=== PATIENT | male | born 1955 | race Caucasian/White ===

== ENCOUNTER 2020-07-19 15:23 | Inpatient (IN) | payer MEDICARE, MEDICAID, SELFPAY ==
[2020-07-19 15:28] VITALS: BMI 19.9
--- NOTE | 2020-07-19 16:00 | XR_ITS ---
WS: [id number] XR chest 1V portable [id number] REASON FOR EXAM: dyspnea/cough FINDINGS: The chest is unchanged compared to previous examination of 10/26/2018. Moderate tortuosity of the thoracic aorta with normal heart size. No active pulmonary parenchymal or pleural disease. Changes of degenerative spondylosis, moderate, in the mid and lower thoracic spine. XR/XR chest 1V portable [id number] IMPRESSION: No acute chest abnormality.
--- NOTE | 2020-07-19 16:00 | CTR_ITS ---
PROCEDURE INFORMATION: Exam: CT Head Without Contrast Exam date and time: 07/19/2020 5:49 PM Age: 65 years old Clinical indication: Injury or trauma; Laceration; Consciousness not specified; Without residual foreign body; Scalp; Patient HX: Unwitnessed fall - found on floor w lac to back of head - HX of untreated schizophrenia; Additional info: Fall head injury TECHNIQUE: Imaging protocol: Computed tomography of the head without contrast. Sagittal and coronal reformatted images were created and reviewed. Radiation optimization: All CT scans at this facility use at least one of these dose optimization techniques: automated exposure control; mA and/or kV adjustment per patient size (includes targeted exams where dose is matched to clinical indication); or iterative reconstruction. COMPARISON: CT head wo con* [id number] 10/26/2018 10:52 AM RADIATION DOSE METRICS: Total DLP (mGy-cm): 917.6 FINDINGS: Brain: No acute intracranial hemorrhage. No acute infarct. No intra-axial or extra-axial masses. Avilez-white matter differentiation is preserved. No cerebral edema. No extra-axial fluid collections. No midline shift. No evidence for Chiari 1 malformation. Stable moderate atrophy of the brain parenchyma. Stable mildly decreased attenuation in the deep white matter, consistent with mild chronic microangiopathic change. Cerebral ventricles: No hydrocephalus. Incidental note of a cavum septum pellucidum. Bones/joints: Mild deviation of the nasal septum both to the right posteriorly and to the left anteriorly. A partially visualized cystic focus in the anterior maxilla just to the right of midline is unchanged. This may represent a residual cyst. Paranasal sinuses: Near complete opacification of the right maxillary sinus. Other paranasal sinuses are clear. Mastoid air cells: Mastoid air cells are clear bilaterally. Auditory system: Soft tissue density in the right external auditory canal, presumably representing cerumen. Orbital cavity: Globes and lenses, extraocular muscles, and optic nerves are intact bilaterally. No acute intraorbital abnormality. Vasculature: Atherosclerotic changes in the visualized arteries. Soft tissues: No acute abnormality of the extracranial soft tissues. CT/CT head wo con* [id number] IMPRESSION: 1. No acute abnormality of the brain. 2. Stable moderate atrophy of the brain parenchyma. 3. 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 4. Incidental/nonacute findings are listed in the report. Radiation Dose CTDIVOL = (mGy): DLP = 917.6 (mGy-cm)
--- NOTE | 2020-07-19 16:01 | ED_ITS ---
Documented by User: Kamlesh Ibrhaim DO 07/22/20 06:34 HPI - Head Injury General: Chief complaint: Head Injury Stated complaint: FALL/ HEAD LAC Time Seen by Provider: 07/19/20 15:34 History of Present Illness: HPI Narrative: 65-year-old male who has a history of schizophrenia he is untreated. He lives with a family member and [place] they came home to find him down on the floor and a large amount of blood with the cut on the back of his head. He is able to follow simple commands will acknowledge that he fell and was hurt but cannot really provide much more history than that due to his mental health illness there is no other family members present at this time. He is in no respiratory distress. Complaint: head injury Onset (ago): minute(s) Mechanism of Injury: fall Place: home Loss of Consciousness: unsure Location of injury: occipital Severity: mild Associated symptoms: Reports confusion (Chronic near his baseline mental health illnesses); Deny nausea or vomiting Review of Systems Const: Denies: fever(s), chills, body aches, change in appetite, fatigue or malaise ENMT: Denies: throat pain, ear or mastoid pain, nasal discharge or nasal congestion Card: Denies: chest pain, edema, dyspnea on exertion or orthopnea Resp: Denies: dyspnea, productive cough or non-productive cough GI: Denies: abdominal pain, nausea, vomiting, hematemesis, coffee ground emesis, diarrhea, constipation, bloating, hematochezia or melena : Denies: flank pain, dysuria, urinary frequency or urinary urgency Skin/Breast: Denies: rash or pruritus Neuro: Reports: confusion (Chronic near his baseline mental health illnesses) PFS ED PFSH: Medical History (Updated 07/21/20 @ 16:07 by Matthias Puente MD) COPD (chronic obstructive pulmonary disease) CVA (cerebral vascular accident) HLD (hyperlipidemia) HTN (hypertension) Schizophrenia Surgical History Stented coronary artery Family History Other Cancer Hyperlipidemia Hypertension Social History Smoking and tobacco status: former smoker Alcohol intake: former Former alcohol use details: Reports some alcohol in the past? No report of abuse in past documentation. Substance/Drug Use: never Lives independently: No Household members: family and other Details: Reports daughter and grandchildren, sister? Reports also has a son who does not live with them. Current occupational status: disabled Physical Exam Const: COMMON NORMALS: no acute distress GENERAL APPEARANCE: cooperative and comfortable ORIENTATION/CONSCIOUSNESS: Yes awake HENMT: COMMON NORMALS: normocephalic HEAD & SCALP: normocephalic OTHER: Patient is severely unkemp hair and wilde examination. There is blood and food caked in his wilde and hair. In order to find the laceration nurse was forced to shave his head and wilde base the occiput on the left there is a small laceration this was closed with a single staple. Eye: COMMON NORMALS: Equal, round and reactive pupils present, EOMs intact bilaterally, conjunctivae normal and no scleral icterus CONJUNCTIVA: Yes conjunctivae normal PUPIL: Yes Equal, round and reactive pupils present Neck/C-Spine: COMMON NORMALS: full ROM, no lymphadenopathy, supple and no JVD Lymph: LYMPHATIC: no lymphadenopathy noted and no lymphedema noted Resp: COMMON NORMALS: normal respiratory effort, No retractions, No use of accessory muscles and clear to auscultation bilaterally AUSCULTATION: clear to auscultation bilaterally Cardio: COMMON NORMALS: no JVD, regular rate, regular rhythm and No murmurs present (Cardio) RATE: regular rate RHYTHM: regular rhythm GI: COMMON NORMALS: Soft to palpation and No hepatosplenomegaly present AUSCULTATION: Yes normoactive bowel sounds PALPATION: Yes Soft to palpation, No Tenderness to palpation present (GI), No Guarding due to palpation present (GI) and Yes No hepatosplenomegaly present Extremity: COMMON NORMALS: normal to inspection, capillary refill normal, no clubbing, cyanosis or edema, no calf tenderness and no pedal edema Skin: COMMON NORMALS: no rashes or lesions noted GENERAL SKIN EXAM: no rashes or lesions noted Procedures Laceration Laceration 1: Site: scalp (Posterior occiput on the left) Size (cm): 1 Description: linear Pre-repair: irrigated extensively Skin layer closed with: other (Single staple) Course Vital Signs: Vital signs: Vital Signs Temperature 99.0 F 07/22/20 04:00 Pulse Rate 94 07/22/20 04:00 Respiratory Rate 18 07/22/20 04:00 Blood Pressure 146/64 07/22/20 04:00 Pulse Oximetry 95 07/22/20 04:00 MDM - Head Injury MDM Narrative: Medical decision making narrative: 07/19/2020. Patient signed off to Dr. Pastrana 07/20/2020. Return to a.m. shift patient signed back to me from Dr. Pastrana where still working on placement see Dr. Pastrana's note. 07/20/2020 6 PM. At change of shift we are still attempting to find placement for this patient he has been placed on a 96-hour hold nursing staff continues to call facilities for placement care turned back over to Dr. Pastrana Lab Data: Labs: Lab Results 07/19/20 07/19/20 07/19/20 Range/Units 17:35 17:35 17:35 WBC 8.9 (4.0-10.0) 10^3/ uL RBC 4.20 (4.1-5.3) 10^6/u L Hgb 12.5 (11.7-16.6) g/dL Hct 40.6 L (42.0-52.0) % MCV 96.7 H (80-94) fL MCH 29.8 (28.0-34.0) pg MCHC 30.8 (30.0-36.0) g/dL RDW 14.8 (12.1-15.1) % Plt Count 221 (130-400) 10^3/c mm MPV 9.7 (7.4-10.4) fL Neut % (Auto) 70.5 % Lymph % (Auto) 21.0 % [place] % (Auto) 7.1 % Eos % (Auto) 0.7 % Baso % (Auto) 0.4 % Neut # (Auto) 6.29 (1.8-7.7) 10^3/u L Lymph # (Auto) 1.9 (0.8-4.8) 10^3/u L [place] # (Auto) 0.6 (0.2-0.9) 10^3/u L Eos # (Auto) 0.1 (0.0-0.8) 10^3/u L Baso # (Auto) 0.0 (0.0-0.1) 10^3/u L Nucleated RBC % (a uto) 0 % Nucleated RBCs # 0.0 /100WBC Sodium 136 (136-145) mmol/L Potassium 3.8 (3.5-5.1) mmol/L Chloride 98 (98-107) mmol/L Carbon Dioxide 30 H (22-29) mmol/L Anion Gap 11.8 (5-19) BUN 13 (8-23) mg/dL Creatinine 0.5 L (0.7-1.2) mg/dL GFR Calculation 166.4 H (90-130) mL/min Glucose 99 (65-115) mg/dL Calculated Osmolal ity 282 L (285-295) mOsm/k g Calcium 9.1 (8.5-10.5) mg/dL Phosphorus (2.5-4.5) mg/dL Magnesium (1.7-2.3) mg/dL Total Bilirubin 0.3 (0.15-1.2) mg/dL AST 16 (0-40) U/L ALT 13 (0-41) U/L Alkaline Phosphata se 113 (40-130) IU/L Creatine Kinase 90 (39-308) U/L Troponin T Baselin e 16 H (0-15) ng/L Total Protein 6.9 (6.6-8.7) g/dL Albumin 3.9 (3.5-5.2) g/dL Globulin 3.0 (1.3-4.6) g/dL Vitamin B12 (232-1245) pg/mL Folate (4.5-32.2) ng/mL TSH (0.27-4.20) uIU/ mL Urine Color (Yellow) Urine Appearance (CLEAR) Urine pH (5-7) Ur Specific Gravit y (1.005-1.030) Urine Protein (Negative) Urine Glucose (UA) (Normal) Urine Ketones (Negative) Urine Blood (Negative) Urine Nitrate (Negative) Urine Bilirubin (Negative) Urine Urobilinogen (Negative) mg/dL Ur Leukocyte Britney ase (Negative) Urine RBC (0-2) /hpf Urine WBC (0-5) /hpf Ur Squamous Epith Cells (0-5) /hpf Amorphous Sediment Urine Bacteria (NONE) /hpf Urine Mucus /hpf Salicylates (3-10) mg/dL Urine Opiates Scre en (Negative) ng/mL Acetaminophen (10-30) ug/mL Ur Barbiturates Sc reen (Negative) ng/mL Ur Phencyclidine S crn (Negative) ng/mL Ur Amphetamines Sc reen (Negative) ng/mL U Benzodiazepines Scrn (Negative) ng/mL Urine Cocaine Scre en (Negative) ng/mL U Marijuana (THC) Screen (Negative) ng/mL Ethyl Alcohol (0-10) mg/dL Serum Ketones Negative (Negative) SARS-CoV-2 Ag (Rap id) (Negative) 07/19/20 07/19/20 07/19/20 Range/Units 17:35 17:35 17:35 WBC (4.0-10.0) 10^3/ uL RBC (4.1-5.3) 10^6/u L Hgb (11.7-16.6) g/dL Hct (42.0-52.0) % MCV (80-94) fL MCH (28.0-34.0) pg MCHC (30.0-36.0) g/dL RDW (12.1-15.1) % Plt Count (130-400) 10^3/c mm MPV (7.4-10.4) fL Neut % (Auto) % Lymph % (Auto) % [place] % (Auto) % Eos % (Auto) % Baso % (Auto) % Neut # (Auto) (1.8-7.7) 10^3/u L Lymph # (Auto) (0.8-4.8) 10^3/u L [place] # (Auto) (0.2-0.9) 10^3/u L Eos # (Auto) (0.0-0.8) 10^3/u L Baso # (Auto) (0.0-0.1) 10^3/u L Nucleated RBC % (a uto) % Nucleated RBCs # /100WBC Sodium (136-145) mmol/L Potassium (3.5-5.1) mmol/L Chloride (98-107) mmol/L Carbon Dioxide (22-29) mmol/L Anion Gap (5-19) BUN (8-23) mg/dL Creatinine (0.7-1.2) mg/dL GFR Calculation (90-130) mL/min Glucose (65-115) mg/dL Calculated Osmolal ity (285-295) mOsm/k g Calcium (8.5-10.5) mg/dL Phosphorus 2.8 (2.5-4.5) mg/dL Magnesium 1.8 (1.7-2.3) mg/dL Total Bilirubin (0.15-1.2) mg/dL AST (0-40) U/L ALT (0-41) U/L Alkaline Phosphata se (40-130) IU/L Creatine Kinase (39-308) U/L Troponin T Baselin e (0-15) ng/L Total Protein (6.6-8.7) g/dL Albumin (3.5-5.2) g/dL Globulin (1.3-4.6) g/dL Vitamin B12 590 (232-1245) pg/mL Folate 6.8 (4.5-32.2) ng/mL TSH 1.19 (0.27-4.20) uIU/ mL Urine Color (Yellow) Urine Appearance (CLEAR) Urine pH (5-7) Ur Specific Gravit y (1.005-1.030) Urine Protein (Negative) Urine Glucose (UA) (Normal) Urine Ketones (Negative) Urine Blood (Negative) Urine Nitrate (Negative) Urine Bilirubin (Negative) Urine Urobilinogen (Negative) mg/dL Ur Leukocyte Britney ase (Negative) Urine RBC (0-2) /hpf Urine WBC (0-5) /hpf Ur Squamous Epith Cells (0-5) /hpf Amorphous Sediment Urine Bacteria (NONE) /hpf Urine Mucus /hpf Salicylates < 0.3 L (3-10) mg/dL Urine Opiates Scre en (Negative) ng/mL Acetaminophen < 5.0 L (10-30) ug/mL Ur Barbiturates Sc reen (Negative) ng/mL Ur Phencyclidine S crn (Negative) ng/mL Ur Amphetamines Sc reen (Negative) ng/mL U Benzodiazepines Scrn (Negative) ng/mL Urine Cocaine Scre en (Negative) ng/mL U Marijuana (THC) Screen (Negative) ng/mL Ethyl Alcohol < 10 (0-10) mg/dL Serum Ketones (Negative) SARS-CoV-2 Ag (Rap id) (Negative) 07/19/20 07/19/20 07/19/20 Range/Units 17:52 17:52 23:25 WBC (4.0-10.0) 10^3/ uL RBC (4.1-5.3) 10^6/u L Hgb (11.7-16.6) g/dL Hct (42.0-52.0) % MCV (80-94) fL MCH (28.0-34.0) pg MCHC (30.0-36.0) g/dL RDW (12.1-15.1) % Plt Count (130-400) 10^3/c mm MPV (7.4-10.4) fL Neut % (Auto) % Lymph % (Auto) % [place] % (Auto) % Eos % (Auto) % Baso % (Auto) % Neut # (Auto) (1.8-7.7) 10^3/u L Lymph # (Auto) (0.8-4.8) 10^3/u L [place] # (Auto) (0.2-0.9) 10^3/u L Eos # (Auto) (0.0-0.8) 10^3/u L Baso # (Auto) (0.0-0.1) 10^3/u L Nucleated RBC % (a uto) % Nucleated RBCs # /100WBC Sodium (136-145) mmol/L Potassium (3.5-5.1) mmol/L Chloride (98-107) mmol/L Carbon Dioxide (22-29) mmol/L Anion Gap (5-19) BUN (8-23) mg/dL Creatinine (0.7-1.2) mg/dL GFR Calculation (90-130) mL/min Glucose (65-115) mg/dL Calculated Osmolal ity (285-295) mOsm/k g Calcium (8.5-10.5) mg/dL Phosphorus (2.5-4.5) mg/dL Magnesium (1.7-2.3) mg/dL Total Bilirubin (0.15-1.2) mg/dL AST (0-40) U/L ALT (0-41) U/L Alkaline Phosphata se (40-130) IU/L Creatine Kinase (39-308) U/L Troponin T Baselin e (0-15) ng/L Total Protein (6.6-8.7) g/dL Albumin (3.5-5.2) g/dL Globulin (1.3-4.6) g/dL Vitamin B12 (232-1245) pg/mL Folate (4.5-32.2) ng/mL TSH (0.27-4.20) uIU/ mL Urine Color Yellow (Yellow) Urine Appearance Sl hazy (CLEAR) Urine pH 7 (5-7) Ur Specific Gravit y 1.015 (1.005-1.030) Urine Protein Neg (Negative) Urine Glucose (UA) Norm (Normal) Urine Ketones Negative (Negative) Urine Blood 3+ H (Negative) Urine Nitrate Negative (Negative) Urine Bilirubin Neg (Negative) Urine Urobilinogen Neg (Negative) mg/dL Ur Leukocyte Britney ase Negative (Negative) Urine RBC 0-4 H (0-2) /hpf Urine WBC None (0-5) /hpf Ur Squamous Epith Cells None (0-5) /hpf Amorphous Sediment Not Reportable Urine Bacteria Trace (NONE) /hpf Urine Mucus 1+ /hpf Salicylates (3-10) mg/dL Urine Opiates Scre en Negative (Negative) ng/mL Acetaminophen (10-30) ug/mL Ur Barbiturates Sc reen Negative (Negative) ng/mL Ur Phencyclidine S crn Negative (Negative) ng/mL Ur Amphetamines Sc reen Negative (Negative) ng/mL U Benzodiazepines Scrn Negative (Negative) ng/mL Urine Cocaine Scre en Negative (Negative) ng/mL U Marijuana (THC) Screen Negative (Negative) ng/mL Ethyl Alcohol (0-10) mg/dL Serum Ketones (Negative) SARS-CoV-2 Ag (Rap id) Negative (Negative) Discharge Plan Discharge Patient Disposition: Admitted As Inpatient Admit Provider: Matthias Puente Clinical Impression: Schizophrenia, Generalized weakness Dementia Qualifiers: Dementia type: unspecified type Dementia behavioral disturbance: with behavioral disturbance Qualified Code(s): F03.91 - Unspecified dementia with behavioral disturbance Condition: Stable Sign Out Sign Out Data: Patient Sign Out occurred on 07/20/20 at 07:07. Patient's care was discussed, and care was transferred from to Kamlesh Ibrahim DO. Patient Sign Out occurred on 07/20/20 at 18:17. Patient's care was discussed, and care was transferred from to Nikki Garrison. Coding Level of Care Code ED Electronic Prepress Operator for Chg Fwd Exam Comprehensive Documented by User: David Moyer DO 07/20/20 00:46 HPI - Head Injury General: Chief complaint: Head Injury Stated complaint: FALL/ HEAD LAC Time Seen by Provider: 07/19/20 15:34 PFSH ED PFSH: Medical History (Updated 07/21/20 @ 16:07 by Matthias Puente MD) COPD (chronic obstructive pulmonary disease) CVA (cerebral vascular accident) HLD (hyperlipidemia) HTN (hypertension) Schizophrenia Surgical History Stented coronary artery Family History Other Cancer Hyperlipidemia Hypertension Social History Smoking and tobacco status: former smoker Alcohol intake: former Former alcohol use details: Reports some alcohol in the past? No report of abuse in past documentation. Substance/Drug Use: never Lives independently: No Household members: family and other Details: Reports daughter and grandchildren, sister? Reports also has a son who does not live with them. Current occupational status: disabled Course Vital Signs: Vital signs: Vital Signs Temperature 99.0 F 07/22/20 04:00 Pulse Rate 94 07/22/20 04:00 Respiratory Rate 18 07/22/20 04:00 Blood Pressure 146/64 07/22/20 04:00 Pulse Oximetry 95 07/22/20 04:00 MDM - Head Injury MDM Narrative: Medical decision making narrative: 65-year-old male came to the ER as a head injury. He had fallen at home evidently, and had a laceration. This was repaired. He had blood, and food caked in his wilde and hair. He had to be shaved to find the laceration. He also had urine and feces soiled pants, and was quite disheveled. This gentleman comes in by ambulance, his daughter, who evidently is his beam house inspector is not answering her phone. This patient is essentially a one-on-one patient. He is severe dementia. if left alone, he is certainly a danger to himself. He has been medically screened, and found that no medical conditions account for his problem. He would be best served evaluated by a geriatric psychiatrist, and his dementia treated appropriately prior to more computer terminal operator placement. Lab Data: Labs: Lab Results 07/19/20 07/19/20 07/19/20 Range/Units 17:35 17:35 17:35 WBC 8.9 (4.0-10.0) 10^3/ uL RBC 4.20 (4.1-5.3) 10^6/u L Hgb 12.5 (11.7-16.6) g/dL Hct 40.6 L (42.0-52.0) % MCV 96.7 H (80-94) fL MCH 29.8 (28.0-34.0) pg MCHC 30.8 (30.0-36.0) g/dL RDW 14.8 (12.1-15.1) % Plt Count 221 (130-400) 10^3/c mm MPV 9.7 (7.4-10.4) fL Neut % (Auto) 70.5 % Lymph % (Auto) 21.0 % [place] % (Auto) 7.1 % Eos % (Auto) 0.7 % Baso % (Auto) 0.4 % Neut # (Auto) 6.29 (1.8-7.7) 10^3/u L Lymph # (Auto) 1.9 (0.8-4.8) 10^3/u L [place] # (Auto) 0.6 (0.2-0.9) 10^3/u L Eos # (Auto) 0.1 (0.0-0.8) 10^3/u L Baso # (Auto) 0.0 (0.0-0.1) 10^3/u L Nucleated RBC % (a uto) 0 % Nucleated RBCs # 0.0 /100WBC Sodium 136 (136-145) mmol/L Potassium 3.8 (3.5-5.1) mmol/L Chloride 98 (98-107) mmol/L Carbon Dioxide 30 H (22-29) mmol/L Anion Gap 11.8 (5-19) BUN 13 (8-23) mg/dL Creatinine 0.5 L (0.7-1.2) mg/dL GFR Calculation 166.4 H (90-130) mL/min Glucose 99 (65-115) mg/dL Calculated Osmolal ity 282 L (285-295) mOsm/k g Calcium 9.1 (8.5-10.5) mg/dL Phosphorus (2.5-4.5) mg/dL Magnesium (1.7-2.3) mg/dL Total Bilirubin 0.3 (0.15-1.2) mg/dL AST 16 (0-40) U/L ALT 13 (0-41) U/L Alkaline Phosphata se 113 (40-130) IU/L Creatine Kinase 90 (39-308) U/L Troponin T Baselin e 16 H (0-15) ng/L Total Protein 6.9 (6.6-8.7) g/dL Albumin 3.9 (3.5-5.2) g/dL Globulin 3.0 (1.3-4.6) g/dL Vitamin B12 (232-1245) pg/mL Folate (4.5-32.2) ng/mL TSH (0.27-4.20) uIU/ mL Urine Color (Yellow) Urine Appearance (CLEAR) Urine pH (5-7) Ur Specific Gravit y (1.005-1.030) Urine Protein (Negative) Urine Glucose (UA) (Normal) Urine Ketones (Negative) Urine Blood (Negative) Urine Nitrate (Negative) Urine Bilirubin (Negative) Urine Urobilinogen (Negative) mg/dL Ur Leukocyte Britney ase (Negative) Urine RBC (0-2) /hpf Urine WBC (0-5) /hpf Ur Squamous Epith Cells (0-5) /hpf Amorphous Sediment Urine Bacteria (NONE) /hpf Urine Mucus /hpf Salicylates (3-10) mg/dL Urine Opiates Scre en (Negative) ng/mL Acetaminophen (10-30) ug/mL Ur Barbiturates Sc reen (Negative) ng/mL Ur Phencyclidine S crn (Negative) ng/mL Ur Amphetamines Sc reen (Negative) ng/mL U Benzodiazepines Scrn (Negative) ng/mL Urine Cocaine Scre en (Negative) ng/mL U Marijuana (THC) Screen (Negative) ng/mL Ethyl Alcohol (0-10) mg/dL Serum Ketones Negative (Negative) SARS-CoV-2 Ag (Rap id) (Negative) 07/19/20 07/19/20 07/19/20 Range/Units 17:35 17:35 17:35 WBC (4.0-10.0) 10^3/ uL RBC (4.1-5.3) 10^6/u L Hgb (11.7-16.6) g/dL Hct (42.0-52.0) % MCV (80-94) fL MCH (28.0-34.0) pg MCHC (30.0-36.0) g/dL RDW (12.1-15.1) % Plt Count (130-400) 10^3/c mm MPV (7.4-10.4) fL Neut % (Auto) % Lymph % (Auto) % [place] % (Auto) % Eos % (Auto) % Baso % (Auto) % Neut # (Auto) (1.8-7.7) 10^3/u L Lymph # (Auto) (0.8-4.8) 10^3/u L [place] # (Auto) (0.2-0.9) 10^3/u L Eos # (Auto) (0.0-0.8) 10^3/u L Baso # (Auto) (0.0-0.1) 10^3/u L Nucleated RBC % (a uto) % Nucleated RBCs # /100WBC Sodium (136-145) mmol/L Potassium (3.5-5.1) mmol/L Chloride (98-107) mmol/L Carbon Dioxide (22-29) mmol/L Anion Gap (5-19) BUN (8-23) mg/dL Creatinine (0.7-1.2) mg/dL GFR Calculation (90-130) mL/min Glucose (65-115) mg/dL Calculated Osmolal ity (285-295) mOsm/k g Calcium (8.5-10.5) mg/dL Phosphorus 2.8 (2.5-4.5) mg/dL Magnesium 1.8 (1.7-2.3) mg/dL Total Bilirubin (0.15-1.2) mg/dL AST (0-40) U/L ALT (0-41) U/L Alkaline Phosphata se (40-130) IU/L Creatine Kinase (39-308) U/L Troponin T Baselin e (0-15) ng/L Total Protein (6.6-8.7) g/dL Albumin (3.5-5.2) g/dL Globulin (1.3-4.6) g/dL Vitamin B12 590 (232-1245) pg/mL Folate 6.8 (4.5-32.2) ng/mL TSH 1.19 (0.27-4.20) uIU/ mL Urine Color (Yellow) Urine Appearance (CLEAR) Urine pH (5-7) Ur Specific Gravit y (1.005-1.030) Urine Protein (Negative) Urine Glucose (UA) (Normal) Urine Ketones (Negative) Urine Blood (Negative) Urine Nitrate (Negative) Urine Bilirubin (Negative) Urine Urobilinogen (Negative) mg/dL Ur Leukocyte Britney ase (Negative) Urine RBC (0-2) /hpf Urine WBC (0-5) /hpf Ur Squamous Epith Cells (0-5) /hpf Amorphous Sediment Urine Bacteria (NONE) /hpf Urine Mucus /hpf Salicylates < 0.3 L (3-10) mg/dL Urine Opiates Scre en (Negative) ng/mL Acetaminophen < 5.0 L (10-30) ug/mL Ur Barbiturates Sc reen (Negative) ng/mL Ur Phencyclidine S crn (Negative) ng/mL Ur Amphetamines Sc reen (Negative) ng/mL U Benzodiazepines Scrn (Negative) ng/mL Urine Cocaine Scre en (Negative) ng/mL U Marijuana (THC) Screen (Negative) ng/mL Ethyl Alcohol < 10 (0-10) mg/dL Serum Ketones (Negative) SARS-CoV-2 Ag (Rap id) (Negative) 07/19/20 07/19/20 07/19/20 Range/Units 17:52 17:52 23:25 WBC (4.0-10.0) 10^3/ uL RBC (4.1-5.3) 10^6/u L Hgb (11.7-16.6) g/dL Hct (42.0-52.0) % MCV (80-94) fL MCH (28.0-34.0) pg MCHC (30.0-36.0) g/dL RDW (12.1-15.1) % Plt Count (130-400) 10^3/c mm MPV (7.4-10.4) fL Neut % (Auto) % Lymph % (Auto) % [place] % (Auto) % Eos % (Auto) % Baso % (Auto) % Neut # (Auto) (1.8-7.7) 10^3/u L Lymph # (Auto) (0.8-4.8) 10^3/u L [place] # (Auto) (0.2-0.9) 10^3/u L Eos # (Auto) (0.0-0.8) 10^3/u L Baso # (Auto) (0.0-0.1) 10^3/u L Nucleated RBC % (a uto) % Nucleated RBCs # /100WBC Sodium (136-145) mmol/L Potassium (3.5-5.1) mmol/L Chloride (98-107) mmol/L Carbon Dioxide (22-29) mmol/L Anion Gap (5-19) BUN (8-23) mg/dL Creatinine (0.7-1.2) mg/dL GFR Calculation (90-130) mL/min Glucose (65-115) mg/dL Calculated Osmolal ity (285-295) mOsm/k g Calcium (8.5-10.5) mg/dL Phosphorus (2.5-4.5) mg/dL Magnesium (1.7-2.3) mg/dL Total Bilirubin (0.15-1.2) mg/dL AST (0-40) U/L ALT (0-41) U/L Alkaline Phosphata se (40-130) IU/L Creatine Kinase (39-308) U/L Troponin T Baselin e (0-15) ng/L Total Protein (6.6-8.7) g/dL Albumin (3.5-5.2) g/dL Globulin (1.3-4.6) g/dL Vitamin B12 (232-1245) pg/mL Folate (4.5-32.2) ng/mL TSH (0.27-4.20) uIU/ mL Urine Color Yellow (Yellow) Urine Appearance Sl hazy (CLEAR) Urine pH 7 (5-7) Ur Specific Gravit y 1.015 (1.005-1.030) Urine Protein Neg (Negative) Urine Glucose (UA) Norm (Normal) Urine Ketones Negative (Negative) Urine Blood 3+ H (Negative) Urine Nitrate Negative (Negative) Urine Bilirubin Neg (Negative) Urine Urobilinogen Neg (Negative) mg/dL Ur Leukocyte Britney ase Negative (Negative) Urine RBC 0-4 H (0-2) /hpf Urine WBC None (0-5) /hpf Ur Squamous Epith Cells None (0-5) /hpf Amorphous Sediment Not Reportable Urine Bacteria Trace (NONE) /hpf Urine Mucus 1+ /hpf Salicylates (3-10) mg/dL Urine Opiates Scre en Negative (Negative) ng/mL Acetaminophen (10-30) ug/mL Ur Barbiturates Sc reen Negative (Negative) ng/mL Ur Phencyclidine S crn Negative (Negative) ng/mL Ur Amphetamines Sc reen Negative (Negative) ng/mL U Benzodiazepines Scrn Negative (Negative) ng/mL Urine Cocaine Scre en Negative (Negative) ng/mL U Marijuana (THC) Screen Negative (Negative) ng/mL Ethyl Alcohol (0-10) mg/dL Serum Ketones (Negative) SARS-CoV-2 Ag (Rap id) Negative (Negative) Discharge Plan Discharge Patient Disposition: Admitted As Inpatient Admit Provider: Matthias Puente Clinical Impression: Schizophrenia, Generalized weakness Dementia Qualifiers: Dementia type: unspecified type Dementia behavioral disturbance: with behavioral disturbance Qualified Code(s): F03.91 - Unspecified dementia with behavioral disturbance Condition: Stable Sign Out Sign Out Data: Patient Sign Out occurred on 07/20/20 at 07:07. Patient's care was discussed, and care was transferred from to Kamlesh Ibrahim DO. Patient Sign Out occurred on 07/20/20 at 18:17. Patient's care was discussed, and care was transferred from to Nikki Garrison. Coding Level of Care Code ED Electronic Prepress Operator for Chg Fwd Exam Comprehensive Documented by User: Dorene Cash MD 07/21/20 14:22 HPI - Head Injury General: Chief complaint: Head Injury Stated complaint: FALL/ HEAD LAC Time Seen by Provider: 07/19/20 15:34 PFSH ED PFSH: Medical History (Updated 07/21/20 @ 16:07 by Matthias Puente MD) COPD (chronic obstructive pulmonary disease) CVA (cerebral vascular accident) HLD (hyperlipidemia) HTN (hypertension) Schizophrenia Surgical History Stented coronary artery Family History Other Cancer Hyperlipidemia Hypertension Social History Smoking and tobacco status: former smoker Alcohol intake: former Former alcohol use details: Reports some alcohol in the past? No report of abuse in past documentation. Substance/Drug Use: never Lives independently: No Household members: family and other Details: Reports daughter and grandchildren, sister? Reports also has a son who does not live with them. Current occupational status: disabled Course Vital Signs: Vital signs: Vital Signs Temperature 99.0 F 07/22/20 04:00 Pulse Rate 94 07/22/20 04:00 Respiratory Rate 18 07/22/20 04:00 Blood Pressure 146/64 07/22/20 04:00 Pulse Oximetry 95 07/22/20 04:00 MDM - Head Injury MDM Narrative: Medical decision making narrative: Andre presents here with generalized weakness along with history of dementia and schizophrenia. I had Dr. Segura come and evaluate him and he felt like he is malnourished and did not meet the requirements to be admitted in the [facility] at this time. I spoke to Dr. Halytsky and will admit as patient does have weakness and is quite confused. Dr. Segura was consulted as well. Lab Data: Labs: Lab Results 07/19/20 07/19/20 07/19/20 Range/Units 17:35 17:35 17:35 WBC 8.9 (4.0-10.0) 10^3/ uL RBC 4.20 (4.1-5.3) 10^6/u L Hgb 12.5 (11.7-16.6) g/dL Hct 40.6 L (42.0-52.0) % MCV 96.7 H (80-94) fL MCH 29.8 (28.0-34.0) pg MCHC 30.8 (30.0-36.0) g/dL RDW 14.8 (12.1-15.1) % Plt Count 221 (130-400) 10^3/c mm MPV 9.7 (7.4-10.4) fL Neut % (Auto) 70.5 % Lymph % (Auto) 21.0 % [place] % (Auto) 7.1 % Eos % (Auto) 0.7 % Baso % (Auto) 0.4 % Neut # (Auto) 6.29 (1.8-7.7) 10^3/u L Lymph # (Auto) 1.9 (0.8-4.8) 10^3/u L [place] # (Auto) 0.6 (0.2-0.9) 10^3/u L Eos # (Auto) 0.1 (0.0-0.8) 10^3/u L Baso # (Auto) 0.0 (0.0-0.1) 10^3/u L Nucleated RBC % (a uto) 0 % Nucleated RBCs # 0.0 /100WBC Sodium 136 (136-145) mmol/L Potassium 3.8 (3.5-5.1) mmol/L Chloride 98 (98-107) mmol/L Carbon Dioxide 30 H (22-29) mmol/L Anion Gap 11.8 (5-19) BUN 13 (8-23) mg/dL Creatinine 0.5 L (0.7-1.2) mg/dL GFR Calculation 166.4 H (90-130) mL/min Glucose 99 (65-115) mg/dL Calculated Osmolal ity 282 L (285-295) mOsm/k g Calcium 9.1 (8.5-10.5) mg/dL Phosphorus (2.5-4.5) mg/dL Magnesium (1.7-2.3) mg/dL Total Bilirubin 0.3 (0.15-1.2) mg/dL AST 16 (0-40) U/L ALT 13 (0-41) U/L Alkaline Phosphata se 113 (40-130) IU/L Creatine Kinase 90 (39-308) U/L Troponin T Baselin e 16 H (0-15) ng/L Total Protein 6.9 (6.6-8.7) g/dL Albumin 3.9 (3.5-5.2) g/dL Globulin 3.0 (1.3-4.6) g/dL Vitamin B12 (232-1245) pg/mL Folate (4.5-32.2) ng/mL TSH (0.27-4.20) uIU/ mL Urine Color (Yellow) Urine Appearance (CLEAR) Urine pH (5-7) Ur Specific Gravit y (1.005-1.030) Urine Protein (Negative) Urine Glucose (UA) (Normal) Urine Ketones (Negative) Urine Blood (Negative) Urine Nitrate (Negative) Urine Bilirubin (Negative) Urine Urobilinogen (Negative) mg/dL Ur Leukocyte Britney ase (Negative) Urine RBC (0-2) /hpf Urine WBC (0-5) /hpf Ur Squamous Epith Cells (0-5) /hpf Amorphous Sediment Urine Bacteria (NONE) /hpf Urine Mucus /hpf Salicylates (3-10) mg/dL Urine Opiates Scre en (Negative) ng/mL Acetaminophen (10-30) ug/mL Ur Barbiturates Sc reen (Negative) ng/mL Ur Phencyclidine S crn (Negative) ng/mL Ur Amphetamines Sc reen (Negative) ng/mL U Benzodiazepines Scrn (Negative) ng/mL Urine Cocaine Scre en (Negative) ng/mL U Marijuana (THC) Screen (Negative) ng/mL Ethyl Alcohol (0-10) mg/dL Serum Ketones Negative (Negative) SARS-CoV-2 Ag (Rap id) (Negative) 07/19/20 07/19/20 07/19/20 Range/Units 17:35 17:35 17:35 WBC (4.0-10.0) 10^3/ uL RBC (4.1-5.3) 10^6/u L Hgb (11.7-16.6) g/dL Hct (42.0-52.0) % MCV (80-94) fL MCH (28.0-34.0) pg MCHC (30.0-36.0) g/dL RDW (12.1-15.1) % Plt Count (130-400) 10^3/c mm MPV (7.4-10.4) fL Neut % (Auto) % Lymph % (Auto) % [place] % (Auto) % Eos % (Auto) % Baso % (Auto) % Neut # (Auto) (1.8-7.7) 10^3/u L Lymph # (Auto) (0.8-4.8) 10^3/u L [place] # (Auto) (0.2-0.9) 10^3/u L Eos # (Auto) (0.0-0.8) 10^3/u L Baso # (Auto) (0.0-0.1) 10^3/u L Nucleated RBC % (a uto) % Nucleated RBCs # /100WBC Sodium (136-145) mmol/L Potassium (3.5-5.1) mmol/L Chloride (98-107) mmol/L Carbon Dioxide (22-29) mmol/L Anion Gap (5-19) BUN (8-23) mg/dL Creatinine (0.7-1.2) mg/dL GFR Calculation (90-130) mL/min Glucose (65-115) mg/dL Calculated Osmolal ity (285-295) mOsm/k g Calcium (8.5-10.5) mg/dL Phosphorus 2.8 (2.5-4.5) mg/dL Magnesium 1.8 (1.7-2.3) mg/dL Total Bilirubin (0.15-1.2) mg/dL AST (0-40) U/L ALT (0-41) U/L Alkaline Phosphata se (40-130) IU/L Creatine Kinase (39-308) U/L Troponin T Baselin e (0-15) ng/L Total Protein (6.6-8.7) g/dL Albumin (3.5-5.2) g/dL Globulin (1.3-4.6) g/dL Vitamin B12 590 (232-1245) pg/mL Folate 6.8 (4.5-32.2) ng/mL TSH 1.19 (0.27-4.20) uIU/ mL Urine Color (Yellow) Urine Appearance (CLEAR) Urine pH (5-7) Ur Specific Gravit y (1.005-1.030) Urine Protein (Negative) Urine Glucose (UA) (Normal) Urine Ketones (Negative) Urine Blood (Negative) Urine Nitrate (Negative) Urine Bilirubin (Negative) Urine Urobilinogen (Negative) mg/dL Ur Leukocyte Britney ase (Negative) Urine RBC (0-2) /hpf Urine WBC (0-5) /hpf Ur Squamous Epith Cells (0-5) /hpf Amorphous Sediment Urine Bacteria (NONE) /hpf Urine Mucus /hpf Salicylates < 0.3 L (3-10) mg/dL Urine Opiates Scre en (Negative) ng/mL Acetaminophen < 5.0 L (10-30) ug/mL Ur Barbiturates Sc reen (Negative) ng/mL Ur Phencyclidine S crn (Negative) ng/mL Ur Amphetamines Sc reen (Negative) ng/mL U Benzodiazepines Scrn (Negative) ng/mL Urine Cocaine Scre en (Negative) ng/mL U Marijuana (THC) Screen (Negative) ng/mL Ethyl Alcohol < 10 (0-10) mg/dL Serum Ketones (Negative) SARS-CoV-2 Ag (Rap id) (Negative) 07/19/20 07/19/20 07/19/20 Range/Units 17:52 17:52 23:25 WBC (4.0-10.0) 10^3/ uL RBC (4.1-5.3) 10^6/u L Hgb (11.7-16.6) g/dL Hct (42.0-52.0) % MCV (80-94) fL MCH (28.0-34.0) pg MCHC (30.0-36.0) g/dL RDW (12.1-15.1) % Plt Count (130-400) 10^3/c mm MPV (7.4-10.4) fL Neut % (Auto) % Lymph % (Auto) % [place] % (Auto) % Eos % (Auto) % Baso % (Auto) % Neut # (Auto) (1.8-7.7) 10^3/u L Lymph # (Auto) (0.8-4.8) 10^3/u L [place] # (Auto) (0.2-0.9) 10^3/u L Eos # (Auto) (0.0-0.8) 10^3/u L Baso # (Auto) (0.0-0.1) 10^3/u L Nucleated RBC % (a uto) % Nucleated RBCs # /100WBC Sodium (136-145) mmol/L Potassium (3.5-5.1) mmol/L Chloride (98-107) mmol/L Carbon Dioxide (22-29) mmol/L Anion Gap (5-19) BUN (8-23) mg/dL Creatinine (0.7-1.2) mg/dL GFR Calculation (90-130) mL/min Glucose (65-115) mg/dL Calculated Osmolal ity (285-295) mOsm/k g Calcium (8.5-10.5) mg/dL Phosphorus (2.5-4.5) mg/dL Magnesium (1.7-2.3) mg/dL Total Bilirubin (0.15-1.2) mg/dL AST (0-40) U/L ALT (0-41) U/L Alkaline Phosphata se (40-130) IU/L Creatine Kinase (39-308) U/L Troponin T Baselin e (0-15) ng/L Total Protein (6.6-8.7) g/dL Albumin (3.5-5.2) g/dL Globulin (1.3-4.6) g/dL Vitamin B12 (232-1245) pg/mL Folate (4.5-32.2) ng/mL TSH (0.27-4.20) uIU/ mL Urine Color Yellow (Yellow) Urine Appearance Sl hazy (CLEAR) Urine pH 7 (5-7) Ur Specific Gravit y 1.015 (1.005-1.030) Urine Protein Neg (Negative) Urine Glucose (UA) Norm (Normal) Urine Ketones Negative (Negative) Urine Blood 3+ H (Negative) Urine Nitrate Negative (Negative) Urine Bilirubin Neg (Negative) Urine Urobilinogen Neg (Negative) mg/dL Ur Leukocyte Britney ase Negative (Negative) Urine RBC 0-4 H (0-2) /hpf Urine WBC None (0-5) /hpf Ur Squamous Epith Cells None (0-5) /hpf Amorphous Sediment Not Reportable Urine Bacteria Trace (NONE) /hpf Urine Mucus 1+ /hpf Salicylates (3-10) mg/dL Urine Opiates Scre en Negative (Negative) ng/mL Acetaminophen (10-30) ug/mL Ur Barbiturates Sc reen Negative (Negative) ng/mL Ur Phencyclidine S crn Negative (Negative) ng/mL Ur Amphetamines Sc reen Negative (Negative) ng/mL U Benzodiazepines Scrn Negative (Negative) ng/mL Urine Cocaine Scre en Negative (Negative) ng/mL U Marijuana (THC) Screen Negative (Negative) ng/mL Ethyl Alcohol (0-10) mg/dL Serum Ketones (Negative) SARS-CoV-2 Ag (Rap id) Negative (Negative) Discharge Plan Discharge Patient Disposition: Admitted As Inpatient Admit Provider: Matthias Puente Clinical Impression: Schizophrenia, Generalized weakness Dementia Qualifiers: Dementia type: unspecified type Dementia behavioral disturbance: with behavioral disturbance Qualified Code(s): F03.91 - Unspecified dementia with behavioral disturbance Condition: Stable Sign Out Sign Out Data: Patient Sign Out occurred on 07/20/20 at 07:07. Patient's care was discussed, and care was transferred from to Kamlesh Ibrahim DO. Patient Sign Out occurred on 07/20/20 at 18:17. Patient's care was discussed, and care was transferred from to Nikki Garrison. Coding Level of Care Code ED Electronic Prepress Operator for Chg Fwd Exam Comprehensive
--- NOTE | 2020-07-19 16:02 | XRR_ITS ---
PROCEDURE INFORMATION: Exam: XR Cervical Spine, 2 or 3 Views Exam date and time: 07/19/2020 4:03 PM Age: 65 years old Clinical indication: Injury or trauma; Fall; Blunt trauma TECHNIQUE: Imaging protocol: XR of the cervical spine, 2 or 3 views. COMPARISON: [facility] Head/Neck [id number] 10/26/2018 10:59 AM FINDINGS: Bones/joints: Vertebral body height is maintained. No subluxation. Normal bone mineralization. Stable multilevel degenerative changes of varying severity in the visualized spine. No acute fracture. Soft tissues: No prevertebral soft tissue swelling. No radiopaque foreign body. Lungs: Visualized lungs are clear. Vasculature: Vascular calcifications in the aorta. XR/XR cervical spine 3V* [id number] IMPRESSION: 1. No acute fracture of the cervical spine. CT scan would be recommended if there is continuing clinical concern for fracture. 2. Stable multilevel degenerative changes of varying severity in the visualized spine. 3. Incidental/nonacute findings are listed in the report.
[2020-07-19 17:42] LABS: Basophils % 0.4 %; Eosinophils # 0.1 10^3/uL (0.0-0.8); Eosinophils % 0.7 %; Hematocrit 40.6 % (42.0-52.0); Hemoglobin 12.5 g/dL (11.7-16.6); Lymphocytes # 1.9 10^3/uL (0.8-4.8); Mean Corpuscular HGB Conc 30.8 g/dL (30.0-36.0); Mean Corpuscular Hemoglobin 29.8 pg (28.0-34.0); Mean Corpuscular Volume 96.7 fL (80-94); Mean Platelet Volume 9.7 fL (7.4-10.4); Monocytes # 0.6 10^3/uL (0.2-0.9); Monocytes % 7.1 %; Neutrophils # 6.29 10^3/uL (1.8-7.7); Neutrophils % 70.5 %; Nucleated Red Blood Cells % 0 %; Platelet Count 221 10^3/cmm (130-400); Red Cell Distribution Width 14.8 % (12.1-15.1); White Blood Count 8.9 10^3/uL (4.0-10.0)
[2020-07-19] MEDS: LORazepam 2 mg/mL INJ 1 mL IVP (17:56)
[2020-07-19 18:12] LABS: Ketone (Acetest) Serum Negative (Negative)
[2020-07-19 18:15] LABS: Alanine Aminotransferase 13 U/L (0-41); Albumin Level 3.9 g/dL (3.5-5.2); Alkaline Phosphatase 113 IU/L (40-130); Anion Gap 11.8 (5-19); Aspartate Amino Transferase 16 U/L (0-40); Blood Urea Nitrogen 13 mg/dL (8-23); Calcium 9.1 mg/dL (8.5-10.5); Carbon Dioxide 30 mmol/L (22-29); Chloride 98 mmol/L (98-107); Creatine Phosphokinase 90 U/L (39-308); Glomerular Filtration Rate 166.4 mL/min (90-130); Glucose 99 mg/dL (65-115); Osmolality Calculated 282 mOsm/kg (285-295); Potassium 3.8 mmol/L (3.5-5.1); Sodium 136 mmol/L (136-145); Total Bilirubin 0.3 mg/dL (0.15-1.2); Total Protein 6.9 g/dL (6.6-8.7)
[2020-07-19 18:19] LABS: Urine Appearance SL Hazy (CLEAR); Urine Color Yellow (Yellow)
[2020-07-19 18:19] LABS: Troponin(5th) Baseline 16 ng/L (0-15)
[2020-07-19 18:20] LABS: Add Urine Microscopic? YES; Bilirubin Urine Neg (Negative); Blood Urine 3+ (Negative); Glucose Urine UA Norm (Normal); Ketones Urine Negative (Negative); Leukocyte Esterase Urine Negative (Negative); Nitrate Urine Negative (Negative); Protein Urine Neg (Negative); Specific Gravity, Urine 1.015 (1.005-1.030); Urobilinogen Urine Neg (Negative); pH Urine 7 (5-7)
[2020-07-19 18:21] LABS: Add Urine Culture? No; Bacteria Urine TRACE /hpf; Mucus Urine 1+ /hpf; RBC Urine 0-4 /hpf (0-2)
[2020-07-19 18:29] VITALS: BP 190/120; PULSE 75; RESP 18; O2SAT 97
[2020-07-19 19:00] VITALS: RESP 18
[2020-07-19] MEDS: haloperidol inj 5 mg/mL INJ 1 mL IM (19:49)
[2020-07-19 21:00] VITALS: RESP 18
[2020-07-19 22:00] VITALS: RESP 18
--- NOTE | 2020-07-19 22:00 | ECG_ITS ---
[facility] Test Date: 2020-07-19 Pat Name: Andre Dumont Department: Room: Gender: Male [employer]: : 1955 Requested By: Kamlesh Olivera Order Number: [id number] Reading MD: TITO HUA Measurements Intervals [place] Rate: 70 P: 78 GA: 142 QRS: 62 QRSD: 96 T: 53 QT: 383 QTc: 413 Interpretive Statements SINUS RHYTHM POSSIBLE RIGHT ATRIAL ENLARGEMENT [0.25mV P WAVE] LEFT ATRIAL ENLARGEMENT [-0.15mV P WAVE IN V1/V2] SEPTAL MYOCARDIAL INFARCTION , OF INDETERMINATE AGE [40+ ms Q WAVE IN V1/V2] Compared to ECG 06/09/2018 10:53:21 Atrial abnormality now present Myocardial infarct finding now present Electronically Signed On 07-19-2020 19:31:23 DRAMA CRITIC by TITO HUA [id number]
[2020-07-19] MEDS: OLANZapine 10 mg ODT PO (23:23)
[2020-07-19] MEDS: amlodipine 10 mg Tablet PO (23:23)
[2020-07-19] MEDS: nitroglycerin 1 gm/inch oint Pkt 1.5 INCH TOPICAL (23:23)
--- NOTE | 2020-07-19 23:34 | PC.NURSE ---
REPORT RECEIVED FROM CHANTAL ROMERO AND CARE TRANSFERRED TO NICK CASTAÑEDA
[2020-07-19 23:49] VITALS: BP 175/130; RESP 17
[2020-07-19 23:54] LABS: SARS Covid-2 Antigen Negative (Negative)
[2020-07-20] VITALS (13 sets, daily range): BP systolic 130–165; BP diastolic 88–115; PULSE 72–127; RESP 14–18; O2SAT 95–100
--- NOTE | 2020-07-20 02:11 | PC.NURSE ---
patient bedding changed, patient diaper changed, patient readjusted in bed for comfort.
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
--- NOTE | 2020-07-20 05:51 | PC.NURSE ---
patient given warm blanket for comfort
--- NOTE | 2020-07-20 06:13 | PC.NURSE ---
patient bedding changed and patient diaper changed for cleanliness and comfort. patient given warm blankets.
--- NOTE | 2020-07-20 16:12 | PC.NURSE ---
[place], [place] contacted for pt placement. Informed that there is male priscila psych beds available at this time. Faxed information to [phone]. Contacted [facility] in [place], [place] for pt placement. Advised that there are no available male priscila psych beds for non-COVID pts at this time.
--- NOTE | 2020-07-20 16:15 | PC.NURSE ---
[facility] in [place], [place] contacted for pt placement. Advised that no male priscila psych beds are available at this time.
--- NOTE | 2020-07-20 16:21 | PC.NURSE ---
Contacted [facility] in [place], [place] for pt placement. Advised that the facility does have male priscila psych beds available at this time. Information Faxed to [phone].
--- NOTE | 2020-07-20 16:25 | PC.NURSE ---
Contacted [facility] in [place], [place] for pt placement. Advised that they would need the pt to be placed on a hold and they are [place].
--- NOTE | 2020-07-20 18:05 | PC.NURSE ---
[facility] in [place], [place] advised that they received incomplete paperwork. Re-sent paperwork to the facility.
[2020-07-20 20:23] LABS: Amphetamines Screen Urine Negative (Negative); Barbiturates Screen Urine Negative (Negative); Benzodiazepines Screen Urine Negative (Negative); Cocaine Screen Urine Negative (Negative); Opiate Screen Urine Negative (Negative); PCP Screen Urine Negative (Negative); THC Screen Urine Negative (Negative)
[2020-07-20 20:39] LABS: Acetaminophen < 5.0 ug/mL (10-30); Alcohol Level < 10 mg/dL (0-10); Salicylate < 0.3 mg/dL (3-10)
--- NOTE | 2020-07-20 21:15 | PC.SOCIAL ---
[facility] in [place] is currently on diversion. [facility] requested a urine drug screen and copy of 96 hour hold be sent. This was faxed.
--- NOTE | 2020-07-20 22:04 | PC.SOCIAL ---
[facility] reports that Dr. Goel wants to review the information in person and will not do so until the morning. [facility] in [facility] is on diversion [facility] in [place] is considering, information was faxed to them.
--- NOTE | 2020-07-20 22:54 | PC.SOCIAL ---
Addendum entered by AFUA Lambert 07/21/20 02:37: [facility] in [place] currently has their priscila psych unit closed. Would review information for adult unit if patient could do his own ADL's. Patient not appropriate for this. Original Note: [facility] declines based on elevated troponin and EKG appearing to show an WI. Discussed with Dr. Garrison. He reports that these results are normal for him and he is not having a WI.
[2020-07-21] VITALS (11 sets, daily range): BP systolic 126–187; BP diastolic 87–104; PULSE 78–120; RESP 16–96; TEMP 36.2–36.7; O2SAT 95–100
--- NOTE | 2020-07-21 02:04 | PC.NURSE ---
given sandwich -lunch bag denies c/o
[2020-07-21] MEDS: acetaminophen 500 mg Tablet 1000 MG PO (03:36)
--- NOTE | 2020-07-21 03:50 | PC.NURSE ---
0330 c/o pain in fingers- elbows
--- NOTE | 2020-07-21 05:54 | PC.NURSE ---
diaper changed rosa care done patient stood at bedside with assist unable to maintain balance without support- linen changed
--- NOTE | 2020-07-21 08:01 | PC.NURSE ---
Eating breakfast , sitter at bedside
--- NOTE | 2020-07-21 09:03 | PC.NURSE ---
Gave jello, pudding, and apple sauce. Watching TV. No acute distress. Sitter at bedside
--- NOTE | 2020-07-21 11:21 | PC.NURSE ---
Lunch tray served Sitter at bedside. No acute distress or outburst.
--- NOTE | 2020-07-21 13:13 | PC.NURSE ---
No acute distress. Sitter at bedside.
--- NOTE | 2020-07-21 13:14 | PC.NURSE ---
Sitter at bedside. Watching TV.
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
[2020-07-21] MEDS: heparin 5,000 unit/mL INJ 1 mL 5000 UNIT SUBCUT (16:37)
[2020-07-21 16:40] LABS: Magnesium 1.8 mg/dL (1.7-2.3); Phosphorus 2.8 mg/dL (2.5-4.5); Thyroid Stimulating Hormone 1.19 uIU/mL (0.27-4.20); Vitamin B12 590 pg/mL (232-1245)
[2020-07-21 16:42] LABS: Folate Level 6.8 ng/mL (4.5-32.2)
[2020-07-21] MEDS: quetiapine 100 mg Tablet 50 MG PO (16:59)
[2020-07-22] VITALS (7 sets, daily range): BP systolic 90–150; BP diastolic 64–107; PULSE 76–95; RESP 16–18; TEMP 35.8–37.2; O2SAT 95–99; BMI 19.9
[2020-07-22] MEDS: heparin 5,000 unit/mL INJ 1 mL 5000 UNIT SUBCUT ×3 (00:58→17:00)
[2020-07-22] MEDS: lisinopril 10 mg Tablet PO ×2 (01:02→10:55)
[2020-07-22 05:06] LABS: Basophils % 0.6 %; Eosinophils # 0.1 10^3/uL (0.0-0.8); Eosinophils % 1.7 %; Lymphocytes # 1.9 10^3/uL (0.8-4.8); Lymphocytes % 26.5 %; Mean Corpuscular HGB Conc 31.7 g/dL (30.0-36.0); Mean Corpuscular Hemoglobin 29.9 pg (28.0-34.0); Mean Corpuscular Volume 94.3 fL (80-94); Mean Platelet Volume 9.6 fL (7.4-10.4); Monocytes # 0.7 10^3/uL (0.2-0.9); Monocytes % 9.4 %; Neutrophils # 4.28 10^3/uL (1.8-7.7); Neutrophils % 61.2 %; Nucleated Red Blood Cells % 0 %; Platelet Count 238 10^3/cmm (130-400); Red Blood Count 4.35 10^6/uL (4.1-5.3); Red Cell Distribution Width 14.7 % (12.1-15.1)
[2020-07-22 05:53] LABS: Blood Urea Nitrogen 21 mg/dL (8-23); Calcium 8.5 mg/dL (8.5-10.5); Carbon Dioxide 29 mmol/L (22-29); Chloride 103 mmol/L (98-107); Glomerular Filtration Rate 84.4 mL/min (90-130); Glucose 90 mg/dL (65-115); Osmolality Calculated 289 mOsm/kg (285-295); Sodium 138 mmol/L (136-145)
--- NOTE | 2020-07-22 09:08 | PC.CHAP ---
Pastoral Care Encounter/Spiritual Assessment Type of Contact [] Declined mercerizing range controller visit [] Patient/Family/Request visit [] Outpatient visit [] Follow-up visit [] Physician referral [] Code/Alert [] Routine visit [] Staff referral [] Actively dying [x] Patient sleeping [] Family support [] [] Out of room [] Palliative care [] [] Receiving care in room [] Pre-surgical visit [] Trauma [] Long length of stay [] ICU visit [] Other: Relational/Emotional Strength [] Patient feels connected with others/family/visitors/staff [] Distress [] Loneliness/isolation [] Abandonment Spirituality of Patient [] Person of Aga [] Attends Presybeterian of their Aga [] Believes in Prayer [] Reads Bible or Baptist materials [] There are Spiritual issues to be addressed Business Partner Interventions [] Prayer [] Active listening [] Non-anxious presence [] Spiritual/emotional support [] Crisis/trauma care [] Spiritual counseling [] Bereavement support [] Provided bereavement packet [] Provided Bible/devotional materials [] Provided toy/stuffed animal, coloring book to patient or family member [] Provided Communion [] Anointing/[place] [] Salvation [] Completed spiritual assessment [] Other: Impact on Illness or Injury [] Angry [] Fearful [] Anxious [] Often cries [] Exhaustion [] Unable to work [] Unable to attend mormonism [] Unable to walk/stand [] Unable to read [] Unable to drive [] Unable to eat/drink [] Unable to sleep [] Unable to be with family [] Patient intubated [] Other: Summary Time spent with patient
[2020-07-22] MEDS: atorvastatin 40 mg Tablet 20 MG PO (10:55)
[2020-07-22] MEDS: quetiapine 100 mg Tablet 50 MG PO ×2 (10:55→18:05)
[2020-07-22] MEDS: clopidogrel 75 mg Tablet PO (10:55)
[2020-07-22] MEDS: aspirin 81 mg EC Tablet PO (10:56)
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
--- NOTE | 2020-07-22 17:50 | PC.NURSE ---
the son Flip Dumont called and was wanting to know if placement was found for his father, communications writer told him it didn't look like a decision has been made. he said he had called [facility] and they told him they would take his father. communications writer messaged the ma production control planner but hes gone for the day. Flip Dumont said he is wanting his father to be close to home so they can visit.
--- NOTE | 2020-07-22 17:56 | PC.RESP ---
Pulmonary Rehab information sent to patient.
--- NOTE | 2020-07-22 18:56 | P.CONIM_ITS ---
Providers/Reason for Consult Consulting Physican/Specialty*: Nadir Segrua MD. Psychiatry. Reason for Consult*: Evaluation for treatment. Attending Physician: Gillian Domínguez MD Primary Care Provider: Hima Klein Jr, MD Psych Consult HPI History of Present Illness Andre Dumont is a 65 year old male who presented to the emergency department with the following report: Chief complaint: Head Injury Stated complaint: FALL/ HEAD LAC Time Seen by Provider: 07/19/20 15:34 History of Present Illness: HPI Narrative: 65-year-old male who has a history of schizophrenia he is untreated. He lives with a family member and Louann they came home to find him down on the floor and a large amount of blood with the cut on the back of his head. He is able to follow simple commands will acknowledge that he fell and was hurt but cannot really provide much more history than that due to his mental health illness there is no other family members present at this time. He is in no respiratory distress. Complaint: head injury Onset (ago): minute(s) Mechanism of Injury: fall Place: home Loss of Consciousness: unsure Location of injury: occipital Severity: mild Associated symptoms: Reports confusion (Chronic near his baseline mental health illnesses); Deny nausea or vomiting. He was ultimately admitted to the [facility] unit for definitive treatment of the above-stated issues. A psychiatric consult was initiated for concerns of whether he is stable to go home. Unfortunately at this time there was limited resources with patient and he is a very poor historian. We were able to ascertain as he is living in an apartment that is in some way shape or form close to a family member likely sister and that she had been checking in on him possibly. He is unable to give us a true sense of when he stopped taking medication or if he was ever really taking medication before. He does report having previous psychiatric services. But is unclear due to his limited language the exact history of those circumstances. Did find a fairly informative evaluation from October 2018 which will be included below for context. He agreed that we could try to reach out to contact family to find out what type of decompensation or level of independence he has had since then. Per his evaluation on the medical unit in 2019: History of Present Illness Date of Service: Oct 26, 2018 Copies to: Keri Sage ; Chief Complaint: Fall, altered mental status, weakness, unable to speak HPI: 63 y/o male with PMHx of HTN, Hyperlipidemia, multiple prior CVA, Schizophrenia, Dementia presents from home via ambulance after been found on the floor for an unknown period of time. History obtained from family as patient is currently non-verbal and unable to consistently follow commands in addition to review of medical record and ED report. Patient presented as a code stroke reportedly could not move his extremities on the right or the left and was nonverbal. Per his daughter whom he lives with he went to bed around 10 or 10:30 last night and was acting like his normal self. She left to go to work around 0500 and then received a phone call around 10:30 stating that patient had been found on the floor and was en route to the hospital. Patient's granddaughter found him on the floor awake but nonverbal and not really interactive and she called for the ambulance. Per the family this has not happened in the past though with his baseline dementia he has intermittent episodes of confusion. Daughter does mention that on Wednesday morning he had trouble making coffee which is something that is typically able to do independently. He has also had some intermittent episodes of bizarre behavior potentially attributable to his history of schizophrenia. Daughter states that while she is away at work during the day patient is independent with his ADLs. They are aware that he will require 24/7 supervision. He typically ambulates with a cane and has a walker which she does not use otherwise has to hold onto furniture to get around the house. Has had no recent falls otherwise. Over the past couple of weeks daughter mentions that he has had to wear an adult diaper due to urinary incontinence. They deny any history of alcohol or substance abuse and patient quit smoking about 5-6 months ago. Patient was evaluated in the ER by Dr. Alegria and had CT of the head which was negative as well as a CT A of the head and neck which was also negative. As he presented outside the window, he did not receive tPA. Still very high suspicion for stroke as he continues to have left-sided hemiparesis and aphasia. Difficult to gauge rest of neurological status as patient is unable to consistently follow commands. Rest of workup is negative other than mild anemia with a hemoglobin of 12.4, leukocytosis with a white count of 17.2. He received a dose of Ativan and Morphine in the ER. Allergies: Coded Allergies: NO KNOWN ALLERGIES (Unverified , 09/02/15) Home Meds: Confirmed by me at bedside: Zestril Tab (Lisinopril) 20 Mg Tablet 20 Mg PO DAILY Lipitor (Atorvastatin Calcium) 20 Mg Tablet 20 Mg PO HS Aspirin EC (Aspirin) 81 Mg Tablet.dr 81 Mg PO DAILY Past Medical History Medical History: Reports: Hypertension, COPD, CVA (multiple prior strokes), Psychiatric Problems (schizophrenia), Other (hyperlipidemia) Surgical History: Denies: Coronary Stent Family Medical History: Reports: Hypertension, Cancer, Other (hyperlipidemia) Smoke: Reports: Former (quit 5-6 months ago) Occupation: Reports: Disabled Alcohol: Reports: None Drugs: Reports: Never Marital Status: Reports: Single Lives: Reports: With Family (lives with his daughter) Meds Current Medications: Current Medications Generic Name Dose Route Start Last Admin Trade Name Freq PRN Reason Stop Dose Admin Aspirin 81 mg 07/22/20 09:00 07/22/20 10:56 Aspirin Ec PO 81 mg DAILY MADHURI Administration Atorvastatin Calci um 20 mg 07/22/20 09:00 07/22/20 10:55 Lipitor PO 20 mg DAILY MADHURI Administration Clopidogrel Bisulf ate 75 mg 07/22/20 09:00 07/22/20 10:55 Plavix PO 75 mg DAILY MADHURI Administration Heparin Sodium (Be ef Lung) 5,000 unit 07/21/20 16:00 07/23/20 00:21 Heparin SUBCUT 5,000 unit Q8H MADHURI Administration Lisinopril 10 mg 07/22/20 00:45 07/23/20 00:22 Prinivil PO 10 mg Q12H MADHURI Administration Quetiapine Fumarat e 50 mg 07/21/20 18:00 07/22/20 18:05 Seroquel PO 50 mg BID MADHURI Administration PFSH NPU PFSH: Medical History (Updated 07/21/20 @ 16:07 by Matthias Puente MD) COPD (chronic obstructive pulmonary disease) CVA (cerebral vascular accident) HLD (hyperlipidemia) HTN (hypertension) Schizophrenia Surgical History Stented coronary artery Family History Other Cancer Hyperlipidemia Hypertension Social History Smoking and tobacco status: former smoker Alcohol intake: former Former alcohol use details: Reports some alcohol in the past? No report of abuse in past documentation. Substance/Drug Use: never Lives independently: No Household members: family and other Details: Reports daughter and grandchildren, sister? Reports also has a son who does not live with them. Current occupational status: disabled Mental Status Exam MSE Comments: This is a cachectic white male with limited dress, grooming and eye contact. No abnormal movements except for psychomotor retardation. Cooperative with exam and no acute distress. Speech was limited and decreased rate and volume with significant dysarthria. Mood described as okay, affect 3. Also has linear. Thought content: Patient denied suicidal ideation or homicidal ideation, there were no delusions reported or noted, he denied any auditory visual hallucinations. Attention and concentration were limited and memory was unreliable but none were formally tested. He is alert and oriented times person and place. Insight and judgment are impaired, pulse control is impaired, intellectual ability is likely impaired but certainly possible. Vitals/I&O/Wt Last Vital Signs Temp 98.4 F 07/22/20 20:00 Pulse 88 07/22/20 20:00 Resp 17 07/22/20 20:00 BP 103/74 07/22/20 20:00 Pulse Ox 96 07/22/20 20:00 07/22/20 22:59 Intake Total 240 / 480 Balance 240 / 480 Weight last 48 hrs Weight 48.081 kg Weight 61.235 kg A&P Assessment and plan (1) Failure to thrive: Status: Acute (2) Malnutrition: Status: Acute (3) Dementia: Status: Acute Qualifiers: Dementia behavioral disturbance: with behavioral disturbance Dementia type: unspecified type Qualified Code(s): F03.91 - Unspecified dementia with behavioral disturbance (4) Generalized weakness: Status: Acute (5) Schizophrenia: Status: Acute Additional A&P Information This is a 65-year-old white male who appears quite undernourished and has little verbal response to with significant dysarthria making it difficult to understand the information he is giving who presented to the hospital days ago confused and under nourished with limited history. 1. Continue current medication. Attempt to get collateral information about medications he should be but is not taking or previous medications that were successful in treating his mental health or medical conditions. 2. Unclear if there is a history of intellectual ability on top of the reported schizophrenia and dementia, and unclear what baseline looks like hopefully will get some collateral information so we can determine whether a likely geriatric psychiatric inpatient stay should be pursued. At this point that would seem like the most likely appropriate intervention. 3. We will continue to follow. Attestations NPU Medical Necessity Statement*: N/A. Please see primary team note for medical necessity. However currently leaning towards inpatient geriatric psychiatric services if we can find a bed. His level of functioning with the bad there specialized services versus a general unit. Coding Level of Care Code Acute Laboratory Administrative Director for [facility] Fwd Diagnoses Failure to thrive Malnutrition E46 Dementia F03.91 Dementia behavioral disturbance: with behavioral disturbance Dementia type: unspecified type Generalized weakness R53.1 Schizophrenia F20.9
[2020-07-23] VITALS: BP 115/79; PULSE 69; RESP 18; TEMP 36.8; O2SAT 96
[2020-07-23] MEDS: heparin 5,000 unit/mL INJ 1 mL 5000 UNIT SUBCUT ×3 (00:21→17:04)
[2020-07-23] MEDS: lisinopril 10 mg Tablet PO ×2 (00:22→13:00)
[2020-07-23 04:00] VITALS: BP 127/87; PULSE 68; RESP 18; TEMP 37.1; O2SAT 98
[2020-07-23 07:36] VITALS: BP 114/81; PULSE 75; RESP 18; TEMP 36.5; O2SAT 96
[2020-07-23] MEDS: atorvastatin 40 mg Tablet 20 MG PO (09:09)
[2020-07-23] MEDS: aspirin 81 mg EC Tablet PO (09:10)
[2020-07-23] MEDS: quetiapine 100 mg Tablet 50 MG PO ×2 (09:10→17:10)
[2020-07-23] MEDS: clopidogrel 75 mg Tablet PO (09:10)
[2020-07-23] MEDS: acetaminophen 325 mg Tablet 650 MG PO ×3 (10:26→22:48)
[2020-07-23 11:17] VITALS: BP 138/82; PULSE 122; RESP 17; TEMP 36.4; O2SAT 96
[2020-07-23 14:55] VITALS: BP 107/72; PULSE 113; RESP 16; TEMP 36.7; O2SAT 98
--- NOTE | 2020-07-23 15:46 | ECG_ITS ---
[facility] Test Date: 2020-07-23 Pat Name: Andre Dumont Department: Room: 264 Gender: Male Budget Assistant: : 1955 Requested By: Gillian Domínguez Order Number: [id number] Marck MD: Nicole Hernandez M.D. Measurements Intervals [place] Rate: 118 P: 36 [place]: 120 QRS: 12 QRSD: 81 T: 33 QT: 307 QTc: 430 Interpretive Statements SINUS TACHYCARDIA PROBABLE SEPTAL MYOCARDIAL INFARCTION [35 ms Q WAVE IN V1/V2], PROBABLY OLD Compared to ECG 07/19/2020 16:50:32 Sinus rhythm no longer present Atrial abnormality no longer present Myocardial infarct finding still present Electronically Signed On 07-23-2020 19:28:36 MOLD SANDER by Nicole Hernandez M.D. [id number] nirmala
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
--- NOTE | 2020-07-23 18:12 | P.PN_ITS ---
Subjective NPU Subjective: Interval history: Andre presented today unchanged and continuing to have significant limitations in communication but seeming to have a better sense of understanding. He was eating independently when observed and understood the plan for him being evaluated at a [facility]. Mental Status Exam MSE Comments: This is a cachectic white male with limited dress, grooming and eye contact. No abnormal movements except for psychomotor retardation. Cooperative with exam and no acute distress. Speech was limited,but more responsive and decreased rate and volume with significant dysarthria. Mood described as okay, affect congruent. Thought process appeared linear. Thought content: Patient denied suicidal ideation or homicidal ideation, there were no delusions reported or noted, he denied any auditory visual hallucinations. Attention and concentration were limited and memory was unreliable but none were formally tested. He is alert and oriented times person and place. Insight and judgment are impaired, impulse control is impaired, intellectual ability is likely impaired but dementing process versus previous stroke or CVA certainly possible. Vitals/I&O/Wt Last Vital Signs Temp 98.5 F 07/23/20 20:00 Pulse 114 H 07/23/20 20:00 Resp 16 07/23/20 20:00 BP 104/72 07/23/20 20:00 Pulse Ox 95 07/23/20 20:00 07/23/20 22:59 Intake Total 240 / 960 Balance 240 / 960 Weight last 48 hrs Weight 49.623 kg Weight 48.081 kg Data NPU : 07/22/20 04:40 07/22/20 04:40 A&P Additional A&P Information (1) Failure to thrive: (2) Malnutrition: (3) Dementia: (4) Generalized weakness: (5) Schizophrenia: This is a 65-year-old white male who appears quite undernourished and has little verbal response to with significant dysarthria making it difficult to understand the information he is giving who presented to the hospital days ago confused and under nourished with limited history. 1. Continue current medication. Attempt to get collateral information about medications he should be but is not taking or previous medications that were successful in treating his mental health or medical conditions. 2. Unclear if there is a history of intellectual ability on top of the reported schizophrenia and dementia, and unclear what baseline looks like hopefully will get some collateral information, but a geriatric psychiatric inpatient stay should be pursued. At this point that would seem like the most likely appropriate intervention. 3. We will continue to follow. Attestations NPU Medical Necessity Statement*: N/A. Please see primary team note for medical necessity. However currently would explore inpatient geriatric psychiatric services if we can find a bed. His level of functioning would best be addressed by their specialized services versus a general unit. Coding Level of Care Code Acute Machine Tool Mechanic for [facility]
[2020-07-23 20:00] VITALS: BP 104/72; PULSE 114; RESP 16; TEMP 36.9; O2SAT 95
[2020-07-24] VITALS: BP 104/71; PULSE 80; RESP 18; TEMP 37.1; O2SAT 98
[2020-07-24] MEDS: heparin 5,000 unit/mL INJ 1 mL 5000 UNIT SUBCUT ×2 (00:23→08:54)
[2020-07-24] MEDS: lisinopril 10 mg Tablet PO ×2 (00:24→13:19)
[2020-07-24 04:00] VITALS: BP 114/81; PULSE 72; RESP 18; TEMP 36.6; O2SAT 97
[2020-07-24 06:00] VITALS: BMI 16.1
[2020-07-24 07:39] VITALS: BP 132/74; PULSE 96; RESP 18; TEMP 36.7; O2SAT 92
[2020-07-24] MEDS: aspirin 81 mg EC Tablet PO (08:54)
[2020-07-24] MEDS: quetiapine 100 mg Tablet 50 MG PO (08:54)
[2020-07-24] MEDS: multivitamin therapeutic Tablet 1 TAB PO (08:55)
[2020-07-24] MEDS: atorvastatin 40 mg Tablet 20 MG PO (08:55)
[2020-07-24] MEDS: clopidogrel 75 mg Tablet PO (08:55)
--- NOTE | 2020-07-24 10:35 | DCPLANNER ---
IMM completed on 07/24/2020 @ 3535. Copy of rights given to pt.
[2020-07-24 11:54] VITALS: BP 105/70; PULSE 91; RESP 17; TEMP 36.6; O2SAT 96
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
--- NOTE | 2020-07-24 13:48 | P.PN_ITS ---
Subjective NPU Subjective: Interval history: Andre presents today reporting that he understands that he is going to a facility. And the facility has requested that he have an MMSE. Sectional scores are as follows 2/5 missing month date and year stating it as 2020, 1 only being able to name the state as he really did not know where he was thinking this was [place], 3/3 with some prashanth culation issues, 0/5 as he could spell world forwards but could not conceptualize spelling it backwards, 0/3 as he could not recall the items and was recalling questions he was asked earlier,2 ,09/13, 3, 09/13, 0/ as he could not write a sentence he kept holding the pen and looking at the paper, 0/ his representation was 2 objects but certainly without both sides but they did intersect. So his total score was 13/30. Mental Status Exam MSE Comments: This is a cachectic white male with limited dress, grooming and eye contact. No abnormal movements except for psychomotor retardation. Cooperative with exam and no acute distress. Speech was limited,but more responsive and decreased rate and volume with significant dysarthria. Mood described as good, affect congruent. Thought process appeared linear. Thought content: Patient denied suicidal ideation or homicidal ideation, there were no delusions reported or noted, he denied any auditory visual hallucinations. Attention and concentration were limited and memory was unreliable but none were formally tested. He is alert and oriented times person and place. Insight and judgment are impaired, impulse control is impaired, intellectual ability is likely impaired but dementing process versus previous stroke or CVA certainly possible. Vitals/I&O/Wt Last Vital Signs Temp 97.9 F 07/24/20 11:54 Pulse 91 07/24/20 11:54 Resp 17 07/24/20 11:54 BP 105/70 07/24/20 11:54 Pulse Ox 96 07/24/20 11:54 07/23/20 07/24/20 07/24/20 22:59 06:59 14:59 Intake Total 240 / 960 200 / 1160 720 / 720 Balance 240 / 960 200 / 1160 720 / 720 Weight last 48 hrs Weight 49.623 kg Weight 48.081 kg Data NPU : 07/22/20 04:40 07/22/20 04:40 A&P Additional A&P Information (1) Failure to thrive: (2) Malnutrition: (3) Dementia: (4) Generalized weakness: (5) Schizophrenia: This is a 65-year-old white male who appears quite undernourished and has little verbal response to with significant dysarthria making it difficult to understand the information he is giving who presented to the hospital days ago confused and under nourished with limited history. 1. Continue current medication. Attempt to get collateral information about medications he should be but is not taking or previous medications that were successful in treating his mental health or medical conditions. 2. Unclear if there is a history of intellectual ability on top of the reported schizophrenia and dementia, and unclear what baseline looks like hopefully will get some collateral information, but a geriatric psychiatric inpatient stay should be pursued. At this point that would seem like the most likely appropriate intervention. 3. We will continue to follow. 4. MMSE Attestations NPU Medical Necessity Statement*: N/A. Please see primary team note for medical necessity. However currently would explore inpatient geriatric psychiatric services or a half-way if we can find a bed. His level of functioning would best be addressed by their specialized services versus a general unit. Coding Level of Care Code Acute Security Sales Consultant for Haim Dean
--- NOTE | 2020-07-24 13:51 | P.DS_ITS ---
Discharge Providers Date of Admission: 07/21/20 13:34 Date of Discharge: July 24, 2020 Attending Provider at Admission: Matthias Puente Attending Provider at Discharge: Gillian Domínguez MD Primary Care Provider: Hima Klein Jr, MD Diagnoses at Discharge Discharge Diagnosis (1) Scalp laceration: Status: Acute (2) Failure to thrive: Status: Acute (3) Declining functional status: Status: Acute (4) Malnutrition: Status: Acute (5) Generalized weakness: Status: Acute (6) Schizophrenia: Status: Acute (7) Dementia: Status: Acute Qualifiers: Dementia behavioral disturbance: with behavioral disturbance Dementia type: unspecified type Qualified Code(s): F03.91 - Unspecified dementia with behavioral disturbance (8) CVA (cerebral vascular accident): Status: Acute (9) HTN (hypertension): Status: Acute (10) HLD (hyperlipidemia): Status: Acute (11) COPD (chronic obstructive pulmonary disease): Status: Acute Reason for Visit Reason for Visit: FALL/ HEAD LAC Hospital Course Hospital Course Andre Dumont is a 65 year old gentleman who was brought in emergently to ER on 07/19, after being found down on the floor by family member with a large amount of blood with a cut on the back of his head which has been repaired. Patient has a history of schizophrenia, CVA, aphasia, poor functional capacity at baseline. It is somewhat difficult to obtain history from him. he had stated he did not want to return home because he gets his medications taken away there and gets fed dog food. He is extremely weak in ER, and is unable to get up from bed on his own. He appears thin and malnourished. He is quite disheveled. Per report in addition to blood and food in his hair and wilde which had to be shaved off per ER note urine and feces soiled pants. With dry monitor long untrimmed fingernails. Multiple small healed ulcerations or bites on his lower legs. In the ER he underwent a detailed assessment to look for any reversible causes of encephalopathy. No causes to suggest reversible mental status change were identified with unremarkable CBC, CMP, normal CK, normal UA, normal urine toxicology screen, normal rapid COVID-19 antigen test normal chest x-ray. CT head with no acute abnormality, stable moderate atrophy of brain parenchyma, stable mild chronic white matter microangiopathic change. X-ray C-spine without acute fracture. Stable multilevel degenerative changes of variable severity. TSH,B12 and folate were additionally within range. Psych assessment was done, please see Dr. Segura note for further details. Hewas deemed unsafe to be discharged to his present home and tehrefore alternate placement has been sought and obtained at [facility]. Patient is being discharged in medically stable condition. Physical Exam Narrative: EXAM NARRATIVE: GEN: Awake, alert and oriented, no acute distress, chronically malnourished man CVS: S1S2 N RS: CTA B/L Abd: Soft, nt/nd , bs+ PIPE BLANKS CUT OFF SAW OPERATOR: no focal neuro deficits Discharge Data Data Completed and Pending: Completed Studies During Hospitalization Category Date Time Status CT head wo con* 7 0450 Stat Cat Scan 07/19/20 16:00 Completed XR cervical spine 3V* 69520 Stat Exams 07/19/20 16:02 Completed XR chest 1V rhea ble 13163 Stat Exams 07/19/20 16:00 Completed Vitals: Last Vital Signs Temp 97.9 F 07/24/20 11:54 Pulse 91 07/24/20 11:54 Resp 17 07/24/20 11:54 BP 105/70 07/24/20 11:54 Pulse Ox 96 07/24/20 11:54 Discharge Plan Discharge Patient Disposition: er SNF Condition: Stable Prescriptions: Continued atorvastatin 20 mg Tablet 20 mg PO DAILY RF: 0 lisinopril 20 mg Tablet 20 mg PO DAILY RF: 0 clopidogrel 75 mg Tablet 75 mg PO DAILY RF: 0 Aspirin Low Dose 81 mg Tablet,Delayed Release (Dr/Ec) 81 mg PO DAILY RF: 0 quetiapine 50 mg Tablet 50 mg PO BID RF: 0 Discharge Orders: Discharge Order (Routine); Ordered 07/24/20 Ordered By: Gillian Domínguez Referrals: Hima Klein Jr, MD [Primary Care Provider] - Discharge Diet: Cardiac and Soft Mechanical Discharge Activity: Resume usual activity and As per PT/OT instructions Discharge Attestations Time Spent in Discharge Care*: greater than 30 min Quality Metrics Clinical Quality Measures During this hospital stay, did patient experience: None Coding Level of Care Code Acute Etcher Apprentice Photoengraving for Chg Fwd Diagnoses Scalp laceration S01.01XA Failure to thrive Declining functional status R53.81 Malnutrition E46 Generalized weakness R53.1 Schizophrenia F20.9 Dementia F03.91 Dementia behavioral disturbance: with behavioral disturbance Dementia type: unspecified type CVA (cerebral vascular accident) I63.9 HTN (hypertension) I10 HLD (hyperlipidemia) E78.5 COPD (chronic obstructive pulmonary disease) J44.9
[2020-07-24 14:54] VITALS: BP 89/65; PULSE 90; RESP 18; TEMP 36.7; O2SAT 97
[2020-07-24 16:55] VITALS: BP 89/65; PULSE 90; RESP 18; TEMP 36.7; O2SAT 97
== END 2020-07-24 16:58 | disposition skilled nursing facility (03) | DRG 641 ==
LOC: ER 07-21 06:05 → MEDSURG 07-21 13:58
PROVIDERS: Emergency Medicine; Family Medicine; Admitting Provider Internal Medicine; Emergency Provider Emergency Medicine; PCP Family Medicine; Visit Provider Student in an Organized Health Care Education/Training Program
DX: R62.7 Adult failure to thrive (principal); Z68.1 Body mass index [BMI] 19.9 or less, adult; E44.0 Moderate protein-calorie malnutrition; F20.9 Schizophrenia, unspecified; W19.XXXA Unspecified fall, initial encounter; I69.920 Aphasia following unspecified cerebrovascular disease; I69.922 Dysarthria following unspecified cerebrovascular disease; Z87.891 Personal history of nicotine dependence; F03.90 Unspecified dementia, unspecified severity, without behavioral disturbance, psychotic disturbance, mood disturbance, and anxiety; J44.9 Chronic obstructive pulmonary disease, unspecified; E78.5 Hyperlipidemia, unspecified; I10 Essential (primary) hypertension; I25.10 Atherosclerotic heart disease of native coronary artery without angina pectoris; Z95.5 Presence of coronary angioplasty implant and graft; S01.01XA Laceration without foreign body of scalp, initial encounter; M62.50 Muscle wasting and atrophy, not elsewhere classified, unspecified site; D64.9 Anemia, unspecified; R00.0 Tachycardia, unspecified; Z79.82 Long term (current) use of aspirin; Z79.02 Long term (current) use of antithrombotics/antiplatelets
CPT/HCPCS: 12345; 36415; 70450; 71045; 72040; 80048; 80053; 80306; 80307; 81001; 82009; 82550; 82607; 82746; 83735; 84100; 84443; 84484; 85025; 87426; 93005; 96372; 97116; 97161; 97166; 97530; 97535; 99284; J1630; J1644; J2060

== ENCOUNTER 2025-03-26 13:15 | Emergency (ER) | payer MEDICARE, MEDICAID, SELFPAY ==
--- NOTE | 2025-03-26 13:16 | CT_ITS ---
WS: [id number] CT HEAD TECHNIQUE: Noncontrast CT of the head obtained from the skullbase to the vertex. CLINICAL INFORMATION: Symptoms of acute stroke COMPARISON: 07/19/2020 DLP: [address] scans at [facility] use at least one of these dose optimization techniques: automated exposure control; mA and/or kV adjustment per patient size (includes targeted exams where dose is matched to clinical indication); or iterative reconstruction. FINDINGS: No evidence of intracranial hemorrhage or mass effect. Ventricular system and basal cisterns are patent. Moderate small vessel changes with moderate parenchymal volume loss. No extra-axial fluid collections. No evidence of mass or mass effect. Vascular calcification. Advanced atrophy involving the vermis and cerebellum. Paranasal sinuses and mastoid air cells are well aerated. .Normal visualized soft tissues. CT/CT head thrombolytic 77117 IMPRESSION: 1. No evidence of intracranial hemorrhage or mass effect. 2. No acute intracranial findings. Notified Dorene Cash MD at 03/26/2025 1:27 PM.
--- NOTE | 2025-03-26 13:37 | ECG_ITS ---
[facility]25[facility] Pat Name: Andre Dumont Department: Room: Gender: Male Mystery Shopper: : 1955 Requested By: Dorene Cash Order Number: [id number] Marck MD: Nicole Hernandez M.D. Measurements Intervals [place] Rate: 103 P: 59 VA: 149 QRS: 2 QRSD: 77 T: 53 QT: 325 QTc: 426 Interpretive Statements SINUS TACHYCARDIA NONSPECIFIC T-WAVE ABNORMALITY ABNORMAL RHYTHM ECG Compared to ECG 07/23/2020 17:55:18 T-wave abnormality now present Myocardial infarct finding no longer present Electronically Signed On 03-27-2025 09:51:56 CDT by Nicole Hernandez M.D. [email or web address]
--- NOTE | 2025-03-26 13:39 | W.ED.NEUROSD ---
HPI - Neuro Symptoms/Deficit General: Chief Complaint: Neuro Symptoms/Deficit Stated Complaint: stroke alert Time Seen by Provider: 03/26/25 13:15 Source: EMS Mode of arrival: EMS Limitations: altered mental status History of Present Illness: 69-year-old male who presents here with possible stroke. Patient here from residential had a previous stroke they state he typically is able to move all extremities and is talkative they state that his last known well was at 11 today. He now has right sided facial droop is not responding has right sided weakness. Related Data Home Medications ?Medication ?Instructions ?Recorded ?Confirmed clopidogrel 75 mg tablet (Plavix) 75 mg PO DAILY 07/19/20 03/26/25 lisinopril 20 mg tablet 20 mg PO DAILY 07/19/20 03/26/25 quetiapine 50 mg tablet (Seroquel) 50 mg PO BID 07/19/20 03/26/25 acetaminophen 325 mg capsule 650 mg PO QID PRN Fever Or Pain 03/26/25 03/26/25 atorvastatin 20 mg tablet (Lipitor) 20 mg PO QPM 03/26/25 03/26/25 bisacodyl 10 mg rectal suppository 10 mg NV DAILY PRN Constipation 03/26/25 03/26/25 bisacodyl 5 mg tablet,delayed 5 mg PO DAILY PRN Constipation 03/26/25 03/26/25 release loperamide 2 mg capsule (Imodium 2 mg PO Q4H PRN Loose Stool 03/26/25 03/26/25 A-D) loratadine 10 mg tablet (Claritin) 10 mg PO DAILY PRN Allergy Symptoms 03/26/25 03/26/25 magnesium hydroxide 400 mg/5 mL 30 ml PO DAILY PRN constipation 03/26/25 03/26/25 oral suspension (Milk of Magnesia) polyethylene glycol 3350 17 4 g PO DAILY PRN Constipation 03/26/25 03/26/25 gram/dose oral powder sennosides 8.6 mg-docusate sodium 1 tab-cap PO DAILY PRN Constipation 03/26/25 03/26/25 50 mg tablet (Stool Softener-Laxative) sodium phosphates 19 gram-7 118 ml NV DAILY PRN Constipation 03/26/25 03/26/25 gram/118 mL enema (Enema) Allergies Allergy/AdvReac Type Severity Reaction Status Date / Time No Known Allergies Allergy Verified 07/19/20 15:35 Review of Systems General: Reports: ROS unobtainable due to mental status PFSH ED PFSH: Medical History (Updated 03/26/25 @ 15:22 by Dorene Cash MD) HLD (hyperlipidemia) CVA (cerebral vascular accident) COPD (chronic obstructive pulmonary disease) HTN (hypertension) Schizophrenia Surgical History Stented coronary artery Family History Other Cancer Hyperlipidemia Hypertension Social History Smoking and tobacco/nicotine status: former use of tobacco/nicotine Alcohol intake: former Former alcohol use details: Reports some alcohol in the past? No report of abuse in past documentation. Substance/Drug Use: never Lives independently: No Household members: family and other Details: Reports daughter and grandchildren, sister? Reports also has a son who does not live with them. Current occupational status: disabled NIH stroke score NIHSS: Level Of Consciousness - 1a: 0 Level Of Consciousness Questions - 1b: Neither Correct Level Of Consciousness Commands - 1c: Neither Correct Best Gaze - 2: Normal Visual Jc - 3: No Visual Loss Facial Palsy - 4: Partial Paralysis Motor Arm Right - 5: Drift Motor Arm Left - 5: No Drift Motor Leg Right - 6: No Drift Motor Leg Left - 6: No Drift Limb Ataxia - 7: Absent Sensory - 8: Normal Best Language - 9: Mute; Global Aphasia Dysarthia - 10: Normal Extinction And Inattention - 11: 0 Score: Total Score: 10 Physical Exam Const: COMMON NORMALS: negative for patient oriented x3 EXAM LIMITATIONS: altered mental status HENMT: COMMON NORMALS: normocephalic and atraumatic HEAD & SCALP: normocephalic and atraumatic Eye: COMMON NORMALS: conjunctivae normal CONJUNCTIVA: Yes conjunctivae normal Neck/C-Spine: COMMON NORMALS: full ROM and supple Chest: COMMONS NORMALS: normal inspection of the chest Resp: COMMON NORMALS: normal respiratory effort, No retractions, No use of accessory muscles and clear to auscultation bilaterally AUSCULTATION: clear to auscultation bilaterally Cardio: COMMON NORMALS: regular rate, regular rhythm and No murmurs present (Cardio) RATE: regular rate RHYTHM: regular rhythm GI: COMMON NORMALS: Normal to inspection, nondistended, normoactive bowel sounds present, Soft to palpation, non-tender and no masses PALPATION: Yes Soft to palpation Extremity: COMMON NORMALS: normal to inspection and full ROM Neuro: COMMON NORMALS: negative for patient oriented x3 OTHER: Right sided facial droop noted right sided weakness Psych: COMMON NORMALS: Normal thought process present and cooperative THOUGHT PROCESS: Normal thought process present Skin: COMMON NORMALS: no rashes or lesions noted and no wounds GENERAL SKIN EXAM: no rashes or lesions noted Course Reevaluation(s): Reevaluation #1: Talk to the family doctor also neurologist talked with him as well he states that his symptoms are improving I did go over his CTA with him as well Dr. Lopez does not believe he is a good candidate for lytics. Will speak to neurologist at [facility] for possible thrombectomy candidate Time: 14:50 Vital Signs: Vital signs: Vital Signs Temperature 97.6 F 03/26/25 14:43 MDM - Neuro Symptoms/Deficit Medical Decision Making Patient presents here with strokelike symptoms. is here his symptoms had improved he had been seen by the neurologist Dr. Lopez I do not believe he is a good candidate for lytics. His CTA did show a possible filling defect in M2 at spoke to family states that symptoms had improved he still had some facial droop along with aphasia Dr. Lopez recommended reaching out to [facility] to see if he is a thrombectomy candidate I did speak to Dr. Hopper at [facility] who is excepting at this time will transfer ER to ER. Medical Records I reviewed the patient's medical records. Lab Data I reviewed the patient's lab results. 03/26/25 13:31 03/26/25 13:[address] 03/26/25 13:16 IMPRESSION: 1. No evidence of intracranial hemorrhage or mass effect. 2. No acute intracranial findings. Notified Dorene Cash MD at 03/26/2025 1:27 PM. Head/Neck CTA 03/26/25 13:51 IMPRESSION: 1. Early branching LEFT MCA. Short segment of high-grade stenosis in the LEFT proximal M2 branch anterior division. Stenosis was present in 2019 in this area but has progressed. 2. A few filling defects in the LEFT insular branches. Distal MCA vessels appear patent. 3. No significant cervical ICA stenosis. 4. Mild intracranial atheromatous disease. 5. No other acute findings. Notified Dorene Cash MD at 03/26/2025 2:33 PM. Laboratory Results WBC 8.50 10^3/uL (3.29-11.43) 03/26/25 13:31 RBC 4.94 10^6/uL (3.85-5.65) 03/26/25 13:31 Hgb 14.40 g/dL (11.27-16.99) 03/26/25 13:31 Hct 45.2 % (37-53) 03/26/25 13:31 MCV 91.5 fl (82-101) 03/26/25 13:31 MCH 29.1 pg (27-33) 03/26/25 13:31 MCHC 31.9 g/dL (30-55) 03/26/25 13:31 RDW 14.3 % (12.1-15.1) 03/26/25 13:31 Plt Count 233 10^3/cmm (157-399) 03/26/25 13:31 MPV 9.9 fL (7.4-10.4) 03/26/25 13:31 Neut % (Auto) 67.0 % 03/26/25 13:31 Lymph % (Auto) 24.2 % 03/26/25 13:31 [place] % (Auto) 6.9 % 03/26/25 13:31 Eos % (Auto) 1.1 % 03/26/25 13:31 Baso % (Auto) 0.4 % 03/26/25 13:31 Neut # (Auto) 5.70 10^3/uL (1.8-7.7) 03/26/25 13:31 Lymph # (Auto) 2.1 10^3/uL (0.8-4.8) 03/26/25 13:31 [place]verse # (Auto) 0.6 10^3/uL (0.2-0.9) 03/26/25 13:31 Eos # (Auto) 0.1 10^3/uL (0.0-0.8) 03/26/25 13:31 Baso # (Auto) 0.0 10^3/uL (0.0-0.1) 03/26/25 13:31 Nucleated RBC % (auto) 0 % 03/26/25 13:31 Nucleated RBCs # 0.0 /100WBC 03/26/25 13:31 PT 13.00 SECONDS (12.1-14.9) 03/26/25 13:31 INR 0.91 (0.8-1.2) 03/26/25 13:31 APTT 24.7 SECONDS (23.9-36.7) 03/26/25 13:31 Sodium 143 mmol/L (136-145) 03/26/25 13:31 Potassium 4.1 mmol/L (3.5-5.1) 03/26/25 13:31 Chloride 105 mmol/L (98-107) 03/26/25 13:31 Carbon Dioxide 27 mmol/L (22-29) 03/26/25 13:31 Anion Gap 15.1 (5-19) 03/26/25 13:31 BUN 15 mg/dL (8-23) 03/26/25 13:31 Creatinine 0.8 mg/dL (0.7-1.2) 03/26/25 13:31 GFR Calculation 95.6 mL/min (90-130) 03/26/25 13:31 Glucose 149 mg/dL (65-115) H 03/26/25 13:31 POC Glucose 141 mg/dL (70-110) H 03/26/25 13:27 Calculated Osmolality 300 mOsm/kg (285-295) H 03/26/25 13:31 Calcium 9.4 mg/dL (8.5-10.5) 03/26/25 13:31 Total Bilirubin 0.3 mg/dL (0.15-1.2) 03/26/25 13:31 AST 21 U/L (0-40) 03/26/25 13:31 ALT 31 U/L (0-41) 03/26/25 13:31 Alkaline Phosphatase 156 U/L (40-130) H 03/26/25 13:31 Total Protein 7.1 g/dL (6.6-8.7) 03/26/25 13:31 Albumin 3.8 g/dL (3.5-5.2) 03/26/25 13:31 Globulin 3.3 g/dL (1.3-4.6) 03/26/25 13:31 Urine Color Yellow (Yellow) 03/26/25 14:39 Urine Appearance Clear (CLEAR) 03/26/25 14:39 Urine pH 6.0 (5-7) 03/26/25 14:39 Ur Specific [place] 1.048 (1.005-1.030) H 03/26/25 14:39 Urine Protein Negative (Negative) 03/26/25 14:39 Urine Glucose (UA) Negative (Normal) 03/26/25 14:39 Urine Ketones Negative (Negative) 03/26/25 14:39 Urine Blood Negative (Negative) 03/26/25 14:39 Urine Nitrate Negative (Negative) 03/26/25 14:39 Urine Bilirubin Negative (Negative) 03/26/25 14:39 Urine Urobilinogen 1.0 mg/dL (Negative) 03/26/25 14:39 Ur Leukocyte Esterase Negative (Negative) 03/26/25 14:39 Urine RBC 0-2 /hpf (0-2) 03/26/25 14:39 Urine WBC 0-5 /hpf (0-5) 03/26/25 14:39 Ur Squamous Epith Cells 0-5 /hpf (0-5) 03/26/25 14:39 Amorphous Sediment Not Reportable 03/26/25 14:39 Urine Bacteria None seen /hpf (NONE) 03/26/25 14:39 Hyaline Casts 0-4 /lpf H 03/26/25 14:39 Urine Opiates Screen Negative ng/mL (Negative) 03/26/25 14:39 Ur Barbiturates Screen Negative ng/mL (Negative) 03/26/25 14:39 Ur Phencyclidine Scrn Negative ng/mL (Negative) 03/26/25 14:39 Ur Amphetamines Screen Negative ng/mL (Negative) 03/26/25 14:39 U Benzodiazepines Scrn Negative ng/mL (Negative) 03/26/25 14:39 Urine Cocaine Screen Negative ng/mL (Negative) 03/26/25 14:39 U Marijuana (THC) Screen Negative ng/mL (Negative) 03/26/25 14:39 All radiology interpretation(s) finalized by discharge EKG Data EKG 1: I personally reviewed and interpreted this EKG as follows: EKG interpretation date: 03/26/25 EKG interpretation time: 13:37 Interpretation: sinus tach hr [address] elevation qrs 77 qtc 384 Discharge Plan Discharge Patient Disposition: Xfer Short-Term Hosp Clinical Impression: CVA (cerebral vascular accident) Condition: Stable Referrals: Tao Evans DO [Primary Care Provider, Internal Medicine] Print Language: Guamanian Coding Level of Care Code ED Synthetic Resin Operator for Chg Jermaine
[2025-03-26 13:43] LABS: Hematocrit 45.2 % (37-53); Hemoglobin 14.40 g/dL (11.27-16.99); Mean Corpuscular HGB Conc 31.9 g/dL (30-55); Mean Corpuscular Hemoglobin 29.1 pg (27-33); Mean Corpuscular Volume 91.5 fl (82-101); Nucleated Red Blood Cells % 0 %; Platelet Count 233 10^3/cmm (157-399); Red Blood Count 4.94 10^6/uL (3.85-5.65); White Blood Count 8.50 10^3/uL (3.29-11.43)
--- NOTE | 2025-03-26 13:51 | CT_ITS ---
WS: [id number] CTA HEAD AND NECK TECHNIQUE: Contrast enhanced CTA of the head and neck with coronal and sagittal reformatted images and maximum intensity projection (MIP) images. NASCET criteria utilized. CLINICAL INFORMATION: cva COMPARISON: CTA 2019 DLP: 369.[address] scans at [facility] use at least one of these dose optimization techniques: automated exposure control; mA and/or kV adjustment per patient size (includes targeted exams where dose is matched to clinical indication); or iterative reconstruction. FINDINGS: RIGHT: RIGHT common carotid artery is patent. No significant RIGHT ICA stenosis. RIGHT ICA is patent to the skull base. Tortuous RIGHT cervical ICA at the skull base. LEFT: LEFT common carotid artery is patent. No significant LEFT ICA stenosis. LEFT ICA is patent to the skull base. INTRACRANIAL CTA: RIGHT dominant vertebral artery. Smaller but patent LEFT vertebral artery. Intracranial RIGHT vertebral artery calcification. Basilar artery is patent. Normal vascularity to the DOOR HANGER territories bilaterally. Early branching of the LEFT MCA. Short segment of high-grade stenosis with near occlusion in the LEFT proximal M2 segment anterior division appears progressed since 2019. Decreased flow involving a few of the posterior sylvian branches with a few filling defects. Distal vessels appear patent. Normal vascularity to the RIGHT MCA territory. Aortic arch calcification. Advanced emphysematous changes in the lung apices. CT/CT angio headneck* [id number] IMPRESSION: 1. Early branching LEFT MCA. Short segment of high-grade stenosis in the LEFT proximal M2 branch anterior division. Stenosis was present in 2019 in this area but has progressed. 2. A few filling defects in the LEFT insular branches. Distal MCA vessels appe ar patent. 3. No significant cervical ICA stenosis. 4. Mild intracranial atheromatous disease. 5. No other acute findings. Notified Dorene Cash MD at 03/26/2025 2:33 PM.
[2025-03-26 13:59] LABS: INR 0.91 (0.8-1.2); Prothrombin Time 13.00 SECONDS (12.1-14.9)
--- NOTE | 2025-03-26 13:59 | P.CONIM_ITS ---
Providers/Reason For Consult 2 Consulting Physician/Specialty*: Partha Lopez MD neurology and epilepsy Reason for Consult*: Stroke alert/acute care emergency department room #6 Primary Care Provider: Tao Evans DO History of Present Illness History of Present Illness Andre Dumont is a 69 year old male with a history of dementia, chronic obstructive pulmonary disease, schizophrenia, CVA, aphasia, poor functional capacity at baseline. The patient resides in a longterm. According to the nurse caring for the patient in the [facility] emergency department, the longterm staff informed her that the patient has decreased verbal output at baseline but was able to speak very slowly. On 03/26/2025 patient's last known well was reported to be 11 AM on 03/26/2025. Patient was found slumped over in his wheelchair and was drooling with right arm weakness. Stroke alert was initiated at 1:13 PM reporting ETA 5 minutes out from [facility] emergency department. NIH stroke score =10 (secondary to patient being nonverbal =3, right upper extremity weakness with drift, not hitting the bed =1, patient did not follow commands =2, patient did not answer questions =2 but patient is nonverbal and not cooperative), right lower facial weakness =2). Point of contact glucose Accu-Chek 141 Stat thrombolytic noncontrast head CT Impression: Moderate small vessel changes with moderate parenchymal volume loss. No extra- axial fluid collections. No evidence of mass or mass effect. Vascular calcification. Advanced atrophy involving the vermis and cerebellum. No acute findings. CT angiogram of the head and neck 03/26/2025 pending at the time of this dictation Note: Since the patient has a history of schizophrenia, aphasia, and poor functional capacity at baseline, it was difficult to determine the patient true NIH stroke score. Will plan to obtain CT angiogram of the head and neck to assess for any large vessel occlusion. Note: Due to the above findings on clinical examination and patient's poor neurological functioning capacity at baseline, I was concerned about potential bleeding risks associated with intravenous thrombolytics and therefore no intravenous thrombolytics were administered. Awaiting CT angiogram of the head and neck to assess for any large vessel occlusion to determine if patient is a candidate for thrombectomy or intra-arterial thrombolysis. Drug allergies: No known drug allergies Current medications: Lipitor 20 mg p.o. daily Aspirin 81 mg p.o. daily Plavix 75 mg p.o. daily Lisinopril 20 mg p.o. daily Seroquel 50 mg p.o. twice daily Past medical history: Remote stroke 2019 Schizophrenia History of declined functional status/dementia requiring longterm placement Chronic obstructive pulmonary disease Generalized weakness Hypertension Habits: Unknown Social history: The patient resides in a nursing care facility Review of Systems 2 General: Reports: ROS unobtainable due to medical condition Medications/Allergies Home Medications ?Medication ?Instructions ?Recorded ?Confirmed ?Last Taken ?Type aspirin 81 mg tablet,delayed 81 mg PO DAILY 07/19/20 1 09/18/19 07/18/20 History release (Christine Low Dose Aspirin) atorvastatin 20 mg tablet 20 mg PO DAILY 07/19/2003/0207/18/20 History clopidogrel 75 mg tablet 75 mg PO DAILY 07/19/2003/0207/18/20 History lisinopril 20 mg tablet 20 mg PO DAILY 07/19/2003/0207/18/20 History quetiapine 50 mg tablet 50 mg PO BID 07/19/2007/18/20 History Allergies Allergy/AdvReac Type Severity Reaction Status Date / Time No Known Allergies Allergy Verified 07/19/20 15:35 PFSH Acute 2 PFSH: Medical History (Updated 03/26/25 @ 14:14 by Partha Lopez MD) HLD (hyperlipidemia) CVA (cerebral vascular accident) COPD (chronic obstructive pulmonary disease) HTN (hypertension) Schizophrenia Surgical History Stented coronary artery Family History Other Cancer Hyperlipidemia Hypertension Social History Smoking and tobacco/nicotine status: former use of tobacco/nicotine Alcohol intake: former Former alcohol use details: Reports some alcohol in the past? No report of abuse in past documentation. Substance/Drug Use: never Lives independently: No Household members: family and other Details: Reports daughter and grandchildren, sister? Reports also has a son who does not live with them. Current occupational status: disabled Vitals/I&O/Wt Weight last 48 hrs Weight 149 lb 11.2 oz Physical Exam 2 Narrative: NIH stroke score =10 (secondary to patient being nonverbal =3, right upper extremity weakness with drift, not hitting the bed =1, patient did not follow commands =2, patient did not answer questions =2 but patient is nonverbal and not cooperative), right lower facial weakness =2). Point of contact glucose Accu-Chek 141 Stat thrombolytic noncontrast head CT Impression: Moderate small vessel changes with moderate parenchymal volume loss. No extra- axial fluid collections. No evidence of mass or mass effect. Vascular calcification. Advanced atrophy involving the vermis and cerebellum. No acute findings. CT angiogram of the head and neck 03/26/2025 pending at the time of this dictation Note: Since the patient has a history of schizophrenia, aphasia, and poor functional capacity at baseline, it was difficult to determine the patient true NIH stroke score. Will plan to obtain CT angiogram of the head and neck to assess for any large vessel occlusion. Note: Due to the above findings on clinical examination and patient's poor neurological functioning capacity at baseline, I was concerned about potential bleeding risks associated with intravenous thrombolytics and therefore no intravenous thrombolytics were administered. Awaiting CT angiogram of the head and neck to assess for any large vessel occlusion to determine if patient is a candidate for thrombectomy or intra-arterial thrombolysis. The patient is alert but he is uncooperative. He is funneling with the EKG telemetry wires. Patient is nonverbal he will not follow commands. Pupils 3 mm round reactive to light and accommodation. Extraocular movements intact. The patient will track when I move from 1 side of the gurney to the other side. He does not appear to be in any acute distress. Cranial nerves II through XII revealed right lower facial weakness. Other cranial nerves appear to be intact. Motor testing was difficult to assess but patient was able to lift both upper extremities against gravity and he was able to put his Back on his head using his right hand. Patient displayed lower extremity withdrawal bilaterally to tactile stimuli. It was difficult to assess lower extremity strength secondary to lack of patient cooperation. Deep tendon reflex revealed plantar responses bilaterally. There was no clonus. Throat clear. Lungs clear. Heart reveals sinus tachycardia heart rate 103. Extremities were negative for cyanosis. Data 03/26/25 13:31 03/26/25 13:31 A&P Assessment and plan 1. Acute CVA (cerebrovascular accident): Impression: 1. Clinical examination suggestive of acute left cerebral infarction manifested as nonverbal speech, right lower facial weakness and questionable right upper extremity weakness. Note: Although the patient's last known well was reported to be 11 AM on 03/26/2025 and stroke alert was initiated at 1:13 PM reporting ETA 5 minutes from [facility] emergency department and NIH stroke score =10, due to the patient's history of dementia, remote stroke in 2019, and difficulty term determining the patient's actual baseline neurological condition prior to the stroke that occurred on 03/26/2025, and abnormal head CT scan 03/26/2025 revealing Moderate small vessel changes with moderate parenchymal volume loss. No extra-axial fluid collections. No evidence of mass or mass effect. Vascular calcification. Advanced atrophy involving the vermis and cerebellum, the patient was at increased risk for hemorrhage with intravenous thrombolytics and therefore no intravenous thrombolytics were administered. Patient has been scheduled for CT angiogram of the head and neck to assess for large vessel occlusion to determine if patient is a candidate for thrombectomy or intra- arterial thrombolysis. Plan: 1. CT angiogram of the head and neck to assess for large vessel occlusion to determine if patient is a candidate for thrombectomy or intra-arterial thrombolysis 2. Keep head of bed elevated 30 degrees as tolerated 3. Continue Plavix, aspirin, and Lipitor 4. Neurochecks and vital signs per NIH stroke protocol 5. Occupational Therapy, physical therapy and speech therapy consults 6. Recommend obtaining noncontrast head MRI to further assess for left hemisphere stroke since noncontrast head CT did not report any acute findings 7. IV Pepcid 20 mg daily for GI protection 8. Monitor bowel and urine function 9. Stroke education for patient and family 10. Recommend obtaining fasting lipid profile PDMP PDMP Reviewed: Not Reviewed Consult Attestations 2 Medical Necessity Statement: Patient was evaluated by neurology for stroke alert/acute care emergency department room #6 Coding Level of Care Code Acute Code for Chg Fwd Diagnoses Acute CVA (cerebrovascular accident) I63.9
[2025-03-26 14:00] VITALS: BP 125/100; PULSE 101; O2SAT 95
[2025-03-26 14:00] LABS: Partial Thromboplastin Time 24.7 SECONDS (23.9-36.7)
[2025-03-26] MEDS: iohexol 350 mg/mL 500 mL Btl (per mL) IV (14:01)
[2025-03-26 14:11] LABS: Alanine Aminotransferase 31 U/L (0-41); Albumin Level 3.8 g/dL (3.5-5.2); Alkaline Phosphatase 156 U/L (40-130); Anion Gap 15.1 (5-19); Aspartate Amino Transferase 21 U/L (0-40); Blood Urea Nitrogen 15 mg/dL (8-23); Calcium 9.4 mg/dL (8.5-10.5); Carbon Dioxide 27 mmol/L (22-29); Chloride 105 mmol/L (98-107); Creatinine Clr Calc Pharmacy 84.5605; Globulin 3.3 g/dL (1.3-4.6); Glucose 149 mg/dL (65-115); Osmolality Calculated 300 mOsm/kg (285-295); Potassium 4.1 mmol/L (3.5-5.1); Sodium 143 mmol/L (136-145); Total Protein 7.1 g/dL (6.6-8.7)
--- NOTE | 2025-03-26 14:25 | PC.PHAR ---
patient from [facility] . Medication updated off [facility]'s list.
[2025-03-26 14:43] VITALS: TEMP 36.4
[2025-03-26 14:45] VITALS: BP 177/100; PULSE 92; O2SAT 97
[2025-03-26 15:01] LABS: Glucose Urine UA Negative (Normal); Nitrate Urine Negative (Negative)
[2025-03-26 15:06] LABS: Add Urine Microscopic? YES
[2025-03-26 15:08] LABS: PCP Screen Urine Negative (Negative)
[2025-03-26 15:10] LABS: Specific Gravity, Urine 1.048 (1.005-1.030)
--- NOTE | 2025-03-26 15:27 | DCPLANNER ---
AIR EVAC DECLINED FLIGHT TO [facility] ED DUE TO STORMS EN ROUTE
[2025-03-26 15:51] VITALS: BP 150/114; PULSE 53; O2SAT 94
[2025-03-26 15:58] VITALS: BP 150/114; PULSE 96; O2SAT 94
== END 2025-03-26 16:21 | disposition short-term general hospital (02) ==
PROVIDERS: Emergency Provider Emergency Medicine; PCP Internal Medicine
DX: I63.9 Cerebral infarction, unspecified (principal); Z87.891 Personal history of nicotine dependence; E78.5 Hyperlipidemia, unspecified; J44.9 Chronic obstructive pulmonary disease, unspecified; Z86.73 Personal history of transient ischemic attack (TIA), and cerebral infarction without residual deficits
CPT/HCPCS: 36416; 70450; 70496; 70498; 80053; 80306; 81001; 82962; 85025; 85610; 85730; 93005; 99291; 99292; J7030

== ENCOUNTER → 2025-04-03 10:57 | Outpatient (BNVA) | payer MEDICARE, MEDICAID, SELFPAY | PROVIDERS: PCP Internal Medicine; Visit Provider Surgery | DX: E46 Unspecified protein-calorie malnutrition (principal) | CPT/HCPCS: 99204 ==

== ENCOUNTER 2025-04-05 10:27 | Day surgery (SDC) | payer MEDICARE, MEDICAID, SELFPAY ==
[2025-04-05 10:58] VITALS: BP 134/94; PULSE 88; RESP 16; TEMP 36.4; O2SAT 95
[2025-04-05 11:10] VITALS: BMI 20.7
--- NOTE | 2025-04-05 11:35 | W.PM.OPSUD ---
Surgery/Procedure H&P Update DATE OF PROCEDURE: April 05, 2025 DATE H&P PERFORMED: 04/03/25 H&P UPDATE INFORMATION: I have reviewed H&P completed within last 30 days, I have examined patient prior to procedure, No changes to prior documentation, Changes to prior documentation as noted here and Risks and benefits of the procedure reviewed PLANNED PROCEDURE: Operation Date: 04/05/25 12:10 Proposed Procedures p PEG Tube Placement 69233 E46(Not Applicable) - Nate Stone MD
--- NOTE | 2025-04-05 11:39 | ANES.PREANE2 ---
Pre-Anesthetic Assessment Height/Weight: Height 1.75 m Weight 63.503 kg Temp Pulse Resp BP Pulse Ox O2 Del Method 97.5 F L 88 16 134/94 95 Room Air 04/05/25 10:58 04/05/25 10:58 04/05/25 10:58 04/05/25 10:58 04/05/25 10:58 04/05/25 10:58 Operation Date: 04/05/25 12:10 Proposed Procedures p PEG Tube Placement 90436 E46(Not Applicable) - Nate Stone MD Familial anesthetic complications: denies Was Beta [place] taken within 24 hours: N/A Was Clonidine taken within 24 hours: N/A Last intake: Intake Last Liquid Date 04/04/25 Social No alcohol and No tobacco Exam unable to communicate. recent CVA and schizophrenia Airway Submandibular: within normal limits Cervical ROM: within normal limits and Other (unable to assess) Comments: Comments: edentulous History/ROS No significant history except as noted Pulmonary Chronic Obstructive Pulmonary Disease CV/HEM Coronary Artery Disease and Hypertension None reported Hepatic None reported GI unable to eat due to CVA Metabolic None reported Musc/skel None reported conractured Neuropsych Cerebrovascular Accident and Dementia recent Anesthetic Plan ASA status: 4 Anesthesia: MAC Risk of > 500 ml blood loss (7ml/kg in children): No Medications/Allergies Home Medications ?Medication ?Instructions ?Recorded ?Confirmed ?Last Taken ?Type clopidogrel 75 mg tablet (Plavix) 75 mg PO DAILY 07/19/20 04/05/25 1 Week Ago History ~03/28/25 lisinopril 20 mg tablet 20 mg PO DAILY 07/19/20 04/05/25 1 Week Ago History ~03/28/25 quetiapine 50 mg tablet (Seroquel) 50 mg PO BID 07/19/20 04/05/25 1 Week Ago History ~03/28/25 acetaminophen 325 mg capsule 650 mg PO Q4H PRN Fever Or Pain 03/26/25 04/05/25 1 Week Ago History ~03/28/25 bisacodyl 10 mg rectal suppository 10 mg CO DAILY PRN Constipation 03/26/25 04/05/25 1 Week Ago History ~03/28/25 bisacodyl 5 mg tablet,delayed 10 mg PO DAILY PRN Constipation 03/26/25 04/05/25 1 Week Ago History release ~03/28/25 loperamide 2 mg capsule (Imodium 2 mg PO Q4H PRN Loose Stool 03/26/25 04/05/25 1 Week Ago History A-D) ~03/28/25 loratadine 10 mg tablet (Claritin) 10 mg PO DAILY PRN Allergy Symptoms 03/26/25 04/05/25 1 Week Ago History ~03/28/25 magnesium hydroxide 400 mg/5 mL 30 ml PO DAILY PRN constipation 03/26/25 04/05/25 1 Week Ago History oral suspension (Milk of Magnesia) ~03/28/25 polyethylene glycol 3350 17 4 g PO DAILY PRN Constipation 03/26/25 04/05/25 1 Week Ago History gram/dose oral powder ~03/28/25 sennosides 8.6 mg-docusate sodium 1 tab-cap PO DAILY PRN Constipation 03/26/25 04/05/25 1 Week Ago History 50 mg tablet (Stool ~03/28/25 Softener-Laxative) sodium phosphates 19 gram-7 118 ml CO DAILY PRN Constipation 03/26/25 04/05/25 1 Week Ago History gram/118 mL enema (Enema) ~03/28/25 amlodipine 10 mg tablet 10 mg PO DAILY 04/04/25 04/05/25 1 Week Ago History ~03/28/25 aspirin 81 mg tablet,delayed 81 mg PO DAILY 04/04/25 04/05/25 1 Week Ago History release ~03/28/25 atorvastatin 80 mg tablet 80 mg PO BEDTIME 04/04/25 04/05/25 1 Week Ago History ~03/28/25 Allergies Allergy/AdvReac Type Severity Reaction Status Date / Time No Known Allergies Allergy Verified 04/05/25 10:50 Current Medications Generic Name Dose Route Start Last Admin Trade Name Freq PRN Reason Stop Dose Admin Sodium Chloride 1,000 mls @ 15 mls/hr 04/05/25 10:49 04/05/25 11:09 Sodium Chloride 0.9% IV 04/06/25 10:48 15 mls/hr .Q24H PRN Administration COLONOSCOPY FLUIDS PFSH Anesthesia Medical History HLD (hyperlipidemia) CVA (cerebral vascular accident) COPD (chronic obstructive pulmonary disease) HTN (hypertension) Schizophrenia Surgical History Stented coronary artery Family History Other Cancer Hyperlipidemia Hypertension Social History Smoking and tobacco/nicotine status: never used tobacco/nicotine Alcohol intake: former Former alcohol use details: Reports some alcohol in the past? No report of abuse in past documentation. Substance/Drug Use: never Lives independently: No Household members: family and other Details: Reports daughter and grandchildren, sister? Reports also has a son who does not live with them. Current occupational status: disabled
[2025-04-05 12:16] VITALS: BP 161/110; PULSE 80; RESP 10; TEMP 36.1; O2SAT 94
[2025-04-05 12:24] VITALS: BP 153/105; PULSE 75; RESP 16; O2SAT 96
[2025-04-05 12:35] VITALS: BP 151/108; PULSE 77; RESP 16; O2SAT 96
== END 2025-04-05 13:15 | disposition home or self-care (01) ==
PROVIDERS: PCP Internal Medicine; Visit Provider Surgery
PROC: 0DH63UZ Insertion of Feeding Device into Stomach, Percutaneous Approach (ICD-10-PCS; CPT 43246; principal; 2025-04-05 12:10)
DX: E46 Unspecified protein-calorie malnutrition (principal); R62.7 Adult failure to thrive; J44.9 Chronic obstructive pulmonary disease, unspecified; I25.10 Atherosclerotic heart disease of native coronary artery without angina pectoris; F03.90 Unspecified dementia, unspecified severity, without behavioral disturbance, psychotic disturbance, mood disturbance, and anxiety; F20.9 Schizophrenia, unspecified; I10 Essential (primary) hypertension; E78.5 Hyperlipidemia, unspecified; Z95.5 Presence of coronary angioplasty implant and graft; K29.70 Gastritis, unspecified, without bleeding; Z68.20 Body mass index [BMI] 20.0-20.9, adult; I69.991 Dysphagia following unspecified cerebrovascular disease; R13.10 Dysphagia, unspecified
CPT/HCPCS: 43246; J2704; J3010; J3490; J7030

== ENCOUNTER 2025-04-07 08:41 | Emergency (ER) | payer MEDICARE, MEDICAID, SELFPAY ==
--- OUTSIDE RECORDS SUMMARY | 2025-03-26 17:38 | XMS_ITS | Encounter Summary ---
Author Organization My1login [facility] Address [address] [place] [address] Care Team Providers Care Kick Press Operator Name Role Phone Unavailable Primary Care Provider Unavailabl e Reason for Referral * Eval and Treat (5-7 Days) - Authorized Specialty Diagnoses / Procedures Referred By Noah polanco Referred To Contact Neurology Diagnoses Cerebrovascular accident (CVA) due to stenosis of left middle cerebral artery (CMS/HCC) Procedures MA OFFICE/OUTPATIENT ESTABLISHED MOD MDM 30 MIN MA OFFICE/OUTPATIENT NEW MODERATE MDM 45 MINUTES Mandi Bishop MD [facility] [place] [address] Phone: tel: fax: [facility] Neurology [facility] [address] [place] [address] Phone: tel: fax: Referral ID Status Reason Start Date Expiration Date Visits Requested Visits Authorized [id number] Authorized Performing Department to Schedule 03/30/2025 03/30/2026 1 1 * Eval and Treat (2-4 Days) - Closed Specialty Diagnoses / Procedures Referred By Contneyda t Referred To Contact Diagnoses Cerebrovascular accident (CVA) due to stenosis of left middle cerebral artery (CMS/HCC) Procedures MA OFFICE/OUTPATIENT ESTABLISHED MOD MDM 30 MIN MA OFFICE/OUTPATIENT NEW MODERATE MDM 45 MINUTES Mandi Bishop MD [address] [place] [address] Phone: tel: fax: Referral ID Status Reason Start Date Expiration Date Visits Re quested Visits Authorized [id number] Closed 03/30/2025 03/30/2026 1 1 Reason for Visit * Reason Comments Extremity Weakness Aphasia * Auth/Cert (Routine) Specialty Diagnoses / Procedures Referred By Noah t Referred To Contact Neurology Jasmin Hopkins MD [address] [place] [address] Phone: tel: fax: [address] Neurology [address] [place] [phone] Phone: tel: fax: Referral ID Status Reason Start Date Expiration Date Visits Re quested Visits Authorized [id number] 1 1 Encounter Details Date Type Department Care Team (Latest Contact Info) Description 03/26/2025 5:38 PM CDT - 03/30/2025 10:25 PM CDT Hospital Encounter [facility] [address] Neurology [address] [place] [phone] Evelio Marrero MD [address] [place] [address] Jasmin Hopkins MD [address] [place] [address] Mandi Bishop MD [address] [place] [address] Cerebrovascular accident (CVA) due to stenosis of left middle cerebral artery (CMS/HCC) Discharge Disposition: [facility](SNF) with Medicare Certification in Anticipation of Skilled Care Social History Tobacco Use Types Packs/Day Years Used Date Smoking Tobacco: Unknown Tobacco Cessation:Counseling Given: Not Answered Sex and Gender Information Value Date Recorded Sex Assigned at Not on file Legal Sex Male 3:19 PM CDT Gender Identity Not on file Sexual Orientation Not on file documented as of this encounter Last Filed Vital Signs Vital Sign Reading Time Taken Comments Blood Pressure 133/69 03/30/2025 7:32 PM CDT Pulse 114 03/30/2025 7:32 PM CDT rn informed Temperature 36.4 C (97.5 F) 03/30/2025 7:32 PM CDT Respiratory Rate 20 03/30/2025 7:32 PM CDT Oxygen Saturation 94% 03/30/2025 7:3 2 PM CDT Inhaled Oxygen Concentration - - Weight 64.9 kg (143 lb 1.3 oz) 03/29/20 25 3:00 AM CDT Height 170.2 cm (5' 7 ) 03/26/2025 9:56 PM CDT Body Mass Index 22.41 03/26/2025 9:56 PM CDT documented in this encounter Discharge Summaries * Mandi Bishop MD - 03/30/2025 3:08 PM CDT [facility]ist- Discharge Summary Andre Arevalo 69 y.o. male 1955 CSN: [id number] Date of Admission: 03/26/2025 Date of Discharge: 03/30/2025 LOS: 4 days Discharging Physician: Mandi Bishop MD PCP: No primary care provider on file. Code Status at Discharge: NO CPR (In Event of Cardiopulmonary Arrest) Dispo: SNF Labs and studies from this hospitalization needing follow up: None Abnormal Imaging: US DOPPLER VENOUS ARM LEFT Final Result MRI BRAIN WO CONTRAST Final Result IMPRESSION: Small acute infarcts in the left periventricular white matter. MACRO: None CT STROKE ACTIVATION Final Result IMPRESSION: CT Head: 1. No CT evidence of an acute intracranial process. CT Perfusion: 1. Multifocal areas of ischemia in the left supratentorial brain and right cerebellum. Chronic infarct right temporal lobe. Recommend brain MRI. CTA Head: 1. High-grade stenosis of the left M1 with with multifocal severe short segment stenoses versus occlusions involving the left MCA bifurcation and left M2 insular branches and inferior left M3 branch, with the distal vessel reconstitution. Other findings as above. 2. Severe short segment stenosis versus occlusion left P2/P3 segments and right P2P segment, with distal vascular calcification. CTA Neck: 1. No evidence of hemodynamically significant stenosis within the cervical internal carotid arteries based on NASCET criteria. 2. Patent vertebrobasilar systems. Follow up with PCP: Follow-up: You must follow up with No primary care provider on file. in 3-5 days Follow up with Consultants: With neurology in 2-4 weeks. Discharge Condition: stable Primary Discharge Diagnosis: Cerebrovascular accident (CVA) due to stenosis of left middle cerebral artery (CMS/HCC) Other Active medical issues also addressed during this admission: Active Hospital Problems Diagnosis Protein-calorie malnutrition, severe Stroke-like symptoms History of CVA (cerebrovascular accident) Dementia (CMS/HCC) Cerebrovascular accident (CVA) due to stenosis of left middle cerebral artery (CMS/HCC) Resolved Hospital Problems No resolved problems to display. HOSPITAL COURSE: Please see H and P for full details on admission, symptoms and initial care. Andre Arevalo, a 69 y.o. male, shelter resident with PMH of schizophrenia, prior stroke, dementia, functional decline who is admitted for further management of strokelike symptoms. Patient was noted to have aphasia with right- sided weakness at 11 AM on day of admission. Patient was initially taken to [facility], was noted to be outside window for TNK. Symptoms had almost resolved, however recurred. CT head on admission without any acute findings. CT perfusion showed multifocal areas of ischemia in left supratentorial brain and right cerebellum, chronic infarct in right temporal parietal. CTA head showed left M2 occlusion with penumbra. Patient was evaluated by neurology and neurosurgery recommended that patient was not a candidate for mechanical thrombectomy due to poor baseline functional and neurologic status. Patient admitted under hospitalist service for further stroke workup. 03/27: Patient is awake, follows simple commands intermittently, nonverbal. MRI brain and TTE pending. Continued on aspirin, Plavix and statin. Pending PT/OT eval. Speech recommending [facility]. Son updatedvia phone. 03/28: Patient is awake alert, able to speak few words. MRI pending. PT/OT recommending SNF 03/29: MRI showing small acute infarcts in left periventricular white matter. Continued on DAPT and statin. Outpatient follow-up with neurology. Pending SNF placement. 03/30: Noted to have swelling at the IV access site on left arm, US venous Doppler negative for DVT,showing superficial venous thrombosis. Stable to be discharged to SNF on DAPT and statin and f/u o/p with neurology and PCP. PCP COMMUNICATION : No primary care provider on file. via Epic communication MEDICATION CHANGES (significant): Start amlodipine 10mg daily Aspirin 81 mg daily Plavix 75 mg daily Atorvastatin 80 mg daily MEDICATION RECONCILIATION: Current and discharge medications reviewed and reconciled: Yes Consultants: IP CONSULT TO BORING MACHINE SET UP OPERATOR JIG IP CONSULT TO STROKE EDUCATION IP CONSULT TO PHYSICAL MEDICINE REHAB IP CONSULT TO PASTORAL SERVICES IP CONSULT TO NUTRITION SERVICES IP CONSULT TO CASE MANAGEMENT IP CONSULT TO IV TEAM Procedures performed: 03/30 1256 Note By: Gill Lyons, RVT 03/30 808 Note By: Neela Mariee, COMMANDING OFFICER TRAFFIC DIVISION MEDICATIONS: Medication List START taking these medications amLODIPine 10 mg tablet Commonly known as: NORVASC Take 1 Tablet (10 mg) by mouth daily. Start taking on: March 31, 2025 Signed by: Dr. Luis Bishop Refills: 0 aspirin 81 mg Tablet, Chewable Commonly known as: JAREK CHEWABLE Take 1 Tablet (81 mg) by mouth daily. Start taking on: March 31, 2025 Signed by: Dr. Luis Bishop Refills: 0 atorvastatin 80 mg tablet Commonly known as: LIPITOR Take 1 Tablet (80 mg) by mouth daily. Start taking on: March 31, 2025 Signed by: Dr. Luis Bishop Refills: 0 clopidogreL 75 mg Tablet Commonly known as: PLAVIX Take 1 Tablet (75 mg) by mouth daily. Start taking on: March 31, 2025 Signed by: Dr. Luis Bishop Refills: 0 Where to Get Your Medications Information about where to get these medications is not yet available Ask your nurse or doctor about these medications amLODIPine 10 mg tablet aspirin 81 mg Tablet, Chewable atorvastatin 80 mg tablet clopidogreL 75 mg Tablet No future appointments. Activity level: up as tolerated Diet: DIET GENERAL Level 0 Thin,; Pureed, Effective Now DIET SUPPLEMENT GEN ADULT TID; Complete Oral Supplement, Wound Care: Not Applicable DISCHARGE EXAM: BP (!) 137/99 (BP Location: Right arm, Patient Position (BP): Sitting) Pulse (!) 114 Temp 97.4 ??F (36.3 ??C) (Temporal) Resp 20 Ht 5' 7 (1.702 m) Wt 64.9 kg (143 lb 1.3 oz) SpO2 93% BMI 22.41 kg/m?? Last documented weight: Weight: 64.9 kg (143 lb 1.3 oz) (03/29/25 0300) General: alert, in no distress Neurologic: aphasic HEENT: atraumatic, Normocephalic, without obvious abnormality Lungs: clear to auscultation bilaterally, normal respiratory effort Heart: normal rate, regular rhythm, normal S1, S2, no murmurs, rubs, clicks or gallops Abdomen: Soft, non-tender. Bowel sounds normal. No masses, no organomegaly. Extremities: extremities normal, atraumatic, no cyanosis or edema, intact distal pulses, moves all extremities equally, no edema, redness or tenderness in the calves or thighs, normal strength, normal tone Skin: negative Home Healthcare Is this patient being discharged with Home Health? No Total time spent on discharge services today including examining and educating the patient and available family members, writing prescriptions and reviewing the discharge medication list, documentingthis discharge summary and coordinating outpatient care and follow up required >30 minutes. documented in this encounter Discharge Instructions * Discharge Instructions* Ruby Perez RN - 03/26/2025 10:35 PM CDT ISCHEMIC STROKE/TIA DISCHARGE RECORD Symptoms/Diagnosis: Cerebrovascular accident (CVA) due to stenosis of left middle cerebral artery (CMS/HCC) Length of Stay: LOS: 4 days TNK (Tenecteplase) administered this visit? no Procedures Performed, if any: PLEASE NOTIFY YOUR PCP OF YOUR RECENT HOSPITALIZATION. PLEASE CALL [phone] TO SCHEDULE YOUR CLINIC FOLLOW UP. No future appointments. You are being evaluated for the possibility of having a TIA (Transient Ischemic Attack) or an Ischemic Stroke during this hospitalization. A stroke occurs when the blood supply to part of your brain is interrupted or reduced, preventing brain tissue from getting oxygen. Ischemic stroke is usually the result of a small blood clot or hardening of the arteries. A TIA occurs when the blood flow to the brain is disrupted for a short period of time. Symptoms may clear up after a few minutes or hours.Symptoms are like those of a stroke, but they don't last long or cause lasting damage. A TIA is a warning that you may have a stroke in the future. Symptoms from a stroke often improve with therapy and time. YOUR DISCHARGE PLAN IS FOLLOWS: Discharge Arrangements Plan Discharge To: [facility] Facility (03/27/251135) Plan Discharge To - Alternate: Intermediate care facility/assisted living (03/27/251135) Your physician, No primary care provider on file., has been notified of this hospitalization, and afollow up appointment has been arranged (refer to appointment section of this visit summary). You are currently restricted from driving, working and attending school until your primary care provider releases you. At your follow up appointment, your physician will determine when you are able to safely return to those practices. They will also perform a medication review and develop a plan of care to ensure you are receiving the best possible therapy during your recovery. This visit should include a discussion on stroke prevention, diabetic monitoring/instruction (when appropriate), and restarting of any medications that may have been held during your hospitalization. Bennett keep a daily record of your blood pressure and heart rate, and bring it with you to your follow up appointment. DIET: DIET GENERAL Level 0 Thin,; Pureed, Effective Now DIET SUPPLEMENT GEN ADULT TID; Complete Oral Supplement, Activity level: bed rest SUMMARY OF FINDINGS AND TEST RESULTS: Your most recent labs were as follows: Lab Results Component Value Date/Time GLUCPOC 108 (H) 03/30/2025 06:02 AM GLUCOSE 98 03/30/2025 03:40 AM INR 1.1 03/26/2025 06:09 PM CREAT 0.93 03/30/2025 03:40 AM LDLCALC 75 03/26/2025 11:44 PM HGBA1C 5.8 (H) 03/26/2025 08:10 PM Your Medical History, prior and current: Patient Active Problem List Diagnosis Code Stroke-like symptoms R29.90 History of CVA (cerebrovascular accident) Z86.73 Dementia ([facility]) F03.90 Cerebrovascular accident (CVA) due to stenosis of left middle cerebral artery ([facility]) I63.512 Protein-calorie malnutrition, severe E43 Your individual risk factors include: We cannot change our family history. It is important to modify controllable risk factors to reduce your risk of vascular (blood vessel) disease. High Blood Pressure - (yes) Hyperlipidemia (elevated cholesterol/triglycerides) - (no) Tobacco use - (no) Heart disease (Includes CAD, CHF, Valve Disease) - (no) Carotid Artery Disease - (no) Sedentary Lifestyle/Inactivity - (yes) Obesity - (no) Atrial Fibrillation/Flutter - (no). If Yes, was anticoagulant prescribed? N/A History of TIA/Stroke - (yes) Diabetes - (no). If Yes, a) was medication prescribed for glycemic control? N/A, b) was 1 week follow up appointment made with PCP? Yes . BMI is >= 25 - no. If yes, was patient provided with education on increased physical activity and dietary changes to help with weight loss? N/A . Daily goal(s) met during this hospitalization: Patient's Individualized Goal: unable to voice. (03/26/252155) Patient's Individualized Goal: safety (03/28/25 1900) POST HOSPITALIZATION: It is important to understand the signs and symptom of STROKE: SEEK IMMEDIATE MEDICAL ATTENTION (CALL 911 OR ACTIVATE YOUR LOCAL EMERGENCY MEDICAL SYSTEM) IF YOU ARE HAVING ONE OR MORE OF THE FOLLOWING SIGNS OR SYMPTOMS: Sudden weakness or numbness in the arm, leg or face on one side of the body Sudden dimness or loss of vision, especially in one eye Loss of speech or difficulty speaking or understanding speech Sudden severe headache without reason Unexplained dizziness, unsteadiness or falls, especially if they occur with the symptoms above STROKE WARNING SIGNS: BEFASST! Balance: Does the person complain of sudden unsteadiness, dizziness, or difficulty walking? Eyes: Does the person complain of blurred vision, double vision, or loss of vision in one or both eyes? Face: Ask the person to smile. Does the face look uneven? Arm: Ask the person to raise both arms. Does one arm drift down? Speech: Ask the person to repeat a simple phrase. Does their speech sound strange? Time: Don't waste time. Act fast and call 911. *STOP SMOKING AND /OR DO NOT ALLOW ANYONE TO SMOKE IN YOUR HOUSE OR CAR. IF YOU NEED HELP TO STOP SMOKING, CALL [phone] OR THE HEALTH INFORMATION TEAM AT [phone] OR [phone]. DISCHARGE MEDICATION INSTRUCTIONS: Were new medications prescribed? (yes) Please review the enclosed medication information sheets, paying special attention to any NEW medications prescribed. Please take medications as directed, and do not stop medications unless advised by your doctor. We appreciate your trust in [facility] to address your health care needs. Our goal is to provide ???Excellent care and service. You may receive a random survey in the mail about the care and service you received at [facility]. We appreciate you taking the time to share your health care experience with us, and value your comments. If you have any questions or concerns you can contact the [employer] at the phone number at the top of your discharge paperwork. By signing below, the patient or responsible libertarian acknowledges that a copy of the Discharge Instructions has been provided and the plan of care is understood. RN Checklist: I certify that the patient has been provided verbal and written education on the following stroke topics: Diagnosis/Event Risk Factors Tests/Procedures Therapy Participation Medication Education/Compliance Warning S&S ([facility]ASST / EMS) Post Hospital Follow-up Stroke Support Group [facility] Discharge Instructions Discharge & Transfer patient to: Name of Facility: [place] Transfer [facility] to [facility] Provider at [facility] Symptoms/Diagnosis: Cerebrovascular accident (CVA) due to stenosis of left middle cerebral artery (CMS/HCC) Procedures Performed, if any: 03/30 1256 Note By: Gill Lyons RVT 03/30 0808 Note By: Neela Mariee, RN Labs and studies from this hospitalization needing follow up: Follow up PCP Please schedule follow up appointment with facility physician or PCP/ No primary care provider on file., Please schedule follow up appointment in one week. Follow up consultants If the office does not reach you to make a follow up appointment, please call [phone]. Additional problems: Active Hospital Problems Diagnosis Protein-calorie malnutrition, severe Stroke-like symptoms History of CVA (cerebrovascular accident) Dementia (CMS/HCC) Cerebrovascular accident (CVA) due to stenosis of left middle cerebral artery (CMS/HCC) Resolved Hospital Problems No resolved problems to display. Level of Care: [x] Skilled [] Maintenance [] Rehab Rehab potential: good Code Status: DNR Labs: Recent Labs 03/28/25 0440 03/29/25 0338 03/30/25 0340 WBC 12.6* 10.7 10.3 HGB 13.8* 14.7 14.7 HCT 41.4 44.6 44.0 PLT 236 209 219 Recent Labs 03/28/25 0441 03/29/25 0338 03/30/25 0340 NA 135* 135* 134* K 3.7 3.9 4.0 CL 102 103 102 CO2 22 21* 21* CA 8.9 8.8 8.8 BUN 8 6* 8 CREAT 0.87 0.93 0.93 GLUCOSE 128* 104* 98 No results for input(s): TOTALPROTEIN , ALBUMIN , BILITOTAL , ALKPHOS , AST , ALT in the last 72 hours. No results for input(s): INR , PT in the last 72 hours. Invalid input(s): PTT Finger stick blood glucose: Activity level: bed rest Clinical Care/Ancillary services: Physical therapy evaluate and treat: Yes Occupational therapy evaluate and treat: Yes Speech therapy evaluate and treat: Yes Respiratory Treatment/Oxygen: Not Applicable DIET: DIET GENERAL Level 0 Thin,; Pureed, Effective Now DIET SUPPLEMENT GEN ADULT TID; Complete Oral Supplement, Wound Care: Not Applicable Communicable Disease: [] MRSA [] C. Difficile [] VRE [] TB [] Other: Other Comments: Follow up in the Emergency Room For any recurrence or worsening of admission concerns, chest pain, palpitations, shortness of breath, coughing blood, nausea, vomiting, diarrhea, pain, fever, chills, bleeding, bloody or tarry stools, change to urine or bowel output, Contact hospitalist office [phone] for questions if patients are discharged by [facility]ist[facility]. Contact [facility] Transfer Hub at [phone] if patient needs a direct admission. Tell us about the patient and how we can help them. If we can provide the service that is needed, we will do the rest of the work. * Attachments The following attachments cannot be sent through Care Everywhere. * Ischemic Stroke: General Info (Austrian) * Statins (Austrian) * Stroke (Austrian) * Stroke: Risk Factors: General Info (Austrian) * Stroke: Secondary Prevention: General Info (Austrian) * Stroke: Symptoms: General Info (Austrian) * Aspirin (Austrian) * Atorvastatin (Austrian) * Antiplatelets After Ischemic Stroke: General Info (Austrian) * Clopidogrel (Austrian) documented in this encounter Medications at Time of Discharge amLODIPine (NORVASC) 10 mg tablet Take 1 Tablet (10 mg) by mouth daily. 03/31/2025 06/29/2025 aspirin (JAREK CHEWABLE) 81 mg Tablet, Chewable Take 1 Tablet (81 mg) by mouth daily. 03/31/2025 06/29/2025 atorvastatin (LIPITOR) 80 mg tablet Take 1 Tablet (80 mg) by mouth daily. 03/31/2025 06/29/2025 clopidogreL (PLAVIX) 75 mg Tablet Take 1 Tablet (75 mg) by mouth daily. 03/31/2025 06/29/2025 documented as of this encounter Progress Notes * Mandi Bishop MD - 03/30/2025 1:15 PM CDT Images from the original note were not included. Your life is our life's work [facility] Hospitalist/Hospital Medicine Progress Note LOS: 4 days Room/Bed: 6202/01 Patient name: Andre Arevalo Date of : 1955 HOSPITAL COURSE SUMMARY: Andre Arevalo, a 69 y.o. male, shelter resident with PMH of schizophrenia, prior stroke, dementia, functional decline who is admitted for further management of strokelike symptoms. Patient was noted to have aphasia with right- sided weakness at 11 AM on day of admission. Patient was initially taken to [facility], was noted to be outside window for TNK. Symptoms had almost resolved, however recurred. CT head on admission without any acute findings. CT perfusion showed multifocal areas of ischemia in left supratentorial brain and right cerebellum, chronic infarct in right temporal parietal. CTA head showed left M2 occlusion with penumbra. Patient was evaluated by neurology and neurosurgery recommended that patient was not a candidate for mechanical thrombectomy due to poor baseline functional and neurologic status. Patient admitted under hospitalist service for further stroke workup. 03/28: Patient is awake, follows simple commands intermittently, nonverbal. MRI brain and TTE pending. Continued on aspirin, Plavix and statin. Pending PT/OT eval. Speech recommending [facility]. Son updatedvia phone. 03/29: Patient is awake alert, able to speak few words. MRI pending. PT/OT recommending SNF 03/30: MRI showing small acute infarcts in left periventricular white matter. Continued on DAPT and statin. Outpatient follow-up with neurology. Pending SNF placement. 03/31: Noted to have swelling at the IV access site on left arm, US venous Doppler negative for DVT,showing superficial venous thrombosis. Pending SNF placement Consultants: IP CONSULT TO BORING MACHINE SET UP OPERATOR JIG IP CONSULT TO STROKE EDUCATION IP CONSULT TO PHYSICAL MEDICINE REHAB IP CONSULT TO PASTORAL SERVICES IP CONSULT TO NUTRITION SERVICES IP CONSULT TO CASE MANAGEMENT IP CONSULT TO IV TEAM SUBJECTIVE: Patient seen at bedside, no new events OBJECTIVE: Temp (24hrs), Av.2 ??F (36.8 ??C), Min:97.4 ??F (36.3 ??C), Max:99.3 ??F (37.4 ??C) BP (!) 137/99 (BP Location: Right arm, Patient Position (BP): Sitting) Pulse (!) 114 Temp 97.4 ??F (36.3 ??C) (Temporal) Resp 20 Ht 5' 7 (1.702 m) Wt 64.9 kg (143 lb 1.3 oz) SpO2 93% BMI 22.41 kg/m?? No intake or output data in the 24 hours ending 03/30/25 1315 Last documented weight: Weight: 64.9 kg (143 lb 1.3 oz) (03/29/25 0300) EXAM: General: in no distress Neurologic: Alert, awake, aphasic, follows simple commands intermittently HEENT: atraumatic, Normocephalic, without obvious abnormality Lungs: clear to auscultation bilaterally, normal respiratory effort Heart: normal rate, regular rhythm, normal S1, S2, no murmurs, rubs, clicks or gallops Abdomen: Soft, non-tender. Bowel sounds normal. No masses, no organomegaly. Extremities: extremities normal, atraumatic, no cyanosis or edema, intact distal pulses, moves all extremities equally, no edema, redness or tenderness in the calves or thighs, normal strength, normal tone Skin: negative LABORATORY: Recent Labs 03/28/250 03/29/25 0338 03/30/25 0340 WBC 12.6* 10.7 10.3 HGB 13.8* 14.7 14.7 HCT 41.4 44.6 44.0 PLT 236 209 219 Recent Labs 03/28/25 04403/29/25 0338 03/30/25 0340 NA 135* 135* 134* K 3.7 3.9 4.0 CL 102 103 102 CO2 22 21* 21* CA 8.9 8.8 8.8 BUN 8 6* 8 CREAT 0.87 0.93 0.93 GLUCOSE 128* 104* 98 No results for input(s): TOTALPROTEIN , ALBUMIN , BILITOTAL , ALKPHOS , AST , ALT in the last 72 hours. No results for input(s): INR , PT in the last 72 hours. Invalid input(s): PTT No results for input(s): BASETROP , 2HRTROP , DELTA , 6HRTROP in the last 72 hours. Diagnostic testing reviewed by me: Medications were reviewed by me. Current Facility-Administered Medications: amLODIPine (NORVASC) tablet 10 mg, 10 mg, Oral, daily, Mandi Bishop MD, 10 mg at 03/30/25 1100 clopidogreL (PLAVIX) tablet 75 mg, 75 mg, Oral, daily, Jasmin Hopkins MD, 75 mg at 03/30/25 1100 sodium chloride flush injection 10 mL, 10 mL, IV, every 12 hours (2 times daily), Chriss Hopkins MD, 10 mL at 03/30/25 1100 sodium chloride flush injection 10 mL, 10 mL, IV, see admin instructions, Jasmin Hopkins MD sodium chloride 0.9 % flush bag 25 mL, 25 mL, IV, see admin instructions, Jasmin Hopkins MD dextrose 5 % in water 250 mL flush bag 25 mL, 25 mL, IV, see admin instructions, Jasmin Hopkins MD naloxone (NARCAN) 0.4 mg/mL injection 0.1-0.4 mg, 0.1-0.4 mg, IV, see admin instructions, Jasmin Hopkins MD acetaminophen (TYLENOL) tablet 650 mg, 650 mg, Oral, every 6 hours PRN, Jasmin Hopkins MD aspirin (JAREK CHEWABLE) chewable tablet 81 mg, 81 mg, Oral, daily, Jasmin Hopkins MD, 81 mg at 03/30/25 1100 atorvastatin (LIPITOR) tablet 80 mg, 80 mg, Oral, daily, Jasmin Hopkins MD, 80 mg at 03/30/25 1100 heparin injection 5,000 Units, 5,000 Units, subCUT, every 8 hours, Jasmin Hopkins MD, 5,000 Units at 03/30/25 1227 aspirin rectal suppository 300 mg, 300 mg, Rectal, ONE time only, Jasmin Hopkins MD dextrose 5 % - sodium chloride 0.9 % infusion, , IV, see admin instructions, Jasmin Hopkins MD dextrose 50% (D50) syringe 12.5 Gram, 12.5 Gram, IV, see admin instructions, Jasmin Hopkins MD dextrose 50% (D50) syringe 25 Gram, 25 Gram, IV, see admin instructions, Jasmin Hopkins MD glucagon HCL 1 mg/mL injection 1 mg, 1 mg, IM, see admin instructions, Jasmin Hopkins MD Primary discharge diagnosis: Cerebrovascular accident (CVA) due to stenosis of left middle cerebral artery (CMS/HCC) Other active medical issues also addressed during this admission: Active Hospital Problems Diagnosis Protein-calorie malnutrition, severe Stroke-like symptoms History of CVA (cerebrovascular accident) Dementia (CMS/HCC) Cerebrovascular accident (CVA) due to stenosis of left middle cerebral artery (CMS/HCC) Resolved Hospital Problems No resolved problems to display. ASSESSMENT AND PLAN: Left MCA stroke Aphasia, right-sided weakness CTA head and neck concerning for left M2 filling defect. Evaluated by neurology and neurosurgery, recommended that patient is not a candidate for thrombectomy due to poor baseline functional and neurologic status Echocardiogram with preserved EF, no obvious PFO or ASD -HbA1c 5.8. LDL 75 - MRI brain pending - Continue aspirin and Plavix - Continue high intensity statin - PT/OT Functional decline Dementia long-term resident -PT/OT recommending SNF placement Recent Labs 03/28/25 1141 03/28/25 2125 03/29/25 0024 03/29/25 0938 03/29/25 2150 03/30/25 0602 GLUCPOC 118* 125* 120* 119* 133* 108* Nutrition Status: Malnutrition Nutrition Diagnosis: Severe protein-calorie malnutrition (suspected inadequate PO intake) Provider Assessment/Plan: Symptoms/Signs/Physical Exam: Muscle Wasting, Dysphagia, Weakness, and Fatigue Etiology: Acute illness and Chronic illness Nutrition Treatment Plan: Encourage p.o. feeds - Current Diet and/or Nutritional Supplementation ordered: DIET GENERAL Level 0 Thin,; Pureed, Effective Now DIET SUPPLEMENT GEN ADULT TID; Complete Oral Supplement, - Daily weights Impact of Malnutrition on patient condition and outcomes: Increased dysphagia, Increased risk of infection, Delayed recovery, Skin breakdown, Increased readmission risk, and Increased hospitalization length Code status: NO CPR (In Event of Cardiopulmonary Arrest) Current diet : DIET GENERAL Level 0 Thin,; Pureed, Effective Now DIET SUPPLEMENT GEN ADULT TID; Complete Oral Supplement, DVT prophylaxis: SCDs, hold AC pending MRI Outpatient follow up: PCP, neurology Anticipated Disposition Location: SNF Timeframe: 03/30/2025 Criteria: Medically stable Patient's understanding of illness: Poor Primary family contact: Son MDM complexity: [] Mild [x] Moderate [] High Mandi Bishop MD 03/30/2025, 1:15 PM * Emely Muniz, RD - 03/30/2025 10:59 AM CDT Nutritional Status/Recommendations/Plan for Follow up: Noted PO intake remains poor, pt consuming <50% of at meals, consuming 10-50%. Pt is not meetingnutritional needs would consider nutrition support if aligns with GOC. Estimated Needs: Estimated Energy Target: 0247-4577 (03/28/25 1300) Estimated Protein Target: 80-100 (03/28/25 1300) Estimated Fluid Target : 2932-1736 (03/28/25 1300) Nutrition Energy Formula: Calories per kilogram (03/28/25 1300) Weight Used for Formula: Actual weight (03/28/251299) Current diet/nutrition support: DIET GENERAL Level 0 Thin,; Pureed, Effective Now DIET SUPPLEMENT GEN ADULT TID; Complete Oral Supplement, Food/Meal: Lunch (03/29/25 1200),Intake (%): (!) 20% (03/29/25 1200) Oral Supplement Type: Complete oral supplement-adult (03/29/25 1200) Weight status/changes: Height: 5' 7 (170.2 cm) (03/26/252155) Weight: 64.9 kg (143 lb 1.3 oz) (03/29/25 0300) Last seven weights (if available) from 03/02/25 1100 to 03/30/25 1059 (Last 7 readings): Weight Weight Method 03/29/25 0300 64.9 kg (143 lb 1.3 oz) -- 03/28/25 1300 65 kg (143 lb 4.8 oz) Actual 03/26/252155 68.8 kg (151 lb 10.8 oz) Estimated 03/26/251802 68.8 kg (151 lb 10.8 oz) -- Admission:Weight: 68.8 kg (151 lb 10.8 oz) (03/26/25 180)Weight Method: Estimated (03/26/252155) Body mass index is 22.41 kg/m??. [place] body weight: 66.1 kg (145 lb 11.6 oz) Nutrition Focused Exam Physical Findings- Summary: Malnutrition Nutrition Diagnosis: Severe protein-calorie malnutrition (suspected inadequate PO intake) (03/28/25 1300) Subcutaneous Fat Loss Assessment: Severe fat loss (03/28/25 1300) Muscle Wasting Assessment: Severe (03/28/25 1300) Edema: Normal contour with a barely perceptible pit (no findings) (03/28/25 1300) Hand Dedicated Regional Driver: Unable to assess (03/28/25 1300) Percentage of Energy: Unable to assess (03/28/25 1300) Percentage of Weight Loss: Unable to assess (03/28/25 1300) Additional assessment indices: Robert Score: 13 (03/29/251958) Last Bowel Movement (mm/dd/yyyy): 03/28/25 (03/29/251958) Stool Consistency - Reference Glenn Stool Chart: soft - (type 4/5) (03/29/25 1620) Allergies No Known Allergies Labs: Lab Results Component Value Date/Time NA 134 (L) 03/30/2025 03:40 AM K 4.0 03/30/2025 03:40 AM CL 102 03/30/2025 03:40 AM CO2 21 (L) 03/30/2025 03:40 AM CA 8.8 03/30/2025 03:40 AM BUN 8 03/30/2025 03:40 AM CREAT 0.93 03/30/2025 03:40 AM GLUCOSE 98 03/30/2025 03:40 AM TOTALPROTEIN 5.9 (L) 03/26/2025 06:09 PM ALBUMIN 3.3 (L) 03/26/2025 06:09 PM BILITOTAL 0.3 03/26/2025 06:09 PM ALKPHOS 126 03/26/2025 06:09 PM AST 19 03/26/2025 06:09 PM ALT 25 03/26/2025 06:09 PM ANIONGAP 11 03/30/2025 03:40 AM Lab Results Component Value Date/Time HGBA1C 5.8 (H) 03/26/2025 08:10 PM Lab Results Component Value Date/Time RDW 14.3 03/30/2025 03:40 AM No results found for: CRP , CRPHS No results found for: MG Lab Results Component Value Date/Time CA 8.8 03/30/2025 03:40 AM No results found for: CXHO480 , VITD25 , LDRI05YYV6 , UBAW38FCB3 , [id number] , [id number] , SWFQ9BJPDOXV , VITAMINDTO , RPVFYGK761 No results found for: [id number] No results found for: FOLATE , FOLATERBC No results found for: ZINC * Mandi Bishop MD - 03/29/2025 11:46 AM CDT Images from the original note were not included. Your life is our life's work [facility] Hospitalist/Hospital Medicine Progress Note LOS: 3 days Room/Bed: 6202/01 Patient name: Andre Arevalo Date of : 1955 HOSPITAL COURSE SUMMARY: Andre Arevalo, a 69 y.o. male, shelter resident with PMH of schizophrenia, prior stroke, dementia, functional decline who is admitted for further management of strokelike symptoms. Patient was noted to have aphasia with right- sided weakness at 11 AM on day of admission. Patient was initially taken to [facility], was noted to be outside window for TNK. Symptoms had almost resolved, however recurred. CT head on admission without any acute findings. CT perfusion showed multifocal areas of ischemia in left supratentorial brain and right cerebellum, chronic infarct in right temporal parietal. CTA head showed left M2 occlusion with penumbra. Patient was evaluated by neurology and neurosurgery recommended that patient was not a candidate for mechanical thrombectomy due to poor baseline functional and neurologic status. Patient admitted under hospitalist service for further stroke workup. 03/28: Patient is awake, follows simple commands intermittently, nonverbal. MRI brain and TTE pending. Continued on aspirin, Plavix and statin. Pending PT/OT eval. Speech recommending MBS. Son updatedvia phone. 03/29: Patient is awake alert, able to speak few words. MRI pending. PT/OT recommending SNF 03/30: MRI showing small acute infarcts in left periventricular white matter. Continued on DAPT and statin. Outpatient follow-up with neurology. Pending SNF placement. Consultants: IP CONSULT TO BORING MACHINE SET UP OPERATOR JIG IP CONSULT TO STROKE EDUCATION IP CONSULT TO PHYSICAL MEDICINE REHAB IP CONSULT TO PASTORAL SERVICES IP CONSULT TO NUTRITION SERVICES IP CONSULT TO CASE MANAGEMENT SUBJECTIVE: Patient seen at bedside, no new events OBJECTIVE: Temp (24hrs), Av.8 ??F (36.6 ??C), Min:96.9 ??F (36.1 ??C), Max:98.7 ??F (37.1 ??C) BP (!) 146/100 (BP Location: Right arm, Patient Position (BP): Supine) Pulse (!) 102 Temp 97.7 ??F (36.5 ??C) (Temporal) Resp 17 Ht 5' 7 (1.702 m) Wt 64.9 kg (143 lb 1.3 oz) SpO2 95% BMI 22.41 kg/m?? Intake/Output Summary (Last 24 hours) at 03/29/2025 1150 Last data filed at 03/28/2025 1811 Gross per 24 hour Intake 310 ml Output -- Net 310 ml Last documented weight: Weight: 64.9 kg (143 lb 1.3 oz) (03/29/25 0300) EXAM: General: in no distress Neurologic: Alert, awake, aphasic, follows simple commands intermittently HEENT: atraumatic, Normocephalic, without obvious abnormality Lungs: clear to auscultation bilaterally, normal respiratory effort Heart: normal rate, regular rhythm, normal S1, S2, no murmurs, rubs, clicks or gallops Abdomen: Soft, non-tender. Bowel sounds normal. No masses, no organomegaly. Extremities: extremities normal, atraumatic, no cyanosis or edema, intact distal pulses, moves all extremities equally, no edema, redness or tenderness in the calves or thighs, normal strength, normal tone Skin: negative LABORATORY: Recent Labs 03/26/25180803/27/254 03/28/25 0440 03/29/25 0338 WBC 8.2 9.6 12.6* 10.7 HGB 12.4* 12.9* 13.8* 14.7 HCT 39.0* 39.5* 41.4 44.6 PLT 207 222 236 209 Recent Labs 03/26/25 18003/27/25 0214 03/28/25 0441 03/29/25 0338 NA 138 140 135* 135* K 3.9 3.7 3.7 3.9 CL 105 107 102 103 CO2 23 23 22 21* CA 8.1* 8.6* 8.9 8.8 BUN 14 13 8 6* CREAT 0.89 0.91 0.87 0.93 GLUCOSE 85 89 128* 104* Recent Labs 03/26/25 1809 TOTALPROTEIN 5.9* ALBUMIN 3.3* BILITOTAL 0.3 ALKPHOS 126 AST 19 ALT 25 Recent Labs 03/26/25 1809 INR 1.1 PT 14.6 Recent Labs 03/26/25200903/26/25 2344 03/27/25 0214 BASETROP 20* -- -- DELTA -- < > 7 6HRTROP -- < > 27* < > = values in this interval not displayed. Diagnostic testing reviewed by me: Medications were reviewed by me. Current Facility-Administered Medications: amLODIPine (NORVASC) tablet 10 mg, 10 mg, Oral, daily, Mandi Bishop MD, 10 mg at 03/28/25 0900 dextrose 5 % infusion, , IV, continuous, Mandi Bishop MD, Last Rate: 40 mL/hr at 03/28/25 1423,New Bag at 03/28/25 1423 [COMPLETED] LORazepam (ATIVAN) tablet 0.5 mg, 0.5 mg, Oral, ONE time only, Mandi Bishop MD, 0.5mg at 03/28/25 1944 clopidogreL (PLAVIX) tablet 75 mg, 75 mg, Oral, daily, Jasmin Hopkins MD, 75 mg at 03/28/25 0900 sodium chloride flush injection 10 mL, 10 mL, IV, every 12 hours (2 times daily), Chriss Hopkins MD, 10 mL at 03/28/25 2126 sodium chloride flush injection 10 mL, 10 mL, IV, see admin instructions, Jasmin Hopkins MD sodium chloride 0.9 % flush bag 25 mL, 25 mL, IV, see admin instructions, Jasmin Hopkins MD dextrose 5 % in water 250 mL flush bag 25 mL, 25 mL, IV, see admin instructions, Jasmin Hopkins MD naloxone (NARCAN) 0.4 mg/mL injection 0.1-0.4 mg, 0.1-0.4 mg, IV, see admin instructions, Jasmin Hopkins MD acetaminophen (TYLENOL) tablet 650 mg, 650 mg, Oral, every 6 hours PRN, Jasmin Hopkins MD aspirin (JAREK CHEWABLE) chewable tablet 81 mg, 81 mg, Oral, daily, Jasmin Hopkins MD, 81 mg at 03/28/25 0900 atorvastatin (LIPITOR) tablet 80 mg, 80 mg, Oral, daily, Jasmin Hopkins MD, 80 mg at 03/28/25 0900 heparin injection 5,000 Units, 5,000 Units, subCUT, every 8 hours, Jasmin Hopkins MD, 5,000 Units at 03/29/25 0457 aspirin rectal suppository 300 mg, 300 mg, Rectal, ONE time only, Jasmin Hopkins MD dextrose 5 % - sodium chloride 0.9 % infusion, , IV, see admin instructions, Jasmin Hopkins MD dextrose 50% (D50) syringe 12.5 Gram, 12.5 Gram, IV, see admin instructions, Jasmin Hopkins MD dextrose 50% (D50) syringe 25 Gram, 25 Gram, IV, see admin instructions, Jasmin Hopkins MD glucagon HCL 1 mg/mL injection 1 mg, 1 mg, IM, see admin instructions, Jasmin Hopkins MD [] dextrose 5 % infusion, , IV, continuous, Mandi Bishop MD, Stopped at 03/28/25 1217 Primary discharge diagnosis: Cerebrovascular accident (CVA) due to stenosis of left middle cerebral artery (CMS/HCC) Other active medical issues also addressed during this admission: Active Hospital Problems Diagnosis Protein-calorie malnutrition, severe Stroke-like symptoms History of CVA (cerebrovascular accident) Dementia (CMS/HCC) Cerebrovascular accident (CVA) due to stenosis of left middle cerebral artery (CMS/HCC) Resolved Hospital Problems No resolved problems to display. ASSESSMENT AND PLAN: Left MCA stroke Aphasia, right-sided weakness CTA head and neck concerning for left M2 filling defect. Evaluated by neurology and neurosurgery, recommended that patient is not a candidate for thrombectomy due to poor baseline functional and neurologic status Echocardiogram with preserved EF, no obvious PFO or ASD -HbA1c 5.8. LDL 75 - MRI brain pending - Continue aspirin and Plavix - Continue high intensity statin - PT/OT Functional decline Dementia long-term resident -PT/OT recommending SNF placement Recent Labs 03/26/25 2208 03/26/25 2355 03/27/25 0316 03/28/25 1141 03/28/25 2125 03/29/25 0024 03/29/25 0938 GLUCPOC 90 94 96 118* 125* 120* 119* Nutrition Status: Malnutrition Nutrition Diagnosis: Severe protein-calorie malnutrition (suspected inadequate PO intake) Provider Assessment/Plan: Symptoms/Signs/Physical Exam: Muscle Wasting, Dysphagia, Weakness, and Fatigue Etiology: Acute illness and Chronic illness Nutrition Treatment Plan: Encourage p.o. feeds - Current Diet and/or Nutritional Supplementation ordered: DIET GENERAL Level 0 Thin,; Pureed, Effective Now DIET SUPPLEMENT GEN ADULT TID; Complete Oral Supplement, - Daily weights Impact of Malnutrition on patient condition and outcomes: Increased dysphagia, Increased risk of infection, Delayed recovery, Skin breakdown, Increased readmission risk, and Increased hospitalization length Code status: NO CPR (In Event of Cardiopulmonary Arrest) Current diet : DIET GENERAL Level 0 Thin,; Pureed, Effective Now DIET SUPPLEMENT GEN ADULT TID; Complete Oral Supplement, DVT prophylaxis: SCDs, hold AC pending MRI Outpatient follow up: PCP, neurology Anticipated Disposition Location: SNF Timeframe: 03/29/2025 Criteria: Medically stable Patient's understanding of illness: Poor Primary family contact: Son MDM complexity: [] Mild [x] Moderate [] High Mandi Bishop MD 03/29/2025, 11:50 AM * Emely Muniz RD - 03/28/2025 1:40 PM CDT The patient was evaluated by the dietitian and was found to have Malnutrition Nutrition Diagnosis: Severe protein-calorie malnutrition (suspected inadequate PO intake) (03/28/251299). The malnutrition pathway is recommended and the assessment via ASPEN criteria and nutrition recommendations from the dietitian are as follows: ASPEN Malnutrition Assessment and Findings Subcutaneous Fat Loss Assessment: Severe fat loss (03/28/251299) Muscle Wasting Assessment: Severe (03/28/251299) Edema: Normal contour with a barely perceptible pit (no findings) (03/28/251299) Hand Dedicated Regional Driver: Unable to assess (03/28/251299) Percentage of Energy: Unable to assess (03/28/251299) Percentage of Weight Loss: Unable to assess (03/28/251299) Malnutrition Decision Malnutrition Nutrition Diagnosis: Severe protein-calorie malnutrition (suspected inadequate PO intake) (03/28/251299) BMI BMI (Calculated): 22.44 (03/28/251299) Malnutrition Recommendations Nutrition Interventions: Encourage adequate intake;Encourage fluids;Monitor weight trends;Oral nutrition supplement (03/28/251299) Cosigned by Mandi Bishop MD at 03/29/2025 12:15 PM CDT * Mandi Bishop MD - 03/28/2025 12:41 PM CDT Images from the original note were not included. Your life is our life's work [facility] Hospitalist/Hospital Medicine Progress Note LOS: 2 days Room/Bed: [address] [place] [address] Patient name: Andre Arevalo Date of : 1955 HOSPITAL COURSE SUMMARY: Andre Arevalo, a 69 y.o. male, shelter resident with PMH of schizophrenia, prior stroke, dementia, functional decline who is admitted for further management of strokelike symptoms. Patient was noted to have aphasia with right- sided weakness at 11 AM on day of admission. Patient was initially taken to [facility], was noted to be outside window for TNK. Symptoms had almost resolved, however recurred. CT head on admission without any acute findings. CT perfusion showed multifocal areas of ischemia in left supratentorial brain and right cerebellum, chronic infarct in right temporal parietal. CTA head showed left M2 occlusion with penumbra. Patient was evaluated by neurology and neurosurgery recommended that patient was not a candidate for mechanical thrombectomy due to poor baseline functional and neurologic status. Patient admitted under hospitalist service for further stroke workup. 03/28: Patient is awake, follows simple commands intermittently, nonverbal. MRI brain and TTE pending. Continued on aspirin, Plavix and statin. Pending PT/OT eval. Speech recommending MBS. Son updated via phone. 03/29: Patient is awake alert, able to speak few words. MRI pending. PT/OT recommending SNF Consultants: IP CONSULT TO BORING MACHINE SET UP OPERATOR JIG IP CONSULT TO STROKE EDUCATION IP CONSULT TO PHYSICAL MEDICINE REHAB IP CONSULT TO PASTORAL SERVICES IP CONSULT TO NUTRITION SERVICES SUBJECTIVE: Patient seen at bedside, no new events OBJECTIVE: Temp (24hrs), Av.8 ??F (36.6 ??C), Min:97.2 ??F (36.2 ??C), Max:99.3 ??F (37.4 ??C) BP (!) 173/98 (BP Location: Right arm, Patient Position (BP): Supine) Pulse (!) 101 Temp 99.3 ??F (37.4 ??C) (Temporal) Resp 18 Ht 5' 7 (1.702 m) Wt 68.8 kg (151 lb 10.8 oz) SpO2 93% BMI 23.76 kg/m?? Intake/Output Summary (Last 24 hours) at 03/28/2025 1241 Last data filed at 03/28/2025 0800 Gross per 24 hour Intake 100 ml Output -- Net 100 ml Last documented weight: Weight: 68.8 kg (151 lb 10.8 oz) (03/26/25 3270) EXAM: General: in no distress Neurologic: Alert, awake, aphasic, follows simple commands intermittently HEENT: atraumatic, Normocephalic, without obvious abnormality Lungs: clear to auscultation bilaterally, normal respiratory effort Heart: normal rate, regular rhythm, normal S1, S2, no murmurs, rubs, clicks or gallops Abdomen: Soft, non-tender. Bowel sounds normal. No masses, no organomegaly. Extremities: extremities normal, atraumatic, no cyanosis or edema, intact distal pulses, moves all extremities equally, no edema, redness or tenderness in the calves or thighs, normal strength, normal tone Skin: negative LABORATORY: Recent Labs 03/26/25180803/27/2521303/28/25 0440 WBC 8.2 9.6 12.6* HGB 12.4* 12.9* 13.8* HCT 39.0* 39.5* 41.4 PLT 207 222 236 Recent Labs 03/26/25180803/27/254 03/28/25 0441 NA 138 140 135* K 3.9 3.7 3.7 CL 105 107 102 CO2 23 23 22 CA 8.1* 8.6* 8.9 BUN 14 13 8 CREAT 0.89 0.91 0.87 GLUCOSE 85 89 128* Recent Labs 03/26/251808 TOTALPROTEIN 5.9* ALBUMIN 3.3* BILITOTAL 0.3 ALKPHOS 126 AST 19 ALT 25 Recent Labs 03/26/251808 INR 1.1 PT 14.6 Recent Labs 03/26/25200903/26/25 2344 03/27/25 0214 BASETROP 20* -- -- DELTA -- < > 7 6HRTROP -- < > 27* < > = values in this interval not displayed. Diagnostic testing reviewed by me: Medications were reviewed by me. Current Facility-Administered Medications: amLODIPine (NORVASC) tablet 10 mg, 10 mg, Oral, daily, Mandi Bishop MD, 10 mg at 03/28/25 09 dextrose 5 % infusion, , IV, continuous, Mandi Bishop MD clopidogreL (PLAVIX) tablet 75 mg, 75 mg, Oral, daily, Jasmin Hopkins MD, 75 mg at 03/28/25 09 sodium chloride flush injection 10 mL, 10 mL, IV, every 12 hours (2 times daily), Chriss Hopkins MD, 10 mL at 03/28/25 0900 sodium chloride flush injection 10 mL, 10 mL, IV, see admin instructions, Jasmin Hopkins MD sodium chloride 0.9 % flush bag 25 mL, 25 mL, IV, see admin instructions, Jasmin Hopkins MD dextrose 5 % in water 250 mL flush bag 25 mL, 25 mL, IV, see admin instructions, Jasmin Hopkins MD naloxone (NARCAN) 0.4 mg/mL injection 0.1-0.4 mg, 0.1-0.4 mg, IV, see admin instructions, Jasmin Hopkins MD acetaminophen (TYLENOL) tablet 650 mg, 650 mg, Oral, every 6 hours PRN, Jasmin Hopkins MD [] labetaloL (NORMODYNE;TRANDATE) 5 mg/mL injection 10 mg, 10 mg, IV, every 15 minutes PRN, Jasmin Hopkins MD aspirin (JAREK CHEWABLE) chewable tablet 81 mg, 81 mg, Oral, daily, Jasmin Hopkins MD, 81 mg at 03/28/25 0900 atorvastatin (LIPITOR) tablet 80 mg, 80 mg, Oral, daily, Jasmin Hopkins MD, 80 mg at 03/28/25 0900 heparin injection 5,000 Units, 5,000 Units, subCUT, every 8 hours, Jasmin Hopkins MD, 5,000 Units at 03/28/25 0519 aspirin rectal suppository 300 mg, 300 mg, Rectal, ONE time only, Jasmin Hopkins MD dextrose 5 % - sodium chloride 0.9 % infusion, , IV, see admin instructions, Jasmin Hopkins MD dextrose 50% (D50) syringe 12.5 Gram, 12.5 Gram, IV, see admin instructions, Jasmin Hopkins MD dextrose 50% (D50) syringe 25 Gram, 25 Gram, IV, see admin instructions, Jasmin Hopkins MD glucagon HCL 1 mg/mL injection 1 mg, 1 mg, IM, see admin instructions, Jasmin Hopkins MD [] dextrose 5 % infusion, , IV, continuous, Mandi Bishop MD, Stopped at 03/28/25 1217 Primary discharge diagnosis: Stroke-like symptoms Other active medical issues also addressed during this admission: Active Hospital Problems Diagnosis Stroke-like symptoms History of CVA (cerebrovascular accident) Dementia (CMS/HCC) Cerebrovascular accident (CVA) due to stenosis of left middle cerebral artery (CMS/HCC) Resolved Hospital Problems No resolved problems to display. ASSESSMENT AND PLAN: Left MCA stroke Aphasia, right-sided weakness CTA head and neck concerning for left M2 filling defect. Evaluated by neurology and neurosurgery, recommended that patient is not a candidate for thrombectomy due to poor baseline functional and neurologic status Echocardiogram with preserved EF, no obvious PFO or ASD - MRI brain pending - Continue aspirin and Plavix - Continue high intensity statin - Permissive hypertension -HbA1c pending. LDL 75 - PT/OT Functional decline Dementia long-term resident -PT/OT recommending SNF placement Recent Labs 03/26/25 2208 03/26/25 2355 03/27/25 0316 03/28/25 1141 GLUCPOC 90 94 96 118* Nutrition Status: Concern for Nutrition Status: Start Malnutrition pathway Nutrition consult for assessment and nutrition support recommendations Daily weights Diet: DIET GENERAL Level 0 Thin,; Pureed, Effective Now Code status: NO CPR (In Event of Cardiopulmonary Arrest) Current diet : DIET GENERAL Level 0 Thin,; Pureed, Effective Now DVT prophylaxis: SCDs, hold AC pending MRI Outpatient follow up: PCP Anticipated Disposition Location: SNF Timeframe: 03/29/2025 Criteria: Medically stable Patient's understanding of illness: Poor Primary family contact: Son MDM complexity: [] Mild [x] Moderate [] High Mandi Bishop MD 03/28/2025, 12:41 PM * Miranda Burnett, FLOATING OPERATOR - 03/28/2025 11:54 AM CDT [facility] Ph. ; Fax. Acute Speech-Language Pathology Communication Evaluation 03/28/2025 Room: [address] [place] [address] Name: Andre Arevalo Age: 69 y.o. Date of : 1955 Insurance: Payor: MEDICARE / Plan: MEDICARE PART A AND B / Product Type: Medicare / Patient class: Inpatient Confirmed patient's identification of name and date of : on name band Consent to treatment given by nurse with results as follows: Onset of illness/injury or date of surgery: 03/26/2025 KARL Arevalo is a 69 y.o. male admitted for further evaluation of worsening aphasia and right-sidedweakness. MRI pending. Subjective Information and Clinical Observations Patient/Family Goals Statement: Patient unable to state goal. Pain: Refer to Doc Flowsheet for documented pain levels. Level of Alertness: Alert/Responsive Mood/Affect: Patient calm and cooperative Position: Upright in bed Circumstances negatively impacting performance this date: decreased command execution and decreasedattention Patient has No alternative method of nutrition and is on room air Objective Information Diagnostic Intervention Provided: Speech Language Pathology Predisposing cognitive-linguistic risk factors: Dementia and Previous CVA Acute cognitive-linguistic risk factors: potential CVA/TIA Social History/Home Environment: Currently lives in shelter Occupational background: retired Highest level of education: Unknown History of special education requirements: Unknown Able to read/write at baseline: Unknown, but likely impaired Independently managed medications: No[facility] Independently managed finances: No Able to drive motor vehicle prior to admission: No Sensory Input/Output: Visual deficits: Unknown Hearing deficits: Unknown Dominant hand: Unknown Tests Administered and Qualitative Observations Unable to complete Francisco Cognitive Assessment (MoCA) d/t severity of communication deficits. Patient's language abilities assessed via the Western Aphasia Battery-Bedside Revised with the following results obtained: Spontaneous Speech: 1. Information Content: 0/10 2. Fluency: 0/10 Auditory Verbal Comprehension: 1. Yes/No Questions: 5/10 2. Sequential Commands: 2/10 Repetition: 1. score: 0/10 Naming and Word Findin. Object Namin/10 Bedside Aphasia Score: 17/100 Readin/10 Writin/10 Bedside Language Score: 13/100 Bedside Aphasia Classification: Patient exhibited characteristics of Broca's Aphasia Apraxia screenin/10 Qualitative Observations: Slow speed of processing throughout with increased time required to respond to testing stimuli at times. In addition, no response provided to stimuli frequently. Speech Production: Only occasional vocalizations produced. Difficult to fully assess as a result. However, vocal quality perceptually judged to be somewhat gravelly. Dysarthria present with imprecise articulation produced. Speech intelligibility subjectively judged to be 20-30% in 1:1 setting evenat the word level to unfamiliar listener. Expressive Language: Significant deficits noted with even basic expression. Only minimal verbalizations produced and only to command. Answered yes/no questions verbally with therapist cueing. No spontaneous expression attempted. Unable to verbally repeat or even approximate single words. Able to name functional objects in room verbally with 30% accuracy. Written expression not functional. Receptive Language: Deficits noted with basic comprehension. In addition, comprehension decreased as complexity of information to comprehend increased. Yes/no responses not reliable with patient achieving only 50% accuracy with simple yes/no questions. Able to execute 1-step body part commands presented verbally at 2/5. However, unable to execute commands of two or more steps. No attempt to execute commands (even 1-step) provided in writing. Unable to consistently and accurately identify even single letters/numbers from visual field of 2. Assessment Per standardized assessment and qualitative observations, patient presents with expressive as well as receptive language deficits. Dysarthria also produced. Nursing reported patient with at least some communication impairment even prior to this admission (per family). Unable to determine if patient at or near baseline or if communication deficits have increased with this admission as no family present for evaluation. Patient will require 24-hour supervision upon discharge from this facility as well as ongoing speech therapy services to address above. Recommendations DISCHARGE RECOMMENDATIONS: [facility] * The final discharge location is determined through physician, case management, and patient/caregiver input along with insurance authorization of skilled services when appropriate Recommendations for referral to another service: None at this time Precautions Plan of Care Patient precautions: Aspiration and Fall Continue FLOATING OPERATOR services to address speech deficits (dysarthria and/or apraxia) and language deficits (aphasia), anticipate follow up in the next 4-8 days or as medical condition changes. Plan of care to continue for the duration of the patient's acute care hospital stay or until goals are met. Please notify speech therapy department should the patient's condition change and/or patient requires FLOATING OPERATOR services prior to the next anticipated FLOATING OPERATOR visit. Education Disposition Regarding: results and recommendations of communication evaluation and speech therapy plan of care Learner, method of education, and response to learning listed in Education tab in Epic Before session: Patient lying in bed After session: Patient lying in bed and call light in reach Current Diagnoses/Past Medical History Pertinent diagnoses and past medical history related to this hospital stay are present in physicianH&P and physician daily notes. Prior to session, completed thorough chart review. Reviewed prior therapy treatment notes as applicable. Further treatment notes and therapeutic goals can be found in Care Plan Notes. If the patient discharges from facility prior to another therapy visit, this shall serve as the therapy discharge summary Thank you for this referral, Miranda Burnett M.S., CCC-FLOATING OPERATOR Acute Speech Therapy Charge Zone Phone #[phone] Acute Speech Therapy Charge Pager #[phone] * Christiano Medrano RN - 03/27/2025 2:45 PM CDT [facility] Patient will dc back to his shelter at ok. Will no longer follow patient at this time. Please call if circumstances change. Thank you for this referral and the opportunity to participate in the care of this patient. Leland Medrano MOLD DESIGN ENGINEER Clinical Liaison [facility] [email or web address] * Mandi Bishop MD - 03/27/2025 12:12 PM CDT Images from the original note were not included. Your life is our life's work [facility] Hospitalist/Hospital Medicine Progress Note LOS: 1 day Room/Bed: 6202/01 Patient name: Andre Arevalo Date of : 1955 HOSPITAL COURSE SUMMARY: Andre Arevalo, a 69 y.o. male, shelter resident with PMH of schizophrenia, prior stroke, dementia, functional decline who is admitted for further management of strokelike symptoms. Patient was noted to have aphasia with right- sided weakness at 11 AM on day of admission. Patient was initially taken to [facility], was noted to be outside window for TNK. Symptoms had almost resolved, however recurred. CT head on admission without any acute findings. CT perfusion showed multifocal areas of ischemia in left supratentorial brain and right cerebellum, chronic infarct in right temporal parietal. CTA head showed left M2 occlusion with penumbra. Patient was evaluated by neurology and neurosurgery recommended that patient was not a candidate for mechanical thrombectomy due to poor baseline functional and neurologic status. Patient admitted under hospitalist service for further stroke workup. 03/28: Patient is awake, follows simple commands intermittently, nonverbal. MRI brain and TTE pending. Continued on aspirin, Plavix and statin. Pending PT/OT eval. Speech recommending MBS. Son justyn phone. Consultants: IP CONSULT TO BORING MACHINE SET UP OPERATOR JIG IP CONSULT TO STROKE EDUCATION IP CONSULT TO PHYSICAL MEDICINE REHAB IP CONSULT TO PASTORAL SERVICES SUBJECTIVE: Patient seen at bedside, aphasic, moving all extremities, following simple commands OBJECTIVE: Temp (24hrs), Av.8 ??F (36.6 ??C), Min:96.8 ??F (36 ??C), Max:98.3 ??F (36.8 ??C) BP (!) 150/104 (BP Location: Right arm, Patient Position (BP): Supine) Pulse 94 Temp 98 ??F (36.7 ??C) (Temporal) Resp 16 Ht 5' 7 (1.702 m) Wt 68.8 kg (151 lb 10.8 oz) SpO2 92% BMI 23.76 kg/m?? No intake or output data in the 24 hours ending 03/27/25 1212 Last documented weight: Weight: 68.8 kg (151 lb 10.8 oz) (03/26/256) EXAM: General: in no distress Neurologic: Alert, awake, aphasic, follows simple commands intermittently HEENT: atraumatic, Normocephalic, without obvious abnormality Lungs: clear to auscultation bilaterally, normal respiratory effort Heart: normal rate, regular rhythm, normal S1, S2, no murmurs, rubs, clicks or gallops Abdomen: Soft, non-tender. Bowel sounds normal. No masses, no organomegaly. Extremities: extremities normal, atraumatic, no cyanosis or edema, intact distal pulses, moves all extremities equally, no edema, redness or tenderness in the calves or thighs, normal strength, normal tone Skin: negative LABORATORY: Recent Labs 03/26/25 1809 03/27/25 0214 WBC 8.2 9.6 HGB 12.4* 12.9* HCT 39.0* 39.5* PLT 207 222 Recent Labs 03/26/25 1809 03/27/25 0214 NA 138 140 K 3.9 3.7 CL 105 107 CO2 23 23 CA 8.1* 8.6* BUN 14 13 CREAT 0.89 0.91 GLUCOSE 85 89 Recent Labs 03/26/25 180 TOTALPROTEIN 5.9* ALBUMIN 3.3* BILITOTAL 0.3 ALKPHOS 126 AST 19 ALT 25 Recent Labs 03/26/25 180 INR 1.1 PT 14.6 Recent Labs 03/26/25200903/26/25 2344 03/27/25 0214 BASETROP 20* -- -- DELTA -- < > 7 6HRTROP -- < > 27* < > = values in this interval not displayed. Diagnostic testing reviewed by me: Medications were reviewed by me. Current Facility-Administered Medications: clopidogreL (PLAVIX) tablet 75 mg, 75 mg, Oral, daily, Jasmin Hopkins MD [COMPLETED] iopamidoL (ISOVUE-300) 61% injection (drawn from multi-use bulk pack) 125 mL, 125 mL, IV, intra-proc ONE time, Mirela Hopper MD, 125 mL at 03/26/25 1801 sodium chloride flush injection 10 mL, 10 mL, IV, every 12 hours (2 times daily), Chriss Hopkins MD, 10 mL at 03/26/25 2100 sodium chloride flush injection 10 mL, 10 mL, IV, see admin instructions, Jasmin Hopkins MD sodium chloride 0.9 % flush bag 25 mL, 25 mL, IV, see admin instructions, Jasmin Hopkins MD dextrose 5 % in water 250 mL flush bag 25 mL, 25 mL, IV, see admin instructions, Jasmin Hopkins MD naloxone (NARCAN) 0.4 mg/mL injection 0.1-0.4 mg, 0.1-0.4 mg, IV, see admin instructions, Jasmin Hopkins MD acetaminophen (TYLENOL) tablet 650 mg, 650 mg, Oral, every 6 hours PRN, Jasmin Hopkins MD labetaloL (NORMODYNE;TRANDATE) 5 mg/mL injection 10 mg, 10 mg, IV, every 15 minutes PRN, Jasmin Hopkins MD aspirin (JAREK CHEWABLE) chewable tablet 81 mg, 81 mg, Oral, daily, Jasmin Hopkins MD atorvastatin (LIPITOR) tablet 80 mg, 80 mg, Oral, daily, Jasmin Hopkins MD heparin injection 5,000 Units, 5,000 Units, subCUT, every 8 hours, Jasmin Hopkins MD, 5,000 Units at 03/27/25 0420 aspirin rectal suppository 300 mg, 300 mg, Rectal, ONE time only, Jasmin Hopkins MD dextrose 5 % - sodium chloride 0.9 % infusion, , IV, see admin instructions, Jasmin Hopkins MD dextrose 50% (D50) syringe 12.5 Gram, 12.5 Gram, IV, see admin instructions, Jasmin Hopkins MD dextrose 50% (D50) syringe 25 Gram, 25 Gram, IV, see admin instructions, Jasmin Hopkins MD glucagon HCL 1 mg/mL injection 1 mg, 1 mg, IM, see admin instructions, Jasmin Hopkins MD dextrose 5 % infusion, , IV, continuous, Jasmin Hopkins MD, Last Rate: 40 mL/hr at 03/27/25 0015, New Bag at 03/27/25 0015 [DISCONTINUED] TENECTEPLASE INJECTION KIT FOR ACUTE ISCHEMIC STROKE (KIT) (CABINET OVERRIDE), , , , [DISCONTINUED] LABETALOL 5 MG/ML INTRAVENOUS SOLUTION (CABINET OVERRIDE), , , , [DISCONTINUED] NICARDIPINE 25 MG/10 ML INTRAVENOUS SOLUTION, SODIUM CHLORIDE 0.9 % INTRAVENOUS SOLUTION (CABINET OVERRIDE), , , , Primary discharge diagnosis: Stroke-like symptoms Other active medical issues also addressed during this admission: Active Hospital Problems Diagnosis Stroke-like symptoms History of CVA (cerebrovascular accident) Dementia (CMS/HCC) Cerebrovascular accident (CVA) due to stenosis of left middle cerebral artery (CMS/HCC) Resolved Hospital Problems No resolved problems to display. ASSESSMENT AND PLAN: Left MCA stroke Aphasia, right-sided weakness CTA head and neck concerning for left M2 filling defect. Evaluated by neurology and neurosurgery, recommended that patient is not a candidate for thrombectomy due to poor baseline functional and neurologic status - MRI brain pending - Echocardiogram pending - Continue aspirin and Plavix - Continue high intensity statin - Permissive hypertension -HbA1c pending. LDL 75 - PT//OT/speech eval Functional decline Dementia long-term resident -PT/OT eval for placement Recent Labs 03/26/25 2208 03/26/25 2355 03/27/25 0316 GLUCPOC 90 94 96 Nutrition Status: Concern for Nutrition Status: Start Malnutrition pathway Nutrition consult for assessment and nutrition support recommendations Daily weights Diet: DIET NPO Strict Code status: NO CPR (In Event of Cardiopulmonary Arrest) Current diet : DIET NPO Strict DVT prophylaxis: SCDs, hold AC pending MRI Outpatient follow up: PCP Anticipated Disposition Location: [facility] Timeframe: 03/28/2025 Criteria: Medically stable Patient's understanding of illness: Poor Primary family contact: Son MDM complexity: [] Mild [x] Moderate [] High Mandi Bishop MD 03/27/2025, 12:12 PM * Agustin Schrader, Physical Therapist - 03/27/2025 11:07 AM CDT [facility]. Acute Physical Therapy Evaluation 03/27/2025 Room: [address] [place] [address] Name: Andre Arevalo Age: 69 y.o. Date of : 1955 Insurance: Payor: MEDICARE / Plan: MEDICARE PART A AND B / Product Type: Medicare / Patient Class: Inpatient Onset of illness/injury or date of surgery: 03/26/2025 Subjective Information/History Subjective Information Provided By: Limited by patient's current cognition/alertness and Chart review only. No family present, patient unable to provide information. Patient resting supine in bed, patient non verbal but gave ok for PT / OT evaluations Prior level of Function: ADLS - dependent on SNF staff - assistance needed for upper body dressing, lower body dressing, bathing, grooming, and toileting. Patient is able to self-feed, consuming a pureed diet IADLS - dependent on SNF staff Functional mobility : modified independent with manual w/c for several years; patient would self propel using bilateral LE and UE- unable to determine if patient completes w/c transfers independentlyor with assistance this date. Patient doesn't drive Unknown fall history patient non verbal Home Environment: Alf Available Adaptive Equipment: Wheelchair - manual Assistance available: patient lives in shelter which has 05/04 supervision/ assistance Patient/Family Goals Statement: Pain: Refer to Doc Flowsheet for documented pain levels. Consent To Treatment Given By: Patient and Nurse Safety Awareness Orientation: patient non verbal Command Following: fair Safety Awareness: Poor, impulsive, slow processing, decreased problem solving, poor insight into deficits, and poor attention to task Precautions Patient Precautions: Fall Risk and Aspiration Bracing/Orthotics: none Weight Bearing: No Restrictions Objective Information/Examination Muscle Tone: Normal Coordination: Abnormal: poor Sensation: Not Tested - patient unable to respond to questions ROM: Right UE: Active: WFL - decreased shoulder flexion ~80??, shoulder abduction ~80??, shoulder scaption 80??, and elbow flexion ~100??; Left UE: Active: WFL- decreased shoulder flexion ~80?? and shoulder abduction ~80??; Right LE: Active: WFL Left LE: Active: WFL Strength: Right UE: Not formally manually muscle tested, patient demonstrated adequate strength for functional tasks Left UE: Not formally manually muscle tested, patient demonstrated adequate strength for functionaltasks Right LE: Abnormal: 3/5 grossly Left LE: Abnormal: 3/5 grossly Functional Mobility: patient wearing no skid socks, gait belt and roller walker Rolling: moderate assistance Scooting: moderate assistance Supine to sit: moderate assistance Sit to supine: moderate assistance Sit to stand: moderate assistance and maximal assistance x 2 Bed to chair: moderate assistance and maximal assistance x 2 Stand pivot transfers from EOB to recliner x 2 with moderate/maximal assist x 2 Gait Training: Did not perform due to patient able to stand with 2 WW with moderate assist x 2 - for 30 sec unable to take step Patient required verbal cues energy conservation, proper breathing techniques, proper posture, use of UE's in transfers, proper log roll technique, and to get center of gravity over XIAO Balance: Sitting: patient able to sit EOB x 5 min with minimal / moderate assist and 2 min with supervision Standing: patient stood with 2 WW x 30 sec with moderate assist x 2 Patient required verbal, visual, and tactile cues for attention to task, sequencing, initiation of task, command following, and problem solving. Vitals Patient on room air Vital signs stable throughout session [facility] Basic Mobility How much help from another person does the patient currently need? Score 1. Turning from your back to your side while in a flat bed without using bedrails? 2 - A lot (max to mod assist) 2. Moving from lying on your back to sitting on the side of a flat bed without using bedrails? 2 - A lot (max to mod assist) 3. Moving to and from a bed to a chair (including a wheelchair)? 2 - A lot (max to mod assist) 4. Standing up from a chair using your arms (e.g., wheelchair, or bedside chair)? 2 - A lot (max tomod assist) 5. Walking in hospital room? 1 - Total assist or cannot do at all 6. Climbing 3-5 steps with a railing? 1 - Total assist or cannot do at all Total score 10/24 0-16 - indicates likely facility discharge 17-24 indicates likely community discharge * scores determined based on patient report, observation or professional expertise Assessment/Plan Andre Arevalo is a 69 y.o. male is referred for physical therapy after admission for stroke-like symptoms. Based on objective findings above, the patient presents with the following impairments: balance deficits, decreased activity tolerance, decreased range of motion, decreased strength, gait disturbance, limited safety awareness, medical complexity, and risk for falls which impacts safety and functional independence . Patient is currently functioning below his prior level of function. Patient would benefit from continued PT visits for bed mobility, fall prevention, transfer training, balance EOB, stand pivot transfers, wheelchair training, gait training Plan will include but is not limited to: Gait Training, Transfer Training, Patient/Family Education, Home & Safety Instruction, Balance Training, Wheelchair Mobility, Neuromuscular Re-education, Equipment Training, and Functional Strengthening. Specific focus for next treatment session: bed mobility, functional transfer training, LE strengthening . PT and OT sessions combined. Two therapists needed due to impulsive behavior combined with multiple lines, progressing advanced transfer skills, medical complexity impacting safety during transfers, and environmental limitations impacting safety during transfers. Will separate future session to maximize time in therapy and progression with individual disciplines. PT Evaluation: medium complexity Recommendations During acute hospitalization, recommend medium frequency treatment (3-5 times per week). Current plan of care to continue until goals met or patient discharges from facility. Functional Prognosis: Based on prior level of function and deficits, anticipate fair . Based on PT assessment of and/or progress with physical function, AM-PAC Basic Mobility score, potential for improvement, available home support, participation in therapeutic intervention, tolerance for activity, and safety , anticipated discharge disposition once medically ready: detention facility (03/27/25 1107). Pt needs daily (weekday) skilled PT services. Anticipate tolerance for an intensive program may be limited, extended recovery time needed, and patient may require shelter after recovery from current condition . * The final discharge location is determined through physician, case management, and patient/caregiver input along with insurance authorization of skilled services when appropriate Plan of care and/or discharge recommendations shared with: Patient, Clinical Appeals Specialist, and Nurse PT Recommended DME: No new DME recommended (03/27/25 1107). Daily activity recommendations: Up with 2 assist and Up in chair for meals Recommendations for referral to another service: none Education/Training Provided Education provided: basic time frames for healing, daily activity with nursing staff, discharge planning, functional mobility, home exercise program, plan of care, proper body mechanics, rehabilitation principles, and safety Reviewed fall prevention ( use call button to call staff writer, don't attempt to get out of bed without assistance), PT plan Learner, method of education, and response to learning listed in Education tab in Epic. Disposition At start of session, patient found lying in bed At end of session, patient left seated in chair, call light in reach, phone in reach, body alarm inplace, and staff notified of patient's location Current Diagnoses/Past Medical History Pertinent diagnoses and past medical history related to this hospital stay are present in physicianH&P and physician daily notes. Prior to PT session a thorough chart review was completed including prior PT notes as applicable. Further treatment notes and therapeutic goals can be found in Care Plan Notes. If the patient discharges from the facility before another therapy visit, this shall serve as the therapy discharge summary. Thank you for this referral, Agustin Schrader, Physical Therapist * Ayleen Harris Occupational Therapist - 03/27/2025 11:06 AM CDT [facility]. Acute Occupational Therapy Evaluation 03/27/2025 Room: [address] [place] [address] Name: Andre Arevalo Age: 69 y.o. Patient Class: Inpatient Date of : 1955 Insurance: Payor: MEDICARE / Plan: MEDICARE PART A AND B / Product Type: Medicare / Prior to OT session thorough chart review completed, including prior OT notes as applicable. Consent to evaluate provided by patient and nurse Date of admission: 03/26/2025 SUBJECTIVE Occupational Profile Information provided by: chart review only; patient is a poor historian without family present and patient is currently unable to communicate verbally Prior Level of Function ADLs: assistance needed for upper body dressing, lower body dressing, bathing, grooming, and toileting. Patient is able to self-feed, consuming a pureed diet IADLs: dependent Patient does not drive Functional mobility: modified independent with manual w/c for several years; patient would self propel using bilateral LE and UE- unable to determine if patient completes w/c transfers independently or with assistance this date. Falls: Unable to determine fall history this date Home Information Employment/daily routine: Patient would ambulate to activities and meals at [facility] Self-care assist available at home: Patient lives at a shelter and has staff available to provide assistance/supervision 05/04. Home environment: long-term Unable to determine facility bathroom set-up this date Durable medical equipment already in home: Wheelchairs: manual long-term equipment Additional Information Patient/family statement/goal(s): Patient unable to verbalize statements/goals this date Comments: Patient lying supine in bed upon OT arrival. Patient is pleasant and agreeable to services this date. Patient unable to communicate verbally when OT present in room. Patient is observed to have oral overflow when performing functional tranfers/activities Pain: Refer to flowsheet for documentation of pain and interventions. OBJECTIVE Cognition Level of alertness: alert, flat, and confused Orientation: unable to determine this date due to decreased ability to verbalize Command following: fair - patient is able to follow one-step commands with ~90% accuracy when provided extra time for processing and verbal, visual, and tactile cueing Safety awareness: fair; limited by slow processing, decreased problem solving, and decreased attention Memory: baseline dementia diagnosis and unable to assess Vision: patient demonstrated decreased visual attention this date and therefore was unable to complete formal vision screen. Patient performs visual tracking in all rowley for short durations (~5 seconds) before transitioning to different stimuli. UE Function Unable to determine hand dominance this date UE Assessment Right Left ROM Active: decreased shoulder flexion ~80??, shoulder abduction ~80??, shoulder scaption 80??, andelbow flexion ~100??; gross grasp and digit extension WFL however requires additional time to complete full ROM Active: decreased shoulder flexion ~80?? and shoulder abduction ~80??; elbow and hand/wrist ROM WFL, but requires additional time to complete full ROM Strength Grossly impaired 3+/5 Grossly impaired 3+/5 Muscle Tone Normal; frail Rigid/increased tone; however, decreased rigidity with gentle, passive ROM Coordination Patient unable to perform this date Patient unable to perform this date Sensation Unable to determine due to patient mentation Unable to determine due to patient mentation Edema None noted None noted Lower extremity comments: See PT note for additional details. Occupational Performance Activities of Daily Living Feeding: NT; anticipate minimal assistance for [id number] excursion, for setup Grooming: supervision seated in chair for face washing task Upper extremity dressing: NT; anticipate moderate assistance seated EOB to don gown anteriorly Lower extremity dressing: maximal assistance to don briefs in sitting and standing Toileting: dependent assistance in briefs Toilet transfer: maximal assistance stand pivot from EOB to chair and sit < > tree trimming supervisor simulated toilet transfers All tasks not tested with anticipated assist levels are based on observed tasks and movement patterns. Functional Mobility All mobility completed with gait belt, non-skid socks, and walker Bed mobility: maximal assistance x 2 providers supine < > sit EOB for LE and trunk management Sit to stand: maximal assistance x 2 providers to maximal assistance x1 provider from EOB and chair, patient performs >2 sit to stand Functional ambulation: maximal assistance x2 providers x 1 step with 2WW Chair transfer: maximal assistance x2 providers to maximal assistance x1 provider sit < > stand and stand pivot Sitting balance: minimal assistance to supervision for static tasks Standing balance: maximal assistance x2 providers to maximal assistance x1 provider for static tasks and dynamic tasks Patient required verbal, visual, and tactile cues for attention to task, sequencing, initiation of task, command following, and problem solving. [facility] AM-PAC Daily Activity How much help from another person does the patient currently need? Score 1. Putting on and taking off regular lower body clothing? 2 - A lot (max to mod assist) 2. Bathing (including washing, rinsing, drying)? 2 - A lot (max to mod assist) 3. Toileting, which includes using toilet, bedpan or urinal? 1 - Total assist or cannot do at all 4. Putting on and taking off regular upper body clothing? 2 - A lot (max to mod assist) 5. Taking care of personal grooming such as brushing teeth? 3 - A little (supervision to min assist) 6. Eating meals? 3 - A little (supervision to min assist) Total score 13/24 0-19 indicates likely facility discharge 19-24 indicates likely community discharge *Scores determined based on patient report, observation or professional expertise* Vitals Current O2 requirement: room air Vital signs stable throughout. Precautions Patient precautions: fall and aspiration Patient bracing: none Weight bearing: no restrictions ASSESSMENT & PLAN Evaluation Details Andre Arevalo is a 69 y.o. male referred for OT following admission for stroke- like symptoms. Additional pertinent diagnoses and past medical history related to this hospital stay are present in physician H&P and physician daily notes. PT and OT combined this date due to anticipated need for two therapists to manage progressing advanced transfer skills. Will separate future sessions to maximize time in therapy and progression with individual disciplines. OT evaluation: Moderate complexity Assessment Patient is currently functioning below his prior level of function. Patient presents with acute functional deficits including: Functional balance Safety awareness Decreased functional strength Decreased functional use of bilateral UE Decreased endurance Motor planning Medical complexity These deficits impact patient ability to complete: Functional mobility Bathing Toileting Dressing Personal hygiene/grooming Health management Patient would benefit from continued skilled OT services in order to increase occupational performance through modification and remediation approaches such as ADL training, balance training, endurance training, strength training, functional transfer training, neuromuscular re-education, home safetyeducation, patient education, and energy conservation training Plan During acute hospitalization, recommend medium frequency treatment (3-5 times/week). Current plan of care to continue until goals met or patient discharges from facility Anticipate ongoing OT treatment sessions with specific focus on EOB/seated ADLs, MRADLs, bilateral UE HEP, activity tolerance, visual skills within the contexts of ADL performance, and improved command following Recommendations Based on OT assessment of patient's ability to complete self care tasks, AM-PAC Daily Activity Score, participation in therapeutic intervention, and tolerance for activity, anticipated discharge disposition, once medically ready: detention facility (03/27/25 1106). Rationale: Patient needs daily (weekday) skilled OT services. Anticipate tolerance is limited for intensive or adapted intensive rehab program and patient requires return to shelter after recovery from current condition. * The final discharge location is determined through physician, case management, and patient/caregiver input along with insurance authorization of skilled services when appropriate. Plan of care and discharge recommendations shared with patient, pet caregiver, and PT OT recommended DME and AE upon discharge: No new DME recommended (03/27/25 1106) No new additional adaptive equipment necessary (03/27/25 1107) Education provided to patient regarding OT recommendations and plan of care, and orientation to call light Education response: would benefit from reinforcement Nursing Staff Mobility Recommendations Recommended daily activity during admission: toileting on BSC, assist x 2, and up to chair Disposition At start of session, patient found lying in bed At end of session, patient left seated in chair, call light in reach, phone in reach, chair alarm activated, patient instructed not to get up without staff assistance, and staff notified of patient location/events of session Further treatment notes and therapeutic goals can be found in Care Plan Notes. If the patient discharges from facility before another therapy visit, this shall serve as therapy discharge summary. Thank you for this referral, Ayleen Harris, Occupational Therapist * Adam Olivera, ALEYDA - 03/27/2025 9:26 AM CDT [facility] 3K Ph. ; Fax. Acute Speech-Language Pathology Swallow Evaluation 03/27/2025 Room: [address] [place] [address] Name: Andre Arevalo Age: 69 y.o. Date of : 1955 Insurance: Payor: MEDICARE / Plan: MEDICARE PART A AND B / Product Type: Medicare / Patient class: Inpatient Confirmed patient's identification of name and date of : on name band Consent to treatment given by patient and nurse with results as follows: Onset of illness/injury or date of surgery: 03/26/2025 HPI Andre Arevalo is a 69 y.o. male admitted for further evaluation of stroke-like symptoms. CT Stroke Activation 03/26/2025 CT Head: 1. No CT evidence of an acute intracranial process. CT Perfusion: 1. Multifocal areas of ischemia in the left supratentorial brain and right cerebellum. Chronic infarct right temporal lobe. Recommend brain MRI. CTA Head: 1. High-grade stenosis of the left M1 with with multifocal severe short segment stenoses versus occlusions involving the left MCA bifurcation and left M2 insular branches and inferior left M3 branch, with the distal vessel reconstitution. Other findings as above. 2. Severe short segment stenosis versus occlusion left P2/P3 segments and right P2P segment, with distal vascular calcification. CTA Neck: 1. No evidence of hemodynamically significant stenosis within the cervical internal carotid arteries based on NASCET criteria. 2. Patent vertebrobasilar systems. Subjective Information and Clinical Observations Patient/Family Goals Statement: None stated Pain: Refer to Doc Flowsheet for documented pain levels. Level of Alertness: Alert Mood/Affect: Patient presents with flat affect Position: Upright in bed Oriented x 0 Circumstances negatively impacting performance this date: decreased command execution, decreased attention, confusion, and aphasia Objective information Predisposing dysphagia risk factors: prior CVA and dementia Acute dysphagia risk factors: acute CVA, altered mental status, dependence for feeding, dependence for oral care, and limited or infrequent ambulation Signs of possible chronic dysphagia: None Previous level of swallowing function: Pureed textures/thin liquids Patient/family primary swallowing complaint: to define current swallow physiology, determine aspiration risk, and develop a treatment plan. Diet prior to evaluation: NPO Patient has No alternative method of nutrition and is on room air Patient has food allergies: None per patient or chart review. The patient required [id number] assistance for provision of po trials. Oral Musculature Structure and Function CN V: patient did not follow commands for assessment CN VII: patient did not follow commands for assessment CN IX/X: patient did not follow commands for assessment CN XII: patient did not follow commands for assessment. Dentition: edentulous Oral Mucosa: pink Secretion Management:swallows own secretions Laryngeal Function: able to palpate elevation Vocal Quality: not assessed- pt nonverbal at this time Oral Phase Lip Seal: decreased closure around utensil Mastication: not assessed as pt on purees at baseline Oral Transit: delayed and oral holding greater to 30 seconds Bolus Clearance: WFL Oral phase summary: impaired - Pharyngeal Phase Laryngeal Elevation: delayed (unable to clinically ascertain if orally and/or pharyngeally related) Ice Chip Trials: The patient demonstrated no signs/symptoms of distress on ice chips provided. Thin liquid: Patient demonstrated strong cough response via small bore straw on 2/5 trials. Puree: Patient demonstrated no signs/symptoms of distress. Clinical representation of potential pharyngeal aspiration suspected: Possibly on thin liquids Pharyngeal phase summary: deficits suspected - suspect altered mentation impacting swallow safety due to oral holding and delayed swallow initiation Swallowing Strategies and Interventions Patient unable to consistently execute strategies Esophageal Phase Screening Questionnaire Information unable to be obtained from the patient due to: dementia Family/Caregiver/Significant other present and providing information: family/caregiver not present Assessment Andre alert and pleasantly confused. No verbalizations or command following appreciated. Flip (son) provided history via phone; he reports pt is on pureed textures at baseline, coughs intermittently at mealtime and requires 100% supervision and assistance during mealtimes at his facility. Patient presents with clinical signs of oropharyngeal dysphagia, likely chronic related to dementia. Modified barium swallow study is not indicated at this time. Recommend diet initiation of pureed textures with thin liquids and STRICT adherence to safe swallowing strategies outlined below. He requires 100% supervision and assistance during mealtime. Swallowing Recommendations DIET RECOMMENDATIONS: Puree and IDDSI 0 Normal: (Regular/Thin Liquids) PATIENT SPECIFIC SWALLOWING GUIDELINES: Single, small volume drinks Alternate bites of food with drinks of liquid Medications to be provided crushed in puree (as able) 100% assistance- call to dietary made Liquids: open cup or small bore straw only; avoid large bore/[facility] mug straws GENERAL SWALLOWING GUIDELINES: Patient should be seated close to 90 degrees, preferably in the chair Remain upright for 30-60 minutes after meals Take frequent drinks during meals Small sips/bites Eat slowly Minimize distractions during oral intake (conversations/TV) Monitor for signs and symptoms of aspiration Good oral care 3 times every day with toothbrush/toothpaste Recommendations DISCHARGE RECOMMENDATIONS: Alf * The final discharge location is determined through physician, case management, and patient/caregiver input along with insurance authorization of skilled services when appropriate Recommendations for referral to another service: None at this time Precautions Plan of Care Patient precautions: Aspiration and Fall Continue FLOATING OPERATOR services to address swallowing deficits (dysphagia), anticipate follow up in the next 2-4 days or as medical condition changes. Plan of care to continue for the duration of the patient's acute care hospital stay or until goals are met. Will complete Cognitive-Linguistic in future FLOATING OPERATOR sessions, as appropriate. Please notify speech therapy department should the patient's condition change and/or patient requires FLOATING OPERATOR services prior to the next anticipated FLOATING OPERATOR visit. Education Disposition Regarding: swallowing evaluation rationale, results and recommendations of evaluation, risk of aspiration with po intake, implications of aspiration, importance of oral care, rationale of recommendeddiet, strategies to increase safety with po intake, and speech therapy plan of care Learner, method of education, and response to learning listed in Education tab in Epic Before session: Patient lying in bed After session: Patient lying in bed and call light in reach Current Diagnoses/Past Medical History Pertinent diagnoses and past medical history related to this hospital stay are present in physicianH&P and physician daily notes. Prior to session, completed thorough chart review. Reviewed prior therapy treatment notes as applicable. Further treatment notes and therapeutic goals can be found in Care Plan Notes. If the patient discharges from facility prior to another therapy visit, this shall serve as the therapy discharge summary Thank you for this referral, Adam Olivera M.S., [facility]-FLOATING OPERATOR Acute Speech Therapy Charge zone Phone #[phone] Acute Speech Therapy Charge Pager #[phone] * Bailey Smith RN - 03/26/2025 9:23 PM CDT Per son who is the POA, food needs to be pureed and sitting up with swallowing. Pt is from [facility]. * Adam Lund MD - 03/26/2025 7:17 PM CDT Unknown bisi 89 yo m presented w/acute onset of aphasia and right sided weakness NIHSS 15. Of note he has a poor functional baseline, dementia, resides in a [facility] facility, cannot complete his ADL's independently (mRS at least 3 or higher), prior strokes. CTA shows a left M2 occlusionw/penumbra approx 50cc. Patient unfortunately not a candidate for mechanical thrombectomy due to poor baseline functional and neurological status, which are based on national [place] [employer] guidelines (require patient's to have mRS 0-1 at baseline for consideration for thrombectomy). * Katie Loemli RN - 03/26/2025 6:40 PM CDT STROKE ACTIVATION NOTE: RECOMMENDATIONS FROM NEUROLOGIST: Admit to Hospitalist for TIA/Stroke workup Bisi Morrow, ( ), [phone], Patient Contact Information: No relevant phone numbers on file. Level of Neurology consult? 1 - Requires Neurologist Activation Date: 03/26/2025: Pt current location: 1727 Message received for stroke activation in room 15. 1738 Patient Arrived Time [address] Marrero prior to imaging. GCS 11, Patient stable, taken directly to CT/MRI 1739 Stroke Navigator at bedside. EMS/NICK Amor at bedside, reports patient is transferred from [facility] due to worsening stroke symptoms. Patient's symptoms had reportedly significantly improved at OSH but then worsened. Patient currently resides in a shelter and has ahx of dementia. POC BG WNL LKW 1100. NIHSS 19, BEFAST not done, (s/s including: cognitive impairment, RIGHT side, facial droop, speech -aphasia, speech - dysarthria, visual - field cut, weakness - hemiparesis, and sensory disturbance) Modified Hock[place] Scale (MDS): 3 - Moderate disability; requiring some help, but able to walk withoutassistance Pt actual weight obtained (Weight: 68.8 kg (151 lb 10.8 oz) (03/26/25 1803)) [address], CTA, CTP (read 1851). CTH reviewed by Neurologist at 182. Reason for delay in CT Read > 45 min: unknown [address] Hopper. Pt not a candidate for thrombolytic therapy. Time LKW reviewed by neurologist to determine guideline driven care.. Patient is not a candidate for endovascular therapy. Risk > Benefit per Neurologist/Interventionalist and mRS > 3 1834 Stroke team completed activation in collaboration with NICK Amor Patient and concerned others at bedside were updated on results of stroke/TIA workup thus far, and advised on what to expect over the next 24-48 hours. All questions answered to their satisfaction atthis time. Vitals: 03/26/25 1800 03/26/25 1803 03/26/25 18103/26/25 183 BP: (!) 142/112 (!) 158/130 (!) 144/127 Pulse: (!) 105 (!) 101 98 98 Resp: 18 22 20 22 Temp: TempSrc: SpO2: 95% 95% 92% 95% Weight: 68.8 kg (151 lb 10.8 oz) NIHSS 03/26/2025 1748 Interval: Baseline 1a. Level of Consciousness: 0 1b. LOC Questions: 2 1c. LOC Commands: 2 2. Best Gaze: 1 3. Visual: 2 4. Facial Palsy: 2 5a. Motor Arm, Left: 0 5b. Motor Arm, Right: 1 6a. Motor Leg, Left: 0 6b. Motor Leg, Right: 1 7. Limb Ataxia: 2 8. Sensory: 2 9. Best Language: 2 10. Dysarthria: 2 11. Extinction and Inattention (formerly Neglect): 0 NIHSS (Total): 19 Lab Results Component Value Date/Time GLUCOSE 85 03/26/2025 06:09 PM INR 1.1 03/26/2025 06:09 PM CREAT 0.89 03/26/2025 06:09 PM Dysphagia Screen: 1. Is the [place] Coma Scale LESS than 13?: Yes (FAIL) (03/26/251824) Cosigned by Mirela Hopper MD at 03/28/2025 4:49 PM CDT documented in this encounter H&P Notes * Jasmin Hopikns MD - 03/26/2025 7:58 PM CDT Images from the original note were not included. [place] HOSPITALIST HISTORY AND PHYSICAL Patient name: Bisi Unknown Date of : CSN number: [id number] PCP: No primary care provider on file. Chief Complaint: Chief Complaint Patient presents with Extremity Weakness Aphasia History of present illness: Patient was seen and examined at the bedside. Andre Arevalo is a 69-year-old man with a history of previous stroke and dementia, admitted for concern of having stroke-like symptoms. On my eval, nonverbal however awake, denies having any pain anywhere, no family at bedside. According to the ER handoff, evaluated by neurology after presentation with worsening aphasia, right-sided weakness, with poor baseline function, not a candidate for TNK or thrombectomy. The patient appears to have difficulty communicating, as he does not respond verbally to questions about his name or pain. When asked to squeeze fingers, the patient was able to comply, indicating some level of comprehension and motor function. The patient was also able to wiggle his feet upon request. Currently, no pain was reported when asked about various body areas, including the abdomen. Review of Systems: ROS Reviewed. Pertinent review of systems information is listed above under History of Present Illness. Medical History Allergies: No Known Allergies Prior to Admission Medications Prior to Admission medications Not on File Past Medical History: No past medical history on file. Past Surgical History: No past surgical history on file. Family History: No family history on file. Reviewed and otherwise noncontributory to this encounter. Social History: Social History Tobacco Use Smoking status: Unknown Smokeless tobacco: Not on file Substance Use Topics Alcohol use: Not on file Physical Examination: Vitals: 03/26/25 1830 BP: (!) 144/127 Pulse: 98 Resp: 22 Temp: SpO2: 95% Physical Exam HENT: Head: Normocephalic. Eyes: Extraocular Movements: Extraocular movements intact. Cardiovascular: Rate and Rhythm: Normal rate and regular rhythm. Pulses: Normal pulses. Heart sounds: Normal heart sounds. Pulmonary: Effort: Pulmonary effort is normal. Breath sounds: Normal breath sounds. Abdominal: General: Abdomen is flat. Palpations: Abdomen is soft. Musculoskeletal: General: Normal range of motion. Cervical back: Normal range of motion. Skin: General: Skin is warm. Capillary Refill: Capillary refill takes less than 2 seconds. Neurological: Mental Status: He is alert. Comments: Aphasic, right-sided weakness Data Review: I have personally reviewed the following admitting data listed below and other admitting data that may not be listed below: I have personally seen, questioned and examined the patient at the bedside. I have personally reviewed the following laboratory results: CBC: Recent Labs 03/26/25 1809 WBC 8.2 HGB 12.4* HCT 39.0* PLT 207 Metabolic profile: Recent Labs 03/26/25 1809 NA 138 K 3.9 BUN 14 CREAT 0.89 CO2 23 AST 19 ALT 25 BILITOTAL 0.3 ALKPHOS 126 Coagulation: Recent Labs 03/26/25 1809 PT 14.6 INR 1.1 Cardiac markers: TROPONIN T, BASELINE 5TH GEN Date Value Ref Range Status 03/26/2025 16 (H) <=15 ng/L Final Other personal data review pertinent to the specific assessment can be found below. ASSESSMENT AND PLAN: Principal Problem: Stroke-like symptoms Active Problems: History of CVA (cerebrovascular accident) Dementia (CMS/HCC) Cerebrovascular accident (CVA) due to stenosis of left middle cerebral artery (CMS/HCC) 69-year-old male with past medical history of previous stroke, dementia, having aphasia at baselinewho was transferred for worsening aphasia, side weakness, evaluated by neurology, interventional neurology, neurosurgery in the ER, workup showed Severe stenosis in the left middle cerebral artery however due to poor functional status at baseline, no intervention will be made. Neurology would like to admit for completion of stroke workup with brain MRI. > Stroke order set with brain MRI, TTE, telemetry > Aspirin, Plavix, statin, permissive hypertension > PT/OT/speech I have spent (78) minutes on this patient encounter CODE STATUS: DNR according to neurology note, no family at bedside during my eval. DVT prophylaxis: Heparin Diet: Advance as tolerated Disposition: This patient is admitted as neuro telemetry inpatient. I anticipate that the patient will be hospitalized for 2 midnights or greater, as outlined in my assessment and plan Personally discussed patient care with ED providers and any other consulting providers. Patient in agreement with the assessment and plan. Patient is to follow up with Primary Care Provider/Specialists regarding the events leading to this admission, as well as the diagnoses, tests, treatments, recommendations, etc., from this admission, as well as previous medical history, and age andgender and symptom appropriate screening, immunizations, etc. Patient counseled by me regarding medical reasons for medical compliance, risks of non-compliance, and risks of leaving the hospital prior to completion of hospital evaluation and treatment, etc, including , permanent medical problems, loss of use of his limb, etc. Patient understands that specialist consultations, multiple tests, etc, are or may be in process, and/or planned, and patient will need to follow up final results andrecommendations, records, etc, with patient's outpatient Doctor/Primary Care Provider. All questions answered. Signed: Jasmin Hopkins MD 03/26/2025, 7:58 PM This document was created by voice recognition software. A conscious effort has been made to improve accuracy of the senior quality control technician. Any obvious errors or omissions should be clarified with the authorof this document. documented in this encounter Procedure Notes * Gill Lyons, RVT - 03/30/2025 12:56 PM CDT CARDIOVASCULAR SERVICES NONINVASIVE VASCULAR LAB - EXT 18455 TECHNOLOGIST PRELIMINARY WORKSHEET PHYSICIAN INTERPRETATION TO FOLLOW Patient Name: Andre Arevalo #: [id number] Date:03/30/2025 Tech Initials: MA Exam End Time: Critical Result Notification [] [carol] RN (name)DEE Notification Time: 12:50 PM NONINVASIVE VENOUS STUDY ARMS Noninvasive venous study performed on: [] Right [x] Left A. [x] There are no echo images consistent with acute DEEP venous obstruction throughout the venoussystem scanned. B. [x] Imaging is consistent with an obstruction in the [x] Superfical venous [] Deep venous sytem [] Right [x] Left [] Jugular [] Jugular [] Subclavian [] Subclavian [] Upper Arm [x] Upper Arm [] Forearm [] Forearm [] Softer echoes are considered consistent with acute venous obstruction [] Brighter echoes are considered consistent with chronic venous obstruction [] Soft echoes not well adhered to vein wall are considered consistent with freefloating obstruction [] Venous reflux is considered to be consistent with venous insufficiency Technologist Comments: * Neela Mariee RN - 03/30/2025 8:08 AM CDT VASCULAR ACCESS TEAM Peripheral IV insertion PATIENT NAME: Andre Arevalo DATE OF : 1955 CSN: [id number] DATE: 03/30/2025 Room: [address] [place] [address] Admit Date: 03/26/2025 Hospital day: LOS: 4 days PERIPHERAL IV INSERTION Ultrasound assessment was performed to assess adequacy of vascular anatomy Adequate vessel was located Insertion site cleansed for 30 seconds with Chlora-prep. Allowed to dry before initial needle stick. A 20 Gauge 2 Inch peripheral IV was successfully placed using ultrasound guidance in the left, lower Arm Secure port adhesive used Yes 1 attempts 20 minutes required to complete procedure Positive blood return noted Neutral pressure cap applied Catheter Flushed with 5ml of Normal Saline Transparent dressing applied with date, time and initials of cowoker inserting. LDA documentation is contained in EMR flowsheet Patient tolerated well. Neela Mariee RN documented in this encounter Consult Notes * Kasey Reaves RN - 03/30/2025 1:57 PM CDT Stroke Education Note: Following for timing of education. Patient continues to have barriers to learning at this time. No family currently at the bedside. Will continue to follow for timing of education. Thank you. * Mildred Alcantar RN - 03/30/2025 12:48 PM CDTAssociated Order(s): IP CONSULT TO STROKE EDUCATION Stroke Education Note: Following for timing of education. Patient continues to have barriers to learning and appeared to be sleeping. No family currently at the bedside. Will continue to follow for timing of education. Thank you. 1455 Patient currently working with staff. No family at bedside. 1705 Patient ready for discharge and awaiting transportation. He continues to have barriers to learning and no family present at this time. Will complete our order. * Neela Mariee RN - 03/30/2025 7:48 AM CDTAssociated Order(s): IP CONSULT TO IV TEAM VASCULAR ACCESS CONSULT PATIENT NAME: Andre Arevalo DATE OF : 1955 CSN: [id number] DATE: 03/30/2025 Room: [address] [place] [address] Admit Date: 03/26/2025 Hospital day: LOS: 4 days INDICATION: Poor Access, Pt./ Preference EXCLUSIONS/CONSIDERATIONS: see history and notes LAST RECORDED TEMP: Temp: 99.3 ??F (37.4 ??C) (03/30/25 0700)] Assessment No Known Allergies Lab Results Component Value Date/Time CREAT 0.93 03/30/2025 03:40 AM BUN 8 03/30/2025 03:40 AM NA 134 (L) 03/30/2025 03:40 AM K 4.0 03/30/2025 03:40 AM CL 102 03/30/2025 03:40 AM CO2 21 (L) 03/30/2025 03:40 AM GFR >60 03/30/2025 03:40 AM Lab Results Component Value Date/Time WBC 10.3 03/30/2025 03:40 AM HGB 14.7 03/30/2025 03:40 AM HCT 44.0 03/30/2025 03:40 AM PLT 219 03/30/2025 03:40 AM MCV 87.0 03/30/2025 03:40 AM Lab Results Component Value Date/Time INR 1.1 03/26/2025 06:09 PM PT 14.6 03/26/2025 06:09 PM No past medical history on file. No past surgical history on file. Current Facility-Administered Medications: amLODIPine (NORVASC) tablet 10 mg, 10 mg, Oral, daily, Mandi Bishop MD, 10 mg at 03/29/25 1250 [] dextrose 5 % infusion, , IV, continuous, Mandi Bishop MD, Stopped at 03/29/25 1229 clopidogreL (PLAVIX) tablet 75 mg, 75 mg, Oral, daily, Jasmin Hopkins MD, 75 mg at 03/29/25 1250 sodium chloride flush injection 10 mL, 10 mL, IV, every 12 hours (2 times daily), Chriss Hopkins MD, 10 mL at 03/29/25 2151 sodium chloride flush injection 10 mL, 10 mL, IV, see admin instructions, Jasmin Hopkins MD sodium chloride 0.9 % flush bag 25 mL, 25 mL, IV, see admin instructions, Jasmin Hopkins MD dextrose 5 % in water 250 mL flush bag 25 mL, 25 mL, IV, see admin instructions, Jasmin Hopkins MD naloxone (NARCAN) 0.4 mg/mL injection 0.1-0.4 mg, 0.1-0.4 mg, IV, see admin instructions, Jasmin Hopkins MD acetaminophen (TYLENOL) tablet 650 mg, 650 mg, Oral, every 6 hours PRN, Jasmin Hopkins MD aspirin (JAREK CHEWABLE) chewable tablet 81 mg, 81 mg, Oral, daily, Jasmin Hopkins MD, 81 mg at 03/29/25 1250 atorvastatin (LIPITOR) tablet 80 mg, 80 mg, Oral, daily, Jasmin Hopkins MD, 80 mg at 03/29/25 1250 heparin injection 5,000 Units, 5,000 Units, subCUT, every 8 hours, Jasmin Hopkins MD, 5,000 Units at 03/30/25 0601 aspirin rectal suppository 300 mg, 300 mg, Rectal, ONE time only, Jasmin Hopkins MD dextrose 5 % - sodium chloride 0.9 % infusion, , IV, see admin instructions, Jasmin Hopkins MD dextrose 50% (D50) syringe 12.5 Gram, 12.5 Gram, IV, see admin instructions, Jasmin Hopkins MD dextrose 50% (D50) syringe 25 Gram, 25 Gram, IV, see admin instructions, Jasmin Hopkins MD glucagon HCL 1 mg/mL injection 1 mg, 1 mg, IM, see admin instructions, Jasmin Hopkins MD PLAN Assess for PIV placement. Neela Mariee RN * Kasey Reaves RN - 03/29/2025 10:54 AM CDT Stroke Education Note: Following for timing of education. Patient continues to have barriers to learning at this time. No family currently at the bedside. Left our written educational material at thebedside. Will continue to follow for timing of education. Thank you. * Emely Muniz RD - 03/28/2025 1:37 PM CDTAssociated Order(s): IP CONSULT TO NUTRITION SERVICES Reason For Nutrition Assessment: Consult, Nutrition Diagnosis Malnutrition Nutrition Diagnosis: Severe protein-calorie malnutrition (suspected inadequate PO intake) (03/28/25 1300) In the context of: Chronic Illness Problem: Malnutrition (03/28/25 1300) Etiology: Inadequate protein, energy, nutrient intake;Chronic illness;Other (comment) (appears confused) (03/28/251299) Signs/Symptoms: Fat loss;Muscle wasting (03/28/251299) Malnutrition Impact: Reduced oral intake, Delayed recovery, Skin breakdown, Increased readmission risk, Increased hospitalization length, Increased dysphagia, and Increased risk of infection Interventions/Recommendations: Encourage adequate PO intake Monitor weights Add Ensure TID Nutrition Interventions: Encourage adequate intake;Encourage fluids;Monitor weight trends;Oral nutrition supplement (03/28/251299) Goals: 75-100% of meals, Consume ordered supplements daily, No N/V, Stable weight, and Tolerate nutrition source Monitoring/Evaluation: PO intake and tolerance, stool output, weight, labs, and skin integrity Nutrition Discharge Plan: TBD See below for full assessment Assessment 69 y.o.male admitted with Cerebrovascular accident (CVA) due to stenosis of left middle cerebral artery (CMS/HCC). PMH include schizophrenia, prior stroke, dementia, functional decline. Subjective: Attempted to speak with pt, pt would occasionally look at RD during assessment however was nonverbal and did not provide any gestures/body language to indicate attempt to respond to RD's questions. No wt hx is known for pt however significant wt loss is suspected due to severity of physical losses. With physical losses pt meets criteria for malnutrition. Will add ONS and continue to monitor PO intake. PO intake has been poor at <50% of meals. Nutrition Focused Exam Physical Findings- Summary: Malnutrition Nutrition Diagnosis: Severe protein-calorie malnutrition (suspected inadequate PO intake) (03/28/251299) Orbital: Hollow look, depression, dark circles, loose skin (severe) (03/28/251299) Facial cheeks (buccal pads): Flat (moderate) (03/28/251299) Biceps and triceps: Some space between fingers (moderate) (03/28/251299) Ribs - lower back, mid axillary line: Unable to assess (03/28/251299) Subcutaneous Fat Loss Assessment: Severe fat loss (03/28/251299) Temporal: Flattened, slight but increasing depression (moderate) (03/28/251299) Clavicle: Protruding/prominent bone (severe) (03/28/251299) Shoulder (deltoid muscle): [id number] joint looks square. Bones prominent. Acromion protrusionquite prominent (severe) (03/28/251299) Scapula: Unable to assess (03/28/251299) Interosseous: Depressed between thumb/forefinger (severe) (03/28/251299) Thigh (quadriceps muscle): Slight depressions along inner thigh, thin (moderate) (03/28/251299) Knee: Knee bone is noticeable, little muscle mass around it (moderate) (03/28/251299) Calf (gastrocnemius muscle): Definite tissue reduction. Thin, flat, no muscle definition (severe) (03/28/251299) Muscle Wasting Assessment: Severe (03/28/251299) Edema: Normal contour with a barely perceptible pit (no findings) (03/28/251299) Hand Dedicated Regional Driver: Unable to assess (03/28/251299) Percentage of Energy: Unable to assess (03/28/251299) Percentage of Weight Loss: Unable to assess (03/28/251299) Estimated Needs: Estimated Energy Target: 5998-4028 (03/28/251299) Estimated Protein Target: 80-100 (03/28/251299) Estimated Fluid Target : 2679-7505 (03/28/251299) Nutrition Energy Formula: Calories per kilogram (03/28/251299) Weight Used for Formula: Actual weight (03/28/251299) Clinical Data: Height: 5' 7 (170.2 cm) (03/26/252155) [place] body weight: 66.1 kg (145 lb 11.6 oz) Body mass index is 22.44 kg/m??. Admission:Weight: 68.8 kg (151 lb 10.8 oz) (03/26/251802) Weight Method: Estimated (03/26/252155) Current:Weight: 65 kg (143 lb 4.8 oz) (03/28/251299) Wt Readings from Last 8 Encounters: 03/28/25 65 kg (143 lb 4.8 oz) Labs Recent Labs 03/26/25 1809 03/26/25 2344 03/27/25 0214 03/28/25 0441 GLUCOSE 85 -- 89 128* BUN 14 -- 13 8 CREAT 0.89 -- 0.91 0.87 GFR >60 -- >60 >60 NA 138 -- 140 135* K 3.9 -- 3.7 3.7 CO2 23 -- 23 22 ANIONGAP 10 -- 10 11 CA 8.1* -- 8.6* 8.9 ALBUMIN 3.3* -- -- -- ALKPHOS 126 -- -- -- ALT 25 -- -- -- AST 19 -- -- -- BILITOTAL 0.3 -- -- -- TRIGLYCERIDE -- 68 -- -- No results found for: PO4 , HGBA1C , [id number] , MG Current Diet and Intake: DIET GENERAL Level 0 Thin,; Pureed, Effective Now Food/Meal: Lunch (03/28/25 1300),Intake (%): (!) 30% (03/28/25 1300) , Skin: Robert Score: 12 (03/28/25 0700) Gastrointestinal: Last Bowel Movement (mm/dd/yyyy): 03/28/25 (03/28/25 1045) Stool Consistency - Reference Glenn Stool Chart: soft - (type 4/5) (03/28/25 0600) Allergies: No Known Allergies No past medical history on file. Time spent:Consultation Time (mins): 20 mins (03/28/25 1300) * Emma Javier V (Student) - 03/27/2025 10:34 AM CDTAssociated Order(s): IP CONSULT TO PASTORAL SERVICES Reason for Visit: Referral Patient spiritual issues identified summary of patient???s most significant issue(s): Family Patient present during encounter. Aga/values: Not mentioned. Andre is not able to respond any thing he is looking at me when I talk to him. It seems he can notcommunicate with his voice now. He also has dementia and there was no one with him. Spiritual interventions Utilized presence and active listening to explore feelings, stressors, perceptions, questions/concerns, and coping patterns of Andre and their family member. Hope instilled;Emotional support;Spiritual support provided. Prayer is offered BARGE CAPTAIN???S ASSESSMENT OF PATIENT???S LEVEL OF DISTRESS: moderate Enterprise Manager Plan: Spiritual Care Services remain available for referral PRN. Recommendations for Healthcare Team As spiritual needs/distress arise, please contact Spiritual Care Services. We will follow up as needed. Thank you for this referral. Enterprise Manager Sr. [employer] Spiritual Care Team [phone] Enterprise Manager Safety Protocol Call button within reach Yes Personal belongings within reach Yes Top bed rails up Yes Trip hazards identified and removed No trip hazards apparent Other hazards identified and removed No other hazards identified Additional needs referred or addressed No additional needs * Kasey Reaves RN - 03/27/2025 8:21 AM CDT Stroke Education Initiated: Problem: Stroke Barriers to Learning: aphasia Plan: Provide patient and/or family education for the above problem prior to discharge. Goal: Patient and/or family will verbalize/demonstrate understanding of the education presented. Written material will be placed at the bedside, prior to discharge, which includes: Risk factors (modifiable and non-modifiable), signs and symptoms of Stroke, 911/EMS activation, importance of hospital follow up appointments, and importance of medication compliance. Discharge Instructions have been placed in EPIC, regarding TIA/Stroke. Thank you for this referral * Christiano Medrano RN - 03/27/2025 8:02 AM CDTAssociated Order(s): IP CONSULT TO PHYSICAL MEDICINE REHAB [facility] Order for inpatient rehab evaluation received. Awaiting therapy evaluations. Preadmission screeninginitiated. Will follow up as appropriate. Thank you for this referral and the opportunity to participate in the care of this patient. Leland Medrano PTA Clinical Liaison [facility] [email or web address] * Imelda Isbell RN - 03/26/2025 10:33 PM CDTAssociated Order(s): IP CONSULT TO BORING MACHINE SET UP OPERATOR JIG Stroke Team Chart Review CORE MEASURES CHECKLIST - AIS/TIA ED Arrival: 03/26/2025 5:38 PM: Andre Arevalo, ( 1955), [id number] / CSN [id number] STROKE CORE CARE PERFORMANCE STATUS Review and address any outstanding core stroke care issues noted below. An explanatory order or note should be written if the order or action is not being done. AHA/ASA Guidelines for Stroke Care STATUS STROKE ORDER SET USED Yes TIME LAST KNOWN WELL assessed & documented? LKW < 24 hours/unknown - tPA and IR exclusions documented by MD/Navigator. Did pt receive Thrombolytic (TNK/tPA)? *If no thrombolytic was given, is reason for NOT administering documented? (required if NIH>0, LKW within treatment window) Not Indicated Procedures performed this visit: No admission procedures for hospital encounter. Dysphagia Screen Complete? 1. Is the [place] Coma Scale LESS than 13?: Yes (FAIL) (03/26/25 0566) MEASURE MET - FAILED (reminder: Must order SLP2/NPO) Welcome Letter Provided? no IS STROKE/TIA ON ACTIVE PROBLEM LIST? PROBLEM LIST REQUIRES PROVIDER ATTENTION ARE ALL COMORBIDITIES CURRENT? *AHA has added multiple diseases to stroke measure review, to include current complaints or hx of the following: Afib, Diabetes, Emerging Infectious Diseases (MERS, SARS-COV-1, SARS-COV-2/COVID-19, other respiratory pathogen), Depression, CAD/VA, DVT/PE, Carotid Stenosis, Dementia, Drug/Alcohol abuse, Migraine, CHF, HTN, HRT, smoking, previous stroke/TIA, obesity, Prosthetic heart valve, sickle cell, PVD, sleep apnea, renal insufficiency, PROBLEM LIST REQUIRES PROVIDER ATTENTION History of or NEW ONSET DIABETES? If YES: No results found for: HGBA1C , [id number] Is diet order appropriate? N/A Is glycemic control ordered? N/A VTE Prophylaxis Ordered by day 2? 03/27/25 *Acceptable measures include SCD's, Lovenox, Heparin SQ, and Fondaparinux or Reason for not prescribing by MD REQUIRES PROVIDER ATTENTION Antithrombotic by day 2 of hospitalization? 03/27/25 *Acceptable medications include: Aggrenox, Plavix,Aspirin 81mg or 325mg, Lovenox 1mg/kg, Heparin gtt or Reason for not prescribing by MD NOTE: if pt is NPO, consider Aspirin Suppository ORDERED, NEED TO ADMINISTER/DOCUMENT Hx or Current A-Fib? Anticoagulation:*If yes, acceptable medications to prescribe include: Argatroban, Arixtra, Coumadin, Xarelto, or Pradaxa INR (no units) Date Value 03/26/2025 1.1 No - Continue to monitor for New Onset AFib Lipid Panel Ordered within 48 hours (or <30 days MOLD DESIGN ENGINEER)? No results found for: LDLCALC Statin Guidelines: Patients 75 years old or under should receive a high intensity statin regardless of LDL results unless contraindicated. If contraindicated, reason must be stated If Pt over 75 yrs old, may prescribe moderate intensity statin. Reason for not prescribing must be in context of statin therapy documented by MD High intensity statin: Lipitor 40mg or 80mg, Crestor 20mg or 40mg Lab ordered / pending results Rehab Assessment COMPLETE? (PT/OT/ST) - only ONE therapy discipline needed to meet measure Ordered Stroke Education COMPLETE? Ordered and Stroke instructions on AVS Smoking cessation indicated? Social History Tobacco Use Smoking Status Unknown Smokeless Tobacco Not on file NIHSS to be performed at admission, q shift, and at discharge Admit: 15 24 hour: pending The Stroke Team has reviewed this chart to ensure AHA/ASA stroke guideline compliance. The StrokeTeam will continue to follow, monitor, and assist with patient needs as appropriate through the duration of the hospitalization PO STATUS- MEDICATION ADMINISTRATION RECONCILIATION Please revise the medication administration mode (PO, NG, IV, IM, etc) based on the patients dysphagia status. PROBLEM LIST REVIEW Review and revise the Problem List (see below) if needed to reflect the patient's clinical status. Orders / Etiology Addressed? Patient Active Problem List Diagnosis Code Stroke-like symptoms R29.90 History of CVA (cerebrovascular accident) Z86.73 Dementia ([facility]) F03.90 Cerebrovascular accident (CVA) due to stenosis of left middle cerebral artery ([facility]) I63.512 Medications sodium chloride flush injection 10 mL (has no administration in time range) sodium chloride flush injection 10 mL (has no administration in time range) sodium chloride 0.9 % flush bag 25 mL (has no administration in time range) dextrose 5 % in water 250 mL flush bag 25 mL (has no administration in time range) naloxone (NARCAN) 0.4 mg/mL injection 0.1-0.4 mg (has no administration in time range) acetaminophen (TYLENOL) tablet 650 mg (has no administration in time range) labetaloL (NORMODYNE;TRANDATE) 5 mg/mL injection 10 mg (has no administration in time range) aspirin (JAREK CHEWABLE) chewable tablet 81 mg (81 mg Oral Not Given 03/26/251999) atorvastatin (LIPITOR) tablet 80 mg (has no administration in time range) heparin injection 5,000 Units (5,000 Units subCUT Given 03/26/252211) iopamidoL (ISOVUE-300) 61% injection (drawn from multi-use bulk pack) 125 mL (125 mL IV Contrast Given 03/26/251800) No medications prior to admission. * Mirela Hopper MD - 03/26/2025 6:30 PM CDT Neurology Consultation Note Patient seen 03/26/2025 and visit completed about 6:30 PM. Evelio Marrero* requests an evaluation of the patient for strokelike symptoms CHIEF COMPLAINT : Strokelike symptoms HISTORY OF PRESENT ILLNESS This is a [id number] right-handed male with known history of schizophrenia prior stroke, dementiawith decreased functional level and DNR who presented with strokelike symptoms. Symptoms started at11 AM with aphasia right-sided weakness. He was found in a facility to be less responding aphasic right-sided weakness. Went to [facility]. He was outside the window for TNK. Symptoms has almost resolved. Then his symptoms recurred. He had a CTA there which showed filling defect at theleft M2. Patient then transferred here since his symptoms recurred with aphasia and right-sided weakness. Since his symptoms recur patient was transferred here for CTA of the head and neck with perfusion. We have a CTA of the head and neck with perfusion. Which showed the filling defect on the left M2. Penumbra is about 50 and core infarct for. The penumbra was nonspecific. Patient was given 60 mg Plavix and fluid dose before transferred here. He is a DNR. ast Medical History: ALLERGY Not on File PAST HISTORY No past medical history on file. No past surgical history on file. SOCIAL HISTORY FAMILY HISTORY family history is not on file. PRIOR TO ADMISSION MEDICATIONS No current facility-administered medications on file prior to encounter. No current outpatient medications on file prior to encounter. Review of Systems A 14 system review of symptoms was performed, All other systems are negative. Constitutional: no fever, chills, weight loss Eye: no loss of vision, blurred vision or double vision. ENT: no hearing loss, runny nose or sore throat. Cardio: no chest pain or discomfort, no palpitations. Resp: no shortness of breath, cough or sputum. GI: no nausea, vomiting, diarrhea or constipation Urinary: no retention or incontinence. EXAMINATION NIHSS 03/26/2025 1748 Interval: Baseline 1a. Level of Consciousness: 0 1b. LOC Questions: 2 1c. LOC Commands: 2 2. Best Gaze: 0 3. Visual: 0 4. Facial Palsy: 2 5a. Motor Arm, Left: 0 5b. Motor Arm, Right: 1 6a. Motor Leg, Left: 0 6b. Motor Leg, Right: 1 7. Limb Ataxia: 2 8. Sensory: 1 9. Best Language: 2 10. Dysarthria: 2 11. Extinction and Inattention (formerly Neglect): 0 NIHSS (Total): 15 BP (!) 158/130 Pulse 98 Temp 97.9 ??F (36.6 ??C) Resp 20 Wt 68.8 kg (151 lb 10.8 oz) [id number]% General: Patient is awake alert but aphasic fumbling with his hands. CVS: RRR, no carotid bruit. Chest: No signs of resp distress, clear breath sounds Abdomen: Soft, NTTP Extremities: no edema or cyanosis Neuro: MENTAL STATUS: Aphasic NIH is 18 LANG/SPEECH: Aphasic CRANIAL NERVES: Right facial droop MOTOR: Right-sided weakness 3 out of 5 REFLEXES: 2/4 throughout, bilateral flexor planter response, no Croft's, no clonus SENSORY:Normal, no extinction to double sided stimulation (visual & tactile), Romberg absent C DATA The following data was reviewed: Imaging: reviewed . Labs: reviewed This is accompanied by active hospital problems of: Active Problems: * No active hospital problems. * Assessment and plan: Patient with left MCA stroke with aphasia and right-sided weakness. He has left M2 filling defect. He is outside the window for TNK. No IR. Discussed with Dr. Lund and confirmed that patient is not a candidate due to poor functional capacity and also living in shelter with dementia and he is also a DNR. MRS 3 Modified Hocking score 3 The son was wanting something to be done and have the procedure done because he stated that this isthe only parents he got and wants everything to be done for him and he does not care about the guidelines. I spoke to Dr. Lund again mentioned to him that the son is insisting on the procedure and does not care about guidelines. Dr. Lund stated that he cannot deviate from the guidelines and he is not candidate due to multiple factors I spoke to Dr. Morales for second opinion and he did confirm that he is not a candidate for thrombectomy because of above factors in addition to that it is a high-grade stenosis not an LVO in addition to modified Hocking score of 3, DNR dementia prior stroke and wheelchair-bound. Besides he is high risk of complications and benefit with the procedure The case discussed with Dr. Marrero To be admitted for stroke workup including MRI and echo Hospitalist admission DAPT Statins He is a DNR No further recommendation Mirela Hopper MD Neurologist - Board certified [facility] Department of Neurology [address] [address] Office: [phone] documented in this encounter ED Notes * Phu Houser RN - 03/26/2025 8:16 PM CDT RN attempted to call report, was placed on hold for >5 mins. AI report sent. * Evelio Marrero MD - 03/26/2025 5:38 PM CDT HISTORY OF PRESENT ILLNESS History of Present Illness This is a 69-year-old male with a history of several previous strokes and dementia presenting as a stroke activation. Patient was transferred from [facility] via EMS as stroke activation. The patient resides in a shelter and EMS reports patient has history of dementia and has a DNR. He is not a candidate for tPA at transferring facility. The patient was brought in by ambulance, transferred from [place], [place], where imaging revealed a proximal M2 stenosis. His condition initially improved but then deteriorated again. History provided by EMS indicates that the patient was found to have worsening aphasia and right-sided weakness at approximately 11 AM this morning. Patient does have multiple chronic deficits but his symptoms worsened this morning with significant worsening of his aphasia. PAST MEDICAL HISTORY REVIEWED MEDICAL: Patient has no past medical history on file. SURGICAL: Patient has no past surgical history on file. ALLERGIES Patient has no known allergies. PHYSICAL EXAM INITIAL VS BP: (!) 167/110 (03/26/251746), Heart Rate: (!) 103 bpm (03/26/251746), Resp: 22 (03/26/251746),Pulse: (!) 105 (03/26/25 1800), Temp: 97.9 ??F (36.6 ??C) (03/26/251746), Temp src: Axillary (03/26/251746), SpO2: 97 % (03/26/251746), Height: (not recorded), Weight: 68.8 kg (151 lb 10.8 oz) (03/26/25 1803), BMI (Calculated): (not recorded) No LMP for male patient. Blood pressure (!) 146/105, pulse 88, temperature 98.3 ??F (36.8 ??C), temperature source Temporal,resp. rate 16, weight 68.8 kg (151 lb 10.8 oz), SpO2 93%. Physical Exam Physical Exam General Appearance: Not in acute distress, well appearing. HENT: Normocephalic. Respiratory: Pulmonary effort is normal. No respiratory distress. Cardiovascular: Warm, well perfused. Skin: Warm and dry, no rash. Neurological: Patient is aphasic and dysarthric, follows some commands, exhibits stuttering movements to extremities. Able to hold both arms up without drift. Both legs showed drift to bilateral lower extremities. DIAGNOSTICS LAB: TROPONIN BASELINE, 5TH GEN - Abnormal Result Value TROPONIN T, BASELINE 5TH GEN 16 (*) CBC WITH DIFFERENTIAL - Abnormal WBC 8.2 RBC 4.25 (*) HEMOGLOBIN 12.4 (*) HEMATOCRIT 39.0 (*) MCV 91.8 MCH 29.2 MCHC 31.8 PLATELETS 207 MPV 10.2 RDW 14.4 RDW-STDEV 48.4 NEUTROPHILS 69 LYMPHOCYTES 21 (*) MONOCYTES 9 EOSINOPHILS 1 BASOPHILS 0 IMMATURE GRANULOCYTES 0 NEUTROPHIL ABSOLUTE 5.63 LYMPHOCYTE ABSOLUTE 1.76 MONOCYTE ABSOLUTE 0.71 (*) EOSINOPHIL ABSOLUTE 0.07 BASOPHILS ABSOLUTE 0.03 IMMATURE GRANULOCYTES ABSOLUTE 0.02 SMEAR REVIEWED: NA - Not Applicable COMPREHENSIVE METABOLIC PANEL - Abnormal SODIUM 138 POTASSIUM 3.9 CHLORIDE 105 CO2 23 CALCIUM 8.1 (*) BUN 14 CREATININE 0.89 GLUCOSE 85 TOTAL PROTEIN 5.9 (*) ALBUMIN 3.3 (*) BILIRUBIN TOTAL 0.3 ALKALINE PHOSPHATASE 126 AST 19 ALT 25 GFR >60 ANION GAP 10 TROPONIN BASELINE, 5TH GEN - Abnormal TROPONIN T, BASELINE 5TH GEN 20 (*) PROTIME-INR - Normal PROTIME 14.6 INR 1.1 DRUG SCREEN, URINE URINALYSIS WITH REFLEX MICROSCOPIC TROPONIN 2 HR, 5TH GEN TROPONIN 2 HR, 5TH GEN HEMOGLOBIN A1C POC GLUCOSE POC GLUCOSE POC GLUCOSE TYPE AND SCREEN ABO GROUP A RH (D) TYPE Positive ANTIBODY SCREEN Negative VERIFICATION BLOOD GROUP ABO GROUP A RH (D) TYPE Positive RADIOLOGY: No orders to display EKG: PROCEDURES Procedures MEDICAL DECISION MAKING AND PLAN OF CARE Assessment & Plan Non-ED records were reviewed: Imaging from an outside hospital showed proximal M2 stenosis. Additional information obtained from independent historian: EMS provides all history IV or Prescription Medications were utilized for this visit. ED Course: Patient presents for worsening aphasia and right-sided weakness. They are aphasic and dysarthric, with stuttering movements to extremities but can hold both arms up without drift. Both legs show drift to bilateral lowers. Patient was transferred to a stroke activation. Outside imaging showed signs concerning for M2 stenosis. Upon arrival stroke neurology team evaluated the patient. CT study was repeated and does show severe stenosis to left MCA. No signs of embolic process. Stroke neurology team discussed with both i nterventional radiology team and neurosurgery team who agreed no intervention indicated at this time. Stroke neurology team recommended admission for further stroke workup. Patient vital signs within normal limits throughout the ER stay. Lab studies showed no other emergent abnormalities that require intervention. Electrolytes with no severe derangements that require emergent replacement. Normal renal function. Normal hepatic function. I discussed with patient family and patient at length. Discussed with them current imaging results and the plan. They are agreeable with plan. Differential diagnosis includes: CVA, ICH, M2 occlusion, dementia Discussed with Dr. Hopkins on the hospitalist team, he agrees to admit the patient. Patient care transferred with no time sensitive studies pending. ED Course as of 03/26/252129Mar 26, 20251858 Discussed with Dr. Hopper on the neurology team, he discussed with neurointerventional list and reviewed the CT images. They do not believe patient is a good candidate for thrombectomy. He request patient be admitted to hospital service for further stroke workup including MRI. [NT] 1939 Discussed and updated patient's family at length. Updated them on current plan for admission to hospital. Answered all questions. [NT] [address] Hopkins [NT] ED Course User Index [NT] Evelio Marrero MD Medical Decision Making Amount and/or Complexity of Data Reviewed Labs: ordered. ECG/medicine tests: ordered. Risk Decision regarding hospitalization. Clinical Scoring & Consults Medications Administered During the ED Stay from 03/26/2025 1738 to 03/26/20252114 Date/Time Order Dose Route Action 03/26/2025 180 CDT iopamidoL (ISOVUE-300) 61% injection (drawn from multi-use bulk pack) 125 mL 125 mL IV Contrast Given 03/26/20251999 CDT aspirin (JAREK CHEWABLE) chewable tablet 81 mg 81 mg Oral Not Given There are no discharge medications for this patient. LAST VS BP: (!) 146/105 (03/26/252125), Heart Rate: 88 bpm (03/26/252122), Resp: 16 (03/26/252122), Pulse: 88 (03/26/252122), Temp: 98.3 ??F (36.8 ??C) (03/26/252122), Temp src: Temporal (03/26/252122), SpO2: 93 % (03/26/252122) CLINICAL IMPRESSION Diagnosis Diagnosis Comment Added By Time Added Cerebrovascular accident (CVA) due to stenosis of left middle cerebral artery ([facility]) [I63.512] Evelio Marrero MD 03/26/2025 7:54 PM DISPOSITION, EDUCATION AND MEDICATION RECONCILIATION Medications reconciled. See after visit summary for patient education on discharged patients. ED Disposition ED Disposition Admit Condition Stable User Evelio Marrero MD Date/Time WedMar 26, 2025 7:54 PM Comment -- * Zuleyma Ricardo GN - 03/26/2025 5:38 PM CDT 1738: Pt arrives to [facility] via EMS. Patient being transported from [facility]. Patient originally taken to the ER from SNF for altered mental status and right sided weakness. Patient last seennormal at 1100. Patient transferred to [facility] for further work up for concerns of aphasia and right sided weakness. 1738: Patient in CT 1756: Patient out of CT and transferred to room 15. 1835: stroke activation cancelled. documented in this encounter Miscellaneous Notes * Care Plan - Dee Jasmine RN - 03/30/2025 5:45 PM CDT Shift Summary Doppler study revealed superficial vein thrombosis in the left basilic vein. Discharge planning was completed with arrangements for transfer to [facility]. ---Report called to [facility] at facility. Patient remained mostly in bed with limited mobility, requiring a two-person assist for transfers. Cognitive and neurological status remained consistent with baseline, with persistent disorientationand delirium. Overall, the patient was ready for discharge as soon as possible with arrangements made for transfer. Identify discharge needs upon admission and through discharge: Discharge planning was completed with arrangements made for transfer to [facility], and the patient was ready for discharge as soon as possible. Maintain skin integrity and/or promote wound healing by discharge: Skin integrity was maintained with the use of an air bed and regular repositioning, though erythema and ecchymosis were noted throughout the shift. Achieve optimal cognitive/perceptual/neurological function by discharge or maintain baseline function: Cognitive and neurological status remained consistent with baseline, with persistent disorientation and delirium noted throughout the shift. Mobility goal: Improve transfer ability by discharge: Mobility remained very limited, with the patient requiring a two-person assist for transfers and being mostly in bed, though there was a brief period of dangling at the bedside. Achieve optimal peripheral neurovascular function by discharge or maintain baseline function: Peripheral neurovascular function was maintained at baseline with no changes in sensation or motor strength noted. * Care Plan - Patel Crespo SLP - 03/30/2025 2:35 PM CDT Speech Therapy [facility] Therapy [facility] 3K Ph. ; Fax. Acute Speech-Language Pathology Swallow Treatment Session 03/30/2025 Room: [address] [place] [address] Name: Andre Arevalo Age: 69 y.o. Date of : 1955 Insurance: Payor: MEDICARE / Plan: MEDICARE PART A AND B / Product Type: Medicare / Patient class: Inpatient Confirmed patient's identification of name and date of : by patient report Consent to treatment given by patient and nurse with results as follows: Subjective Information and Clinical Observations Pain: Refer to Doc Flowsheet for documented pain levels. Patient/Family Perspective: None stated Level of Alertness: Alert/Responsive Mood/Affect: Patient presents with flat affect Position: Upright in bed Oriented x0 Circumstances negatively impacting performance this date: confusion and aphasia Patient has No alternative method of nutrition and is on room air Treatment Therapeutic intervention: THERAPEUTIC INTERVENTION: Andre was seen this date for diagnostic reassessment of oropharyngeal swallowing abilities in order to clinically reassess swallowing function andto guide dysphagia management. ORAL EXAMINATION: Dentition: edentulous Oral Mucosa: dry Secretion Management:swallows own secretions Pt resistant to oral care despite encouragement. DIAGNOSTIC REASSESSMENT OF SWALLOWING: ORAL: Lip Seal: decreased closure around utensil and leakage Mastication: not assessed Oral Transit: delayed Bolus Clearance: unable to inspect oral cavity PHARYNGEAL: Laryngeal Elevation: able to palpate Thin Liquid Trials: The patient demonstrated delayed throat clear response x1 on liquids provided via open cup. Puree Trials: The patient demonstrated no signs/symptoms of distress on textures provided. STRATEGIES ATTEMPTED: Alternation of liquid and solid boluses The patient required axoc-ktyo-fspr assistance for provision of po trials. Assessment Pt seen to ensure diet tolerance. Pt seen upright in bed, no family at the bedside this date. No verbalizations or attempt to gesture this date. Resistant to oral care and oral inspection. Took minimal PO trials, but did hand cup back to FLOATING OPERATOR to indicate he was finished. Pt remains with chronic s/s and risk for dysphagia. MBS is not indicated at this time. Recommend diet initiation of pureed textures with thin liquids and STRICT adherence to safe swallowing strategies outlined below. He requires 100% supervision and assistance during mealtime. Swallowing Recommendations DIET RECOMMENDATIONS: Puree and IDDSI 0 Normal: (Regular/Thin Liquids) PATIENT SPECIFIC SWALLOWING GUIDELINES: Single, small volume drinks Alternate bites of food with drinks of liquid Medications to be provided crushed in puree (as able) 100% assistance- call to dietary made Liquids: open cup or small bore straw only; avoid large bore/[facility] mug straws GENERAL SWALLOWING GUIDELINES: Patient should be seated close to 90 degrees, preferably in the chair Remain upright for 30-60 minutes after meals Take frequent drinks during meals Small sips/bites Eat slowly Minimize distractions during oral intake (conversations/TV) Monitor for signs and symptoms of aspiration Good oral care 3 times every day with toothbrush/toothpaste Discharge Recommendations Anticipated discharge disposition: Recommend patient discharge to Alf * The final discharge location is determined through physician, case management, and patient/caregiver input along with insurance authorization of skilled services when appropriate Additional consults/recommendations: None at this time. Plan of Care Continue FLOATING OPERATOR services to address speech deficits (dysarthria and/or apraxia), language deficits (aphasia), and Passy Alayna Valve intervention, anticipate follow up in the next 4-8 days or as medical condition changes. Plan of care to continue for the duration of the patient's acute care hospital stay or until goals are met. Please notify speech therapy department should the patient's condition change and/or patient requires FLOATING OPERATOR services prior to the next anticipated FLOATING OPERATOR visit. Precautions Patient precautions: Aspiration and Fall Education Disposition Regarding: results and recommendations of treatment session, risk of aspiration with po intake, implications of aspiration, importance of oral care, rationale of diet modification options, rationale of recommended diet, strategies to increase safety with po intake, and speech therapy plan of care. Learner, method of education, and response to learning listed in Education tab in Epic Before session: Patient lying in bed After session: Patient lying in bed, call light in reach, and bed alarm in place Prior to session, completed thorough chart review. Reviewed prior therapy treatment notes as applicable. Further treatment notes and therapeutic goals can be found in Care Plan Notes. If the patient discharges from facility prior to another therapy visit, this shall serve as the therapy discharge summary Patel Crespo [facility]-FLOATING OPERATOR Acute Speech Therapy Charge Zone Phone #[phone] Acute Speech Therapy Charge Pager #[phone] * Care Plan - Radha Edouard, RN - 03/30/2025 2:27 PM CDT Problem: Discharge Planning Goal: Identify discharge needs upon admission and through discharge Description: 03/30/2025 1426 by Radha Edouard, RN Outcome: Resolve Clinical Appeals Specialist Discharge Planning 03/30/25 1400 Discharge Planning Transportation Provider [facility] Final Discharge Arrangements Final Discharge Disposition SNF Care Facility Name [facility] Phone Number P:[phone] ex [phone] F:[phone] Date Of Pick-Up 03/30/25 Time Of Pick-Up (Ready now) Copy of this transfer form will be sent with patient along with: AVS;Pertinent Medical Records Plan Discharge To: [facility] Facility (03/27/25 1136) Plan Discharge To - Alternate: Intermediate care facility/assisted living (03/27/25 1136) Referrals Status: Facility Referrals - Accepted and Selected Destination - Admitted Since 03/26/2025 Service Provider Services Address Phone Fax Patient Preferred [facility] [address], [facility] [address] [phone] -- Preferred Pharmacy: [facility] - [place], [place] - [address], [address] Patient / Family Communications: Patient/Family Communications: Plan Discharge To Update (03/27/25 1136) Discharge Plan Agreed Upon: Patient;Family member (03/27/25 1136) Resources Provided Transportation Plan: Transportation Provider: Patients son will provide (03/30/25 1400) Date Of Pick-Up: 03/30/25 (03/30/25 1400) Follow Up Appointments Scheduled Radha Edouard RN * Care Plan - Dyan De Jesus Behavioral Health Case Manager - 03/30/2025 2:08 PM CDT [facility] - Therapy Services 3K Ph. Acute Occupational Therapy Treatment 03/30/2025 Room: [address] [place] [address] Name: Andre Arevalo Age: 69 y.o. Patient Class: Inpatient Date of : 1955 Insurance: Payor: MEDICARE / Plan: MEDICARE PART A AND B / Product Type: Medicare / Prior to OT session thorough chart review completed, including prior OT notes as applicable. Consent to treat provided by patient and nurse Date of admission: 03/26/2025 SUBJECTIVE Patient Statements Information provided by: nurse and chart review only; patient is a poor historian without family present Patient/family comments: Patient is aphasic and unable to respond to any questions or commands Pain: Refer to flowsheet for documentation of pain and interventions. OBJECTIVE Cognition Level of alertness: alert and flat Orientation: assessment deferred due to patient is unable to verbalize Command following: poor patient followed ~25% of commands Safety awareness: fair; limited by slow processing, decreased problem solving, decreased insight into deficits, and decreased attention Memory: unable to assess Occupational Performance Activities of Daily Living Grooming: dependent assistance seated EOB patient does not initiate grasping the wash cloth to complete facial hygiene Additional ADLs not completed due to decreased participation upon sitting EOB Functional Mobility All mobility completed with non-skid socks Bed mobility: maximal assistance x2 providers supine < > sit EOB Sitting balance: maximal assistance for static tasks with brief supervision. Patient sat EOB ~7 minutes before returning patient to supine as the patient would push posteriorly while sitting EOB. Patient required verbal and visual cues for attention to task, initiation of task, and command following. [facility] AM-PAC Daily Activity How much help from another person does the patient currently need? Score 1. Putting on and taking off regular lower body clothing? 1 - Total assist or cannot do at all 2. Bathing (including washing, rinsing, drying)? 1 - Total assist or cannot do at all 3. Toileting, which includes using toilet, bedpan or urinal? 1 - Total assist or cannot do at all 4. Putting on and taking off regular upper body clothing? 1 - Total assist or cannot do at all 5. Taking care of personal grooming such as brushing teeth? 1 - Total assist or cannot do at all 6. Eating meals? 2 - A lot (max to mod assist) Total score 04/05 0-19 indicates likely facility discharge 19-24 indicates likely community discharge *Scores determined based on patient report, observation or professional expertise* Additional Interventions No additional treatment provided during this session Education provided to patient regarding treatment plan and session goals Education response: would benefit from reinforcement and no evidence of learning Vitals Current O2 requirement: room air Vital signs stable throughout. Additional vitals comments: Patient resting comfortably. Precautions Patient precautions: fall and aspiration Patient bracing/orthotics: none Weight bearing: no restrictions ASSESSMENT & PLAN Assessment Patient is progressing towards care plan goals. Patient is currently functioning below his prior level of function. Plan Continue with plan of care as previously established until patient goals are met or the patient discharges as decreased activity tolerance, decreased UE strength, decreased UE ROM, decreased functional standing balance, high fall risk, decreased functional cognition, decreased safety awareness, decreased readiness to learn, decreased functional sitting balance, decreased knowledge of novel precautions, and caregiver knowledge continue to limit patient's occupational performance. Anticipate ongoing OT treatment sessions with specific focus on sitting balance and EOB ADLs Recommendations Based on OT assessment of patient's ability to complete self-care tasks and their AM-PAC Daily Activity Score, anticipated discharge disposition: detention facility (03/27/251105) Rationale: Patient needs daily (weekday) skilled OT services. Anticipate tolerance is limited for intensive or adapted intensive rehab program and patient may require shelter after recovery fromcurrent condition. OT recommended DME and AE upon discharge: No new DME recommended (03/27/251105) No new additional adaptive equipment necessary (07/15/25 1107) Nursing Staff Mobility Recommendations Recommended daily activity during admission: assist x 2 Disposition At start of session, patient found lying in bed At end of session, patient left in bed, call light in reach, bed alarm activated, and patient instructed not to get up without staff assistance Further treatment notes and therapeutic goals can be found in Care Plan Notes. If the patient discharges from facility before another therapy visit, this shall serve as therapy discharge summary. Thank you for this referral, Dayn De Jesus, Behavioral Health Case Manager * Care Plan - Radha Edouard RN - 03/30/2025 1:40 PM CDT Problem: Discharge Planning Goal: Identify discharge needs upon admission and through discharge Description: Outcome: Progressing Clinical Appeals Specialist Discharge Planning Patient is accepted back to [facility], No auth needed. CM will continue to follow. Expected Discharge Date Mar 30, 2025 Plan Discharge To: [facility] Facility (03/27/25 113) Plan Discharge To - Alternate: Intermediate care facility/assisted living (03/27/251135) Referrals Status: Facility Referrals - Accepted and Selected Destination - Admitted Since 03/26/2025 Service Provider Services Address Phone Fax Patient Preferred [facility] [address] [place] [address] [phone] -- [facility] [address] [place] [address], [address] Patient / Family Communications: Patient/Family Communications: Plan Discharge To Update (03/27/251135) Discharge Plan Agreed Upon: Patient;Family member (03/27/251135) Radha Edouard, NICK * Care Plan - Neela Mariee RN - 03/30/2025 8:09 AM CDT Problem: Infection, Risk/Actual (Adult) Goal: Infection, Risk/Actual: Infection Prevention/Resolution/Control Description: Patient will demonstrate the desired outcomes. Juans PIV will remain free of infection. Outcome: Progressing * Care Plan - Radha Edouard RN - 03/29/2025 8:31 AM CDT Problem: Discharge Planning Goal: Identify discharge needs upon admission and through discharge Description: Outcome: Progressing Clinical Appeals Specialist Discharge Planning Updates provided to LTC facility. Expected Discharge Date Mar 29, 2025 Plan Discharge To: [facility] (03/27/251135) Plan Discharge To - Alternate: Intermediate care facility/assisted living (03/27/251135) Referrals Status: Facility Referrals - Accepted and Selected Destination - Admitted Since 03/26/2025 Service Provider Services Address Phone Fax Patient Preferred [facility] [address] [place] [address] [phone] -- Preferred Pharmacy: [facility] [address] [place] [address], [address] Patient / Family Communications: Patient/Family Communications: Plan Discharge To Update (03/27/251135) Discharge Plan Agreed Upon: Patient;Family member (03/27/251135) Radha Edouard RN * Care Plan - Redd Rosario RN - 03/29/2025 4:50 AM CDT Shift Summary MRI Brain WO Contrast revealed small acute infarcts in the left periventricular white matter. Lorazepam was administered during the shift. POC Glucose levels were high at both 9:25 PM and 12:00 AM. CBC with differential was completed with some abnormal values noted. Overall, safety precautions were maintained, and musculoskeletal interventions were regularly performed. Safety/Fall: Absence of fall, injury, harm during hospitalization: Safety checks were consistently completed throughout the shift, and high fall risk interventions were maintained, including the use of a low low bed. Achieve optimal musculoskeletal function by discharge or maintain baseline function: Positioning interventions were performed regularly, and mobility was promoted despite acute motor weakness and musculoskeletal dysfunction. * Care Plan - Radha Edouard RN - 03/27/2025 11:37 AM CDT Problem: Discharge Planning Goal: Identify discharge needs upon admission and through discharge Description: 03/27/2025 1137 by Radha Edouard, RN Outcome: Progressing Care Management Initial Assessment Initial Discharge Planning Assessment completed. Discussed Care Management's role and Discharge planning. Plan Discharge To: [facility] Facility Plan Discharge To - Alternate: Intermediate care facility/assisted living Does the patient have family and/or a caregiver that is willing, able and available to assist if needed? Yes - Name/Relation:Facility staff Comments: ST[facility] called and spoke with lexa Castelan for admission assessment. [facility]. Patients PLOF is wheelchair bound but he could peddle himself around to activities, dinning room etc. Patient could feed self but was on a puree diet. Patient has not ambulated for several years. Flip reports that the last timehe seen the patient was 2 weeks ago and he was oriented x4 and able to recall the sons childhood memories. Patient Discharge Planning Goal: Return to [facility] Patient will potentially discharge to a SNF/NH? Yes Care Management visited with: Hortencia via phone. Prior to admission, patient resides at: Nursing [facility]. Patient resides in a 1 story home with 0 stairs to enter. Patient's bedroom and bathroom are located on the 1 floor. Prior to admission, living arrangements: group setting. Prior to admission, patient's functional level:requires assistance; uses wheelchair for mobility; needs assistance with iADLs: bathing, dressing, toileting, meal preparation, transportation, shopping, running errands, medication management, housekeeping, and telephone use Community Ambulator: no Prior to admission, the patient has the following DME? Yes shower chair, standard walker, wheelchair, hospital bed, and grab bars Services in the home/community: none Receives hemodialysis? No Emergency contact(s): Extended Emergency Contact Information Primary Emergency Contact: flip hull Mobile Relation: Son Field Clerk needed? No Secondary Emergency Contact: bea arevalo Mobile Relation: None Field Clerk needed? No Prescription coverage: yes Preferred Pharmacy verified: [facility] - [place], [place] - [address], [place], [address] Insurance coverage verified: Payor: MEDICARE / Plan: MEDICARE PART A AND B / Product Type: Medicare/ Secondary Insurance:MEDICAID Medicaid Status: no spend down Has VA Benefits: no Employment Status: retired PCP verified as: No primary care provider on file. Patient has not had a stay at an acute care hospital in the last 30 days. Recent Falls?: Last Known Fall: No falls Plan for transportation at discharge: WC van vs Family Care Management contact information provided. Care Management will continue to follow and assist asneeded. * Gen AI ED Handoff - GENERATIVE AI HANDOFF NOTE - 03/26/2025 8:20 PM CDT SITUATION: Patient ( ) is a 079-cdpl-jnr male who has been in the ER for 2 hours. He came to the ER due to extremity weakness aphasia. The patient's most recent care team on record included: Phu Houser. BACKGROUND: This patient has no known allergies. ASSESSMENT: Patient's most recent vitals recorded in flowsheets were as follows: BP: 118/80 T: 97.9 F RR: 19 SPO2: 95% HR: 91 WT: 151.7 LBS BMI: not available Most recent Glucose Value: 85. Completed: 2025-03-26 19:02. Last recorded oxygen source was room air. The patient is a 496-lest-sdg male with a history of schizophrenia, prior stroke, dementia, and decreased functional level. He presented with acute onset of aphasia and right- sided weakness. The patient resides in a [facility]ci facility and is wheelchair-bound, unable to complete ADLs independently, with a Modified Hocking Scale of at least 3. He has a left M2 occlusion with penumbra approximately 50cc. The patient is not a candidate for mechanical thrombectomy due to poor baseline functional and neurological status, high risk of complications, and being outside the window for TNK. He is a DNR. RECOMMENDATION: Admit to hospitalist for stroke workup including MRI and echo. Continue dual antiplatelet therapy (DAPT) and statins. Monitor for stroke symptoms and manage aphasia and right- sided weakness. Given the patient's history and current condition, no further invasive procedures are recommended. Ensure supportive care and address any concerns from family members regarding treatment limitations due to DNR status and guidelines. *This summary was created by generative AI. The responses are meant to enhance, not replace normal workflow. Please contact the ED nurse for any additional information.* * ED Bed Hold Comment Note - Mulu Hobbs RN - 03/26/2025 5:38 PM CDT Bed: 15 Expected date: 03/26/25 Expected time: 5:39 PM Means of arrival: [facility] Comments: Means of Arrival: 4 STROKE : TCD Paged [phone], ETA 1733 RACE Score:right sided deficits, NIH 18, transfer To Bed # ct then 15 documented in this encounter Plan of Treatment Scheduled Referrals Name Type Priority Associated Diagnoses Orde r Schedule AMB REFERRAL TO FAMILY PRACTICE Outpatient Referral Routine Cerebrovascular accident (CVA) due to stenosis of left middle cerebral artery (CMS/HCC) Ordered: 03/30/2025 AMB REFERRAL TO NEUROLOGY Outpatient Referral Routine Cerebrovascular accident (CVA) due to stenosis of left middle cerebral artery (CMS/HCC) Ordered: 03/30/2025 documented as of this encounter Procedures Procedure Name Priority Date/Time Associated Diagnosis Comments TELEMETRY REPORT 04/03/2025 2:41 AM CDT US DOPPLER VENOUS ARM LEFT Pending Discharge 03/30/2025 12:57 PM CDT POC GLUCOSE Routine 03/30/2025 6:02 AM CDT CBC WITH DIFFERENTIAL Routine 03/30/2025 3:40 AM CDT BASIC METABOLIC PANEL Routine 03/30/2025 3:40 AM CDT POC GLUCOSE Routine 03/29/2025 9:50 PM CDT POC GLUCOSE Routine 03/29/2025 9:38 AM CDT CBC WITH DIFFERENTIAL Routine 03/29/2025 3:38 AM CDT BASIC METABOLIC PANEL Routine 03/29/2025 3:38 AM CDT POC GLUCOSE Routine 03/29/2025 12:24 AM CDT POC GLUCOSE Routine 03/28/2025 9:25 PM CDT MRI BRAIN WO CONTRAST Stat 03/28/2025 8:58 PM CDT POC GLUCOSE Routine 03/28/2025 11:41 AM CDT ECHO COMPLETE Routine 03/28/2025 9:00 AM CDT BASIC METABOLIC PANEL Routine 03/28/2025 4:41 AM CDT CBC WITH DIFFERENTIAL Routine 03/28/2025 4:40 AM CDT POC GLUCOSE Routine 03/27/2025 3:16 AM CDT TROPONIN 6 HR, 5TH GEN Timed Study 03/27/2025 2:14 AM CDT CBC WITH DIFFERENTIAL Routine 03/27/2025 2:14 AM CDT BASIC METABOLIC PANEL Routine 03/27/2025 2:14 AM CDT POC GLUCOSE Routine 03/26/2025 11:55 PM CDT TROPONIN 6 HR, 5TH GEN Timed Study 03/26/2025 11:44 PM CDT LIPID PANEL Routine 03/26/2025 11:44 PM CDT POC GLUCOSE Routine 03/26/2025 10:08 PM CDT VERIFICATION BLOOD GROUP Stat 03/26/2025 8:10 PM CDT Laboratory test TROPONIN BASELINE, 5TH GEN Stat 03/26/2025 8:10 PM CDT HEMOGLOBIN A1C Stat 03/26/2025 8:10 PM CDT TROPONIN BASELINE, 5TH GEN Stat 03/26/2025 6:09 PM CDT CBC WITH DIFFERENTIAL Stat 03/26/2025 6:09 PM CDT PROTIME-INR Stat 03/26/2025 6:09 PM CDT TYPE AND SCREEN Stat 03/26/2025 6:09 PM CDT COMPREHENSIVE METABOLIC PANEL Stat 03/26/2025 6:09 PM CDT EKG 12-LEAD Stat 03/26/2025 6:[address] STROKE ACTIVATION Stat 03/26/2025 6:01 PM CDT documented in this encounter Results * TELEMETRY REPORT (04/03/2025 2:41 AM CDT) us Provider Scanning ECG ORDERABLES Final Result * US DOPPLER VENOUS ARM LEFT (03/30/2025 12:57 PM CDT) Anatomical Region Laterality Modality Upper Extremity Ultrasound 03/30/2025 12:3 0 PM CDT Narrative 03/30/2025 1:49 PM CDT [facility] Noninvasive Vascular Laboratory [facility] [place] [address] Noninvasive Vascular Lab Venous Exam Limited Upper Extremity Duplex Patient: Andre Arevalo Study ID: US DOPPLER VENOU Gender: M : 1955 Age: 69 Room: Height: Weight: BSA: Pt status: Inpatient Study Date: 03/30/2025 Study Time: 12:30:04 PM BSA: Ordering: Mandi Bishop Interpreting:Nate Bob Crm Dynamics Developer: Gill Lyons Indications: DVT. Summary Impression: 1. Limited exam to the extent visualized : No evidence of deep venous thrombosis involving the veins of the left upper extremity. 2. Study demonstrates superficial vein thrombosis involving the the left basilic vein. Study data: Left upper extremity venous duplex. Doppler flow study including spectral analysis, color and webb scale imaging. Location: Bedside. Patient status: Inpatient. Portable. Study status: STAT. Procedure: A vascular evaluation was performed. Image quality was good. The study was technically limited due to patient positioning and limited access to patient. Venous flow and imaging: - Left internal jugular Patent; Normal phasicity; spontaneous; compressible - Left subclavian Patent; Normal phasicity; spontaneous; compressible; normal augmentation - Left axillary Patent; Normal phasicity; spontaneous; compressible; normal augmentation - Left brachial Patent; Normal phasicity; spontaneous; compressible; normal augmentation - Left cephalic Patent; Normal phasicity; spontaneous; compressible; normal augmentation - Left basilic Partially thrombosed; Partially compressible - Left radial Patent; Compressible - Left ulnar Patent; Compressible CRITICAL FINDINGS - Reported to: dee worley - 03/30/25 - 12:50 - Svt [facility] is accredited with the Intersocietal Commission for the Accreditation of Vascular Laboratories (ICAVL) Prepared and Electronically Authenticated Nate Bob 03/30/2025 13:49 Procedure Note Nate Bob MD - 03/30/2025 [facility] Noninvasive Vascular Laboratory [address] [place] [id number] Noninvasive Vascular Lab Venous Exam Limited Upper Extremity Duplex Patient: Andre Arevalo Study ID: US DOPPLER VENOU Gender: M : 1955 Age: 69 Room: Height: Weight: BSA: Pt status: Inpatient Study Date: 03/30/2025 Study Time: 12:30:04 PM BSA: Ordering: Mandi Bishop Interpreting:Nate Bob Crm Dynamics Developer: Gill Lyons Indications: DVT. Summary Impression: 1. Limited exam to the extent visualized : No evidence of deep venous thrombosis involving the veins of the left upper extremity. 2. Study demonstrates superficial vein thrombosis involving the the left basilic vein. Study data: Left upper extremity venous duplex. Doppler flow study including spectral analysis, color and webb scale imaging. Location: Bedside. Patient status: Inpatient. Portable. Study status: STAT. Procedure: A vascular evaluation was performed. Image quality was good.The study was technically limited due to patient positioning and limitedaccess to patient. Venous flow and imaging: - Left internal jugular Patent; Normal phasicity; spontaneous;compressible - Left subclavian Patent; Normal phasicity; spontaneous; compressible;normal augmentation - Left axillary Patent; Normal phasicity; spontaneous; compressible;normal augmentation - Left brachial Patent; Normal phasicity; spontaneous; compressible;normal augmentation - Left cephalic Patent; Normal phasicity; spontaneous; compressible;normal augmentation - Left basilic Partially thrombosed; Partially compressible - Left radial Patent; Compressible - Left ulnar Patent; Compressible CRITICAL FINDINGS - Reported to: dee worley - 03/30/25 - 12:50 - Svt [facility] Vascular Lab is accredited with theIntersocietal Commission for the Accreditation of Vascular Laboratories (ICAVL) Prepared and Electronically Authenticated Nate Bob Confirmed 03/30/2025 13:49 us Mandi Bishop MD ORDERABLES Final Result * (ABNORMAL) POC GLUCOSE (03/30/2025 6:02 AM CDT) GLUCOSE POC 108(H) 74 - 99 mg/dL 03/30/2025 6:02 AM CDT [facility] SPECIMEN SOURCE, GLUCOSE POC Capillary 03/30/2025 6:02 AM T [facility] Blood, whole 03/30/2025 6:02 AM CDT 03/30/2025 6:21 AM CDT Mandi Bishop MD POINT OF CARE TESTING Final Re sult [facility] # [id number] [address] [place] [address] * (ABNORMAL) BASIC METABOLIC PANEL (03/30/2025 3:40 AM CDT) Pathologist [facility] SODIUM 134(L) 136 - 145 mmol/L 03/30/2025 4:39 AM T [facility] POTASSIUM 4.0 3.5 - 5.1 mmol/L 03/30/2025 4:39 AM T [facility] CHLORIDE 102 98 - 107 mmol/L 03/30/2025 4:39 AM T [facility] CO2 21(L) 22 - 29 mmol/L 03/30/2025 4:39 AM T [facility] CALCIUM 8.8 8.8 - 10.2 mg/dL 03/30/2025 4:39 AM T [facility] BUN 8 8 - 23 mg/dL 03/30/2025 4:39 AM T [facility] CREATININE 0.93 0.67 - 1.17 mg/dL 03/30/2025 4:39 AM T [facility] Comment:The GFR result is no t clinically significant on patients <18 or >70 years of age. GLUCOSE 98 74 - 99 mg/dL 03/30/2025 4:39 AM T [facility] GFR >60 mL/min/1.7 3 sq meter 03/30/2025 4:39 AM T [facility] Comment:eGFR calculated with 2020 CKD-EPI equation. Vegetarian diet, extremely high or low muscle mass, and may affect results. Cystatin C with Glomerular Filtration Rate is a suitable alternative for these patients. ANION GAP 11 9 - 20 mmol/L 03/30/2025 4:39 AM CDT [facility] Blood Venipuncture / Unknown 03/30/2025 3:40 AM CDT 03/30/2025 3:58 AM CDT us Mandi Bishop MD CHEMISTRY ORDERABLES Final Res ult [facility] CLIA # [id number] [address] [place] [address] * (ABNORMAL) CBC WITH DIFFERENTIAL (03/30/2025 3:40 AM CDT) [facility] WBC 10.3 4.8 - 10.8 K/uL 03/30/2025 4:05 AM [facility] RBC 5.06 4.60 - 6.20 M/uL 03/30/2025 4:05 AM [facility] HEMOGLOBIN 14.7 14.0 - 18.0 g/dL 03/30/2025 4:05 AM [facility] HEMATOCRIT 44.0 41.0 - 53.0 % 03/30/2025 4:05 AM [facility] MCV 87.0 84.0 - 103.0 fL 03/30/2025 4:05 AM [facility] MCH 29.1 27.0 - 34.0 pg 03/30/2025 4:05 AM [facility] MCHC 33.4 30.0 - 35.0 g/dL 03/30/2025 4:05 AM [facility] PLATELETS 219 140 - 440 K/uL 03/30/2025 4:05 AM [facility] MPV 10.0 8.9 - 12.8 fL 03/30/2025 4:05 AM [facility] RDW 14.3 11.0 - 14.5 % 03/30/2025 4:05 AM [facility] RDW-STDEV 45.9 37.0 - 54.0 fL 03/30/2025 4:05 AM [facility] NEUTROPHILS 71 42 - 75 % 03/30/2025 4:05 AM [facility] LYMPHOCYTES 14(L) 24 - 44 % 03/30/2025 4:05 AM [facility] MONOCYTES 13(H) 2 - 10 % 03/30/2025 4:05 AM [facility] EOSINOPHILS 1 0 - 7 % 03/30/2025 4:05 AM [facility] BASOPHILS 0 0 - 1 % 03/30/2025 4:05 AM [facility] IMMATURE GRANULOCYTES 0 0 - 2 % 03/30/2025 4:05 AM [facility] NEUTROPHIL ABSOLUTE 7.34 2.00 - 8.00 K/uL 03/30/2025 4:05 AM [facility] LYMPHOCYTE ABSOLUTE 1.48 1.20 - 4.00 K/uL 03/30/2025 4:05 AM [facility] MONOCYTE ABSOLUTE 1.30(H) 0.10 - 0.60 K/uL 03/30/2025 4:05 AM [facility] EOSINOPHIL ABSOLUTE 0.12 0.00 - 0.70 K/uL 03/30/2025 4:05 AM [facility] BASOPHILS ABSOLUTE 0.04 0.00 - 0.20 K/uL 03/30/2025 4:05 AM [facility] IMMATURE GRANULOCYTES ABSOLUTE 0.04 0.00 - 0.10 K/uL 03/30/2025 4:05 AM [facility] SMEAR REVIEWED: NA - Not Applicable 03/30/2025 4:05 AM [facility] Blood Venipuncture / Unknown 03/30/2025 3:40 AM CDT 03/30/2025 3:59 AM CDT Mandi Bishop MD HEMATOLOGY ORDERABLES Final Re sult Performing Organization Address [facility]/ZIP Co de Phone Number [facility] CLIA # [id number] [address] [address] * (ABNORMAL) POC GLUCOSE (03/29/2025 9:50 PM CDT) GLUCOSE POC 133(H) 74 - 99 mg/dL 03/29/2025 9:50 PM CDT [facility] SPECIMEN SOURCE, GLUCOSE POC Capillary 03/29/2025 9:50 PM CDT [facility] Blood, whole 03/29/2025 9:50 PM CDT 03/29/2025 10:29 PM CDT Mandi Bishop MD POINT OF CARE TESTING Final Re sult Performing Organization Address [facility] Co de Phone Number [facility] CLIA # [id number] [address] [address] * (ABNORMAL) POC GLUCOSE (03/29/2025 9:38 AM CDT) GLUCOSE POC 119(H) 74 - 99 mg/dL 03/29/2025 9:38 AM CDT [facility] SPECIMEN SOURCE, GLUCOSE POC Capillary 03/29/2025 9:38 AM CDT [facility] Blood, whole 03/29/2025 9:38 AM CDT 03/29/2025 9:50 AM CDT Mandi Bishop MD POINT OF CARE TESTING Final Re sult Performing Organization Address City/[facility]/ZIP Co de Phone Number [facility] CLIA # [id number] [address] [place] [address] * (ABNORMAL) BASIC METABOLIC PANEL (03/29/2025 3:38 AM CDT) SODIUM 135(L) 136 - 145 mmol/L 03/29/2025 4:39 AM T [facility] POTASSIUM 3.9 3.5 - 5.1 mmol/L 03/29/2025 4:39 AM T [facility] CHLORIDE 103 98 - 107 mmol/L 03/29/2025 4:39 AM [facility] CO2 21(L) 22 - 29 mmol/L 03/29/2025 4:39 AM [facility] CALCIUM 8.8 8.8 - 10.2 mg/dL 03/29/2025 4:39 AM [facility] BUN 6(L) 8 - 23 mg/dL 03/29/2025 4:39 AM [facility] CREATININE 0.93 0.67 - 1.17 mg/dL 03/29/2025 4:39 AM [facility] Comment:The GFR result is no t clinically significant on patients <18 or >70 years of age. GLUCOSE 104(H) 74 - 99 mg/dL 03/29/2025 4:39 AM [facility] GFR >60 mL/min/1.7 3 sq meter 03/29/2025 4:39 AM [facility] Comment:eGFR calculated with 2020 CKD-EPI equation. Vegetarian diet, extremely high or low muscle mass, and may affect results. Cystatin C with Glomerular Filtration Rate is a suitable alternative for these patients. ANION GAP 11 9 - 20 mmol/L 03/29/2025 4:39 AM [facility] Blood Venipuncture / Unknown 03/29/2025 3:38 AM CDT 03/29/2025 3:59 AM CDT us Mandi Bishop MD CHEMISTRY ORDERABLES Final Res ult [facility] CLIA # [id number] [address] [address] [place] [address] * (ABNORMAL) CBC WITH DIFFERENTIAL (03/29/2025 3:38 AM CDT) Pathologist [facility] WBC 10.7 4.8 - 10.8 K/uL 03/29/2025 4:06 AM CDT [facility] RBC 5.01 4.60 - 6.20 M/uL 03/29/2025 4:06 AM CDT [facility] HEMOGLOBIN 14.7 14.0 - 18.0 g/dL 03/29/2025 4:06 AM [facility] HEMATOCRIT 44.6 41.0 - 53.0 % 03/29/2025 4:06 AM [facility] MCV 89.0 84.0 - 103.0 fL 03/29/2025 4:06 AM CDT [facility] MCH 29.3 27.0 - 34.0 pg 03/29/2025 4:06 AM [facility] MCHC 33.0 30.0 - 35.0 g/dL 03/29/2025 4:[facility] 209 140 - 440 K/uL 03/29/2025 4:06 AM [facility] MPV 10.2 8.9 - 12.8 fL 03/29/2025 4:06 AM CDT [facility] RDW 14.2 11.0 - 14.5 % 03/29/2025 4:06 AM [facility] RDW-STDEV 46.6 37.0 - 54.0 fL 03/29/2025 4:06 AM CDT [facility] NEUTROPHILS 70 42 - 75 % 03/29/2025 4:06 AM CDT [facility] LYMPHOCYTES 16(L) 24 - 44 % 03/29/2025 4:06 AM T [facility] MONOCYTES 12(H) 2 - 10 % 03/29/2025 4:06 AM CDT [facility] EOSINOPHILS 1 0 - 7 % 03/29/2025 4:06 AM CDT [facility] BASOPHILS 0 0 - 1 % 03/29/2025 4:06 AM CDT [facility] IMMATURE GRANULOCYTES 1 0 - 2 % 03/29/2025 4:06 AM CDT [facility] NEUTROPHIL ABSOLUTE 7.45 2.00 - 8.00 K/uL 03/29/2025 4:06 AM CDT [facility] LYMPHOCYTE ABSOLUTE 1.72 1.20 - 4.00 K/uL 03/29/2025 4:06 AM CDT [facility] MONOCYTE ABSOLUTE 1.27(H) 0.10 - 0.60 K/uL 03/29/2025 4:06 AM CDT [facility] EOSINOPHIL ABSOLUTE 0.15 0.00 - 0.70 K/uL 03/29/2025 4:06 AM CDT [facility] BASOPHILS ABSOLUTE 0.03 0.00 - 0.20 K/uL 03/29/2025 4:06 AM CDT [facility] IMMATURE GRANULOCYTES ABSOLUTE 0.05 0.00 - 0.10 K/uL 03/29/2025 4:06 AM T [facility] SMEAR REVIEWED: NA - Not Applicable 03/29/2025 4:06 AM [facility] Blood Venipuncture / Unknown 03/29/2025 3:38 AM CDT 03/29/2025 3:59 AM CDT us Mandi Bishop MD HEMATOLOGY ORDERABLES Final Re sult [facility] CLIA # [id number] [address] [place] [address] [place] [address] * (ABNORMAL) POC GLUCOSE (03/29/2025 12:24 AM CDT) [facility] GLUCOSE POC 120(H) 74 - 99 mg/dL 03/29/2025 12:24 AM CDT [facility] SPECIMEN SOURCE, GLUCOSE POC Capillary 03/29/2025 12:24 AM CDT [facility] Blood, whole 03/29/2025 12:2 4 AM CDT 03/29/2025 12:32 AM CDT Mandi Bishop MD POINT OF CARE TESTING Final Re sult Performing Organization Address [facility] Co de Phone Number [facility] CLIA # [id number] [address] [address] [place], [place] [address] * (ABNORMAL) POC GLUCOSE (03/28/2025 9:25 PM CDT) GLUCOSE POC 125(H) 74 - 99 mg/dL 03/28/2025 9:25 PM CDT [facility] SPECIMEN SOURCE, GLUCOSE POC Capillary 03/28/2025 9:25 PM CDT [facility] Blood, whole 03/28/2025 9:25 PM CDT 03/28/2025 11:10 PM CDT Mandi Bishop MD POINT OF CARE TESTING Final Re sult Performing Organization Address [facility] Co de Phone Number [facility] CLIA # [id number] [address] [address] [place], [place] [address] * MRI BRAIN WO CONTRAST (03/28/2025 8:58 PM CDT) Anatomical Region Laterality Modality Head Magnetic Resonan ce 03/28/2025 8:59 PM CDT Impressions 03/28/2025 10:13 PM CDT IMPRESSION: Small acute infarcts in the left periventricular white matter. MACRO: None Narrative 03/28/2025 10:13 PM CDT EXAMINATION: MRI BRAIN WO CONTRAST CLINICAL HISTORY: ASSOCIATED DIAGNOSIS: Transient ischemic attack (TIA) ORDERING PROVIDER: JASMIN HOPKINS TECHNMARCIE NOTE: COMPARISON: CT stroke 03/26/2025 TECHNIQUE: Patient questionnaire was completed, and was reviewed by MRI personnel prior to the patient entering the scanner. Multiplanar, multisequence MR imaging of the head was performed without intravenous contrast. FINDINGS: Acute Change: Multiple small foci of diffusion restriction within the left frontal periventricular white matter with associated FLAIR hyperintensity, consistent with acute periventricular infarcts. No acute hemorrhage. No mass effect or herniation. Chronic Change: Patchy and confluent foci of T2/FLAIR hyperintensity in the supratentorial white matter, consistent with moderate chronic microvascular angiopathy. Ventricles and Sulci: Moderate cerebral volume loss, with commensurate ventricular and sulcal enlargement Skull Base: Hypothalamic and pituitary region are grossly normal. Craniocervical junction is normal. No marrow replacement process. Vasculature: Major intracranial vessels have normal flow voids suggesting patency. Severe left M1 stenosis is better visualized on recent CT stroke exam. Extracranial Structures: The paranasal sinuses and mastoid air cells are clear. The orbits and extracranial soft tissues are unremarkable. Procedure Note Jennifer Esteves MD - 03/28/2025 EXAMINATION: MRI BRAIN WO CONTRAST CLINICAL HISTORY: ASSOCIATED DIAGNOSIS: Transient ischemic attack (TIA) ORDERING PROVIDER: JASMIN HOPKINS TECHNMARCIE NOTE: COMPARISON: CT stroke 03/26/2025 TECHNIQUE: Patient questionnaire was completed, and was reviewed by MRI personnel prior to the patient entering the scanner. Multiplanar, multisequence MR imaging of the head was performed without intravenous contrast. FINDINGS: Acute Change: Multiple small foci of diffusion restriction within the left frontal periventricular white matter with associated FLAIR hyperintensity, consistent with acute periventricular infarcts. No acute hemorrhage. No mass effect or herniation. Chronic Change: Patchy and confluent foci of T2/FLAIR hyperintensity in the supratentorial white matter, consistent with moderate chronic microvascular angiopathy. Ventricles and Sulci: Moderate cerebral volume loss, with commensurate ventricular and sulcal enlargement Skull Base: Hypothalamic and pituitary region are grossly normal. Craniocervical junction is normal. No marrow replacement process. Vasculature: Major intracranial vessels have normal flow voids suggesting patency. Severe left M1 stenosis is better visualized on recent CT stroke exam. Extracranial Structures: The paranasal sinuses and mastoid air cells are clear. The orbits and extracranial soft tissues are unremarkable. IMPRESSION: Small acute infarcts in the left periventricular white matter. MACRO: None us Jasmin Hopkins MD MR ORDERABLES Leisa kendall Result * (ABNORMAL) POC GLUCOSE (03/28/2025 11:41 AM CDT) GLUCOSE POC 118(H) 74 - 99 mg/dL 03/28/2025 11:41 AM CDT [facility] SPECIMEN SOURCE, GLUCOSE POC Capillary 03/28/2025 11:41 AM CDT [facility] Blood, whole 03/28/2025 11:4 1 AM CDT 03/28/2025 11:53 AM CDT us Mandi Bishop MD POINT OF CARE TESTING Final Re sult [facility] CLIA # [id number] [address] [place] [address] * ECHO COMPLETE - CONTRAST AND STRAIN IF INDICATED (03/28/2025 9:00 AM CDT) [facility] EJECTION FRACTION 58 INTERFACE SYSTEM 03/28/2025 8:31 AM CDT Narrative INTERFACE SYSTEM - 03/28/2025 10:06 AM CDT [facility] Echocardiography Laboratory [address] [place] [address] Transthoracic Echocardiography Patient: Andre Arevalo Study ID: ECHO COMPLETE - Gender: M : 1955 Age: 69 Room: [facility] Study Date: 03/28/2025 Pt Status: Inpatient Study Time: 08:31:13 AM [facility] #: [id number] Ordering:Jasmin Hopkins Crm Dynamics Developer: Harper Klein [facility] Indications and History: Stroke. Summary and Conclusion: - Left ventricle: The cavity size is normal. Wall thickness is normal. Global systolic function is normal. The estimated ejection fraction is 55-60%. For Epic reporting: the left ventricular ejection fraction is 58% by biplane method of disks. No diagnostic regional wall motion abnormality identified. Interventricular septum shows abnormal bouncy motion. Doppler parameters are consistent with abnormal left ventricular relaxation (grade 1 diastolic dysfunction). The longitudinal strain is -16.3% (Normal range is -18 to -25). - Right ventricle: The cavity size is normal. Systolic function is normal. Systolic pressure is within the normal range. - Aortic valve: Not well visualized. The valve is probably trileaflet. The leaflets are thickened and calcified. Procedure information: No prior study is available for comparison. Study status: Routine. Procedure: A transthoracic echocardiogram was performed. Image quality was adequate. The study was technically limited due to poor acoustic window availability, poor patient compliance, and restricted patient mobility. Scanning was performed from the parasternal, apical, subcostal, and suprasternal notch acoustic windows. There were no complications. Study components: M-mode, 2D, complete spectral Doppler, and color Doppler. Height: 170.2cm. Height: 67in. Weight: 68.8kg. Weight: 151.7lb. BMI: 23.8kg/m^2. BSA: 1.81m^2. Blood pressure: 151/103 Study date: 03/28/2025. Study time: 08:31 AM. Location: Bedside. Cardiac Anatomy: LEFT VENTRICLE: The cavity size is normal. Wall thickness is normal. Global systolic function is normal. The estimated ejection fraction is 55-60%. For Epic reporting: the left ventricular ejection fraction is 58% by biplane method of disks. No diagnostic regional wall motion abnormality identified. Interventricular septum shows abnormal bouncy motion. The longitudinal strain is -16.3% (Normal range is -18 to -25). Doppler parameters are consistent with abnormal left ventricular relaxation (grade 1 diastolic dysfunction). RIGHT VENTRICLE: The cavity size is normal. Systolic function is normal. Systolic pressure is within the normal range. LEFT ATRIUM: The atrium is normal in size. RIGHT ATRIUM: The atrium is normal in size. ATRIAL SEPTUM: No obvious PFO or ASD identified by 2D imaging and color Doppler. AORTIC VALVE: Not well visualized. The valve is probably trileaflet. The leaflets are thickened and calcified. Mobility is not restricted. There is no stenosis. There is no significant regurgitation. MITRAL VALVE: Structurally normal valve. Mobility is not restricted. No evidence for prolapse. There is no evidence for stenosis. There is trivial regurgitation. TRICUSPID VALVE: Structurally normal valve. Mobility is unrestricted. There is no evidence for stenosis. There is trivial regurgitation. PULMONIC VALVE: Not well visualized. The valve appears to be grossly normal. There is no evidence for stenosis. There is no significant regurgitation. PERICARDIUM: There is no pericardial effusion. AORTA: Aortic root: The root is not dilated. Aortic arch: The vessel is not dilated. INTRACARDIAC MASS THROMBUS: No apparent intracavitary masses or thrombi detected. Measurements Left ventricle Value LVOT Value GLS, 2D -16.3 % Peak sandoval, S 89.82 cm/sec CHARLEY, LAX 2.8 cm Peak grad, S 3 mm Hg ESD, LAX 1.5 cm CHARLEY/bsa, LAX 1.5 cm/m^2 Right ventricle Value ESD/bsa, LAX 0.8 cm/m^2 TAPSE, MM 1.4 cm FS, LAX 45 % S' lateral 13.5 cm/sec FS, LAX chord 45 % ESD major ax, A4C 7.9 cm Left atrium Value ESD/bsa major ax, A4C 4.4 cm/m^2 AP dim, ES 2.2 cm CHARLEY minor ax, A4C 7.9 cm AP dim index, ES 1.2 cm/m^2 CHARLEY/bsa minor ax, A4C 4.4 cm/m^2 SI dim, A4C 4.7 cm CHARLEY major ax, A2C 8.7 cm Area ES, A4C 11 cm^2 ESD major ax, A2C 7.4 cm Vol, S 20 ml CHARLEY/bsa major ax, A2C 4.8 cm/m^2 Vol/bsa, S 11 ml/m^2 ESD/bsa major ax, A2C 4.1 cm/m^2 Vol, ES, 1-p A4C 23 ml IVS, ED 1.1 cm Vol/bsa, ES, 1-p A4C 13 ml/m^2 ESD 1.5 cm Vol, ES, 1-p A2C 16 ml ESD/bsa 0.8 cm/m^2 Vol/bsa, ES, 1-p A2C 9 ml/m^2 FS 45 % Vol, ES, 2-p 20 ml PW, ED 0.9 cm Vol/bsa, ES, 2-p 11 ml/m^2 IVS/PW, ED 1.29 Vol, ES, A/L 23 ml EDV, 1-p A2C 32 ml Vol/bsa, ES, A/L 13 ml/m^2 ESV, 1-p A2C 19 ml EF, 1-p A2C 61 % Right atrium Value EDV/bsa, 1-p A2C 18 ml/m^2 Area, ES 10 cm^2 ESV/bsa, 1-p A2C 11 ml/m^2 Area, ES, A4C 10 cm^2 EDV, 1-p A4C 51 ml ESV, 1-p A4C 22 ml Aortic valve Value EF, 1-p A4C 57 % Peak v, S 108.19 cm/sec SV, 1-p A4C 29 ml Peak grad, S 5 mm Hg EDV/bsa, 1-p A4C 28 ml/m^2 LVOT/AV, Vpeak ratio 0.83 ESV/bsa, 1-p A4C 12 ml/m^2 SV/bsa, 1-p A4C 16 ml/m^2 Mitral valve Value EDV, 2-p 41 ml Peak E 57.67 cm/sec ESV, 2-p 17 ml Peak A 82.43 cm/sec EF, 2-p 58 % Decel slope 269.11 cm/s^2 SV, 2-p 13 ml Decel time 214 ms EDV/bsa, 2-p 22 ml/m^2 Peak E/A ratio 0.7 ESV/bsa, 2-p 9 ml/m^2 SV/bsa, 2-p 7 ml/m^2 Aortic root Value E', lat nuvia, TDI 6.5 cm/sec Root diam 4.1 cm E/e', lat nuvia, TDI 9 Root diam/bsa 2.3 cm/m^2 E', med nuvia, TDI 6.7 cm/sec E/e', med nuvia, TDI 9 E', avg, TDI 6.6 cm/sec E/e', avg, TDI 9 Legend: (L) and (H) shelly values outside specified reference range. [facility] are accredited with the Intersocietal Accreditation Commission - Echocardiography. Prepared and Electronically Authenticated Forrest Rivera MD Confirmed 03/28/2025 10:06 Procedure Note Forrest Rivera MD - 03/28/2025 [facility] Services Echocardiography Laboratory [address] [place] [address] Transthoracic Echocardiography Patient: Andre Arevalo Study ID: ECHO COMPLETE- Gender: M : 1955 Age: 69 Room: [facility] Study Date: 03/28/2025 Pt Status: Inpatient Study Time: 08:31:13 AM CSN #: [id number] Ordering:Jasmin Hopkins Crm [employer] Developer: Harper Klein [facility] Indications and History: Stroke. Summary and Conclusion: - Left ventricle: The cavity size is normal. Wall thickness is normal.Global systolic function is normal. The estimated ejection fraction is 55-60%.For Epic reporting: the left ventricular ejection fraction is 58% bybiplane method of disks. No diagnostic regional wall motion abnormalityidentified. Interventricular septum shows abnormal bouncy motion. Doppler parametersare consistent with abnormal left ventricular relaxation (grade 1diastolic dysfunction). The longitudinal strain is -16.3% (Normal range is -18to -25). - Right ventricle: The cavity size is normal. Systolic function isnormal. Systolic pressure is within the normal range. - Aortic valve: Not well visualized. The valve is probably trileaflet.The leaflets are thickened and calcified. Procedure information: No prior study is available for comparison.Study status: Routine. Procedure: A transthoracic echocardiogram wasperformed. Image quality was adequate. The study was technically limited due topoor acoustic window availability, poor patient compliance, and restrictedpatient mobility. Scanning was performed from the parasternal, apical, subcostal,and suprasternal notch acoustic windows. There were no complications. Study components: M-mode, 2D, complete spectral Doppler, and colorDoppler. Height: 170.2cm. Height: 67in. Weight: 68.8kg. Weight: 151.7lb.BMI: 23.8kg/m^2. BSA: 1.81m^2. Blood pressure: 151/103 Studydate: 03/28/2025. Study time: 08:31 AM. Location: Bedside. Cardiac Anatomy: LEFT VENTRICLE: The cavity size is normal. Wall thickness is normal.Global systolic function is normal. The estimated ejection fraction is 55-60%.For Epic reporting: the left ventricular ejection fraction is 58% by biplane method of disks. No diagnostic regional wall motion abnormalityidentified. Interventricular septum shows abnormal bouncy motion. The longitudinalstrain is -16.3% (Normal range is -18 to -25). Doppler parameters are consistentwith abnormal left ventricular relaxation (grade 1 diastolic dysfunction). RIGHT VENTRICLE: The cavity size is normal. Systolic function isnormal. Systolic pressure is within the normal range. LEFT ATRIUM: The atrium is normal in size. RIGHT ATRIUM: The atrium is normal in size. ATRIAL SEPTUM: No obvious PFO or ASD identified by 2D imaging and color Doppler. AORTIC VALVE: Not well visualized. The valve is probably trileaflet.The leaflets are thickened and calcified. Mobility is not restricted. Thereis no stenosis. There is no significant regurgitation. MITRAL VALVE: Structurally normal valve. Mobility is not restricted.No evidence for prolapse. There is no evidence for stenosis. There istrivial regurgitation. TRICUSPID VALVE: Structurally normal valve. Mobility isunrestricted. There is no evidence for stenosis. There is trivial regurgitation. PULMONIC VALVE: Not well visualized. The valve appears to be grosslynormal. There is no evidence for stenosis. There is no significantregurgitation. PERICARDIUM: There is no pericardial effusion. AORTA: Aortic root: The root is not dilated. Aortic arch: The vessel is not dilated. INTRACARDIAC MASS THROMBUS: No apparent intracavitary masses or thrombi detected. Measurements Left ventricle Value LVOT Value GLS, 2D -16.3 % Peak sandoval, S 89.82cm/sec CHARLEY, LAX 2.8 cm Peak grad, S 3 mm Hg ESD, LAX 1.5 cm CHARLEY/bsa, LAX 1.5 cm/m^2 Right ventricle Value ESD/bsa, LAX 0.8 cm/m^2 TAPSE, MM 1.4 cm FS, LAX 45 % S' lateral 13.5cm/sec FS, LAX chord 45 % ESD major ax, A4C 7.9 cm Left atrium Value ESD/bsa major ax, A4C 4.4 cm/m^2 AP dim, ES 2.2 cm CHARLEY minor ax, A4C 7.9 cm AP dim index, ES 1.2cm/m^2 CHARLEY/bsa minor ax, A4C 4.4 cm/m^2 SI dim, A4C 4.7 cm CHARLEY major ax, A2C 8.7 cm Area ES, A4C 11 cm^2 ESD major ax, A2C 7.4 cm Vol, S 20 ml CHARLEY/bsa major ax, A2C 4.8 cm/m^2 Vol/bsa, S 11ml/m^2 ESD/bsa major ax, A2C 4.1 cm/m^2 Vol, ES, 1-p A4C 23 ml IVS, ED 1.1 cm Vol/bsa, ES, 1-p A4C 13ml/m^2 ESD 1.5 cm Vol, ES, 1-p A2C 16 ml ESD/bsa 0.8 cm/m^2 Vol/bsa, ES, 1-p A2C 9ml/m^2 FS 45 % Vol, ES, 2-p 20 ml PW, ED 0.9 cm Vol/bsa, ES, 2-p 11ml/m^2 IVS/PW, ED 1.29 Vol, ES, A/L 23 ml EDV, 1-p A2C 32 ml Vol/bsa, ES, A/L 13ml/m^2 ESV, 1-p A2C 19 ml EF, 1-p A2C 61 % Right atrium Value EDV/bsa, 1-p A2C 18 ml/m^2 Area, ES 10 cm^2 ESV/bsa, 1-p A2C 11 ml/m^2 Area, ES, A4C 10 cm^2 EDV, 1-p A4C 51 ml ESV, 1-p A4C 22 ml Aortic valve Value EF, 1-p A4C 57 % Peak v, S 108.19cm/sec SV, 1-p A4C 29 ml Peak grad, S 5 mm Hg EDV/bsa, 1-p A4C 28 ml/m^2 LVOT/AV, Vpeak ratio 0.83 ESV/bsa, 1-p A4C 12 ml/m^2 SV/bsa, 1-p A4C 16 ml/m^2 Mitral valve Value EDV, 2-p 41 ml Peak E 57.67cm/sec ESV, 2-p 17 ml Peak A 82.43cm/sec EF, 2-p 58 % Decel slope 269.11cm/s^2 SV, 2-p 13 ml Decel time 214 ms EDV/bsa, 2-p 22 ml/m^2 Peak E/A ratio 0.7 ESV/bsa, 2-p 9 ml/m^2 SV/bsa, 2-p 7 ml/m^2 Aortic root Value E', lat nuvia, TDI 6.5 cm/sec Root diam 4.1 cm E/e', lat nuvia, TDI 9 Root diam/bsa 2.3cm/m^2 E', med nuvia, TDI 6.7 cm/sec E/e', med nuvia, TDI 9 E', avg, TDI 6.6 cm/sec E/e', avg, TDI 9 Legend: (L) and (H) shelly values outside specified reference range. [facility] are accredited with theHu Hu Kam Memorial Hospitalsocietal Accreditation Commission - Echocardiography. Prepared and Electronically Authenticated Forrest Rivera MD Confirmed 03/28/2025 10:06 Jasmin Hopkins MD ORDERABLES Leisa kendall Result INTERFACE SYSTEM Refer to clinic/hospital department * (ABNORMAL) BASIC METABOLIC PANEL (03/28/2025 4:41 AM CDT) SODIUM 135(L) 136 - 145 mmol/L 03/28/2025 6:33 AM T [facility] [employer] [facility] POTASSIUM 3.7 3.5 - 5.1 mmol/L 03/28/2025 6:33 AM [facility] [employer] [facility] CHLORIDE 102 98 - 107 mmol/L 03/28/2025 6:33 AM [facility] [employer] [facility] CO2 22 22 - 29 mmol/L 03/28/2025 6:33 AM [facility] [employer] [facility] CALCIUM 8.9 8.8 - 10.2 mg/dL 03/28/2025 6:33 AM [facility] [employer] [facility] BUN 8 8 - 23 mg/dL 03/28/2025 6:33 AM [facility] CREATININE 0.87 0.67 - 1.17 mg/dL 03/28/2025 6:33 AM [facility] [employer] [facility] Comment:The GFR result is no t clinically significant on patients <18 or >70 years of age. GLUCOSE 128(H) 74 - 99 mg/dL 03/28/2025 6:33 AM [facility] [employer] [facility] GFR >60 mL/min/1.7 3 sq meter 03/28/2025 6:33 AM [facility] [employer] [facility] Comment:eGFR calculated with 2020 CKD-EPI equation. Vegetarian diet, extremely high or low muscle mass, and may affect results. Cystatin C with Glomerular Filtration Rate is a suitable alternative for these patients. ANION GAP 11 9 - 20 mmol/L 03/28/2025 6:33 AM [facility] [employer] [facility] Blood Venipuncture / Unknown 03/28/2025 4:41 AM CDT 03/28/2025 5:58 AM CDT us Mandi Bishop MD CHEMISTRY ORDERABLES Final Res ult [facility] CLIA # [id number] [address] [address] [place] [address] * (ABNORMAL) CBC WITH DIFFERENTIAL (03/28/2025 4:40 AM CDT) [facility] WBC 12.6(H) 4.8 - 10.8 K/uL 03/28/2025 6:12 AM CDT [facility] RBC 4.64 4.60 - 6.20 M/uL 03/28/2025 6:12 AM CDT [facility] HEMOGLOBIN 13.8(L) 14.0 - 18.0 g/dL 03/28/2025 6:12 AM CDT [facility] HEMATOCRIT 41.4 41.0 - 53.0 % 03/28/2025 6:12 AM CDT [facility] MCV 89.2 84.0 - 103.0 fL 03/28/2025 6:12 AM CDT [facility] MCH 29.7 27.0 - 34.0 pg 03/28/2025 6:12 AM CDT [facility] MCHC 33.3 30.0 - 35.0 g/dL 03/28/2025 6:12 AM CDT [facility] PLATELETS 236 140 - 440 K/uL 03/28/2025 6:12 AM CDT [facility] MPV 10.8 8.9 - 12.8 fL 03/28/2025 6:12 AM CDT [facility] RDW 14.0 11.0 - 14.5 % 03/28/2025 6:12 AM CDT [facility] RDW-STDEV 45.6 37.0 - 54.0 fL 03/28/2025 6:12 AM CDT [facility] NEUTROPHILS 77(H) 42 - 75 % 03/28/2025 6:12 AM CDT [facility] LYMPHOCYTES 14(L) 24 - 44 % 03/28/2025 6:12 AM CDT [facility] MONOCYTES 8 2 - 10 % 03/28/2025 6:12 AM CDT [facility] EOSINOPHILS 1 0 - 7 % 03/28/2025 6:12 AM CDT [facility] BASOPHILS 0 0 - 1 % 03/28/2025 6:12 AM CDT [facility] IMMATURE GRANULOCYTES 1 0 - 2 % 03/28/2025 6:12 AM CDT [facility] NEUTROPHIL ABSOLUTE 9.75(H) 2.00 - 8.00 K/uL 03/28/2025 6:12 AM CDT [facility] LYMPHOCYTE ABSOLUTE 1.72 1.20 - 4.00 K/uL 03/28/2025 6:12 AM CDT [facility] MONOCYTE ABSOLUTE 0.97(H) 0.10 - 0.60 K/uL 03/28/2025 6:12 AM CDT [facility] EOSINOPHIL ABSOLUTE 0.07 0.00 - 0.70 K/uL 03/28/2025 6:12 AM CDT [facility] BASOPHILS ABSOLUTE 0.03 0.00 - 0.20 K/uL 03/28/2025 6:12 AM CDT [facility] IMMATURE GRANULOCYTES ABSOLUTE 0.06 0.00 - 0.10 K/uL 03/28/2025 6:12 AM CDT [facility] SMEAR REVIEWED: NA - Not Applicable 03/28/2025 6:12 AM T [facility] Blood Venipuncture / Unknown 03/28/2025 4:40 AM CDT 03/28/2025 5:58 AM CDT us Mandi Bishop MD HEMATOLOGY ORDERABLES Final Re sult [facility] CLIA # [id number] [address] [address] [place] [address] * POC GLUCOSE (03/27/2025 3:16 AM CDT) [facility] GLUCOSE POC 96 74 - 99 mg/dL 03/27/2025 3:16 AM CDT [facility] SPECIMEN SOURCE, GLUCOSE POC Capillary 03/27/2025 3:16 AM CDT [facility] Blood, whole 03/27/2025 3:16 AM CDT 03/27/2025 8:48 AM CDT us Mandi Bishop MD POINT OF CARE TESTING Final Re sult [facility] CLIA # [id number] [address] [facility] [place] [address] * (ABNORMAL) CBC WITH DIFFERENTIAL (03/27/2025 2:14 AM CDT) [facility] WBC 9.6 4.8 - 10.8 K/uL 03/27/2025 2:36 AM CDT [facility] RBC 4.42(L) 4.60 - 6.20 M/uL 03/27/2025 2:36 AM CDT [facility] HEMOGLOBIN 12.9(L) 14.0 - 18.0 g/dL 03/27/2025 2:36 AM CDT [facility] HEMATOCRIT 39.5(L) 41.0 - 53.0 % 03/27/2025 2:36 AM CDT [facility] MCV 89.4 84.0 - 103.0 fL 03/27/2025 2:36 AM CDT [facility] MCH 29.2 27.0 - 34.0 pg 03/27/2025 2:36 AM CDT [facility] MCHC 32.7 30.0 - 35.0 g/dL 03/27/2025 2:36 AM CDT [facility] PLATELETS 222 140 - 440 K/uL 03/27/2025 2:36 AM [facility] MPV 10.0 8.9 - 12.8 fL 03/27/2025 2:36 AM [facility] RDW 14.3 11.0 - 14.5 % 03/27/2025 2:36 AM [facility] RDW-STDEV 46.7 37.0 - 54.0 fL 03/27/2025 2:36 AM [facility] NEUTROPHILS 63 42 - 75 % 03/27/2025 2:36 AM [facility] LYMPHOCYTES 24 24 - 44 % 03/27/2025 2:36 AM [facility] MONOCYTES 11(H) 2 - 10 % 03/27/2025 2:36 AM [facility] [employer] [facility] EOSINOPHILS 1 0 - 7 % 03/27/2025 2:36 AM [facility] BASOPHILS 0 0 - 1 % 03/27/2025 2:36 AM [facility] IMMATURE GRANULOCYTES 0 0 - 2 % 03/27/2025 2:36 AM [facility] NEUTROPHIL ABSOLUTE 6.03 2.00 - 8.00 K/uL 03/27/2025 2:36 AM [facility] LYMPHOCYTE ABSOLUTE 2.29 1.20 - 4.00 K/uL 03/27/2025 2:36 AM [facility] MONOCYTE ABSOLUTE 1.08(H) 0.10 - 0.60 K/uL 03/27/2025 2:36 AM [facility] EOSINOPHIL ABSOLUTE 0.10 0.00 - 0.70 K/uL 03/27/2025 2:36 AM [facility] BASOPHILS ABSOLUTE 0.04 0.00 - 0.20 K/uL 03/27/2025 2:36 AM [facility] IMMATURE GRANULOCYTES ABSOLUTE 0.03 0.00 - 0.10 K/uL 03/27/2025 2:36 AM [facility] SMEAR REVIEWED: NA - Not Applicable 03/27/2025 2:36 AM [facility] Blood Venipuncture / Unknown 03/27/2025 2:14 AM CDT 03/27/2025 2:29 AM CDT Jasmin Hopkins MD HEMATOLOGY ORDERABLE S Final Result [facility] CLIA # [id number] [address] [place] [address] [place] [address] * (ABNORMAL) BASIC METABOLIC PANEL (03/27/2025 2:14 AM CDT) SODIUM 140 136 - 145 mmol/L 03/27/2025 3:00 AM [facility] POTASSIUM 3.7 3.5 - 5.1 mmol/L 03/27/2025 3:00 AM [facility] CHLORIDE 107 98 - 107 mmol/L 03/27/2025 3:00 AM [facility] CO2 23 22 - 29 mmol/L 03/27/2025 3:00 AM [facility] CALCIUM 8.6(L) 8.8 - 10.2 mg/dL 03/27/2025 3:00 AM [facility] BUN 13 8 - 23 mg/dL 03/27/2025 3:00 AM [facility] CREATININE 0.91 0.67 - 1.17 mg/dL 03/27/2025 3:00 AM [facility] Comment:The GFR result is no t clinically significant on patients <18 or >70 years of age. GLUCOSE 89 74 - 99 mg/dL 03/27/2025 3:00 AM [facility] GFR >60 mL/min/1.7 3 sq meter 03/27/2025 3:00 AM [facility] Comment:eGFR calculated with 2020 CKD-EPI equation. Vegetarian diet, extremely high or low muscle mass, and may affect results. Cystatin C with Glomerular Filtration Rate is a suitable alternative for these patients. ANION GAP 10 9 - 20 mmol/L 03/27/2025 3:00 AM CDT [facility] Blood Venipuncture / Unknown 03/27/2025 2:14 AM CDT 03/27/2025 2:28 AM CDT Jasmin Hopkins MD CHEMISTRY ORDERABLES Final Result Performing Organization Address [facility] Co de Phone Number [facility] CLIA # [id number] [address] [place] [address] * (ABNORMAL) TROPONIN 6 HR, 5TH GEN (03/27/2025 2:14 AM CDT) TROPONIN T, 6 HR 5TH GEN 27(H) <=15 ng/L 03/27/2025 2:59 AM CDT [facility] DELTA 6HR TROPONIN T 7 See Interp. 03/27/2025 2:59 AM CDT [facility] Blood Venipuncture / Unknown 03/27/2025 2:14 AM CDT 03/27/2025 2:29 AM CDT Narrative [facility] - 03/27/2025 2:59 AM CDT Troponin elevated. Delta indeterminate. Jasmin Hopkins MD CHEMISTRY ORDERABLES Final Result Performing Organization Address [facility] Co de Phone Number [facility] CLIA # [id number] [address] [place] [address] * POC GLUCOSE (03/26/2025 11:55 PM CDT) Pathologist [facility] GLUCOSE POC 94 74 - 99 mg/dL 03/26/2025 11:55 PM CDT [facility] SPECIMEN SOURCE, GLUCOSE POC Capillary 03/26/2025 11:55 PM CDT [facility] Blood, whole 03/26/2025 11:5 5 PM CDT 03/27/2025 8:48 AM CDT Mandi Bishop MD POINT OF CARE TESTING Final Re sult [facility] CLIA # [id number] [address] [address] [place] [address] * LIPID PANEL (03/26/2025 11:44 PM CDT) CHOLESTEROL 133 <200 mg/dL 03/27/2025 12:21 AM CDT [facility] TRIGLYCERIDE 68 <150 mg/dL 03/27/2025 12:21 AM CDT [facility] HDL 44 40 - 59 mg/dL 03/27/2025 12:21 AM CDT [facility] LDL CALCULATED 75 <100 mg/dL 03/27/2025 12:21 AM CDT [facility] NON-HDL CHOLESTEROL 89 <130 mg/dL 03/27/2025 12:21 AM CDT [facility] Blood Venipuncture / Unknown 03/26/2025 11:44 PM CDT 03/26/2025 11:51 PM CDT Narrative [facility] - 03/27/2025 12:21 AM CDT TOTAL CHOLESTEROL mg/dL Desirable <200 Borderline high 200-239 High >=240 TRIGLYCERIDES mg/dL Normal <150 Borderline high 150-199 High 200-499 Very high >=500 HDL CHOLESTEROL mg/dL Low <40 Normal 40-59 Desirable >=60 NON HDL CHOLESTEROL mg/dL Optimal <130 Near Optimal 130-159 Borderline High 160-189 Very High >=190 CALCULATED LDL mg/dL LDL <70, OPTIMAL if have Atherosclerotic cardiovascular disease (ASCVD) or intermediate or higher (>7.5%) 10 year risk of ASCVD including most adults with diabetes. LDL <100, Optimal in adult patients with low (<7.5%) 10 year ASCVD risk LDL 100-160, Suboptimal LDL >160, High LDL >190, Very high LDL calculated using the Friedewald equation. ATPIII Guidelines Reference Ranges for Lipid Panels (NCEP/AMA) . Jasmin Hopkins MD CHEMISTRY ORDERABLES Final Result Performing Organization Address [facility] Co de Phone Number [facility] CLIA # [id number] [address] [address] * (ABNORMAL) TROPONIN 6 HR, 5TH GEN (03/26/2025 11:44 PM CDT) TROPONIN T, 6 HR 5TH GEN 27(H) <=15 ng/L 03/27/2025 12:26 AM CDT [facility] DELTA 6HR TROPONIN T 7 See Interp. 03/27/2025 12:26 AM CDT [facility] Blood Venipuncture / Unknown 03/26/2025 11:44 PM CDT 03/26/2025 11:51 PM CDT Narrative [facility] - 03/27/2025 12:26 AM CDT Troponin elevated. Delta indeterminate. Evelio Marrero MD CHEMISTRY ORDERABL ES Final Result Performing Organization Address [facility] de Phone Number [facility] CLIA # [id number] [address] [place] [address] * POC GLUCOSE (03/26/2025 10:08 PM CDT) GLUCOSE POC 90 74 - 99 mg/dL 03/26/2025 10:08 PM CDT [facility] SPECIMEN SOURCE, GLUCOSE POC Capillary 03/26/2025 10:08 PM CDT [facility] Blood, whole 03/26/2025 10:0 8 PM CDT 03/27/2025 8:48 AM CDT us Mandi Bishop MD POINT OF CARE TESTING Final Re sult [facility] CLIA # [id number] [address] [id number] * (ABNORMAL) HEMOGLOBIN A1C (03/26/2025 8:10 PM CDT) HEMOGLOBIN A1C 5.8(H) <=5.6 % 03/29/2025 10:58 AM CDT [facility] EST. AVG GLUCOSE, A1C 120 mg/dL 03/29/2025 10:58 AM CDT [facility] Blood Venipuncture / Unknown 03/26/2025 8:10 PM CDT 03/26/2025 8:16 PM CDT Narrative [facility] - 03/29/2025 10:58 AM CDT HGB A1C INTERPRETATION NORMAL: <5.7% PRE-DIABETES: 5.7 - 6.4% DIABETES: 6.5% OR GREATER us Jasmin Hopkins MD CHEMISTRY ORDERABLES Final Result Performing Organization Address City/[facility] Co de Phone Number [facility] CLIA # [id number] [address] [address] * (ABNORMAL) TROPONIN BASELINE, 5TH GEN (03/26/2025 8:10 PM CDT) TROPONIN T, BASELINE 5TH GEN 20(H) <=15 ng/L 03/26/2025 8:46 PM CDT [facility] Blood Venipuncture / Unknown 03/26/2025 8:10 PM CDT 03/26/2025 8:16 PM CDT Narrative [facility] [employer] [facility] - 03/26/2025 8:46 PM CDT Troponin elevated. Jasmin Hopkins MD CHEMISTRY ORDERABLES Final Result Performing Organization Address City/[facility]/ZIP Co de Phone Number [facility] [place] CLIA # [id number] [address] [address] * VERIFICATION BLOOD GROUP (03/26/2025 8:10 PM CDT) [facility] ABO GROUP A 03/26/2025 8:37 PM CDT [facility] [place] RH (D) TYPE Positive 03/26/2025 8:37 PM CDT [facility] [place] Blood Venipuncture / Unknown 03/26/2025 8:10 PM CDT 03/26/2025 8:17 PM CDT Evelio Marrero MD BLOOD BANK ORDERAB LES Final Result Performing Organization Address [facility] Co de Phone Number [facility] [employer] [facility] [place] CLIA#[id number] [facility] [place] [address], * (ABNORMAL) COMPREHENSIVE METABOLIC PANEL (03/26/2025 6:09 PM CDT) [facility] SODIUM 138 136 - 145 mmol/L 03/26/2025 7:02 PM CDT [facility] POTASSIUM 3.9 3.5 - 5.1 mmol/L 03/26/2025 7:02 PM CDT [facility] CHLORIDE 105 98 - 107 mmol/L 03/26/2025 7:02 PM CDT [facility] CO2 23 22 - 29 mmol/L 03/26/2025 7:02 PM CDT [facility] CALCIUM 8.1(L) 8.2 - 9.6 mg/dL 03/26/2025 7:02 PM CDT [facility] BUN 14 8 - 23 mg/dL 03/26/2025 7:02 PM CDT [facility] CREATININE 0.89 0.67 - 1.17 mg/dL 03/26/2025 7:02 PM [facility] Comment:The GFR result is no t clinically significant on patients <18 or >70 years of age. GLUCOSE 85 74 - 99 mg/dL 03/26/2025 7:02 PM [facility] TOTAL PROTEIN 5.9(L) 6.4 - 8.3 g/dL 03/26/2025 7:02 PM [facility] ALBUMIN 3.3(L) 3.5 - 5.2 g/dL 03/26/2025 7:02 PM [facility] BILIRUBIN TOTAL 0.3 0.0 - 1.0 mg/dL 03/26/2025 7:02 PM [facility] ALKALINE PHOSPHATASE 126 40 - 129 U/L 03/26/2025 7:02 PM [facility] AST 19 10 - 50 U/L 03/26/2025 7:02 PM [facility] ALT 25 <=50 U/L 03/26/2025 7:02 PM [facility] GFR >60 mL/min/1.7 3 sq meter 03/26/2025 7:02 PM [facility] Comment:eGFR calculated with 2020 CKD-EPI equation. Vegetarian diet, extremely high or low muscle mass, and may affect results. Cystatin C with Glomerular Filtration Rate is a suitable alternative for these patients. ANION GAP 10 9 - 20 mmol/L 03/26/2025 7:02 PM [facility] Blood Venipuncture / Unknown 03/26/2025 6:09 PM CDT 03/26/2025 6:28 PM CDT us Evelio Marrero MD CHEMISTRY ORDERABL ES Final Result [facility] CLIA # [id number] [facility] [address] [place] [address] * PROTIME-INR (03/26/2025 6:09 PM CDT) [facility] PROTIME 14.6 12.7 - 14.9 Seconds 03/26/2025 6:45 PM CDT [facility] INR 1.1 0.8 - 1.2 03/26/2025 6:45 PM CDT [facility] Blood Venipuncture / Unknown 03/26/2025 6:09 PM CDT 03/26/2025 6:27 PM CDT Narrative [facility] - 03/26/2025 6:45 PM CDT Expected Values for INR: DVT/PE Goal INR 2.5; range 2.0 - 3.0 Valve Replacement Tissue Goal INR 2.5; range 2.0 - 3.0 Valve Replacement Mechanical Goal INR 3.0; range 2.5 - 3.5 POST-VA Goal INR 2.5; range 2.0 - 3.0 or Goal INR 3.0; range 2.5 - 3.5 Atrial Fibrillation Goal INR 2.5; range 2.0 - 3.0 Ischemic Stroke Goal INR 2.5; range 2.0 - 3.0 us Evelio Marrero MD HEMATOLOGY ORDERAB LES Final Result [id number] [address] [place] [address] * (ABNORMAL) CBC WITH DIFFERENTIAL (03/26/2025 6:09 PM CDT) [facility] WBC 8.2 4.8 - 10.8 K/uL 03/26/2025 6:36 PM CDT [facility] RBC 4.25(L) 4.60 - 6.20 M/uL 03/26/2025 6:36 PM CDT [facility] HEMOGLOBIN 12.4(L) 14.0 - 18.0 g/dL 03/26/2025 6:36 PM [facility] HEMATOCRIT 39.0(L) 41.0 - 53.0 % 03/26/2025 6:36 PM [facility] MCV 91.8 84.0 - 103.0 fL 03/26/2025 6:36 PM [facility] MCH 29.2 27.0 - 34.0 pg 03/26/2025 6:36 PM [facility] MCHC 31.8 30.0 - 35.0 g/dL 03/26/2025 6:36 PM [facility] PLATELETS 207 140 - 440 K/uL 03/26/2025 6:36 PM [facility] MPV 10.2 8.9 - 12.8 fL 03/26/2025 6:36 PM [facility] RDW 14.4 11.0 - 14.5 % 03/26/2025 6:36 PM [facility] RDW-STDEV 48.4 37.0 - 54.0 fL 03/26/2025 6:36 PM [facility] NEUTROPHILS 69 42 - 75 % 03/26/2025 6:36 PM [facility] LYMPHOCYTES 21(L) 24 - 44 % 03/26/2025 6:36 PM [facility] MONOCYTES 9 2 - 10 % 03/26/2025 6:36 PM [facility] EOSINOPHILS 1 0 - 7 % 03/26/2025 6:36 PM [facility] BASOPHILS 0 0 - 1 % 03/26/2025 6:36 PM [facility] IMMATURE GRANULOCYTES 0 0 - 2 % 03/26/2025 6:36 PM [facility] NEUTROPHIL ABSOLUTE 5.63 2.00 - 8.00 K/uL 03/26/2025 6:36 PM [facility] LYMPHOCYTE ABSOLUTE 1.76 1.20 - 4.00 K/uL 03/26/2025 6:36 PM [facility] MONOCYTE ABSOLUTE 0.71(H) 0.10 - 0.60 K/uL 03/26/2025 6:36 PM CDT [facility] EOSINOPHIL ABSOLUTE 0.07 0.00 - 0.70 K/uL 03/26/2025 6:36 PM CDT [facility] BASOPHILS ABSOLUTE 0.03 0.00 - 0.20 K/uL 03/26/2025 6:36 PM CDT [facility] IMMATURE GRANULOCYTES ABSOLUTE 0.02 0.00 - 0.10 K/uL 03/26/2025 6:36 PM CDT [facility] SMEAR REVIEWED: NA - Not Applicable 03/26/2025 6:36 PM CDT [facility] Blood Venipuncture / Unknown 03/26/2025 6:09 PM CDT 03/26/2025 6:27 PM CDT Evelio Marrero MD HEMATOLOGY ORDERAB LES Final Result Performing Organization Address City/[facility]/ZIP Co de Phone Number [facility] CLIA # [id number] [address] [place] [address] * (ABNORMAL) TROPONIN BASELINE, 5TH GEN (03/26/2025 6:09 PM CDT) TROPONIN T, BASELINE 5TH GEN 16(H) <=15 ng/L 03/26/2025 6:58 PM CDT [facility] Blood Venipuncture / Unknown 03/26/2025 6:09 PM CDT 03/26/2025 6:28 PM CDT Narrative [facility] - 03/26/2025 6:58 PM CDT Troponin elevated. Evelio Marrero MD CHEMISTRY ORDERABL ES Final Result Performing Organization Address City/[facility]/ZIP Co de Phone Number [facility] CLIA # [id number] [address] [place] [address] * TYPE AND SCREEN (03/26/2025 6:09 PM CDT) ABO GROUP A 03/26/2025 7:38 PM CDT [facility] [place] RH (D) TYPE Positive 03/26/2025 7:38 PM CDT [facility] [place] ANTIBODY SCREEN Negative 03/26/2025 7:38 PM CDT [facility] [place] Blood Venipuncture / Unknown 03/26/2025 6:09 PM CDT 03/26/2025 6:27 PM CDT us Evelio Marrero MD BLOOD BANK ORDERAB LES Edited Result - Final [facility] [place] CLIA#[id number] [address] [place] [address], * EKG 12-LEAD (03/26/2025 6:08 PM CDT) 03/26/2025 6:08 PM CDT Narrative INTERFACE SYSTEM - 03/27/2025 8:02 [place] [address] Test Date: 2025-03-26 Pat Name: ANDRE AREVALO Department: 11 Room: [facility] 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1955 Requested By: Order Number: [id number] Marck MD: Nate De Luna Measurements Intervals [place] Rate: 108 P: 1 MA: 156 QRS: -8 QRSD: 60 T: -5 QT: 344 QTc: 460 Interpretive Statements Sinus tachycardia Inferior infarct, age undetermined Abnormal ECG Electronically Signed On 03-27-2025 20:02:48 CDT by Nate De Luna Procedure Note Nate De Luna MD - 03/27/2025 [place] [address] Test Date: 2025-03-26 Pat Name: ANDER AREVALO Department: 11 Room: 15 15 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1955 Requested By: Order Number: [id number] Reading MD: Nate De Luna Measurements Intervals [place] Rate: 108 P: 1 MA: 156 QRS: -8 QRSD: 60 T: -5 QT: 344 QTc: 460 Interpretive Statements Sinus tachycardia Inferior infarct, age undetermined Abnormal ECG Electronically Signed On 03-27-2025 20:02:48 CDT by Nate De Luna us Evelio Marrero MD ECG ORDERABLES Fi nal Result INTERFACE SYSTEM Refer to clinic/hospital department * CT STROKE ACTIVATION (03/26/2025 6:01 PM CDT) Anatomical Region Laterality Modality Head Computed Tomogra phy 03/26/2025 5:45 PM CDT Impressions 03/27/2025 8:48 AM CDT IMPRESSION: CT Head: 1. No CT evidence of an acute intracranial process. CT Perfusion: 1. Multifocal areas of ischemia in the left supratentorial brain and right cerebellum. Chronic infarct right temporal lobe. Recommend brain MRI. CTA Head: 1. High-grade stenosis of the left M1 with with multifocal severe short segment stenoses versus occlusions involving the left MCA bifurcation and left M2 insular branches and inferior left M3 branch, with the distal vessel reconstitution. Other findings as above. 2. Severe short segment stenosis versus occlusion left P2/P3 segments and right P2P segment, with distal vascular calcification. CTA Neck: 1. No evidence of hemodynamically significant stenosis within the cervical internal carotid arteries based on NASCET criteria. 2. Patent vertebrobasilar systems. Narrative 03/27/2025 8:48 AM CDT EXAM: CT STROKE ACTIVATION DATE/TIME OF EXAM: 03/26/2025 6:01 PM REASON FOR STUDY: Neuro deficit, acute, stroke suspected DIAGNOSIS: See Reason for Exam COMPARISON: No prior studies available for comparison. TECHNIQUE: CT performed of the head without contrast. CT angiography was performed of the head and neck following the administration of intravenous contrast. Images were reformatted and 3-D MIP images were provided. CT perfusion performed after the administration of intravenous contrast. INTRAVENOUS CONTRAST: IOPAMIDOL 61 % INTRAVENOUS SOLUTION (MULTI-DOSE BULK PACK) Given:125 mL FINDINGS: CT head: There is no evidence of an acute territorial infarct, parenchymal hemorrhage, hydrocephalus or abnormal extra-axial fluid collection. No midline shift. Basilar cisterns remain patent. Moderate parenchymal volume loss. Patchy areas of decreased attenuation in the subcortical and periventricular white matter are nonspecific but are most consistent with chronic microvascular angiopathy. Chronic lacunar infarcts of both cerebellar hemispheres. Remote lacunar infarct right thalamus. Significant paranasal sinus disease involving the bilateral maxillary sinuses. This may be a source of headache. CTA neck: AORTIC ARCH ATHEROSCLEROSIS GRADE: Mild AORTIC ARCH: three vessel SUBCLAVIAN ARTERIES: No significant stenosis or occlusion. CERVICAL VERTEBRAL ARTERIES: Mild atherosclerotic disease. Patent extracranial segments. No dissection. RIGHT CCA and cervical ICA: No stenosis or significant plaque. No dissection. LEFT CCA and cervical ICA: No stenosis or significant plaque. No dissection. CT angiography head: Anterior Circulation: Atherosclerotic calcifications of the parasellar ICAs bilaterally with long segment, mild luminal narrowing. High-grade stenosis of the left M1 with with multifocal severe short segment stenoses versus occlusions involving the left MCA bifurcation and left M2 insular branches, with the distal vessel reconstitution. Posterior Circulation: Severe short segment stenosis versus occlusion left P2/P3 segments and right P2P segment, with distal vascular calcification. No aneurysm. Expected enhancement major dural venous sinuses. CT perfusion: Rapid automated perfusion analysis demonstrates normal arterial input and venous output function curves. Parametric maps: Total CBF < / = 30% abnormality: 58 mL Total Tmax > 6s abnormality: 4 mL Total mismatch volume: 54 mL Total mismatch ratio: 14.5 Other: Soft Tissue Neck: No cervical adenopathy. Expansile cyst in the right maxilla. Cervical Spine: No acute fracture. Multilevel degenerative changes are noted in the spine. Lung Apices: Scarring in the lung apices. Nonspecific mediastinal lymph nodes. Degenerative changes temporomandibular joints. Both temporomandibular joints appear located. Procedure Note Jenna Lund MD - 03/27/2025 EXAM: CT STROKE ACTIVATION DATE/TIME OF EXAM: 03/26/2025 6:01 PM REASON FOR STUDY: Neuro deficit, acute, stroke suspected DIAGNOSIS: See Reason for Exam COMPARISON: No prior studies available for comparison. TECHNIQUE: CT performed of the head without contrast. CT angiography was performed of the head and neck following the administration of intravenous contrast. Images were reformatted and 3-D MIP images were provided. CT perfusion performed after the administration of intravenous contrast. INTRAVENOUS CONTRAST: IOPAMIDOL 61 % INTRAVENOUS SOLUTION (MULTI-DOSE BULK PACK) Given:125 mL FINDINGS: CT head: There is no evidence of an acute territorial infarct, parenchymal hemorrhage, hydrocephalus or abnormal extra-axial fluid collection. No midline shift. Basilar cisterns remain patent. Moderate parenchymal volume loss. Patchy areas of decreased attenuation in the subcortical and periventricular white matter are nonspecific but are most consistent with chronic microvascular angiopathy. Chronic lacunar infarcts of both cerebellar hemispheres. Remote lacunar infarct right thalamus. Significant paranasal sinus disease involving the bilateral maxillary sinuses. This may be a source of headache. CTA neck: AORTIC ARCH ATHEROSCLEROSIS GRADE: Mild AORTIC ARCH: three vessel SUBCLAVIAN ARTERIES: No significant stenosis or occlusion. CERVICAL VERTEBRAL ARTERIES: Mild atherosclerotic disease. Patent extracranial segments. No dissection. RIGHT CCA and cervical ICA: No stenosis or significant plaque. No dissection. LEFT CCA and cervical ICA: No stenosis or significant plaque. No dissection. CT angiography head: Anterior Circulation: Atherosclerotic calcifications of the parasellar ICAs bilaterally with long segment, mild luminal narrowing. High-grade stenosis of the left M1 with with multifocal severe short segment stenoses versus occlusions involving the left MCA bifurcation and left M2 insular branches, with the distal vessel reconstitution. Posterior Circulation: Severe short segment stenosis versus occlusion left P2/P3 segments and right P2P segment, with distal vascular calcification. No aneurysm. Expected enhancement major dural venous sinuses. CT perfusion: Rapid automated perfusion analysis demonstrates normal arterial input and venous output function curves. Parametric maps: Total CBF < / = 30% abnormality: 58 mL Total Tmax > 6s abnormality: 4 mL Total mismatch volume: 54 mL Total mismatch ratio: 14.5 Other: Soft Tissue Neck: No cervical adenopathy. Expansile cyst in the right maxilla. Cervical Spine: No acute fracture. Multilevel degenerative changes are noted in the spine. Lung Apices: Scarring in the lung apices. Nonspecific mediastinal lymph nodes. Degenerative changes temporomandibular joints. Both temporomandibular joints appear located. IMPRESSION: CT Head: 1. No CT evidence of an acute intracranial process. CT Perfusion: 1. Multifocal areas of ischemia in the left supratentorial brain and right cerebellum. Chronic infarct right temporal lobe. Recommend brain MRI. CTA Head: 1. High-grade stenosis of the left M1 with with multifocal severe short segment stenoses versus occlusions involving the left MCA bifurcation and left M2 insular branches and inferior left M3 branch, with the distal vessel reconstitution. Other findings as above. 2. Severe short segment stenosis versus occlusion left P2/P3 segments and right P2P segment, with distal vascular calcification. CTA Neck: 1. No evidence of hemodynamically significant stenosis within the cervical internal carotid arteries based on NASCET criteria. 2. Patent vertebrobasilar systems. us Mirela Hopper MD CT ORDERABLES Final Result documented in this encounter Visit Diagnoses Diagnosis Cerebrovascular accident (CVA) due to stenosis of left middle cerebral artery (CMS/HCC)- Primary Laboratory test Laboratory examination, unspecified Cerebrovascular accident (CVA) due to stenosis of left middle cerebral artery (CMS/HCC) Stroke-like symptoms Other symptoms involving nervous and musculoskeletal systems History of CVA (cerebrovascular accident) Transient ischemic attack (TIA), and cerebral infarction without residual deficits Dementia (CMS/HCC) Dementia, unspecified, without behavioral disturbance Protein-calorie malnutrition, severe Other severe protein-calorie malnutrition documented in this encounter Administered Medications Inactive Administered Medications - up to 3 most recent administrations Medication Order MAR Action Action Date Dose Rate Site amLODIPine (NORVASC) tablet 10 mg 10 mg, Oral, DAILY, First dose on Wed03/28/25 at 0900, Until Discontinued, Routine Given 03/30/2025 11:00 AM CDT 10 mg Given 03/29/2025 12:50 PM CDT 10 mg Given 03/28/2025 9:00 AM CDT 10 mg aspirin (JAREK CHEWABLE) chewable tablet 81 mg 81 mg, Oral, DAILY, First dose on Wed03/26/25 at 2000, Until Discontinued, Routine Given 03/30/2025 11:00 AM CDT 81 mg Given 03/29/2025 12:50 PM CDT 81 mg Given 03/28/2025 9:00 AM CDT 81 mg atorvastatin (LIPITOR) tablet 80 mg 80 mg, Oral, DAILY, First dose on Wed03/27/25 at 0900, Until Discontinued, Routine Given 03/30/2025 11:00 AM CDT 80 mg Given 03/29/2025 12:50 PM CDT 80 mg Given 03/28/2025 9:00 AM CDT 80 mg clopidogreL (PLAVIX) tablet 75 mg 75 mg, Oral, DAILY, First dose on Wed03/27/25 at 0900, Until Discontinued, Routine Given 03/30/2025 11:00 AM CDT 75 mg Given 03/29/2025 12:50 PM CDT 75 mg Given 03/28/2025 9:00 AM CDT 75 mg dextrose 5 % - sodium chloride 0.9 % infusion IV, at 40 mL/hr, SEE ADMIN INSTRUCTIONS, Starting on Wed03/26/25 at 2353, Until Wed03/31/25 at 0050, Routine dextrose 5 % infusion IV, at 40 mL/hr, CONTINUOUS, Starting on Wed03/27/25 at 0000, Until Wed03/28/25 at 1217, Routine New Bag 03/27/2025 12:15 AM CDT 40 mL/hr dextrose 5 % infusion IV, at 40 mL/hr, CONTINUOUS, Starting on Wed03/28/25 at 1230, Until Wed03/29/25 at 1229, Routine New Bag 03/28/2025 2:23 PM CDT 40 mL/hr dextrose 50% (D50) syringe 12.5 Gram 12.5 Gram, IV, SEE ADMIN INSTRUCTIONS, Starting on Wed03/26/25 at 2353, Until Wed03/31/25 at 0050, Routine dextrose 50% (D50) syringe 25 Gram 25 Gram, IV, SEE ADMIN INSTRUCTIONS, Starting on Wed03/26/25 at 2353, Until 03/31/25 at 0050, Routine glucagon HCL 1 mg/mL injection 1 mg 1 mg, IM, SEE ADMIN INSTRUCTIONS, Starting on Wed03/26/25 at 2353, Until 03/31/25 at 0050, Routine heparin injection 5,000 Units 5,000 Units, subCUT, EVERY 8 HOURS, First dose on Wed03/26/25 at 2100, Until Discontinued, Routine Given 03/30/2025 8:35 PM CDT 5,000 Units Abdominal Tissue Given 03/30/2025 12:27 PM CDT 5,000 Units Abdomen, Left Upper Quadrant Given 03/30/2025 6:01 AM CDT 5,000 Units A bdomen, Left Lower Quadrant iopamidoL (ISOVUE-300) 61% injection (drawn from multi-use bulk pack) 125 mL 125 mL, IV, INTRA-PROCEDURE ONCE, 1 dose, Starting on Wed03/26/25 at 1801, Until Wed03/26/25 at 1801, Routine Contrast Given 03/26/2025 6:01 PM CDT 125 mL LORazepam (ATIVAN) tablet 0.5 mg 0.5 mg, Oral, ONE TIME ONLY, 1 dose, On Wed03/28/25 at 1830, Routine Given 03/28/2025 7:44 PM CDT 0.5 mg sodium chloride flush injection 10 mL 10 mL, IV, EVERY 12 HOURS (BlD), First dose on Wed03/26/25 at 2100, Until Discontinued, Routine Given 03/30/2025 11:00 AM CDT 10 mL Given 03/29/2025 9:51 PM CDT 10 mL Given 03/29/2025 6:48 PM CDT 10 mL documented in this encounter Active and Recently Administered Medications Times are shown in CDT. Scheduled Medication Order 03/28/2025 03/29/2025 03/30/2025 amLODIPine (NORVASC) tablet 10 mg 10 mg, Oral, DAILY, First dose on Wed03/28/25 at 0900, Until Discontinued, Routine 0900 (Given - Provider: Ina Benítez RN) 1250 (Given - Provider: Emely Silva RN) 1100 (Given - Provider: Dee Jasmine RN) aspirin (JAREK CHEWABLE) chewable tablet 81 mg 81 mg, Oral, DAILY, First dose on Wed03/26/25 at 2000, Until Discontinued, Routine 0900 (Given - Provider: Ina Benítez RN) 1250 (Given - Provider: Emely Silva, NICK) 1100 (Given - Provider: Dee Jasmine, NICK) aspirin rectal suppository 300 mg 300 mg, Rectal, ONE TIME ONLY, 1 dose, On Wed03/26/25 at 2245, Routine atorvastatin (LIPITOR) tablet 80 mg 80 mg, Oral, DAILY, First dose on Wed03/27/25 at 0900, Until Discontinued, Routine 0900 (Given - Provider: Ina Benítez RN) 1250 (Given - Provider: Emely Silva RN) 1100 (Given - Provider: Dee Jasmine RN) clopidogreL (PLAVIX) tablet 75 mg 75 mg, Oral, DAILY, First dose on Wed03/27/25 at 0900, Until Discontinued, Routine 0900 (Given - Provider: Ina Benítez RN) 1250 (Given - Provider: Emely Silva, NICK) 1100 (Given - Provider: Dee Jasmine RN) dextrose 5 % - sodium chloride 0.9 % infusion IV, at 40 mL/hr, SEE ADMIN INSTRUCTIONS, Starting on Wed03/26/25 at 2353, Until 03/31/25 at 0050, Routine dextrose 5 % in water 250 mL flush bag 25 mL 25 mL, IV, SEE ADMIN INSTRUCTIONS, Starting on Wed03/26/25 at 1956, Until 03/31/25 at 0050, Routine dextrose 50% (D50) syringe 12.5 Gram 12.5 Gram, IV, SEE ADMIN INSTRUCTIONS, Starting on Wed03/26/25 at 2353, Until 03/31/25 at 0050, Routine dextrose 50% (D50) syringe 25 Gram 25 Gram, IV, SEE ADMIN INSTRUCTIONS, Starting on Wed03/26/25 at 2353, Until 03/31/25 at 0050, Routine glucagon HCL 1 mg/mL injection 1 mg 1 mg, IM, SEE ADMIN INSTRUCTIONS, Starting on Wed03/26/25 at 2353, Until 03/31/25 at 0050, Routine heparin injection 5,000 Units 5,000 Units, subCUT, EVERY 8 HOURS, First dose on Wed03/26/25 at 2100, Until Discontinued, Routine 0519 (Given - Provider: Harper Cristobal RN)1423 (Given - Provider: Ina Benítez RN)2123 (Given - Provider: Redd Rosario, NICK) 0457 (Given - Provider: Redd Rosario, RN)1251 (Given - Provider: Emely Silva, NICK)215 (Given - Provider: Nina Parker, NICK) 0601 (Given - Provider: Nina Parker, NICK)1227 (Given - Provider: Dee Jasmine RN)2034 (Given - Provider: Genny Veloz RN) LORazepam (ATIVAN) tablet 0.5 mg (COMPLETED) 0.5 mg, Oral, ONE TIME ONLY, 1 dose, On Wed03/28/25 at 1830, Routine 1944 (Given - Provider: Redd Rosario, RN) naloxone (NARCAN) 0.4 mg/mL injection 0.1-0.4 mg 0.1-0.4 mg, IV, SEE ADMIN INSTRUCTIONS, Starting on Wed03/26/25 at 1956, Until 03/31/25 at 0050, Routine sodium chloride 0.9 % flush bag 25 mL 25 mL, IV, SEE ADMIN INSTRUCTIONS, Starting on Wed03/26/25 at 1956, Until 03/31/25 at 0050, Routine sodium chloride flush injection 10 mL 10 mL, IV, EVERY 12 HOURS (BlD), First dose on Wed03/26/25 at 2100, Until Discontinued, Routine 0900 (Given - Provider: Ina Benítez RN)2126 (Given - Provider: Redd Rosario, RN) 1848 (Given - Provider: Ruby Perez, NICK)2151 (Given - Provider: Nina Parker RN) 1100 (Given - Provider: Dee Jasmine RN)2100 (Not Given - Provider: Genny Veloz RN - Reason: Clarify-Route) sodium chloride flush injection 10 mL 10 mL, IV, SEE ADMIN INSTRUCTIONS, Starting on Wed03/26/25 at 1956, Until 03/31/25 at 0050, Routine Continuous Medication Order 03/28/2025 03/29/2025 03/30/2025 dextrose 5 % infusion () IV, at 40 mL/hr, CONTINUOUS, Starting on Wed03/28/25 at 1230, Until Claudette 03/29/25 at 1229, Routine 1423 (New Bag - Provider: Ina Benítez RN) 1229 (Stopped - Provider: Ruby Perez, NICK - Comment: [Order ends at this time. Document the following action when infusion is complete: Stopped]) PRN Medication Order 03/28/2025 03/29/2025 03/30/2025 acetaminophen (TYLENOL) tablet 650 mg 650 mg, Oral, EVERY 6 HOURS PRN, Starting on Wed03/26/25 at 1956, Until 03/31/25 at 0050, Other (See Comment), See admin instructions, Routine documented in this encounter
[2025-04-07 08:42] VITALS: BP 148/106; PULSE 110; RESP 16; TEMP 36.8; O2SAT 93; BMI 20.7
--- NOTE | 2025-04-07 08:44 | XRR_ITS ---
PROCEDURE INFORMATION: Exam: XR Chest Exam date and time: 04/07/2025 9:33 AM Age: 69 years old Clinical indication: Cough and dyspnea; Prior surgery; Surgery date: 6+ months; Surgery type: Feeding tube; Additional info: Dyspnea/cough TECHNIQUE: Imaging protocol: Radiologic exam of the chest. Views: 1 view. COMPARISON: CR XR chest 1V portable [id number] 07/19/2020 5:16 PM FINDINGS: Lungs: Unremarkable. No consolidation. Pleural spaces: Unremarkable. No pleural effusion. No pneumothorax. Heart/Mediastinum: Unremarkable. No cardiomegaly. Bones/joints: The bones are osteopenic with degenerative change. XR/XR chest 1V portable [id number] IMPRESSION: No acute cardiopulmonary disease.
--- NOTE | 2025-04-07 08:45 | ECG_ITS ---
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
--- NOTE | 2025-04-07 08:46 | W.ED.GENADLT ---
HPI - General Adult General: Chief complaint: Altered Mental Status Stated complaint: ams Time Seen by Provider: 04/07/25 08:42 History of Present Illness: 69-year-old male presents emergency room complaints of increased altered mental status. Patient is stroke 2 weeks ago he is not able to hold a conversation. It has been progressive over the last day or 2 has not been eating well for 2 days they started tube feedings yesterday. He is not normally on oxygen he is currently requiring 2 L by nasal cannula. Related Data Home Medications ?Medication ?Instructions ?Recorded ?Confirmed clopidogrel 75 mg tablet (Plavix) 75 mg PO DAILY 07/19/20 04/07/25 Held on 04/05/25. Instructions: Resume on 04/09/25. lisinopril 20 mg tablet 20 mg PO DAILY 07/19/20 04/07/25 quetiapine 50 mg tablet (Seroquel) 50 mg PO BID 07/19/20 04/07/25 acetaminophen 325 mg capsule 650 mg PO Q4H PRN Fever Or Pain 03/26/25 04/07/25 bisacodyl 10 mg rectal suppository 10 mg ID DAILY PRN Constipation 03/26/25 04/07/25 bisacodyl 5 mg tablet,delayed 10 mg PO DAILY PRN Constipation 03/26/25 04/07/25 release loperamide 2 mg capsule (Imodium 2 mg PO Q4H PRN Loose Stool 03/26/25 04/07/25 A-D) loratadine 10 mg tablet (Claritin) 10 mg PO DAILY PRN Allergy Symptoms 03/26/25 04/07/25 magnesium hydroxide 400 mg/5 mL 30 ml PO DAILY PRN constipation 03/26/25 04/07/25 oral suspension (Milk of Magnesia) polyethylene glycol 3350 17 4 g PO DAILY PRN Constipation 03/26/25 04/07/25 gram/dose oral powder sodium phosphates 19 gram-7 118 ml ID DAILY PRN Constipation 03/26/25 04/07/25 gram/118 mL enema (Enema) amlodipine 10 mg tablet 10 mg PO DAILY 04/04/25 04/07/25 aspirin 81 mg tablet,delayed 81 mg PO DAILY 04/04/25 04/07/25 release atorvastatin 80 mg tablet 80 mg PO BEDTIME 04/04/25 04/07/25 docusate sodium 50 mg/5 mL oral 50 mg PO BID PRN Constipation 04/07/25 04/07/25 liquid Previous Rx's ?Medication ?Instructions ?Recorded ipratropium 0.5 mg-albuterol 3 mg 3 ml inhalation Q4H PRN shortness 04/07/25 (2.5 mg base)/3 mL nebulization of breath or wheezing #90 mL soln Allergies Allergy/AdvReac Type Severity Reaction Status Date / Time No Known Allergies Allergy Verified 04/05/25 10:50 PFS ED PFSH: Medical History HLD (hyperlipidemia) CVA (cerebral vascular accident) COPD (chronic obstructive pulmonary disease) HTN (hypertension) Schizophrenia Surgical History Stented coronary artery Family History Other Cancer Hyperlipidemia Hypertension Social History Smoking and tobacco/nicotine status: never used tobacco/nicotine Alcohol intake: former Former alcohol use details: Reports some alcohol in the past? No report of abuse in past documentation. Substance/Drug Use: never Lives independently: No Household members: family and other Details: Reports daughter and grandchildren, sister? Reports also has a son who does not live with them. Current occupational status: disabled Physical Exam HENMT: COMMON NORMALS: normocephalic, atraumatic and hearing grossly normal bilaterally HEAD & SCALP: normocephalic and atraumatic Resp: COMMON NORMALS: normal respiratory effort, No retractions, No use of accessory muscles and clear to auscultation bilaterally AUSCULTATION: clear to auscultation bilaterally Cardio: COMMON NORMALS: regular rate, regular rhythm and No murmurs present (Cardio) RATE: regular rate RHYTHM: regular rhythm GI: COMMON NORMALS: Soft to palpation and No hepatosplenomegaly present AUSCULTATION: Yes normoactive bowel sounds PALPATION: Yes Soft to palpation, No Tenderness to palpation present (GI), No Guarding due to palpation present (GI) and Yes No hepatosplenomegaly present Extremity: COMMON NORMALS: normal to inspection, capillary refill normal, no clubbing, cyanosis or edema, no calf tenderness and no pedal edema Skin: COMMON NORMALS: no rashes or lesions noted GENERAL SKIN EXAM: no rashes or lesions noted Course Vital Signs: Vital signs: Vital Signs Temperature 98.3 F 04/07/25 08:42 Pulse Rate 94 04/07/25 11:12 Respiratory Rate 18 04/07/25 11:12 Blood Pressure 120/99 04/07/25 10:30 Pulse Oximetry 94 04/07/25 11:12 Oxygen Delivery Me thod Nasal Cannula 04/07/25 11:12 Oxygen Flow Rate 2 04/07/25 11:12 MDM - General Adult Medical Decision Making Patient now requiring 2 L via nasal cannula CT did not show any acute changes he said progressive decline now for several days. He is also now requiring oxygen. CTA of the chest no pneumonia no pneumothorax no acute coronary syndrome. Labs and imaging reviewed as found in chart discussed with the family we will [facility] patient [facility] to [facility]. He did use today medications use PEG tube for feedings as per primary. Medical Records I reviewed the patient's medical records. Lab Data I reviewed the patient's lab results. 04/07/25 09:08 04/07/25 09:08 Radiology Impressions Chest X-Ray 04/07/25 08:44 IMPRESSION: No acute cardiopulmonary disease. Head CT 04/07/25 08:51 IMPRESSION: No acute intracranial process. Chest CTA 04/07/25 11:06 IMPRESSION: Motion degraded study. No evidence for pulmonary embolism. Basilar atelectasis, suspect aspiration. Please correlate clinically, consider bronchoscopy. Laboratory Results WBC 16.64 10^3/uL (3.29-11.43) H 04/07/25 09:08 RBC 5.25 10^6/uL (3.85-5.65) 04/07/25 09:08 Hgb 15.40 g/dL (11.27-16.99) 04/07/25 09:08 Hct 48.2 % (37-53) 04/07/25 09:08 MCV 91.8 fl (82-101) 04/07/25 09:08 MCH 29.3 pg (27-33) 04/07/25 09:08 MCHC 32.0 g/dL (30-55) 04/07/25 09:08 RDW 14.6 % (12.1-15.1) 04/07/25 09:08 Plt Count 295 10^3/cmm (157-399) 04/07/25 09:08 MPV 10.3 fL (7.4-10.4) 04/07/25 09:08 Neut % (Auto) 82.6 % 04/07/25 09:08 Lymph % (Auto) 8.3 % 04/07/25 09:08 [place] % (Auto) 8.2 % 04/07/25 09:08 Eos % (Auto) 0.2 % 04/07/25 09:08 Baso % (Auto) 0.2 % 04/07/25 09:08 Neut # (Auto) 13.74 10^3/uL (1.8-7.7) H 04/07/25 09:08 Lymph # (Auto) 1.4 10^3/uL (0.8-4.8) 04/07/25 09:08 [place] # (Auto) 1.4 10^3/uL (0.2-0.9) H 04/07/25 09:08 Eos # (Auto) 0.0 10^3/uL (0.0-0.8) 04/07/25 09:08 Baso # (Auto) 0.0 10^3/uL (0.0-0.1) 04/07/25 09:08 Nucleated RBC % (auto) 0 % 04/07/25 09:08 Nucleated RBCs # 0.0 /100WBC 04/07/25 09:08 Specimen Type Arterial 04/07/25 08:54 Sample Site Radial, right 04/07/25 08:54 ABG pH 7.47 (7.35-7.45) H 04/07/25 08:54 ABG pCO2 38.3 mmHg (35-45) 04/07/25 08:54 ABG pO2 73.0 mmHg (80.0-100.0) L 04/07/25 08:54 ABG HCO3 28.1 mmol/L (22-26) H 04/07/25 08:54 ABG O2 Saturation 95.8 04/07/25 08:54 ABG Base Excess 4.3 mmol/L (-2.0-2.0) H 04/07/25 08:54 Fox Test Pos 04/07/25 08:54 A-a O2 Gradient 3.8 mmHg (5-10) L 04/07/25 08:54 Hematocrit 48.0 % (42-52) 04/07/25 08:54 Hgb O2 Saturation 94.0 % (95-100) L 04/07/25 08:54 Carboxyhemoglobin 0.9 %THgb (0.4-20.1) 04/07/25 08:54 Methemoglobin 1.0 % (0.4-1.5) 04/07/25 08:54 Total Hemoglobin 15.7 g/dL (14-18) 04/07/25 08:54 Sodium 146.0 mmol/L (131-143) H 04/07/25 08:54 Potassium 4.0 mmol/L (3.5-5.0) 04/07/25 08:54 Glucose 113.0 mg/dL (70-115) 04/07/25 08:54 Ionized Calcium 1.2 mmol/L (1.1-1.4) 04/07/25 08:54 O2 Delivery Device Nc 04/07/25 08:54 O2 Liters/Min 2.0 % 04/07/25 08:54 Family Psychologist ID [place] 04/07/25 08:54 Sodium 142 mmol/L (136-145) 04/07/25 09:08 Potassium 4.1 mmol/L (3.5-5.1) 04/07/25 09:08 Chloride 104 mmol/L (98-107) 04/07/25 09:08 Carbon Dioxide 24 mmol/L (22-29) 04/07/25 09:08 Anion Gap 18.1 (5-19) 04/07/25 09:08 BUN 23 mg/dL (8-23) 04/07/25 09:08 Creatinine 0.8 mg/dL (0.7-1.2) 04/07/25 09:08 GFR Calculation 95.6 mL/min (90-130) 04/07/25 09:08 Glucose 109 mg/dL (65-115) 04/07/25 09:08 Calculated Osmolality 298 mOsm/kg (285-295) H 04/07/25 09:08 Calcium 9.4 mg/dL (8.5-10.5) 04/07/25 09:08 Total Bilirubin 0.4 mg/dL (0.15-1.2) 04/07/25 09:08 AST 16 U/L (0-40) 04/07/25 09:08 ALT 27 U/L (0-41) 04/07/25 09:08 Alkaline Phosphatase 132 U/L (40-130) H 04/07/25 09:08 Creatine Kinase 25 U/L (39-308) L 04/07/25 09:08 Troponin T Baseline 21 ng/L (0-15) H 04/07/25 09:08 Troponin T 120 Minute 17.57 ng/L (0-15) H 04/07/25 11:25 Delta Troponin T -3.43 ABS# (0-10) L 04/07/25 11:25 Total Protein 7.3 g/dL (6.6-8.7) 04/07/25 09:08 Albumin 3.6 g/dL (3.5-5.2) 04/07/25 09:08 Globulin 3.7 g/dL (1.3-4.6) 04/07/25 09:08 Lipase 42 U/L (13-60) 04/07/25 09:08 Urine Color Dark yellow (Yellow) A 04/07/25 09:00 Urine Appearance Turbid (CLEAR) A 04/07/25 09:00 Urine pH 5.5 (5-7) 04/07/25 09:00 Ur Specific Amanda 1.034 (1.005-1.030) H 04/07/25 09:00 Urine Protein 1+ (Negative) H 04/07/25 09:00 Urine Glucose (UA) 2+ (Normal) H 04/07/25 09:00 Urine Ketones Trace (Negative) H 04/07/25 09:00 Urine Blood Neg (Negative) 04/07/25 09:00 Urine Nitrate Negative (Negative) 04/07/25 09:00 Urine Bilirubin 1+ (Negative) H 04/07/25 09:00 Urine Urobilinogen 1 mg/dL (Negative) H 04/07/25 09:00 Ur Leukocyte Esterase Negative (Negative) 04/07/25 09:00 Urine RBC 3-5 /hpf (0-2) 04/07/25 09:00 Urine WBC 0-4 /hpf (0-5) H 04/07/25 09:00 Ur Squamous Epith Cells 0-4 /hpf (0-5) H 04/07/25 09:00 Amorphous Sediment 1+ /hpf 04/07/25 09:00 Urine Bacteria None /hpf (NONE) 04/07/25 09:00 Hyaline Casts 5.77 /lpf 04/07/25 09:00 Urine Mucus 2+ /hpf 04/07/25 09:00 All radiology interpretation(s) finalized by discharge Discharge Plan Discharge Patient Disposition: Home Clinical Impression: Hx of completed stroke, Hypoxia, HTN (hypertension), Generalized weakness, Declining functional status Dementia Qualifiers: Dementia type: unspecified type Qualified Code(s): F03.91 - Unspecified dementia with behavioral disturbance Condition: Stable Prescriptions: New ipratropium-albuterol 0.5 mg-3 mg(2.5 mg base)/3 mL solution for nebulization 3 ml inhalation Q4H PRN (Reason: shortness of breath or wheezing) Qty: 90 0RF No Action lisinopril 20 mg Tablet 20 mg PO DAILY clopidogrel [Plavix] 75 mg Tablet 75 mg PO DAILY quetiapine [Seroquel] 50 mg Tablet 50 mg PO BID atorvastatin 80 mg tablet 80 mg PO BEDTIME aspirin 81 mg Tablet,Delayed Release (Dr/Ec) 81 mg PO DAILY amlodipine 10 mg tablet 10 mg PO DAILY docusate sodium [Colace] 50 mg/5 mL Liquid 50 mg PO BID PRN (Reason: Constipation) loperamide [Imodium A-D] 2 mg Capsule 2 mg PO Q4H PRN (Reason: Loose Stool) Rx Instructions: administer after each loose stool until symptoms controlled; do not exceed 8 mg per 24 hrs magnesium hydroxide [Milk of Magnesia] 400 mg/5 mL Suspension 30 ml PO DAILY PRN (Reason: constipation ) bisacodyl 10 mg Suppository 10 mg ID DAILY PRN (Reason: Constipation) Enema 19-7 gram/118 mL Enema 118 ml ID DAILY PRN (Reason: Constipation) bisacodyl 5 mg Tablet,Delayed Release (Dr/Ec) 10 mg PO DAILY PRN (Reason: Constipation) polyethylene glycol 3350 17 gram/dose Powder 4 g PO DAILY PRN (Reason: Constipation) loratadine [Claritin] 10 mg Tablet 10 mg PO DAILY PRN (Reason: Allergy Symptoms) acetaminophen 325 mg Capsule 650 mg PO Q4H PRN (Reason: Fever Or Pain) Discharge Orders: Discharge ED (Routine); Ordered 04/07/25 Ordered By: Kamlesh Ibrahim Other Ambulatory Orders: DME: Oxygen (Order) Location: None Selected Ordered By: Kamlesh Ibrahim Referrals: Tao Evans DO [Primary Care Provider, Internal Medicine] Discharge Diet: Usual diet Discharge Activity: Resume usual activity Patient Instructions: Altered Mental Status (ED), Opioid Safety, Pain Management, Patient Portal & Veronica Instructions Activity Restrictions/Additional Instructions: Thank you for choosing [facility] for your healthcare needs today. It is very important that you follow up as instructed or that you return to the Emergency Department should you have concerns or if your condition changes or worsens in any way. You were seen in the emergency room with decreased functional status and weakness. You are also noted to be mildly hypoxic. This corrected without oxygen. Cardiac workup and a CTA of your chest did not show any pneumonia acute coronary syndrome pneumothorax or signs of dissecting aneurysm. Suspect that your symptoms weakness are result of declining status over from your stroke. Follow-up with your primary care provider. No acute emergent findings were noted today. Print Language: Slovenian Coding Level of Care Code ED Editorial Specialist for Haim Dean
--- OUTSIDE RECORDS SUMMARY | 2025-04-07 08:46 | XMS_ITS ---
Author Organization [facility] Care Team Providers Care Stem Mounter Name Role Phone Teetee Rodriguez Unavailable Unavailable Atul Lamar Unavailable Unavailable Allergies and adverse reactions Code CodeSystem Substance Reaction Severity StartDate Concern Status No Known Drug Allergy Unknown 11/04/2018 active Care Team Name Role Address Phone Organization Dates Atul Lamar PCP [address] [place], [address], [facility] (Office): [facility] 03/31/2025 - present Teetee Michael [address], [address], [place] (Office): : [facility] 03/31/2025 - present Goals Section Goals Description Status Target Date All goals will be reviewed a nd updated as needed with completion of the assessment process of the [facility] unless otherwise stated in the individualized goal Active 07/05/2025 Andre will be able to make basic needs known on a daily basis through the review date. Active 07/05/2025 Andre will be free from s/s x of complications of CVA (DVT, contractures, aspiration pneumonia, dehydration) through review date. Active 07/05/2025 Andre will be/remain free o f psychotropic drug related complications, including movement disorder, discomfort, hypotension, gait disturbance, constipation/impaction or cognitive/behavioral impairment through review date. Active Andre will maintain current level of cognitive function through the review date. Active 07/05/2025 Andre will maintain current level of mobility through review date. Active 07/05/2025 Andre will not develop comp lications related to skin breakdown, ineffective breathing pattern, altered cardiac output, diabetes, impaired mobility through review date. Active 07/05/2025 Andre will stay in this facility Active 07/05/2025 Resident Will Be Free of Falls Active Resident will not have adver se effects r/t usage of medications with Black Box Warnings. Active 07/05/2025 The resident will be free fr om discomfort or adverse reactions related to anticoagulant use through the review date. Active 07/05/2025 The resident will remain marissa e from skin breakdown due to incontinence and brief use through the review date. Active The resident will resume usu al activities without further incident through the review date. Active 07/05/2025 Functional Status Code Name Recorded Time Value Entered By Ambulation 04/06/2025 Total Dependence [place] Ambulation 04/06/2025 Total Dependence [place] Ambulation 04/06/2025 Not assessed [place] Ambulation 04/06/2025 Not assessed [place] Bathing 04/04/2025 Total Dependence - Dressing 04/06/2025 Total Dependence [place] Feeding or Eating 04/06/2025 Not assessed [place] Toileting 04/07/2025 Total Dependence hhunter Transferring 04/06/2025 Extensive Assistance lhollan ratna Immunizations Immunization Status Vaccine Details Vaccine Code CodeSystem Date Notes Influenza cancelled Influenza, high-dose, split virus, quadrivalent, injectable, preservative free 197 CVX created date: 07/10/2024 consent date: 06/21/2024 Educated by on 07/10/2024 Influenza cancelled Influenza, high-dose, split virus, quadrivalent, injectable, preservative free 197 CVX created date: 07/02/2023 consent date: 07/02/2023 Educated by Teetee Bustamante on 07/02/2023 Influenza completed Influenza, high-dose, split virus, quadrivalent, injectable, preservative free lotNumber: [id number] expiry: 03/05/2023 Mfg: Seqirus Given 0.5 ml Left Deltoid intramuscularly 197 CVX created date: 06/29/2022 consent date: 06/29/2022 administer ed date: 06/29/2022 Educated by Teetee Bustamante on 06/29/2022 Influenza completed Influenza, high-dose, split virus, quadrivalent, injectable, preservative free 197 CVX created date: 12/15/2021 consent date: 12/15/2021 administer ed date: 06/30/2021 SARS-COV-2 (COVID-19) completed SARS-COV-2 (COVID-19) vaccine, vector non-replicating, recombinant spike protein-Ad26, preservative free, 0.5 mL Mfg: Kieran Step 1 of Multi-step 212 CVX created date: 10/17/2021 administer ed date: 01/31/2021 Prevnar 23 cancelled pneumococcal polysaccharide vaccine, 23 valent 33 CVX created date: 12/15/2021 consent date: 12/15/2021 Family refuses all pneumo vaccines SARS - COV2 (Moderna) Booster completed SARS-COV-2 (COVID-19) vaccine, mRNA, spike protein, LNP, preservative free, 100 mcg/0.5mL dose or 50 mcg/0.25mL dose lotNumber: [id number] expiry: 06/20/2022 Mfg: Moderna Given 0.5 ml Right Deltoid intramuscularly 207 CVX created date: 05/27/2022 consent date: 05/27/2022 administer ed date: 05/27/2022 Educated by Teetee Bustamante on 05/27/2022 Medications Section Medication Name Status Code CodeSystem Dose Route Frequency Admin Type Sig Text Start Date End Date Plavix Tablet 75 MG suspende d 573007 RXNORM 75 mg Oral in the morning Routine Give [facility] d to CEREBR AL INFARC TION, UNSPEC IFIED (I63.9 ) 2021 - Lisinopril Tablet 20 MG aborted 269892 RXNORM 20 mg Oral in the morning Routine Give 20 mg by mouth in the mornin g 04/06 Acetaminophen Capsule aborted 650 millig rae Oral as needed PRN Give 650 millig rae by mouth every 4 hours as needed for Pain relate d to PAIN, UNSPEC IFIED (R52) 04/06 POLYETH GLYC POW 3350 NF aborted 754722 RXNORM 17 gram Oral as needed PRN Give 17 gram by mouth as needed for Consti pation relate d to CONSTI PATION , UNSPEC IFIED (K59.0 0) 04/06 STOOL SOFTNR TAB 8.6-50MG aborted 282748 RXNORM 1 tablet Oral as needed PRN Give 1 tablet by mouth as needed for Consti pation relate d to CONSTI PATION , UNSPEC IFIED (K59.0 0) 04/07 MILK OF MAGN MARQUEZ aborted 802302 RXNORM 30 ml Oral as needed PRN Give 30 ml by mouth as needed for Consti pation relate d to CONSTI PATION , UNSPEC IFIED (K59.0 0) 04/06 ENEMA READY- OBDULIA -TO-USE active 420532 RXNORM 1 unit Rectal as needed PRN Insert 1 unit rectal ly as needed for Consti pation relate d to CONSTI PATION , UNSPEC IFIED (K59.0 0) 2021 - BISACODYL SUP 10MG active 858826 RXNORM 10 mg Rectal as needed PRN Insert 10 mg rectal ly as needed for Consti pation relate d to CONSTI PATION , UNSPEC IFIED (K59.0 0) 2021 - Lipitor Tablet 20 MG aborted 239405 RXNORM 20 mg Oral one time a day Routine Give 20 mg by mouth one time a day relate d to HYPERL IPIDEM IA, UNSPEC IFIED (E78.5 ) 04/03 SEROquel Oral Tablet 50 MG aborted 057843 RXNORM 50 mg Oral two times a day Routine Give 50 mg by mouth two times a day for schizo affect gita disord er, depres sive type 04/06 Imodium A-D Oral Capsule 2 MG active 155210 RXNORM 2 mg Oral as needed PRN Give 2 mg by mouth as needed for Diarrh ea take 2 tablet s after first loose stool and 1 tablet after each loose with a max of 4 tablet s in 24 hours 2023 - Bisacodyl EC Tablet Delayed Release 5 MG aborted 183618 RXNORM 2 tablet Oral as needed PRN Give 2 tablet by mouth every 24 hours as needed for bowel manage ment 04/07 Loratadine Tablet 10 MG aborted 874518 RXNORM 1 tablet Oral one time a day Routine Give 1 tablet by mouth one time a day for allerg y sympto ms 04/07 Clopidogrel Bisulfate Oral Tablet 75 MG aborted 988086 RXNORM 1 tablet Oral one time a day Routine Give 1 tablet by mouth one time a day for blood thinne r 04/03 amLODIPine Besylate Oral Tablet 10 MG suspende d 876887 RXNORM 10 mg Oral one time a day Routine Give 10 mg by mouth one time a day for hypert ension 2024 - Atorvastatin Calcium Oral Tablet 80 MG aborted 092332 RXNORM 1 tablet Oral in the evening Routine Give 1 tablet by mouth in the evenin g for choles terol 04/06 Aspirin Oral Tablet Chewable 81 MG aborted 141268 RXNORM 1 tablet Oral one time a day Routine Give 1 tablet by mouth one time a day for antipl atelet 04/06 Lisinopril Tablet 20 MG active 845431 RXNORM 20 mg Oral in the morning Routine Give 20 mg via G-Tube in the mornin g for blood pressu re 2024 - Loratadine Childrens Oral Solution active 10 ml Oral one time a day Routine Give 10 ml via PEG-Tu be one time a day for allerg y sympto ms Lorata dine 5 mg/5ml 2024 - MILK OF MAGN MARQUEZ active 887982 RXNORM 30 ml Oral as needed PRN Give 30 ml via G-Tube as needed for Consti pation 2024 - Acetaminophen Capsule active 650 millig rae Oral as needed PRN Give 650 millig rae via G-Tube every 4 hours as needed for Pain 2024 - SEROquel Oral Tablet 50 MG active 070994 RXNORM 50 mg Oral two times a day Routine Give 50 mg via G-Tube two times a day for schizo affect gita disord er, depres sive type 2024 - Atorvastatin Calcium Oral Tablet 80 MG active 776996 RXNORM 1 tablet Oral in the evening Routine Give 1 tablet via G-Tube in the evenin g for choles terol 2024 - POLYETH GLYC POW 3350 NF active 848087 RXNORM 17 gram Oral as needed PRN Give 17 gram via G-Tube as needed for Consti pation 2024 - Aspirin Oral Tablet Chewable 81 MG active 676650 RXNORM 1 tablet Oral one time a day Routine Give 1 tablet via G-Tube one time a day for antipl atelet 2024 - Docusate Sodium Oral Liquid active 5 ml Oral as needed PRN Give 5 ml via PEG-Tu be as needed for consti pation Docusa te sodium 50 mg/5 ml Give 5 ml per tube BID prn 2024 - Mental Status Section Date Assessment Total Score Description 04/03/2025 CAM 0 No delirium ind icated 03/26/2025 CAM 4 Delirium indica charo Problems Problem # Description Date of onset Resolved Date Code CodeSystem Concern Status 1 APHASIA FOLLOWING CEREBRAL INFARCTION 03/31/[address] active 2 HEMIPLEGIA AND HEMIPARESIS FOLLOWING CEREBRAL INFARCTION AFFECTING RIGHT DOMINANT SIDE 03/31/[address] active 3 UNSPECIFIED SEVERE PROTEIN-CALORIE MALNUTRITION 03/28/[address] active 4 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 03/26/[address] active 5 UNSPECIFIED SYMPTOMS AND SIGNS INVOLVING THE NERVOUS SYSTEM 03/26/[address] active 6 PERSONAL HISTORY OF TRANSIENT ISCHEMIC ATTACK (TIA), AND CEREBRAL INFARCTION WITHOUT RESIDUAL DEFICITS 02/24/[address] active 7 COVID-19 12/01/19 24 12/11/[address] completed 8 NAUSEA WITH VOMITING, UNSPECIFIED 12/01/19 24 08/25/[address] completed 9 DYSPHAGIA, OROPHARYNGEAL PHASE 07/09/[address] active 10 MUSCLE WEAKNESS (GENERALIZED) 03/01/[address] active 11 UNSPECIFIED DEMENTIA, UNSPECIFIED SEVERITY, WITH OTHER BEHAVIORAL DISTURBANCE 03/01/[address] active 12 COVID-19 12/03/19 23 12/14/[address] completed 13 VASCULAR DEMENTIA, UNSPECIFIED SEVERITY, WITH OTHER BEHAVIORAL DISTURBANCE 07/15/[address] active 14 CHRONIC OBSTRUCTIVE PULMONARY DISEASE, UNSPECIFIED 07/24/[address] active 15 ENCOUNTER FOR SCREENING, UNSPECIFIED 07/24/2008/25/[address] completed 16 HYPERLIPIDEMIA, UNSPECIFIED 07/24/[address] active 17 OTHER MALAISE 07/24/[address] active 18 PAIN, UNSPECIFIED 07/24/[address] active 19 SCHIZOAFFECTIVE DISORDER, DEPRESSIVE TYPE 07/24/[address] active 20 UNSPECIFIED DEMENTIA WITH BEHAVIORAL DISTURBANCE 11/25/19 19 06/12/[address] completed 21 CEREBRAL INFARCTION, UNSPECIFIED 11/04/19 19 02/23/[address] completed 22 CONSTIPATION, UNSPECIFIED 11/04/[address] active 23 ENCOUNTER FOR SCREENING FOR RESPIRATORY TUBERCULOSIS 11/04/19 19 08/25/[address] completed 24 ESSENTIAL (PRIMARY) HYPERTENSION 11/04/[address] active 25 WEAKNESS 11/04/[address] active Reason for Referral No Reasons for Referral Entered Diagnostic Results Result Code Code System Date Test Result Interpretation Reference Range Status Notes [id number] LOINC 04/07 Complete Blood Count / CMP / Cogent- Completed Result for: Andre Dumont ( 1955 , M) [phone] 99-9 LOINC 04/06 Cogent- Value: See Attachment Units: Normal Final 4544-3 LOINC 04/06 HCT Value: 49.3 Units: % Normal 40.1-51.0 Final 788-0 LOINC 04/06 RDW Value: 15.3 Units: % High 11.6-14.4 Final 5905-5 [facility] 04/06 MONO% Value: 6.9 Units: % Normal 5.3-12.2 Final 41043-6 [facility] 04/06 LYMPH% Value: 10.6 Units: % Low 21.8-53.1 Final 770-8 [facility] 04/06 NEUT% Value: 82.2 Units: % High 34.0-67.9 Final 706-2 [facility] 04/06 BASO% Value: 0.1 Units: % Low 0.2-1.2 Final 713-8 [facility] 04/06 EOS% Value: 0.2 Units: % Low 0.8-7.0 Final 3097-3 [facility] 04/06 BUN/CREAT RATIO Value: 28.5 Units: {calc} High 10-20 Final 787-2 [facility] 04/06 MCV Value: 91.0 Units: fL Normal 79.0-92.2 Final 777-3 [facility] 04/06 MPV Value: 8.7 Units: fL Low 9.4-12.4 Final 23602-6 [facility] 04/06 GLOBULIN, Calculated Value: 3.2 Units: g/dL Normal 1.9-3.7 Final 2885-2 [facility] 04/06 TOTAL PROTEIN Value: 7.3 Units: g/dL Normal 6.4-8.9 Final 785-6 [facility] 04/06 MCHC Value: 32.6 Units: g/dL Normal 32.3-36.5 Final 1751-7 [facility] 04/06 ALBUMIN Value: 4.1 Units: g/dL Normal 3.5-5.7 Final 7187 [facility] 04/06 HGB Value: 16.1 Units: g/dL Normal 13.7-17.5 Final Does not correlate with previous HGB results. KF 1920-8 [facility] 04/06 ASPARTATE AMINOTRANS FERASE (AST) Value: 24 Units: [IU]/L Normal 13-39 Final 174-6 [facility] 04/06 ALANINE AMINOTRANS FERASE (ALT) Value: 34 Units: [IU]/L Normal 7-52 Final 6768-6 [facility] 04/06 ALKALINE PHOSPHATAS E (ALP) Value: 129 Units: [IU]/L High 34-104 Final 61498-1 [facility] 04/06 ANION GAP Value: 20.5 Units: mEq/L High 8-16 Final 2027-9 [facility] 04/06 CARBON DIOXIDE (BICARB) Value: 24 Units: mEq/L Normal 21-31 Final 2074-0 [facility] 04/06 CHLORIDE Value: 106 Units: mEq/L Normal 98-107 Final 2823-3 [facility] 04/06 POTASSIUM Value: 4.5 Units: mEq/L Normal 3.5-5.1 Final 29509-14 [facility] 04/06 SODIUM Value: 146 Units: mEq/L High 136-145 Final 216-0 [facility] 04/06 CREATININE Value: 0.82 Units: mg/dL Normal 0.6-1.3 Final 3090 [facility] 04/06 BLOOD UREA NITROGEN (BUN) Value: 23.4 Units: mg/dL Normal 7.0-25.0 Final 1974- [facility] 04/06 TOTAL BILIRUBIN Value: 0.5 Units: mg/dL Normal 0.3-1.0 Final 72078-7 [facility] 04/06 CALCIUM Value: 9.3 Units: mg/dL Normal 8.6-10.2 Final 234-7 [facility] 04/06 GLUCOSE Value: 80 Units: mg/dL Normal 74-109 Final 98632-5 [facility] 04/06 Estimated GFR AA Value: >60.0 Units: mL/min/{1.7 3_m2} Normal >60.0 Final 32202-0 [facility] 04/06 Estimated GFR Value: >60.0 Units: mL/min/{1.7 3_m2} Normal >60.0 Final 785-6 [facility] 04/06 MCH Value: 29.6 Units: pg Normal 25.7-32.2 Final 17590 [facility] 04/06 A/G RATIO Value: 1.3 Units: {ratio} Normal 0.8-2.0 Final 777-3 [facility] 04/06 PLT Value: 302 Units: x10^3/uL Normal 163-337 Final 704-7 [facility] 04/06 BASO# Value: 0.0 Units: x10^3/uL Low 0.01-0.08 Final 711-2 [facility] 04/06 EOS# Value: 0.0 Units: x10^3/uL Low 0.04-0.54 Final 742-7 [facility] 04/06 MONO# Value: 1.0 Units: x10^3/uL High 0.30-0.82 Final 736-9 [facility] 04/06 LYMPH# Value: 1.5 Units: x10^3/uL Normal 1.32-3.57 Final 751-8 [facility] 04/06 NEUT# Value: 11.5 Units: x10^3/uL High 1.78-5.38 Final 6690-2 [facility] 04/06 WBC Value: 14.0 Units: x10^3/uL High 4.23-9.07 Final 789-8 [facility] 04/06 RBC Value: 5.42 Units: 10*6/uL Normal 4.63-6.08 Final Test Code Code System Name Date 04/06/2025 Complete Blood Count 025 [facility] 04/06/2025 Complete Blood Count 025 [facility] 04/06/2025 Complete Blood Count 025 [facility] 04/06/2025 Complete Blood Count 025 [facility] 04/06/2025 Complete Blood Count 025 [facility] 04/06/2025 Complete Blood Count 025 Social History Social History Observation Description Start Date End Date Code Code System Current Smoking Status Tobacco smoking consumption unknown [id number] SNOMED CT Sex Assigned At Male 1955 51652-7 [facility] Gender Identity Vital Signs Code Code System Vitals Name Values and Units Timing Information 9279-1 [facility] Respiratory Rate Value=18.0 Units=/m in 04/07/2025 8310-5 [facility] Body Temperature Value=98.5 Units= F 04/07/2025 47579-0 [facility] O2 % BldC Oximetry Value=90.0 Units= % 04/07/2025 8462-4 [facility] Blood Pressure-Diastolic Value=90 Un its=mmHg 04/07/2025 8480-6 [facility] Blood Pressure-Systolic Pcnrr=179 Un its=mmHg 04/07/2025 8867-4 [facility] Heart rate Value=90.0 Units=/min 48390-5 [facility] Pain Level Value=0.0 04/06/2025 46223-2 [facility] Weight Ckroq=879.0 Units=Lbs 8302-2 [facility] Height Value=69.0 Units=Inches 02/27/2025
--- OUTSIDE RECORDS SUMMARY | 2025-04-07 08:46 | XMS_ITS | Clinical Summary ---
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 03/31/2025 Active aspirin (JAREK CHEWABLE) 81 mg Tablet, Chewable Take 1 Tablet (81 mg) by mouth daily. 03/31/2025 Active atorvastatin (LIPITOR) 80 mg tablet Take 1 Tablet (80 mg) by mouth daily. 03/31/2025 Active clopidogreL (PLAVIX) 75 mg Tablet Take 1 Tablet (75 mg) by mouth daily. 03/31/2025 Active Active Problems Problem Noted Date Diagnosed Date Protein-calorie malnutrition, severe 03/28/2025 Stroke-like symptoms 03/26/2025 History of CVA (cerebrovascular accident) 2024 Dementia 03/26/2025 Cerebrovascular accident (CV A) due to stenosis of left middle cerebral artery 03/26/2025 Encounters Date Type Department Care Team Description 04/03/2025 Orders Only [facility] [address] [place] [address] Provider, Abstract 03/28/2025 External Device Data [facility]CTION Provider, Abstract 03/28/2025 External Device Data [facility] Provider, Abstract 03/28/2025 External Device Data [facility] Provider, Abstract 03/28/2025 External Device Data [facility] Provider, Abstract 03/27/2025 External Device Data [facility] Provider, Abstract 03/26/2025 5:38 PM CDT - 03/30/2025 10:25 PM CDT Hospital Encounter [facility] Neurology [address] [place] [phone] Evelio Marrero MD Elgayesh, MD Dario Nguyen Supriya, MD Cerebrovascular accident (CVA) due to stenosis of left middle cerebral artery (CMS/HCC) Discharge Disposition: Half-Way Fac(SNF) with Medicare Certification in Anticipation of Skilled Care 03/26/2025 Travel from Last 3 Months Social History Tobacco Use Types Packs/Day Years Used Date Smoking Tobacco: Unknown Tobacco Cessation:Counseling Given: Not Answered Sex and Gender Information Value Date Recorded Sex Assigned at Not on file Legal Sex Male 3:19 PM CDT Gender Identity Not on file Sexual Orientation Not on file Last Filed Vital Signs Vital Sign Reading [...] Mass Index 22.41 03/26/2025 9:56 PM CDT Plan of Treatment Health Maintenance Due Date Last Done Comments DTAP/TDAP/TD VACCINES (1 - Tdap) 1973 PNEUMOCOCCAL VACCINE 50+ YEA RS (1 of 2 - PCV) 1973 Traditional Medicare (ACO) A nnual Wellness Visit 1973 COLORECTAL SCREENING 1999 Colorectal Cancer Screening 1999 FIT-DNA Q 3 years 1999 FIT/FOBT Q 1 year 1999 Flex Sig/CT Colonography Q 5 years 1999 ZOSTER VACCINE (1 of 2) 2004 RSV VACCINE (60+ or ) (1 - Risk 60-74 years 1-dose series) 2014 COVID-19 Vaccine ( season) 2024, 01/31/2021 INFLUENZA VACCINE (#1) 2025 06/29/2022, 2020 Procedures Procedure Name Priority Date/Time Associated Diagnosis Comments TELEMETRY REPORT 04/03/2025 2:41 AM CDT US DOPPLER VENOUS ARM LEFT Pending Discharge 03/30/2025 12:57 PM CDT POC GLUCOSE Routine 03/30/2025 6:02 AM CDT BASIC METABOLIC PANEL Routine 03/30/2025 3:40 AM CDT CBC WITH DIFFERENTIAL Routine 03/30/2025 3:40 AM CDT POC GLUCOSE Routine 03/29/2025 9:50 PM CDT POC GLUCOSE Routine 03/29/2025 9:38 AM CDT BASIC METABOLIC PANEL Routine 03/29/2025 3:38 AM CDT CBC WITH DIFFERENTIAL Routine 03/29/2025 3:38 AM CDT POC GLUCOSE [...] POC GLUCOSE Routine 03/27/2025 3:16 AM CDT CBC WITH DIFFERENTIAL Routine 03/27/2025 2:14 AM CDT BASIC METABOLIC PANEL Routine 03/27/2025 2:14 AM CDT TROPONIN 6 HR, 5TH GEN Timed Study 03/27/2025 2:14 AM CDT POC GLUCOSE Routine 03/26/2025 11:55 PM CDT LIPID PANEL Routine 03/26/2025 11:44 PM CDT TROPONIN 6 HR, 5TH GEN Timed Study 03/26/2025 11:44 PM CDT POC GLUCOSE Routine 03/26/2025 10:08 PM CDT VERIFICATION BLOOD GROUP Stat 03/26/2025 8:10 PM CDT Laboratory test HEMOGLOBIN A1C Stat 03/26/2025 8:10 PM CDT TROPONIN BASELINE, 5TH GEN Stat 03/26/2025 8:10 PM CDT TYPE AND SCREEN Stat 03/26/2025 6:09 PM CDT COMPREHENSIVE METABOLIC PANEL Stat 03/26/2025 6:09 PM CDT PROTIME-INR Stat 03/26/2025 6:09 PM CDT CBC WITH DIFFERENTIAL Stat 03/26/2025 6:09 PM CDT TROPONIN BASELINE, 5TH GEN Stat 03/26/2025 6:09 PM CDT EKG 12-LEAD Stat 03/26/2025 6:[address] STROKE ACTIVATION Stat 03/26/2025 6:01 PM CDT COMPREHENSIVE METABOLIC PANEL Routine 03/26/2025 8:36 AM CDT from Last 3 Months Results * TELEMETRY REPORT (04/03/2025 2:41 AM CDT) us Provider Scanning ECG ORDERABLES Final Result * US DOPPLER VENOUS ARM LEFT (03/30/2025 12:57 PM CDT) Anatomical Region Laterality Modality Upper Extremity Ultrasound 03/30/2025 12:3 0 PM CDT Narrative 03/30/2025 1:49 PM CDT [facility] Noninvasive Vascular Laboratory [address] [place] [address] Noninvasive Vascular Lab Venous Exam Limited Upper Extremity Duplex Patient: Andre Gamino Study ID: US DOPPLER VENOU Gender: M : 1955 Age: 69 Room: Height: Weight: BSA: Pt status: Inpatient Study Date: 03/30/2025 Study Time: 12:30:04 PM BSA: Ordering: Mandi Bishop Interpreting:Nate Bob General Studies Program Chair: Gill Lyons Indications: DVT. Summary Impression: 1. [...] Patent; Compressible CRITICAL FINDINGS - Reported to: chel worley - 03/30/25 - 12:50 - [facility] Vascular Lab is accredited with the [facility] Commission for the Accreditation of Vascular Laboratories (ICAVL) Prepared and Electronically Authenticated Nate Bob Confirmed 03/30/2025 13:49 Procedure Note Nate Bob MD - 03/30/2025 [facility] Noninvasive Vascular Laboratory [address] [place] [address] Noninvasive Vascular Lab Venous Exam Limited Upper Extremity Duplex Patient: Andre Gamino Study ID: US DOPPLER GORDON Gender: M : 1955 Age: 69 Room: Height: Weight: BSA: Pt status: Inpatient Study Date: 03/30/2025 Study Time: 12:30:04 PM BSA: Ordering: Mandi Bishop Interpreting:Nate Bob General Studies Program Chair: Gill Lyons Indications: DVT. Summary Impression: 1. [...] Patent; Compressible CRITICAL FINDINGS - Reported to: chel worley - 03/30/25 - 12:50 - [facility] Vascular Lab is accredited with theIntersocietal Commission for the Accreditation of Vascular Laboratories (ICAVL) Prepared and Electronically Authenticated Nate Bob Confirmed 03/30/2025 13:49 Mandi Bishop MD US ORDERABLES Final Result * (ABNORMAL) POC GLUCOSE (03/30/2025 6:02 AM CDT) Only the most recent of9 resultswithin the time period is included. Pathologist [facility] GLUCOSE POC 108(H) 74 - 99 mg/dL 03/30/2025 6:02 AM CDT [facility] SPECIMEN SOURCE, GLUCOSE POC Capillary 03/30/2025 6:02 AM CDT [facility] Blood, whole 03/30/2025 6:02 AM CDT 03/30/2025 6:21 AM CDT Mandi Bishop MD POINT OF CARE TESTING Final Re sult [facility] CLIA # [id number] [address] [place] [address] [place], [place] [address] * (ABNORMAL) CBC WITH DIFFERENTIAL (03/30/2025 3:40 AM CDT) Only the most recent of5 resultswithin the time period is included. Pathologist [facility] WBC 10.3 4.8 - 10.8 K/uL 03/30/2025 4:05 AM [facility] RBC 5.06 4.60 - 6.20 M/uL 03/30/2025 4:05 AM [facility] HEMOGLOBIN 14.7 14.0 - 18.0 g/dL 03/30/2025 4:05 AM [facility] HEMATOCRIT 44.0 41.0 - 53.0 % 03/30/2025 4:05 AM [facility] MCV 87.0 84.0 - 103.0 fL 03/30/2025 4:05 AM [facility] MCH 29.1 27.0 - 34.0 pg 03/30/2025 4:05 AM [facility] MCHC 33.4 30.0 - 35.0 g/dL 03/30/2025 4:05 AM [facility] PLATELETS 219 140 - 440 K/uL 03/30/2025 4:05 AM [facility] MPV 10.0 8.9 - 12.8 fL 03/30/2025 4:05 AM [facility] RDW 14.3 11.0 - 14.5 % 03/30/2025 4:05 AM [facility] RDW-STDEV 45.9 37.0 - 54.0 fL 03/30/2025 4:05 AM [facility] NEUTROPHILS 71 42 - 75 % 03/30/2025 4:05 AM [facility] LYMPHOCYTES 14(L) 24 - 44 % 03/30/2025 4:05 AM [facility] MONOCYTES 13(H) 2 - 10 % 03/30/2025 4:05 AM [facility] EOSINOPHILS 1 0 - 7 % 03/30/2025 4:05 AM [facility] BASOPHILS 0 0 - 1 % 03/30/2025 4:05 AM [facility] IMMATURE GRANULOCYTES 0 0 - 2 % 03/30/2025 4:05 AM CDT [facility] NEUTROPHIL ABSOLUTE 7.34 2.00 - 8.00 K/uL 03/30/2025 4:05 AM CDT [facility] LYMPHOCYTE ABSOLUTE 1.48 1.20 - 4.00 K/uL 03/30/2025 4:05 AM CDT [facility] MONOCYTE ABSOLUTE 1.30(H) 0.10 - 0.60 K/uL 03/30/2025 4:05 AM CDT [facility] EOSINOPHIL ABSOLUTE 0.12 0.00 - 0.70 K/uL 03/30/2025 4:05 AM CDT [facility] BASOPHILS ABSOLUTE 0.04 0.00 - 0.20 K/uL 03/30/2025 4:05 AM CDT [facility] IMMATURE GRANULOCYTES ABSOLUTE 0.04 0.00 - 0.10 K/uL 03/30/2025 4:05 AM [facility] SMEAR REVIEWED: NA - Not Applicable 03/30/2025 4:05 AM [facility] Blood Venipuncture / Unknown 03/30/2025 3:40 AM CDT 03/30/2025 3:59 AM CDT us Mandi Bishop MD HEMATOLOGY ORDERABLES Final Re [id number] [address] [place] [id number] * (ABNORMAL) BASIC METABOLIC PANEL (03/30/2025 3:40 AM CDT) Only the most recent of4 resultswithin the time period is included. SODIUM 134(L) 136 - 145 mmol/L 03/30/2025 4:39 AM CDT [facility] POTASSIUM 4.0 3.5 - 5.1 mmol/L 03/30/2025 4:39 AM T [facility] CHLORIDE 102 98 - 107 mmol/L 03/30/2025 4:39 AM CDT [facility] CO2 21(L) 22 - 29 mmol/L 03/30/2025 4:39 AM CDT [facility] CALCIUM 8.8 8.8 - 10.2 mg/dL 03/30/2025 4:39 AM CDT [facility] BUN 8 8 - 23 mg/dL 03/30/2025 4:39 AM CDT [facility] CREATININE 0.93 0.67 - 1.17 mg/dL 03/30/2025 4:39 AM T [facility] Comment:The GFR result is no t clinically significant on patients <18 or >70 years of age. GLUCOSE 98 74 - 99 mg/dL 03/30/2025 4:39 AM T [facility] GFR >60 mL/min/1.7 3 sq meter 03/30/2025 4:39 AM T [facility] Comment:eGFR calculated with 2020 CKD-EPI equation. Vegetarian diet, extremely high or low muscle mass, and may affect results. Cystatin C with Glomerular Filtration Rate is a suitable alternative for these patients. ANION GAP 11 9 - 20 mmol/L 03/30/2025 4:39 AM T [facility] Blood Venipuncture / Unknown 03/30/2025 3:40 AM CDT 03/30/2025 3:58 AM CDT us Mandi Bishop MD CHEMISTRY ORDERABLES Final Res ult [facility] CLIA # [id number] [address] [place] [address] [place] [address] * MRI BRAIN WO CONTRAST (03/28/2025 8:58 PM CDT) Anatomical Region Laterality Modality Head Magnetic Resonan ce 03/28/2025 8:59 PM CDT Impressions 03/28/2025 10:13 PM CDT IMPRESSION: Small acute infarcts in the left periventricular white matter. MACRO: None Narrative 03/28/2025 10:13 PM CDT EXAMINATION: MRI BRAIN WO CONTRAST CLINICAL HISTORY: ASSOCIATED DIAGNOSIS: Transient ischemic attack (TIA) ORDERING PROVIDER: ANANDA HOPKINS TECHNMARCIE NOTE: COMPARISON: CT stroke 03/26/2025 [...] DIAGNOSIS: Transient ischemic attack (TIA) ORDERING PROVIDER: ANANDA SALDAÑA NOTE: COMPARISON: CT stroke 03/26/2025 TECHNIQUE: Patient [...] left periventricular white matter. MACRO: None us Ananda Hopkins MD MR ORDERABLES Leisa kendall Result * ECHO COMPLETE - CONTRAST AND STRAIN IF INDICATED (03/28/2025 9:00 AM CDT) EJECTION FRACTION 58 INTERFACE SYSTEM 03/28/2025 8:31 AM CDT Narrative INTERFACE SYSTEM - 03/28/2025 10:06 AM CDT [facility] Echocardiography Laboratory [address] [place] [address] Transthoracic Echocardiography Patient: Andre Gamino Study ID: ECHO COMPLETE - Gender: M : 1955 Age: 69 Room: [facility] Study Date: 03/28/2025 Pt Status: Inpatient Study Time: 08:31:13 AM [facility] #: [id number] Ordering:Ananda Hopkins General Studies Program Chair: Harper Klein [facility] Indications and History: Stroke. Summary and Conclusion: [...] (H) shelly values outside specified reference range. [facility] Echo Labs are accredited with the Intersocietal Accreditation Commission - Echocardiography. Prepared and Electronically Authenticated Forrest Rivera MD Confirmed 03/28/2025 10:06 Procedure Note Forrest Rivera MD - 03/28/2025 [facility] Echocardiography Laboratory [address] [place] [address] Transthoracic Echocardiography Patient: Andre Gamino Study ID: ECHO COMPLETE- Gender: M : 1955 Age: 69 Room: [facility] Study Date: 03/28/2025 Pt Status: Inpatient Study Time: 08:31:13 AM CSN #: [id number] Ordering:Ananda Hopkins General Studies Program Chair: Harper Klein [facility] Indications and History: Stroke. Summary and Conclusion: [...] Studydate: 03/28/2025. Study time: 08:31 AM. Location: [facility]. Cardiac Anatomy: LEFT VENTRICLE: The cavity size [...] (H) shelly values outside specified reference range. [facility] Echo Labs are accredited with theIntersocietal Accreditation Commission - Echocardiography. Prepared and Electronically Authenticated Forrest Rivera MD Confirmed 03/28/2025 10:06 Ananda Hopkins MD ORDERABLES Leisa l Result INTERFACE SYSTEM Refer to clinic/hospital department * (ABNORMAL) TROPONIN 6 HR, 5TH GEN (03/27/2025 2:14 AM CDT) Only the most recent of2 resultswithin the time period is included. TROPONIN T, 6 HR 5TH GEN 27(H) <=15 ng/L 03/27/2025 2:59 AM CDT [facility] DELTA 6HR TROPONIN T 7 See Interp. 03/27/2025 2:59 AM CDT [facility] Blood Venipuncture / Unknown 03/27/2025 2:14 AM CDT 03/27/2025 2:29 AM CDT [facility] - 03/27/2025 2:59 AM CDT Troponin elevated. Delta indeterminate. Ananda Hopkins MD CHEMISTRY ORDERABLES Final Result [facility] CLIA # [id number] [address] [address] [place] [address] * LIPID PANEL (03/26/2025 11:44 PM CDT) CHOLESTEROL 133 <200 mg/dL 03/27/2025 12:21 AM CDT [facility] TRIGLYCERIDE 68 <150 mg/dL 03/27/2025 12:21 AM CDT [facility] HDL 44 40 - 59 mg/dL 03/27/2025 12:21 AM CDT [facility] LDL CALCULATED 75 <100 mg/dL 03/27/2025 12:21 AM CDT [facility] NON-HDL CHOLESTEROL 89 <130 mg/dL 03/27/2025 12:21 AM CDT [facility] Blood Venipuncture / Unknown 03/26/2025 11:44 PM CDT 03/26/2025 11:51 PM CDT [facility] - 03/27/2025 12:21 AM CDT TOTAL CHOLESTEROL [...] Reference Ranges for Lipid Panels (NCEP/AMA) . Ananda Hopkins MD CHEMISTRY ORDERABLES Final Result Performing Organization Address [facility] Co de Phone Number [id number] Critical access hospital[address] [address] * VERIFICATION BLOOD GROUP (03/26/2025 8:10 PM CDT) Pathologist [facility] ABO GROUP A 03/26/2025 8:37 PM CDT [facility] RH (D) TYPE Positive 03/26/2025 8:37 PM CDT [facility] Blood Venipuncture / Unknown 03/26/2025 8:10 PM CDT 03/26/2025 8:17 PM CDT Evelio Marrero MD BLOOD BANK ORDERAB LES Final Result Performing Organization Address [facility] de Phone Number [facility][id number] [address] [place] [address], * (ABNORMAL) TROPONIN BASELINE, 5TH GEN (03/26/2025 8:10 PM CDT) Only the most recent of2 resultswithin the time period is included. TROPONIN T, BASELINE 5TH GEN 20(H) <=15 ng/L 03/26/2025 8:46 PM CDT [facility] Blood Venipuncture / Unknown 03/26/2025 8:10 PM CDT 03/26/2025 8:16 PM CDT Narrative [facility] [place] - 03/26/2025 8:46 PM CDT Troponin elevated. Ananda Hopkins MD CHEMISTRY ORDERABLES Final Result Performing Organization Address City/[facility]/ZIP Co de Phone Number [facility] CLIA # [id number] [address] [address] * (ABNORMAL) HEMOGLOBIN A1C (03/26/2025 8:10 PM CDT) HEMOGLOBIN A1C 5.8(H) <=5.6 % 03/29/2025 10:58 AM CDT [facility] EST. AVG GLUCOSE, A1C 120 mg/dL 03/29/2025 10:58 AM CDT [facility] Blood Venipuncture / Unknown 03/26/2025 8:10 PM CDT 03/26/2025 8:16 PM CDT Narrative [facility] - 03/29/2025 10:58 AM CDT HGB A1C INTERPRETATION NORMAL: <5.7% PRE-DIABETES: 5.7 - 6.4% DIABETES: 6.5% OR GREATER us Ananda Hopkins MD CHEMISTRY ORDERABLES Final Result Performing Organization Address [facility] Co de Phone Number [facility] CLIA # [id number] [address] [address] * PROTIME-INR (03/26/2025 6:09 PM CDT) PROTIME 14.6 12.7 - 14.9 Seconds 03/26/2025 6:45 PM CDT [facility] INR 1.1 0.8 - 1.2 03/26/2025 6:45 PM CDT [facility] Blood Venipuncture / Unknown 03/26/2025 6:09 PM CDT 03/26/2025 6:27 PM CDT Narrative [facility] [place] - 03/26/2025 6:45 PM CDT Expected Values for INR: DVT/PE Goal INR 2.5; range 2.0 - 3.0 Valve Replacement Tissue Goal INR 2.5; range 2.0 - 3.0 Valve Replacement Mechanical Goal INR 3.0; range 2.5 - 3.5 POST-IN Goal INR 2.5; range 2.0 - 3.0 or Goal INR 3.0; range 2.5 - 3.5 Atrial Fibrillation Goal INR 2.5; range 2.0 - 3.0 Ischemic Stroke Goal INR 2.5; range 2.0 - 3.0 Evelio Marrero MD HEMATOLOGY ORDERAB LES Final Result Performing Organization Address [facility] de Phone Number [facility] CLIA # [id number] [address] [place] [address] * TYPE AND SCREEN (03/26/2025 6:09 PM CDT) ABO GROUP A 03/26/2025 7:38 PM CDT [facility] [place] RH (D) TYPE Positive 03/26/2025 7:38 PM CDT [facility] [place] ANTIBODY SCREEN Negative 03/26/2025 7:38 PM CDT [facility] [place] Blood Venipuncture / Unknown 03/26/2025 6:09 PM CDT 03/26/2025 6:27 PM CDT Evelio Marrero MD BLOOD BANK ORDERAB LES Edited Result - Final Performing Organization Address [facility] Co de Phone Number [facility] CLIA#[id number] [address] [place] [address], * (ABNORMAL) COMPREHENSIVE METABOLIC PANEL (03/26/2025 6:09 PM CDT) Only the most recent of2 resultswithin the time period is included. [facility] SODIUM 138 136 - 145 mmol/L 03/26/2025 7:02 PM [facility] POTASSIUM 3.9 3.5 - 5.1 mmol/L 03/26/2025 7:02 PM [facility] CHLORIDE 105 98 - 107 mmol/L 03/26/2025 7:02 PM [facility] CO2 23 22 - 29 mmol/L 03/26/2025 7:02 PM [facility] CALCIUM 8.1(L) 8.2 - 9.6 mg/dL 03/26/2025 7:02 PM [facility] BUN 14 8 - 23 mg/dL 03/26/2025 7:02 PM [facility] CREATININE 0.89 0.67 - 1.17 mg/dL 03/26/2025 7:02 PM [facility] Comment:The GFR result is no t clinically significant on patients <18 or >70 years of age. GLUCOSE 85 74 - 99 mg/dL 03/26/2025 7:02 PM [facility] TOTAL PROTEIN 5.9(L) 6.4 - 8.3 g/dL 03/26/2025 7:02 PM [facility] ALBUMIN 3.3(L) 3.5 - 5.2 g/dL 03/26/2025 7:02 PM [facility] BILIRUBIN TOTAL 0.3 0.0 - 1.0 mg/dL 03/26/2025 7:02 PM [facility] ALKALINE PHOSPHATASE 126 40 - 129 U/L 03/26/2025 7:02 PM [facility] AST 19 10 - 50 U/L 03/26/2025 7:02 PM [facility] ALT 25 <=50 U/L 03/26/2025 7:02 PM [facility] GFR >60 mL/min/1.7 3 sq meter 03/26/2025 7:02 PM [facility] Comment:eGFR calculated with 2020 CKD-EPI equation. Vegetarian diet, extremely high or low muscle mass, and may affect results. Cystatin C with Glomerular Filtration Rate is a suitable alternative for these patients. ANION GAP 10 9 - 20 mmol/L 03/26/2025 7:02 PM CDT [facility] Blood Venipuncture / Unknown 03/26/2025 6:09 PM CDT 03/26/2025 6:28 PM CDT us Evelio Marrero MD CHEMISTRY ORDERABL ES Final Result [facility] CLIA # [id number] [address] [place] [address] * EKG 12-LEAD (03/26/2025 6:08 PM CDT) 03/26/2025 6:08 PM CDT Narrative INTERFACE SYSTEM - 03/27/2025 8:02 PM CDT [address] [address] Test Date: 2025-03-26 Pat Name: ANDRE GAMINO Department: 11 Room: 15 Gender: M Job Developer: [email or web address] : 1955 Requested By: Order Number: [id number] Reading MD: Nate De Luna Measurements Intervals [place] Rate: 108 P: 1 IA: 156 QRS: -8 QRSD: 60 T: -5 QT: 344 QTc: 460 Interpretive Statements Sinus tachycardia Inferior infarct, age undetermined Abnormal ECG Electronically Signed On 03-27-2025 20:02:48 CDT by Nate De Luna Procedure Note Nate De Luna MD - 03/27/[address] [address] Test Date: 2025-03-26 Pat Name: [facility] Department: 11 Room: 15 15 Gender: M Job Developer: [email or web address] : 1955 Requested By: Order Number: [id number] Reading MD: Nate De Luna Measurements Intervals [place] Rate: 108 P: 1 IA: 156 QRS: -8 QRSD: 60 T: -5 [...] on NASCET criteria. 2. Patent vertebrobasilar systems. Mirela Hopper MD CT ORDERABLES Final Result from Last 3 Months Insurance MEDICARE PART A AND B [place] Advance Directives For more information, please contact: [phone] * NO CPR (In Event of Cardiopulmonary Arrest) (Latest Code Status on File) Date Activated Date Inactivated Comments 03/27/2025 12:43 AM 03/31/2025 12:50 AM Question Answer Comments Mechanical Ventilation (for respiratory distress) - Invasive (i.e. intubation): Yes Mechanical Ventilation (for respiratory distress) - Non-Invasive (i.e. BiPAP, CPAP): Yes * Default Full Code - Needs Discussion Date Activated Date Inactivated Comments 03/26/2025 11:55 PM 03/27/2025 12:43 AM * Full Code Date Activated Date Inactivated Comments 03/26/2025 7:58 PM 03/26/2025 11:55 PM
--- OUTSIDE RECORDS SUMMARY | 2025-04-07 08:46 | XMS_ITS ---
Author Organization Unknown Allergies, Adverse Reactions and Alerts Date IsAllergic OnsetDate Allergen Reaction Type Severity Eriberto rgyCode Legacyallergictoid ReactionCode ReactionCodeSystemID Custom 2024 12:00 :00 AM 1 DAVID BIGGS
--- OUTSIDE RECORDS SUMMARY | 2025-04-07 08:46 | XMS_ITS | Data Portability ---
Author Organization [facility]CBelia, [facility] Address [address] [place] [address] Assessment Encounter Date Assessment Date Assessment LastModified by Organization Details LastModified Time 10/06/2024 10/06/2024 Document scribed by Michael Matta Match Marker. I was present during interview and exam. I have reviewed and agree with above documentation . Dr. Atul Lamar. dkiest Not available 10/08/2024 09:58:34 03/18/2025 03/18/2025 Document scribed by Michael Matta Match Marker. I was present during interview and exam. I have reviewed and agree with above documentation . Dr. Atul Lamar. dkiest Not available 03/19/2025 10:00:09 Plan of Treatment Reminders Order Date Submit Date Provider Last Modified By Organization Details Last Modified Time Details Appointments None record ed. Lab None record ed. Referral None record ed. Procedures None record ed. Surgeries None record ed. Imaging None record ed. Medication Orders None record ed. Patient TargetsNo targets recorded. Patient InstructionsNo instructions recorded. Reason for Referral None Reported. Problems Name Problem SNOMED Code Status Onset Date Resolution Date Notes Provider Name and Address Organization Details Recorded Time Family history of ischemic heart disease 798338686 Active 2016 FAMILY HISTORY OF CORONARY ARTERY DISEASE; Recorded 7 3:05PM by Alisa Brunson RN, Office Visit; Promoted; acuity set as *; Caryl loza, [facility] 5 10:38:57 Sprain of knee and leg Active 2016 SPRAIN AND STRAIN OF KNEE AND LEG; 7 3:05PM by Alisa Brunson RN, Office Visit; Promoted; acuity set as *; Caryl loza, [facility] 10:39:27 Schizoaff ective disorder 90234370 Active 2024 Caryl olza, [facility] 5 10:11:29 Chronic pain 68613413 Active 2024 Caryl loza, [facility] 5 10:11:46 Cerebral infarctio n 128652866 Active 2024 Caryl Brett loza, [facility] 10:12:05 Chronic obstructi ve pulmonary disease 41263358 Active 2024 Caryl Brett loza, [facility] 5 10:12:26 Essential hypertens ion 71319657 Active 2024 Caryl West null, [facility] 10:12:36 Muscle weakness 64103324 Active 2024 Caryl Speare null, [facility] 10:12:46 Constipat ion 91096066 Active 2024 Caryl Speare null, [facility] 5 10:13:10 Oropharyn geal dysphagia 76953671 Active 2024 Caryl West null, [facility] 10:13:23 Vascular dementia with behaviora l disturban ce 828989479856 104 Active 2024 Caryl Speare null, [facility] 5 10:14:03 Hyperlipi demia 42139571 Active 2024 Caryl West null, [facility]Justine. 10:14:28 Weight decreased 891033606 Active 2024 Atul Lamar DO [address] [place] [address], [phone], [facility].Citlaly 15:58:10 Problem Notes None recorded. Medical Equipment None Reported. Allergies No known drug allergies Medications Name Sig Start Date Stop Date Status Note LastModified by Organization Details LastModified Time acetamino phen 325 mg tablet Take 2 tablets every 4 hours by oral route as needed. active Not Available Not Available No t Available atorvasta tin 20 mg tablet Take 1 tablet every day by oral route. active Not Available Not Available No t Available lisinopri l 20 mg tablet Take 1 tablet every day by oral route in the morning. active Not Available Not Available No t Available ondansetr on HCl 4 mg tablet 10/06 completed Not Available Not Available Not Available Milk of Magnesia 400 mg/5 mL oral suspensio n Take 30 mL every 24 hours by oral route as needed. active Not Available Not Available No t Available clopidogr el 75 mg tablet Take 1 tablet every day by oral route in the morning. active Not Available Not Available No t Available bisacodyl 10 mg rectal supposito ry Insert 1 supposit ory every 24 hours by rectal route as needed. active Not Available Not Available No t Available metoprolo l tartrate 25 mg tablet two times daily 10/05 completed VO CH/kh Patient needs to be seen for further refills; 83901; Recorded 04/29/20 3:05PM by Alisa Brunson RN (Authori ita through Kamlesh Ibrahim DO), Office Visit; Refill Quantity : 0; Not Available Not Available Not Available Lipitor at bedtime 10/05 completed Patient needs to be seen for fasting blood work. VO CH/ab; 51176; Recorded 04/29/20 3:05PM by Alisa Brunson RN (Authori ita through Kamlesh Ibrahim DO), Office Visit; Refill Quantity : 30; Tablet; Not Available Not Available Not Available Aspirin EC daily 10/05 completed VO CH/ab; 31703; Recorded 04/29/20 3:05PM by Alisa Brunson RN (Authori ita through Kamlesh Ibrahim DO), Office Visit; Refill Quantity : 30; Tablet; Not Available Not Available Not Available polyethyl africa glycol 3350 give 17 gram by mouth as needed for constipa tion active Not Available Not Available No t Available Ready-To- Use Enema Insert 1 unit rectally as needed for constipa tion active Not Available Not Available No t Available quetiapin e 50 mg tablet Take 1 tablet twice a day by oral route. active Not Available Not Available No t Available ProAir HFA every six hours, as needed 10/05 completed 0; Recorded 04/29/20 3:05PM by Alisa Brunson RN, Office Visit; Not Available Not Available Not Available Laxative Stool Softener With Senna 8.6 mg-50 mg tablet Take 1 tablet every day by oral route as needed. active Not Available Not Available No t Available Imodium A-D 2 mg capsule TAKE 2 CAPSULES (4 MG) BY ORAL ROUTE AFTER 1ST LOOSE STOOL, FOLLOWED BY 1 CAPSULE AFTER EACH SUBSEQUE NT LOOSE STOOL WITH A MAX OF 4 TABLETS IN 24 HOURS active Not Available Not Available No t Available Paxlovid 300 mg (150 mg x 2)-100 mg tablets in a dose pack 10/06 completed Not Available Not Available Not Available Vitals Date Recorded Body weight Body mass index (BMI) Body height Oxygen saturation Oxygen saturation in Arterial blood by Pulse oximetry Heart rate Respiratory rate Body temperature Systolic And Diastolic Provider Name and Address Organization Details Last Updated DateTime 5 24198.8 2 g 22.9 kg/m2 175.26 cm 96 % 96 % 100 /min 20 /min 97.8 [degF] 130/70 mm[Hg] Caryl West [facility] 5 11:25:34 Date Recorded Body height Body mass index (BMI) Body weight Oxygen saturation Oxygen saturation in Arterial blood by Pulse oximetry Heart rate Respiratory rate Body temperature Systolic And Diastolic Provider Name and Address Organization Details Last Updated DateTime 5 175.26 cm 23.2 kg/m2 32072 g 90 % 90 % 80 /min 22 /min 97.6 [degF] 136/94 mm[Hg] [facility]Patrick 5 11:50:01 Date Recorded Body height Body mass index (BMI) Body weight Oxygen saturation Oxygen saturation in Arterial blood by Pulse oximetry Heart rate Respiratory rate Body temperature Systolic And Diastolic Provider Name and Address Organization Details Last Updated DateTime 5 175.26 cm 22.7 kg/m2 71789.2 2 g 96 % 96 % 103 /min 21 /min 97.9 [degF] 134/74 mm[Hg] [facility]CBelia 5 10:38:14 Date Recorded Body height Body mass index (BMI) Body weight Oxygen saturation Oxygen saturation in Arterial blood by Pulse oximetry Heart rate Respiratory rate Body temperature Systolic And Diastolic Provider Name and Address Organization Details Last Updated DateTime 5 175.26 cm 22.4 kg/m2 55919.0 4 g 96 % 96 % 89 /min 20 /min 97.3 [degF] 133/90 mm[Hg] [facility]CBelia 5 10:32:59 Date Recorded Body height Body mass index (BMI) Body weight Oxygen saturation Oxygen saturation in Arterial blood by Pulse oximetry Heart rate Respiratory rate Body temperature Systolic And Diastolic Provider Name and Address Organization Details Last Updated DateTime 5 175.26 cm 20.8 kg/m2 58782.5 2 g 95 % 95 % 85 /min 16 /min 98.7 [degF] 116/72 mm[Hg] [facility]CBelia 5 10:37:29 Social History None recorded. Functional Status None recorded. Mental Status None recorded. Family History Nothing Reported. Medical History No medical history recorded. Immunizations Vaccine Type Date Status Note Provider Nam e and Address Organization Details Recorded Time COVID-19, mRNA, LNP-S, PF, 100 mcg/0.5mL dose or 50 mcg/0.25mL dose 2 completed Caryl West dago, [facility] 10/06/2024 11:26:22 COVID-19 vaccine, vector-nr, rS-Ad26, PF, 0.5 mL 1 completed Caryl West null, [facility] 10/06/2024 11:26:22 Influenza, split virus, trivalent, PF 6 completed Caryl West null, [facility] 10/06/2024 11:26:22 Td(adult) unspecified formulation 4 completed Not Available [facility] 04/10/2023 02:26:19 pneumococcal, unspecified formulation 4 completed Not Available [facility] 04/10/2023 02:26:20 Influenza, split virus, trivalent, preservative 4 completed Not Available [facility] 04/10/2023 02:26:20 Past Encounters Encounter ID Performer Location Encounter Start Date Encounter Closed Date Diagnosis/Indication Diagnosis SNOMED-CT Code Diagnosis ICD10 Code Diagnosis Note [id number] Atul Lamar DO [facility] ([facility] [address]) [address] [place] [phone] 10/06/2024 11:10:34 10/30/2024 12:00:21 Chronic obstructive pulmonary disease 52811249 J44.9 stable. Continue current tx. Essential hypertension 83414145 I10 Stable, continue Lisinopril . Vascular d ementia with behavioral disturbance 1921191641 10069 F01.511 stable Schizoaffe ctive disorder 48052251 F25.9 Continue Seroquel. Cerebral infarction 4325 49144 I63.9 Continue Plavix. [id number] Atul Lamar DO [facility] ([facility] [address]) [address] [place] [phone] 11/24/2024 08:58:04 11/25/2024 07:27:33 Schizoaffective disorder 85042491 F25.9 Continue Seroquel. Vascular d ementia with behavioral disturbance 6806503813 22743 F01.511 stable [id number] Atul Lamar DO [facility] ([facility] [address]) [address] [place] [address] 01/12/2025 08:53:42 01/15/2025 23:10:42 Chronic obstructive pulmonary disease 90798231 J44.9 stable. Continue current tx. Schizoaffe ctive disorder 65296352 F25.9 Continue Seroquel. Vascular d ementia with behavioral disturbance 5353054318 15685 F01.511 stable [id number] Atul Lamar DO [facility] ([facility] [address]) [address] [place] [address] 03/18/2025 09:59:01 03/27/2025 08:41:20 Chronic obstructive pulmonary disease 03326469 J44.9 stable. Continue current tx. Essential hypertension 84576754 I10 Stable, continue Lisinopril . Vascular d ementia with behavioral disturbance 2851213417 01292 F01.511 stable Weight decreased 4798212 01 R63.4 03/18/25: 2lbs in 2 months, [place] to monitor weight, continued fortified diet and supplement s. Health Concerns Section Related Observation LastModified by Organization Detai ls LastModified Time None Recorded Concern Status LastModified by Organization Details LastModified Time None Recorded Advance Directives Directive None Recorded Payers Insurance Date Sequence Insurance Name Policy Number Policy Mccarthy Covered Member ID Mccarthy Member ID Guarantor Name 03/16/2025 1 [place] Andre Murryff [id number] Andre Banks 03/16/2025 2 [place] Andre Tim [id number] [place] Tim 03/16/2025 [place] - [facility] (MEDICARE) Andre Murryff [id number] Andre Banks 03/16/2025 [place] [facility] Andre Tim [id number] Andre Tim Notes Date Note Type Note Provider Name and Address Organization Details Recorded Time 10/06/2024 text/html ROS as noted in the HPI We are evaluating pt today in Shelter for routine f/u. Pt in their usual state and doing well. No recent issues. Atul Lamar DO [address] [place] [address], [phone], [facility] 10/29/2024 15:51:30 11/24/2024 text/html ROS as noted in the HPI We are evaluating pt today in Shelter for routine f/u. Pt in their usual state and doing well.No recent falls. Using w/c. Taking Seroquel for mood, tolerating well. Atul LamarDO [address] [place] [address], [phone], [facility] 11/24/2024 14:29:17 01/12/2025 text/html ROS as noted in the HPI We are evaluating pt today in Shelter for routine f/u. Pt in their usual state and doing well. Atul LamarDO [address] [place] [address], [phone], [facility] 01/12/2025 15:04:14 03/18/2025 text/html ROS as noted in the HPI We are evaluating pt today in Shelter for routine f/u. Pt in their usual state and doing well. Behavior has been good. [place] has noticed some slow weight loss, 2 lbs in 2 months.He is on a fortified diet and receiving supplements. Atul LamarDO [address] [place] [address], [phone], [facility] 03/26/2025 22:27:53 04/06/2025 text/html ROS as noted in the HPI We are seeing pt in [place] today for readmission. Seen in ER at [facility] for stroke on 03/26/25, not a candidate for clot tawny, CTA with possible filling defect at M2, transferred to [facility] ER.Admitted to [facility] 03/26-:HOSPITAL COURSE:Please see H and P for full details on admission, symptoms and initial care.Andre Dumont, a 69 y.o. male, intermediate resident with PMH of schizophrenia, prior stroke, dementia, functional decline who is admitted for further management of strokelike symptoms. Patient was noted to have aphasia with right-sided weakness at 11 AM on day of admission. Patient was initially taken to [facility], was noted to be outside window for TNK. Symptoms had almost resolved, however recurred.CT head on admission without any acute findings. CT perfusion showed multifocal areas of ischemia in left supratentorial brain and right cerebellum, chronic infarct in right temporal parietal. CTA head showed left M2 occlusion with penumbra.Patient was evaluated by neurology and neurosurgery recommended that patient was not a candidate for mechanical thrombectomy due to poor baseline functional and neurologic status. Patient admitted under hospitalist service for further stroke workup.03/27: Patient is awake, follows simple commands intermittently, nonverbal. MRI brain and TTE pending. Continued on aspirin, Plavix and statin. Pending PT/OT eval. Speech recommending MBS. Son updated via phone.03/28: Patient is awake alert, able to speak few words. MRI pending. PT/OT recommending SNF03/29: MRI showing small acute infarcts in left periventricular white matter. Continued on DAPT and statin. Outpatient follow-up with neurology. Pending SNF placement.03/30: Noted to have swelling at the IV access site on left arm, US venous Doppler negative for DVT, showing superficial venous thrombosis. Stable to be discharged to SNF on DAPT and statin and f/u o/p with neurology and PCP. ST assessment:Assessmen tKenton alert and pleasantly confused. No verbalizations or command following appreciated. Flip (son) provided history via phone; he reports pt is on pureed textures at baseline, coughs intermittently at mealtime and requires 100% supervision and assistance during mealtimes at his facility.Patient presents with clinical signs of oropharyngeal dysphagia, likely chronic related to dementia.Modified barium swallow study is not indicated at this time.Recommend diet initiation of pureed textures with thin liquids and STRICT adherence to safe swallowing strategies outlined below. He requires 100% supervision and assistance during mealtime. He had lost 10lbs since CVA occurred, refused to eat, wasn't taking his meds, sent to General Surgery with [facility] on 04/03/25, planned to place Peg tube the next week. He had feeding tube placed on 04/05/25, they have just started using this this afternoon.He is still eating some, NH concerned for aspiration, however he is still eating and drinking a small amount. NH concerned some meds need to be changed so he can take them via Peg tube. Not Available Not Available Not Available
--- OUTSIDE RECORDS SUMMARY | 2025-04-07 08:46 | XMS_ITS ---
Author Organization [facility] Care Team Providers Care Medical Services Coordinator Name Role Phone Teetee Rodriguez Unavailable Unavailable Atul Lamar Unavailable Unavailable Allergies and adverse reactions Code CodeSystem Substance Reaction Severity StartDate Concern Status No Known Drug Allergy Unknown 11/04/2018 active Care Team Name Role Address Phone Organization Dates Atul Lamar PCP [address] [place], [address], [facility] (Office): [facility] 07/24/2020 - 03/26/2025 Teetee Rodriguez [address], [address], [place] (Office): : [facility] 07/24/2020 - 03/26/2025 Goals Section Goals Description Status Target Date All goals will be reviewed a nd updated as needed with completion of the assessment process of the POLL[facility] unless otherwise stated in the individualized goal Active 05/24/2025 Andre will be able to make basic needs known on a daily basis through the review date. Active 05/24/2025 Andre will be free from s/s x of complications of CVA (DVT, contractures, aspiration pneumonia, dehydration) through review date. Active 05/24/2025 Andre will be/remain free o f psychotropic drug related complications, including movement disorder, discomfort, hypotension, gait disturbance, constipation/impaction or cognitive/behavioral impairment through review date. Active 0 05/24/2025 Andre will maintain current level of cognitive function through the review date. Active 05/24/2025 Andre will maintain current level of mobility through review date. Active 05/24/2025 Andre will not develop comp lications related to skin breakdown, ineffective breathing pattern, altered cardiac output, diabetes, impaired mobility through review date. Active 05/24/2025 Andre will stay in this facility Active 05/24/2025 Resident Will Be Free of Falls Active 0 05/24/2025 Resident will not have adver se effects r/t usage of medications with Black Box Warnings. Active 05/24/2025 The resident will be free fr om discomfort or adverse reactions related to anticoagulant use through the review date. Active 05/24/2025 The resident will remain marissa e from skin breakdown due to incontinence and brief use through the review date. Active The resident will resume usu al activities without further incident through the review date. Active 05/24/2025 Functional Status Code Name Recorded Time Value Entered By Ambulation 04/01/2025 Total Dependence lholland Ambulation 04/01/2025 Total Dependence lholland Ambulation 04/01/2025 Not assessed [place]holland Ambulation 04/01/2025 Not assessed [place] Dressing 04/01/2025 Extensive Assistance lhollan d Feeding or Eating 04/02/2025 Total Dependence lholla nd Toileting 04/02/2025 Extensive Assistance kking Transferring 04/01/2025 Extensive Assistance lhollan d Immunizations Immunization Status Vaccine Details Vaccine Code [...] split virus, quadrivalent, injectable, preservative free lotNumber: [id number] expiry: 03/05/2023 Mfg: Seqirus Given 0.5 ml [...] mcg/0.5mL dose or 50 mcg/0.25mL dose lotNumber: [id number] expiry: 06/20/2022 Mfg: Moderna Given 0.5 ml Right Deltoid intramuscularly 207 CVX created date: 05/27/2022 consent date: 05/27/2022 administer ed date: 05/27/2022 Educated by Teetee Bustamante on 05/27/2022 Medications Section Medication Name Status Code CodeSystem Dose Route Frequency Admin Type Sig Text Start Date End Date Plavix Tablet 75 MG active 536965 RXNORM 75 mg Oral in the morning Routine Give 75 mg by mouth in the mornin g relate d to CEREBR AL INFARC TION, UNSPEC IFIED (I63.9 ) 2021 - Lisinopril Tablet 20 MG active 590673 RXNORM 20 mg Oral in the morning Routine Give 20 mg by mouth in the mornin g 03/01/ 2022 - Acetaminophen Capsule active 650 millig rae Oral as needed PRN Give 650 millig rae by mouth every 4 hours as needed for Pain relate d to PAIN, UNSPEC IFIED (R52) 2021 - POLYETH GLYC POW 3350 NF active 511759 RXNORM 17 gram Oral as needed PRN Give 17 gram by mouth as needed for Consti pation relate d to CONSTI PATION , UNSPEC IFIED (K59.0 0) 2021 - STOOL SOFTNR TAB 8.6-50MG active 086419 RXNORM 1 tablet Oral as needed PRN Give 1 tablet by mouth as needed for Consti pation relate d to CONSTI PATION , UNSPEC IFIED (K59.0 0) 2021 - MILK OF MAGN MARQUEZ active 382284 RXNORM 30 ml Oral as needed PRN Give 30 ml by mouth as needed for Consti pation relate d to CONSTI PATION , UNSPEC IFIED (K59.0 0) 2021 - ENEMA READY- OBDULIA -TO-USE active 203319 RXNORM 1 unit Rectal as needed PRN Insert 1 unit rectal ly as needed for Consti pation relate d to CONSTI PATION , UNSPEC IFIED (K59.0 0) 2021 - BISACODYL SUP 10MG active 945331 RXNORM 10 mg Rectal as needed PRN Insert 10 mg rectal ly as needed for Consti pation relate d to CONSTI PATION , UNSPEC IFIED (K59.0 0) 2021 - Lipitor Tablet 20 MG active 707166 RXNORM 20 mg Oral one time a day Routine Give 20 mg by mouth one time a day relate d to HYPERL IPIDEM IA, UNSPEC IFIED (E78.5 ) 2021 - SEROquel Oral Tablet 50 MG active 848520 RXNORM 50 mg Oral two times a day Routine Give 50 mg by mouth two times a day for schizo affect gita disord er, depres sive type 2022 - Imodium A-D Oral Capsule 2 MG active 563030 RXNORM 2 mg Oral as needed PRN Give 2 mg by mouth as needed for Diarrh ea take 2 tablet s after first loose stool and 1 tablet after each loose with a max of 4 tablet s in 24 hours 2023 - Bisacodyl EC Tablet Delayed Release 5 MG active 045811 RXNORM 2 tablet Oral as needed PRN Give 2 tablet by mouth every 24 hours as needed for bowel manage ment 2024 - Loratadine Tablet 10 MG active 258519 RXNORM 1 tablet Oral one time a day Routine Give 1 tablet by mouth one time a day for allerg y sympto ms 2024 - Clopidogrel Bisulfate Oral Tablet 75 MG active 557361 RXNORM 1 tablet Oral one time a day Routine Give 1 tablet by mouth one time a day for blood thinne r 2024 - amLODIPine Besylate Oral Tablet 10 MG active 372872 RXNORM 10 mg Oral one time a day Routine Give 10 mg by mouth one time a day for hypert ension 2024 - Atorvastatin Calcium Oral Tablet 80 MG active 903653 RXNORM 1 tablet Oral in the evening Routine Give 1 tablet by mouth in the evenin g for choles terol 2024 - Aspirin Oral Tablet Chewable 81 MG active 356054 RXNORM 1 tablet Oral one time a day Routine Give 1 tablet by mouth one time a day for antipl atelet 2024 - Mental Status Section Date Assessment Total Score Description 03/26/2025 CAM 4 Delirium indica charo 02/26/2025 BIMS 00 severe cognitiv e impairment CAM 1 Delirium indica charo PHQ-9 00 Problems Problem # Description Date of onset Resolved Date Code CodeSystem Concern Status 1 PERSONAL HISTORY OF TRANSIENT ISCHEMIC ATTACK (TIA), AND CEREBRAL INFARCTION WITHOUT RESIDUAL DEFICITS 02/24/[address] active 2 COVID-19 12/01/19 24 12/11/[address] completed 3 NAUSEA WITH VOMITING, UNSPECIFIED 12/01/19 24 08/25/[address] completed 4 DYSPHAGIA, OROPHARYNGEAL PHASE 07/09/[address] active 5 MUSCLE WEAKNESS (GENERALIZED) 03/01/[address] active 6 UNSPECIFIED DEMENTIA, UNSPECIFIED SEVERITY, WITH OTHER BEHAVIORAL DISTURBANCE 03/01/[address] active 7 COVID-19 12/03/19 23 12/14/[address] completed 8 VASCULAR DEMENTIA, UNSPECIFIED SEVERITY, WITH OTHER BEHAVIORAL DISTURBANCE 07/15/[address] active 9 CHRONIC OBSTRUCTIVE PULMONARY DISEASE, UNSPECIFIED 07/24/[address] active 10 ENCOUNTER FOR SCREENING, UNSPECIFIED 07/24/2008/25/[address] completed 11 HYPERLIPIDEMIA, UNSPECIFIED 07/24/[address] active 12 OTHER MALAISE 07/24/[address] active 13 PAIN, UNSPECIFIED 07/24/[address] active 14 SCHIZOAFFECTIVE DISORDER, DEPRESSIVE TYPE 07/24/[address] active 15 UNSPECIFIED DEMENTIA WITH BEHAVIORAL DISTURBANCE 11/25/19 19 06/12/[address] completed 16 CEREBRAL INFARCTION, UNSPECIFIED 11/04/19 19 02/23/[address] completed 17 CONSTIPATION, UNSPECIFIED 11/04/[address] active 18 ENCOUNTER FOR SCREENING FOR RESPIRATORY TUBERCULOSIS 11/04/19 19 08/25/[address] completed 19 ESSENTIAL (PRIMARY) HYPERTENSION 11/04/[address] active 20 WEAKNESS 11/04/[address] active Reason for Referral No Reasons for Referral Entered Diagnostic Results Result Code Code System Date Test Result Interpretation Reference Range Status Notes [id number]- 6 LOINC 03/06 Complete Blood Count / CMP / Cogent- Completed Result for: Andre Dumont ( 953, M) [phone] 99-9 LOINC 03/05 Cogent- Value: See Attachment Units: Normal Final 4544-3 LOINC 03/05 HCT Value: 41.6 Units: % Normal 40.1-51.0 Final 788-0 LOINC 03/05 RDW Value: 15.6 Units: % High 11.6-14.4 Final 5905-5 LOINC 03/05 MONO% Value: 7.9 Units: % Normal 5.3-12.2 Final 93798-3 LOINC 03/05 LYMPH% Value: 26.6 Units: % Normal 21.8-53.1 Final 770-8 LOINC 03/05 NEUT% Value: 63.9 Units: % Normal 34.0-67.9 Final 706-2 [facility] 03/05 BASO% Value: 0.4 Units: % Normal 0.2-1.2 Final 713-8 [facility] 03/05 EOS% Value: 1.2 Units: % Normal 0.8-7.0 Final 3097-3 [facility] 03/05 BUN/CREAT RATIO Value: 20.4 Units: {calc} High 10-20 Final 787-2 [facility] 03/05 MCV Value: 91.7 Units: fL Normal 79.0-92.2 Final 777-3 [facility] 03/05 MPV Value: 8.4 Units: fL Low 9.4-12.4 Final 84487-6 [facility] 03/05 GLOBULIN, Calculated Value: 2.7 Units: g/dL Normal 1.9-3.7 Final 28852 [facility] 03/05 TOTAL PROTEIN Value: 6.4 Units: g/dL Normal 6.4-8.9 Final 785-6 [facility] 03/05 MCHC Value: 33.5 Units: g/dL Normal 32.3-36.5 Final 1751-7 [facility] 03/05 ALBUMIN Value: 3.7 Units: g/dL Normal 3.5-5.7 Final 7187 [facility] 03/05 HGB Value: 14.0 Units: g/dL Normal 13.7-17.5 Final 1920-8 [facility] 03/05 ASPARTATE AMINOTRANSFER ASE (AST) Value: 18 Units: [IU]/L Normal 13-39 Final 17410-19 [facility] 03/05 ALANINE AMINOTRANSFER ASE (ALT) Value: 23 Units: [IU]/L Normal 7-52 Final 68 [facility] 03/05 ALKALINE PHOSPHATASE (ALP) Value: 120 Units: [IU]/L High 34-104 Final 68705-1 [facility] 03/05 ANION GAP Value: 12.8 Units: mEq/L Normal 8-16 Final 2028-05 [facility] 03/05 CARBON DIOXIDE (BICARB) Value: 26 Units: mEq/L Normal 21-31 Final 2074-0 [facility] 03/05 CHLORIDE Value: 107 Units: mEq/L Normal 98-107 Final 2823-3 [facility] 03/05 POTASSIUM Value: 3.8 Units: mEq/L Normal 3.5-5.1 Final 2951-2 [facility] 03/05 SODIUM Value: 142 Units: mEq/L Normal 136-145 Final 2160-0 [facility] 03/05 CREATININE Value: 0.84 Units: mg/dL Normal 0.6-1.3 Final 3094-0 [facility] 03/05 BLOOD UREA NITROGEN (BUN) Value: 17.1 Units: mg/dL Normal 7.0-25.0 Final 1974- [facility] 03/05 TOTAL BILIRUBIN Value: 0.4 Units: mg/dL Normal 0.3-1.0 Final 06999-2 [facility] 03/05 CALCIUM Value: 8.5 Units: mg/dL Low 8.6-10.2 Final 2347 [facility] 03/05 GLUCOSE Value: 128 Units: mg/dL High 74-109 Final 19966-0 [facility] 03/05 Estimated GFR AA Value: >60.0 Units: mL/min/{1.7 3_m2} Normal >60.0 Final 62513-2 [facility] 03/05 Estimated GFR Value: >60.0 Units: mL/min/{1.7 3_m2} Normal >60.0 Final 785-6 [facility] 03/05 MCH Value: 30.7 Units: pg Normal 25.7-32.2 Final 1759-0 [facility] 03/05 A/G RATIO Value: 1.4 Units: {ratio} Normal 0.8-2.0 Final 777-3 [facility] 03/05 PLT Value: 216 Units: x10^3/uL Normal 163-337 Final 704 [facility] 03/05 BASO# Value: 0.0 Units: x10^3/uL Low 0.01-0.08 Final 71-2 [facility] 03/05 EOS# Value: 0.1 Units: x10^3/uL Normal 0.04-0.54 Final 742-7 [facility] 03/05 MONO# Value: 0.6 Units: x10^3/uL Normal 0.30-0.82 Final 736-9 [facility] 03/05 LYMPH# Value: 2.0 Units: x10^3/uL Normal 1.32-3.57 Final 751-8 [facility] 03/05 NEUT# Value: 4.7 Units: x10^3/uL Normal 1.78-5.38 Final 6690-2 [facility] 03/05 WBC Value: 7.4 Units: x10^3/uL Normal 4.23-9.07 Final 789-8 [facility] 03/05 RBC Value: 4.54 Units: 10*6/uL Low 4.63-6.08 Final Test Code Code System Name Date 03/05/2025 Complete Blood Count 025 [facility] 03/05/2025 Complete Blood Count 025 [facility] 03/05/2025 Complete Blood Count 025 [facility] 03/05/2025 Complete Blood Count 025 [facility] 03/05/2025 Complete Blood Count 025 [facility] 03/05/2025 Complete Blood Count 025 Social History Social History Observation Description Start Date End Date Code Code System Current Smoking Status Tobacco smoking consumption unknown [id number] SNOMED CT Sex Assigned At Male 1955 68348-9 [facility] Gender Identity Vital Signs Code Code System Vitals Name Values and Units Timing Information 9279-1 [facility] Respiratory Rate Value=18.0 Units=/m in 04/02/2025 8462-4 [facility] Blood Pressure-Diastolic Value=89 Un its=mmHg 04/02/2025 8480-6 [facility] Blood Pressure-Systolic Ldrzd=348 Un its=mmHg 04/02/2025 8310-5 [facility] Body Temperature Value=97.6 Units= F 04/02/2025 8867-4 [facility] Heart rate Value=90.0 Units=/min 56750-9 [facility] O2 % dC Oximetry Value=93.0 Units= % 04/02/2025 12152-2 [facility] Pain Level Value=0.0 04/02/2025 75971-9 LOINC Weight Kdtfy=729.0 Units=Lbs 10/2024 8302-2 LOINC Height Value=69.0 Units=Inches 02/27/2025
--- OUTSIDE RECORDS SUMMARY | 2025-04-07 08:46 | XMS_ITS | Encounter Summary ---
Author Organization [facility] Address [address] [place] [address] Care Team Providers Care Manager Fitness Name Role Phone Unavailable Primary Care Provider Unavailabl e Encounter Details Date Type Department Care Team (Late st Contact Info) Description 04/03/2025 Orders Only [facility] [address] [place] [id number] Provider, Abstract NO ADDRESS ON FILE Social History Tobacco Use Types Packs/Day Years Used Date Smoking Tobacco: Unknown Sex and Gender Information Value Date Recorded Sex Assigned at Not on file Legal Sex Male 3:19 PM CDT Gender Identity Not on file Sexual Orientation Not on file documented as of this encounter Plan of Treatment Not on file documented as of this encounter Procedures Procedure Name Priority Date/Time Associated Diagnosis Comments COMPREHENSIVE METABOLIC PANEL Routine 03/26/2025 8:36 AM CDT documented in this encounter Results * COMPREHENSIVE METABOLIC PANEL (03/26/2025 8:36 AM CDT) Blood us Abstract Provider CHEMISTRY ORDERABLES Final Res ult documented in this encounter Visit Diagnoses Not on filedocumented in this encounter
--- NOTE | 2025-04-07 08:51 | CTR_ITS ---
PROCEDURE INFORMATION: Exam: CT Head Without Contrast Exam date and time: 04/07/2025 9:29 AM Age: 69 years old Clinical indication: Altered mental status/memory loss TECHNIQUE: Imaging protocol: Computed tomography of the head without contrast. Radiation optimization: All CT scans at this facility use at least one of these dose optimization techniques: automated exposure control; mA and/or kV adjustment per patient size (includes targeted exams where dose is matched to clinical indication); or iterative reconstruction. COMPARISON: CT angio headneck* [id number] 03/26/2025 2:00 PM RADIATION DOSE METRICS: Total DLP (mGy-cm): 1114.96 FINDINGS: The study is degraded by motion artifact. Brain: There is no mass effect, midline shift, acute hemorrhage, extra-axial fluid collection or acute lobar infarct. There is disproportionate posterior fossa volume loss. There is patchy hemispheric white matter hypodensity likely representing chronic microvascular ischemic change. Cerebral ventricles: Ventricles are unchanged in caliber when compared with the prior study. Paranasal sinuses: Visualized sinuses are unremarkable. No fluid levels. Mastoid air cells: Visualized mastoid air cells are well aerated. Bones: Unremarkable. No acute fracture. Soft tissues: Unremarkable. CT/CT head wo con* [id number] IMPRESSION: No acute intracranial process.
[2025-04-07 09:05] VITALS: BP 140/106; PULSE 103; RESP 18; O2SAT 92
[2025-04-07 09:05] LABS: ABG PCO2 38.3 mmHg (35-45); ABG PH Result 7.47 (7.35-7.45); Alveolar-Arterial Oxygen Gradi 3.8 mmHg (5-10); Arterial Blood Gas Hematocrit 48.0 % (42-52); Blood Gas Allen Test Pos; Blood Gas LPM 2.0 %; Blood Gas Operator Identificat WALCI; Blood Gas Sample Site Radial, right; Blood Gas Sample Type Arterial; Carboxyhemoglobin 0.9 %THgb (0.4-20.1); Glucose Level-ABG 113.0 mg/dL (70-115); HCO3 ABG 28.1 mmol/L (22-26); Ionized Calcium Level - ABG 1.2 mmol/L (1.1-1.4); Methemoglobin 1.0 % (0.4-1.5); Oxygen Saturation ABG 95.8; PO2 ABG 73.0 mmHg (80.0-100.0); Potassium Level - ABG 4.0 mmol/L (3.5-5.0); Sodium Level - ABG 146.0 mmol/L (131-143)
[2025-04-07 09:41] LABS: Hematocrit 48.2 % (37-53); Hemoglobin 15.40 g/dL (11.27-16.99); Mean Corpuscular HGB Conc 32.0 g/dL (30-55); Mean Corpuscular Hemoglobin 29.3 pg (27-33); Mean Corpuscular Volume 91.8 fl (82-101); Nucleated Red Blood Cells % 0 %; Platelet Count 295 10^3/cmm (157-399); Red Blood Count 5.25 10^6/uL (3.85-5.65); White Blood Count 16.64 10^3/uL (3.29-11.43)
[2025-04-07 09:55] LABS: Specific Gravity, Urine 1.034 (1.005-1.030)
[2025-04-07 09:56] LABS: Add Urine Microscopic? YES; Glucose Urine UA 2+ (Normal); Nitrate Urine Negative (Negative); UA Slide Review UA Slide Review Perf
[2025-04-07 09:59] LABS: Troponin(5th) Baseline 21 ng/L (0-15)
[2025-04-07 10:03] LABS: Alanine Aminotransferase 27 U/L (0-41); Albumin Level 3.6 g/dL (3.5-5.2); Alkaline Phosphatase 132 U/L (40-130); Anion Gap 18.1 (5-19); Aspartate Amino Transferase 16 U/L (0-40); Blood Urea Nitrogen 23 mg/dL (8-23); Calcium 9.4 mg/dL (8.5-10.5); Carbon Dioxide 24 mmol/L (22-29); Chloride 104 mmol/L (98-107); Creatinine Clr Calc Pharmacy 82.4216; Globulin 3.7 g/dL (1.3-4.6); Glucose 109 mg/dL (65-115); Lipase 42 U/L (13-60); Osmolality Calculated 298 mOsm/kg (285-295); Potassium 4.1 mmol/L (3.5-5.1); Sodium 142 mmol/L (136-145); Total Protein 7.3 g/dL (6.6-8.7)
--- NOTE | 2025-04-07 10:09 | PC.PHAR ---
Addendum entered by Moriah Varela 04/07/25 10:10: Left a message for call back. Need to know if pt took am medications today 04/07/25. Original Note: Pt is from [facility]
[2025-04-07 10:30] VITALS: BP 120/99; PULSE 93; O2SAT 98
--- NOTE | 2025-04-07 10:39 | ECG_ITS ---
[facility] Test Date: 2025-04-07 Pat Name: Andre Dumont Department: Room: Gender: Male Patent Agent: : 1955 Requested By: Kamlesh Olivera Order Number: [id number] Reading MD: Measurements Intervals Fletcher Rate: 98 P: 67 WA: 132 QRS: 14 QRSD: 92 T: 65 QT: 332 QTc: 425 Interpretive Statements SINUS RHYTHM POSSIBLE RIGHT VENTRICULAR CONDUCTION DELAY [RSR (QR) IN V1/V2] [email or web address]
--- NOTE | 2025-04-07 11:06 | CTR_ITS ---
PROCEDURE INFORMATION: Exam: CTA Chest With Contrast Exam date and time: 04/07/2025 11:27 AM Age: 69 years old Clinical indication: Hyperventilation; Additional info: Hypoxia TECHNIQUE: Imaging protocol: Computed tomographic angiography of the chest with contrast. Exam focused on the arteries. 3D rendering (Not supervised by radiologist): MIP and/or 3D reconstructed images were created by the technologist. Radiation optimization: All CT scans at this facility use at least one of these dose optimization techniques: automated exposure control; mA and/or kV adjustment per patient size (includes targeted exams where dose is matched to clinical indication); or iterative reconstruction. Contrast material: OMNIPAQUE 350; Contrast volume: 72 ml; Contrast route: INTRAVENOUS (IV); COMPARISON: CR (CHEST, ) 04/07/2025 9:33 AM RADIATION DOSE METRICS: Total DLP (mGy-cm): 404.21 FINDINGS: Pulmonary arteries: No evidence for pulmonary embolism. Aorta: The ascending thoracic aorta is top-normal in caliber, measuring up to 4.1 cm in maximum short axis dimension at the level of the main pulmonary artery tapering to 2.8 cm at the level of the mid transverse arch. Lungs: Evaluation of the lung bases is somewhat limited by respiratory motion. There is streaky subsegmental atelectasis noted at the lung bases. Peribronchial cuffing is noted. There is obstruction of segmental bronchi in the right lower lobe. There is concentric narrowing oral opacification of the bronchus intermedius presumably filled with inspissated or aspirated fluid. Please correlate clinically, consider bronchoscopy. Pleural spaces: Unremarkable. No pneumothorax. No pleural effusion. Heart: Unremarkable. No cardiomegaly. No pericardial effusion. Coronary arteries: Coronary artery calcification is present. Lymph nodes: Unremarkable. No enlarged lymph nodes. Bones/joints: Degenerative changes are noted in the bones. There is a mild dextroconvex curvature of the thoracic spine. Soft tissues: There is mild gynecomastia. CT/CT angio chest PE protcl [id number] IMPRESSION: Motion degraded study. No evidence for pulmonary embolism. Basilar atelectasis, suspect aspiration. Please correlate clinically, consider bronchoscopy.
[2025-04-07 11:12] VITALS: PULSE 94; RESP 18; O2SAT 94
[2025-04-07] MEDS: iohexol 350 mg/mL 500 mL Btl (per mL) IV (11:35)
[2025-04-07 11:54] LABS: Troponin 5 2HR 17.57 ng/L (0-15)
[2025-04-07 12:10] LABS: Troponin 5 2HR Delta -3.43 ABS# (0-10)
--- NOTE | 2025-04-07 12:42 | PC.NURSE ---
report called to [facility], no further questions. [facility] contacted for transport
== END 2025-04-07 13:09 | disposition home or self-care (01) ==
PROVIDERS: Emergency Provider Family Medicine; PCP Internal Medicine
DX: R09.02 Hypoxemia (principal); I10 Essential (primary) hypertension; R53.1 Weakness; R53.81 Other malaise; F03.918 Unspecified dementia, unspecified severity, with other behavioral disturbance; Z86.73 Personal history of transient ischemic attack (TIA), and cerebral infarction without residual deficits; Z79.02 Long term (current) use of antithrombotics/antiplatelets; Z79.82 Long term (current) use of aspirin; E78.5 Hyperlipidemia, unspecified; J44.9 Chronic obstructive pulmonary disease, unspecified
CPT/HCPCS: 36415; 36600; 70450; 71045; 71275; 80051; 80053; 81001; 82330; 82550; 82805; 83690; 84484; 85025; 93005; 94640; 99285; J9999